=== PATIENT | female | born 1960 ===

== ENCOUNTER 2020-03-22 15:39 | Outpatient (REF) | payer OTHER, SELFPAY ==
--- NOTE | 2020-03-22 | MM_ITS ---
EXAMINATION: MM SCREENING DIGITAL BREAST TOMOSYNTHESIS, BILATERAL CLINICAL INFORMATION: Screening. Asymptomatic. The lifetime risk of breast cancer based on the Tyrer-Cuzick Model is 7%. COMPARISON: Mammography: 11/27/2017, 04/14/2016; outside mammography 11/06/2013, 12/19/2011 ([facility]). TECHNIQUE: Digital breast tomosynthesis is performed in both the craniocaudal and mediolateral oblique views along with computer-aided detection (CAD). Synthesized 2D images are generated from the tomosynthesis. Additional exaggerated left CC view is provided. FINDINGS: There are scattered areas of fibroglandular density (ACR BI-RADS breast composition Category b). There are no significant masses, abnormal calcifications, or other abnormalities. There is no developing density. The axilla and skin contours are unremarkable. IMPRESSION: No significant changes from prior exams. ASSESSMENT: BI-RADS 1: Negative RECOMMENDATION: Routine annual mammography screening. This patient's information was entered into a reminder system with a target due date for their next mammogram.
== END 2020-03-22 15:40 | disposition home or self-care (01) ==
LOC: HO.MAMMO 15:39
PROVIDERS: Visit Provider Internal Medicine
DX: Z12.31 Encounter for screening mammogram for malignant neoplasm of breast (principal)
CPT/HCPCS: 77063; 77067

== ENCOUNTER 2020-04-20 12:13 | Outpatient (REF) | payer OTHER, SELFPAY ==
[2020-04-20 12:59] LABS: MANUAL DIFF FLAG NO
[2020-04-20 13:09] LABS: Basophils Percent Auto 0.7 % (0-2); Hematocrit 37.4 % (37-47); Hemoglobin 11.3 g/dl (12.0-16.0); Lymphocytes Absolute Auto 1.8 X10*3/uL (1.2-4.9); Mean Corpuscular HGB Conc 30.2 g/dl (31.0-35.0); Mean Corpuscular Hemoglobin 25.2 pg (27.0-33.0); Mean Corpuscular Volume 83.3 fL (80-98); Monocytes Absolute Auto 0.4 X10*3/uL (0.1-1.2); Monocytes Percent Auto 8.9 % (2-11); Neutrophils Absolute Auto 2.4 X10*3/uL (2.0-8.3); Neutrophils Percent Auto 52.4 % (45-73); Platelet Count 245 X10*3/uL (160-400); Red Blood Count 4.49 X10*6/uL (4.20-5.50); Red Cell Distribution Width 14.9 % (11.0-16.0); White Blood Count 4.6 X10*3/uL (4.8-10.8)
[2020-04-20 13:39] LABS: Alanine Aminotransferase 14 U/L (0-31); Alkaline Phosphatase 41 U/L (39-117); Anion Gap 11 (12-20); Aspartate Amino Transferase 24 U/L (5-31); Bilirubin Total 0.7 mg/dL (0.0-1.0); Blood Urea Nitrogen 11 mg/dL (9-16); Calcium 8.6 mg/dL (8.4-10.2); Carbon Dioxide 28 mmol/L (22-29); Chloride 106 mmol/L (96-108); Cholesterol 236 mg/dL; Estimated Glomerular Filt Rate > 60; Glucose Fasting 87 mg/dL (60-99); HDL Cholesterol 74 mg/dL; LDL Cholesterol Calculated 152 mg/dl; Potassium 4.9 mmol/l (3.3-5.1); Sodium 140 mmol/L (135-145); Total Protein 6.6 g/dL (6.5-8.0); Triglycerides 54 mg/dL
[2020-04-20 14:03] LABS: Free T4 (Free Thyroxine) 0.89 ng/dL (0.71-1.85); Thyroid Stimulating Hormone 2.73 uIU/mL (0.32-4.0); Vitamin D 25-OH Total 33.6 ng/mL (>30)
[2020-04-20 14:19] LABS: Erythrocyte Sedimentation Rate 18 MM/HR (0-20)
[2020-04-20 14:29] LABS: Folate 13.2 ng/mL (> or = 4.0); Vitamin B12 303 pg/mL (200-900)
[2020-04-20 14:32] LABS: Glucose Urine UA NEG (NEG); Leukocyte Esterase Urine NEG (NEG); Nitrite Urine NEG (NEG); Specific Gravity - Urine 1.015 (1.005-1.025); Urine Blood NEG (NEG); Urine Ketones NEG (NEG); Urine Protein NEG (NEG-TRACE)
[2020-04-20 14:34] LABS: Color Urine YELLOW
[2020-04-20 14:35] LABS: Appearance Urine CLEAR
[2020-04-20 15:03] LABS: RBC Urine 0 /HPF (0); Squamous Epithelial Cell Urine TRACE /LPF; WBC Urine 0-2 /HPF (0-4)
== END 2020-04-20 12:14 | disposition home or self-care (01) ==
LOC: HO.LAB 12:13
PROVIDERS: PCP Internal Medicine; Visit Provider Internal Medicine
DX: E78.5 Hyperlipidemia, unspecified (principal); E03.9 Hypothyroidism, unspecified; M79.7 Fibromyalgia; D51.9 Vitamin B12 deficiency anemia, unspecified; G43.909 Migraine, unspecified, not intractable, without status migrainosus; D50.9 Iron deficiency anemia, unspecified; N32.81 Overactive bladder; E55.9 Vitamin D deficiency, unspecified; M81.0 Age-related osteoporosis without current pathological fracture
CPT/HCPCS: 36415; 80053; 80061; 81001; 82306; 82550; 82607; 82746; 84439; 84443; 85025; 85652

== ENCOUNTER → 2020-04-26 11:37 | Outpatient (BNVA) | payer OTHER, SELFPAY | PROVIDERS: PCP Internal Medicine; Referring Provider Internal Medicine; Visit Provider Internal Medicine | DX: Z76.89 Persons encountering health services in other specified circumstances (principal) ==

== ENCOUNTER 2020-05-24 13:01 | Outpatient (REF) | payer OTHER, SELFPAY ==
--- NOTE | 2020-05-24 13:05 | XR_ITS ---
EXAMINATION: XR HAND, RIGHT CLINICAL INFORMATION: Pain in right finger(s). COMPARISON: Radiographs right hand 09/17/2018. TECHNIQUE: PA, lateral, and oblique views of the right hand. FINDINGS: Bony mineralization is normal. There is no periarticular demineralization. No fracture, dislocation, or destructive process. The ulnar variance is neutral. The carpus shows no joint narrowing or erosive change or visible chondrocalcinosis. The pronator quadratus fat pad appears normal. The MCP and interphalangeal joints show no narrowing or erosive change. XR/XR hand RT min 3V IMPRESSION: Normal right hand.
== END 2020-05-24 13:02 | disposition home or self-care (01) ==
LOC: HO.XRAY 13:01
PROVIDERS: Visit Provider Internal Medicine
DX: M79.644 Pain in right finger(s) (principal)
CPT/HCPCS: 73130

== ENCOUNTER 2020-08-31 07:53 | Outpatient (REF) | payer OTHER, SELFPAY ==
[2020-08-31 08:33] LABS: MANUAL DIFF FLAG NO
[2020-08-31 08:45] LABS: Basophils Percent Auto 0.6 % (0-2); Hematocrit 36.6 % (37-47); Hemoglobin 11.4 g/dl (12.0-16.0); Imm Gran Abs Auto 0.01 X10*3/uL (0.00-0.03); Imm Gran Pct Auto 0.2 % (0.0-0.4); Lymphocytes Absolute Auto 1.8 X10*3/uL (1.2-4.9); Lymphocytes Percent Auto 34.6 % (20-40); Mean Corpuscular HGB Conc 31.1 g/dl (31.0-35.0); Mean Corpuscular Hemoglobin 25.7 pg (27.0-33.0); Mean Corpuscular Volume 82.6 fL (80-98); Monocytes Absolute Auto 0.5 X10*3/uL (0.1-1.2); Monocytes Percent Auto 9.7 % (2-11); Neutrophils Absolute Auto 2.8 X10*3/uL (2.0-8.3); Neutrophils Percent Auto 54.9 % (45-73); Platelet Count 219 X10*3/uL (160-400); Red Blood Count 4.43 X10*6/uL (4.20-5.50); Red Cell Distribution Width 15.2 % (11.0-16.0); White Blood Count 5.2 X10*3/uL (4.8-10.8)
[2020-08-31 09:10] LABS: Alanine Aminotransferase 12 U/L (0-31); Albumin Level 4.3 g/dL (3.5-5.0); Alkaline Phosphatase 42 U/L (39-117); Anion Gap 12 (12-20); Aspartate Amino Transferase 20 U/L (5-31); Bilirubin Total 0.6 mg/dL (0.0-1.0); Blood Urea Nitrogen 13 mg/dL (9-16); Carbon Dioxide 28 mmol/L (22-29); Chloride 105 mmol/L (96-108); Cholesterol 234 mg/dL; Estimated Glomerular Filt Rate > 60; Glucose Fasting 98 mg/dL (60-99); HDL Cholesterol 75 mg/dL; LDL Cholesterol Calculated 143 mg/dl; Sodium 141 mmol/L (135-145); Total Protein 6.8 g/dL (6.5-8.0); Triglycerides 80 mg/dL
[2020-08-31 09:35] LABS: Free T4 (Free Thyroxine) 0.95 ng/dL (0.71-1.85); Thyroid Stimulating Hormone 3.25 uIU/mL (0.32-4.0); Vitamin D 25-OH Total 25.3 ng/mL (>30)
[2020-08-31 10:01] LABS: Glucose Urine UA NEG (NEG); Leukocyte Esterase Urine NEG (NEG); Nitrite Urine NEG (NEG); PH 5.5 (5.0-8.0); Specific Gravity - Urine 1.025 (1.005-1.025); Urine Blood TRACE (NEG); Urine Ketones NEG (NEG); Urine Protein NEG (NEG-TRACE)
[2020-08-31 10:03] LABS: Appearance Urine CLEAR; Color Urine YELLOW
[2020-08-31 10:13] LABS: RBC Urine 0-2 /HPF (0); Squamous Epithelial Cell Urine TRACE /LPF; WBC Urine 0 /HPF (0-4)
== END 2020-08-31 07:54 | disposition home or self-care (01) ==
LOC: HO.LAB 07:53
PROVIDERS: PCP Internal Medicine; Visit Provider Internal Medicine
DX: M79.7 Fibromyalgia (principal); G43.909 Migraine, unspecified, not intractable, without status migrainosus; E78.00 Pure hypercholesterolemia, unspecified; E03.9 Hypothyroidism, unspecified; E55.9 Vitamin D deficiency, unspecified; N32.81 Overactive bladder; M81.0 Age-related osteoporosis without current pathological fracture; K59.00 Constipation, unspecified
CPT/HCPCS: 36415; 80053; 80061; 81001; 81003; 82306; 84439; 84443; 85025

== ENCOUNTER 2020-11-18 07:44 | Outpatient (REF) | payer OTHER, SELFPAY ==
--- NOTE | 2020-11-18 07:47 | EMG_ITS ---
Bilateral median and ulnar motor and sensory studies were performed. Bilateral radial sensory study was performed and paraspinal muscles were tested with a needle. IMPRESSION: Mild bilateral median neuropathy across carpal tunnel. MD JOSE Burr/EMMANUEL / [phone]
== END 2020-11-18 07:45 | disposition home or self-care (01) ==
LOC: HO.NEURO 07:44
PROVIDERS: Visit Provider Internal Medicine
DX: M79.641 Pain in right hand (principal); M79.642 Pain in left hand
CPT/HCPCS: 95886; 95911

== ENCOUNTER 2020-11-30 13:05 | Outpatient (REF) | payer OTHER, SELFPAY ==
--- NOTE | ~2020-11-30 | XR_ITS ---
EXAMINATION: XR HAND, LEFT CLINICAL INFORMATION: Pain. COMPARISON: None TECHNIQUE: PA, lateral, and oblique views of the left hand. FINDINGS: The bones and soft tissues are normal. No fracture. Alignment is anatomic. Joint spaces are maintained. No erosions or soft tissue calcifications. XR/XR hand LT min 3V IMPRESSION: Unremarkable left hand.
[2020-11-30 13:59] LABS: MANUAL DIFF FLAG NO
[2020-11-30 14:05] LABS: Basophils Percent Auto 0.5 % (0-2); Hematocrit 38.8 % (37-47); Hemoglobin 12.1 g/dl (12.0-16.0); Imm Gran Abs Auto 0.02 X10*3/uL (0.00-0.03); Imm Gran Pct Auto 0.3 % (0.0-0.4); Lymphocytes Absolute Auto 1.9 X10*3/uL (1.2-4.9); Lymphocytes Percent Auto 30.7 % (20-40); Mean Corpuscular HGB Conc 31.2 g/dl (31.0-35.0); Mean Corpuscular Hemoglobin 25.6 pg (27.0-33.0); Monocytes Absolute Auto 0.4 X10*3/uL (0.1-1.2); Monocytes Percent Auto 6.8 % (2-11); Neutrophils Absolute Auto 3.8 X10*3/uL (2.0-8.3); Neutrophils Percent Auto 61.7 % (45-73); Platelet Count 234 X10*3/uL (160-400); Red Blood Count 4.73 X10*6/uL (4.20-5.50); Red Cell Distribution Width 14.6 % (11.0-16.0); White Blood Count 6.2 X10*3/uL (4.8-10.8)
[2020-11-30 14:26] LABS: Rheumatoid Factor < 15.0 IU/mL (<15.0)
[2020-11-30 14:28] LABS: Alanine Aminotransferase 8 U/L (0-31); Albumin Level 4.3 g/dL (3.5-5.0); Alkaline Phosphatase 47 U/L (39-117); Anion Gap 12 (12-20); Aspartate Amino Transferase 21 U/L (5-31); Blood Urea Nitrogen 12 mg/dL (9-16); C Reactive Protein 0.11 mg/dL (< or = 0.50); Calcium 9.5 mg/dL (8.4-10.2); Carbon Dioxide 27 mmol/L (22-29); Chloride 105 mmol/L (96-108); Estimated Glomerular Filt Rate > 60; Glucose Random 93 mg/dL (60-115); Potassium 4.3 mmol/L (3.3-5.1); Sodium 140 mmol/L (135-145); Total Protein 7.2 g/dL (6.5-8.0)
[2020-11-30 14:51] LABS: Erythrocyte Sedimentation Rate 17 MM/HR (0-20)
[2020-12-01 10:46] LABS: Lyme Abs Screen <0.90 index
[2020-12-01 12:27] LABS: Antibody to SS-A Antigen <1.0 NEG AI (<1.0 NEG); Antibody to SS-B Antigen <1.0 NEG AI (<1.0 NEG)
[2020-12-01 14:02] LABS: Anti Nuclear Antibody Screen NEGATIVE (NEGATIVE)
[2020-12-01 16:56] LABS: Cyclic Citrullinated Peptide <16 UNITS
== END 2020-11-30 13:06 | disposition home or self-care (01) ==
LOC: HO.LAB 13:05
PROVIDERS: PCP Internal Medicine; Visit Provider Student in an Organized Health Care Education/Training Program
DX: M79.641 Pain in right hand (principal); M79.642 Pain in left hand; M25.50 Pain in unspecified joint
CPT/HCPCS: 36415; 73130; 80053; 82550; 85025; 85652; 86038; 86039; 86140; 86200; 86235; 86431; 86617; 86618; 99202

== ENCOUNTER 2020-12-09 11:07 | Outpatient (REF) | payer OTHER, SELFPAY ==
[2020-12-09 11:30] LABS: MANUAL DIFF FLAG NO
[2020-12-09 11:39] LABS: Basophils Percent Auto 0.8 % (0-2); Hematocrit 38.6 % (37-47); Imm Gran Abs Auto 0.01 X10*3/uL (0.00-0.03); Imm Gran Pct Auto 0.2 % (0.0-0.4); Lymphocytes Absolute Auto 2.1 X10*3/uL (1.2-4.9); Lymphocytes Percent Auto 43.1 % (20-40); Mean Corpuscular HGB Conc 31.1 g/dl (31.0-35.0); Mean Corpuscular Hemoglobin 25.3 pg (27.0-33.0); Mean Corpuscular Volume 81.4 fL (80-98); Mean Platelet Volume 11.4 fL (9.4-12.3); Monocytes Absolute Auto 0.5 X10*3/uL (0.1-1.2); Monocytes Percent Auto 9.3 % (2-11); Neutrophils Absolute Auto 2.3 X10*3/uL (2.0-8.3); Neutrophils Percent Auto 46.6 % (45-73); Platelet Count 260 X10*3/uL (160-400); Red Blood Count 4.74 X10*6/uL (4.20-5.50); White Blood Count 4.9 X10*3/uL (4.8-10.8)
[2020-12-09 11:57] LABS: Alanine Aminotransferase 7 U/L (0-31); Albumin Level 4.3 g/dL (3.5-5.0); Alkaline Phosphatase 51 U/L (39-117); Anion Gap 12 (12-20); Aspartate Amino Transferase 19 U/L (5-31); Bilirubin Total 0.7 mg/dL (0.0-1.0); Blood Urea Nitrogen 10 mg/dL (9-16); Calcium 9.5 mg/dL (8.4-10.2); Carbon Dioxide 23 mmol/L (22-29); Chloride 112 mmol/L (96-108); Cholesterol 241 mg/dL; Estimated Glomerular Filt Rate > 60; Glucose Fasting 101 mg/dL (60-99); HDL Cholesterol 65 mg/dL; LDL Cholesterol Calculated 164 mg/dl; Potassium 4.7 mmol/L (3.3-5.1); Sodium 142 mmol/L (135-145); Total Protein 7.1 g/dL (6.5-8.0); Triglycerides 63 mg/dL
[2020-12-09 12:22] LABS: Free T4 (Free Thyroxine) 1.01 ng/dL (0.71-1.85); Thyroid Stimulating Hormone 0.96 uIU/mL (0.32-4.0)
== END 2020-12-09 11:08 | disposition home or self-care (01) ==
LOC: HO.LAB 11:07
PROVIDERS: PCP Internal Medicine; Visit Provider Internal Medicine
DX: K59.00 Constipation, unspecified (principal); M79.7 Fibromyalgia; E78.00 Pure hypercholesterolemia, unspecified; E03.9 Hypothyroidism, unspecified
CPT/HCPCS: 36415; 80053; 80061; 84439; 84443; 85025

== ENCOUNTER → 2020-12-16 12:51 | Outpatient (BNVA) | payer OTHER, SELFPAY | PROVIDERS: PCP Internal Medicine; Visit Provider Student in an Organized Health Care Education/Training Program | DX: M79.641 Pain in right hand (principal); M79.642 Pain in left hand | CPT/HCPCS: 99212 ==

== ENCOUNTER 2021-02-03 08:53 | Outpatient (REF) | payer OTHER, SELFPAY ==
[2021-02-03 09:36] LABS: Glucose Urine UA NEG (NEG); Leukocyte Esterase Urine 1+ (NEG); Nitrite Urine NEG (NEG); Specific Gravity - Urine <= 1.005 (1.005-1.025); UACC Culture Trigger YES; Urine Blood NEG (NEG); Urine Ketones NEG (NEG); Urine Protein NEG (NEG-TRACE)
[2021-02-03 09:37] LABS: Appearance Urine CLEAR; Color Urine YELLOW
[2021-02-03 09:47] LABS: RBC Urine 0-2 /HPF (0)
[2021-02-03 09:48] LABS: Bacteria Urine TRACE /LPF; Squamous Epithelial Cell Urine 1+ /LPF
[2021-02-03 09:53] LABS: C Reactive Protein 0.11 mg/dL (< or = 0.50)
[2021-02-03 10:24] LABS: Erythrocyte Sedimentation Rate 21 MM/HR (0-20)
[2021-02-04 19:22] LABS: Cyclic Citrullinated Peptide <16 UNITS
== END 2021-02-03 08:54 | disposition home or self-care (01) ==
LOC: HO.LAB 08:53
PROVIDERS: PCP Internal Medicine; Visit Provider Internal Medicine
DX: M25.50 Pain in unspecified joint (principal); M79.641 Pain in right hand; M79.642 Pain in left hand
CPT/HCPCS: 36415; 81001; 85652; 86140; 86200; 87086

== ENCOUNTER → 2021-02-10 08:35 | Outpatient (BNVA) | payer OTHER, SELFPAY | PROVIDERS: PCP Internal Medicine; Visit Provider Internal Medicine | DX: K59.00 Constipation, unspecified (principal) ==

== ENCOUNTER 2021-03-11 08:26 | Outpatient (REF) | payer OTHER, SELFPAY ==
--- NOTE | ~2021-03-11 | MM_ITS ---
EXAMINATION: BONE DENSITOMETRY CLINICAL INDICATION: Encounter for screening for osteoporosis. Encounter for imaging to assess osteoporosis change. COMPARISON: Previous BD dated 01/24/2019 and baseline BD dated 10/28/2013. TECHNIQUE: Using a T-Quad 22 DXA System (software version: 13.1) manufactured by [employer], dual-energy x-ray absorptiometry was performed of the lumbar spine and left hip. The images are of good technical quality. Summary results are attached. FINDINGS: AP SPINE L1-L4: Current: BMD 0.852 g/cm2, Z-score -1.7, T-score -2.7, osteoporosis, 0.2% decrease from previous, 9.9% decrease from baseline (<5% change is not significant). Prior: BMD 0.854 g/cm2. Baseline: BMD 0.946 g/cm2. LEFT FEMUR, NECK: Current: BMD 0.795 g/cm2, Z-score -0.6, T-score -1.7, osteopenia. Prior: BMD 0.686 g/cm2. Baseline: BMD 0.840 g/cm2. LEFT FEMUR, TOTAL: Current: BMD 0.794 g/cm2, Z-score -0.9, T-score -1.7, osteopenia, 9.4% increase from previous, 9.0% decrease from baseline (<5% change is not significant). Prior: BMD 0.726 g/cm2. Baseline: BMD 0.873 g/cm2. IDENTIFIED RISK FACTORS: Family history, (parent hip fracture). Secondary osteoporosis, (intestinal or bowel disease). Osteoporosis. Recurrent falls. Menopause. HISTORY OF FRACTURE: None listed. MEDICATIONS: Bisphosphonates. Calcium or multivitamin. Vitamin D. MM/XR DEXA axial skeleton IMPRESSION: 1. DIAGNOSIS: Osteoporosis based on the lowest T-score value of -2.7 in the lumbar spine applying World Health Organization criteria. 2. 10-YEAR FRACTURE RISK PREDICTION, FRAX: Major osteoporotic fracture (clinical spine, forearm, hip or shoulder) 9.7%. Hip fracture 0.5%. 3. Treatment Recommendations: NOF guidelines recommend consideration for treatment in postmenopausal women and men age 50 and older presenting with the following: -A hip or vertebral (clinical or morphometric) fracture. -T-score less than or equal to -2.5 at the femoral neck or spine after appropriate evaluation to exclude secondary causes. -Low bone mass at the hip or spine and a 10-year fracture probability by FRAX of greater than or equal to 3% for hip fracture or greater than or equal to 20% for major osteoporotic fracture based on the [place] adapted WHO algorithm. 4. Other Recommendations: All treatment decisions require clinical judgment and consideration of individual patient factors, including patient preferences, comorbidities, previous drug use, risk factors not captured in the FRAX model (e.g. frailty, falls, vitamin D deficiency, increased bone turnover, interval significant decline in bone density) and possible under or overestimation of fracture risk by FRAX. Additional medical evaluation for secondary cause of low bone mineral density may be appropriate. FUTURE SCAN RECOMMENDATION: People with diagnosed cases of osteoporosis or at high risk for fracture should have regular bone mineral density tests. For patients eligible for Medicare, routine testing is allowed once every 2 years. The testing frequency can be increased to one year for patients who have rapidly progressing disease, those who are receiving or discontinuing medical therapy to restore bone mass, or have additional risk factors.
[2021-03-11 08:53] LABS: MANUAL DIFF FLAG NO
[2021-03-11 09:59] LABS: Basophils Percent Auto 0.4 % (0-2); Hematocrit 37.6 % (37-47); Hemoglobin 11.4 g/dl (12.0-16.0); Imm Gran Abs Auto 0.01 X10*3/uL (0.00-0.03); Imm Gran Pct Auto 0.2 % (0.0-0.4); Lymphocytes Absolute Auto 1.9 X10*3/uL (1.2-4.9); Mean Corpuscular HGB Conc 30.3 g/dl (31.0-35.0); Mean Corpuscular Hemoglobin 24.7 pg (27.0-33.0); Mean Corpuscular Volume 81.4 fL (80-98); Mean Platelet Volume 11.7 fL (9.4-12.3); Monocytes Absolute Auto 0.5 X10*3/uL (0.1-1.2); Neutrophils Absolute Auto 2.8 X10*3/uL (2.0-8.3); Neutrophils Percent Auto 53.4 % (45-73); Platelet Count 235 X10*3/uL (160-400); Red Blood Count 4.62 X10*6/uL (4.20-5.50); Red Cell Distribution Width 14.8 % (11.0-16.0); White Blood Count 5.2 X10*3/uL (4.8-10.8)
[2021-03-11 10:28] LABS: Alanine Aminotransferase 9 U/L (0-31); Albumin Level 4.3 g/dL (3.5-5.0); Alkaline Phosphatase 47 U/L (39-117); Anion Gap 11 (12-20); Aspartate Amino Transferase 19 U/L (5-31); Bilirubin Total 0.9 mg/dL (0.0-1.0); Blood Urea Nitrogen 18 mg/dL (9-16); Calcium 9.6 mg/dL (8.4-10.2); Carbon Dioxide 30 mmol/L (22-29); Chloride 105 mmol/L (96-108); Cholesterol 230 mg/dL; Estimated Glomerular Filt Rate > 60; Glucose Fasting 96 mg/dL (60-99); HDL Cholesterol 70 mg/dL; LDL Cholesterol Calculated 149 mg/dl; Potassium 4.7 mmol/L (3.3-5.1); Sodium 141 mmol/L (135-145); Total Protein 6.9 g/dL (6.5-8.0); Triglycerides 58 mg/dL
[2021-03-11 10:38] LABS: Appearance Urine CLEAR; Color Urine YELLOW; Glucose Urine UA NEG (NEG); Leukocyte Esterase Urine NEG (NEG); Nitrite Urine NEG (NEG); Urine Blood NEG (NEG); Urine Ketones NEG (NEG); Urine Protein NEG (NEG-TRACE)
[2021-03-11 11:24] LABS: Free T4 (Free Thyroxine) 0.96 ng/dL (0.71-1.85); Thyroid Stimulating Hormone 1.73 uIU/mL (0.32-4.0); Vitamin D 25-OH Total 37.2 ng/mL (>30)
== END 2021-03-11 08:27 | disposition home or self-care (01) ==
LOC: HO.MAMMO 08:26
PROVIDERS: Absent Provider Internal Medicine; PCP Internal Medicine; Visit Provider Internal Medicine
DX: Z00.00 Encounter for general adult medical examination without abnormal findings (principal); M81.0 Age-related osteoporosis without current pathological fracture; M18.0 Bilateral primary osteoarthritis of first carpometacarpal joints; N32.81 Overactive bladder; E55.9 Vitamin D deficiency, unspecified; E03.9 Hypothyroidism, unspecified; E78.00 Pure hypercholesterolemia, unspecified; E66.3 Overweight; K59.00 Constipation, unspecified; M79.7 Fibromyalgia; Z91.81 History of falling; Z78.0 Asymptomatic menopausal state
CPT/HCPCS: 36415; 77080; 80053; 80061; 81003; 82306; 84439; 84443; 85025

== ENCOUNTER 2021-03-25 09:27 | Outpatient (REF) | payer OTHER, SELFPAY | END 2021-03-25 09:28 | disposition home or self-care (01) | LOC: HO.LAB 09:27 | PROVIDERS: PCP Internal Medicine; Visit Provider Advanced Practice Midwife | DX: Z01.419 Encounter for gynecological examination (general) (routine) without abnormal findings (principal); N84.1 Polyp of cervix uteri; Z80.9 Family history of malignant neoplasm, unspecified | CPT/HCPCS: 57500; 58558; 88305 ==

== ENCOUNTER → 2021-04-14 12:34 | Outpatient (BNVA) | payer OTHER, SELFPAY | PROVIDERS: PCP Internal Medicine; Visit Provider Internal Medicine ==

== ENCOUNTER 2021-04-18 07:38 | Outpatient (REF) | payer OTHER, SELFPAY ==
[2021-04-18 09:06] LABS: Alanine Aminotransferase 10 U/L (0-31); Albumin Level 4.3 g/dL (3.5-5.0); Alkaline Phosphatase 45 U/L (39-117); Anion Gap 11 (12-20); Aspartate Amino Transferase 19 U/L (5-31); Bilirubin Total 0.9 mg/dL (0.0-1.0); Blood Urea Nitrogen 12 mg/dL (9-16); Calcium 9.3 mg/dL (8.4-10.2); Carbon Dioxide 30 mmol/L (22-29); Chloride 104 mmol/L (96-108); Estimated Glomerular Filt Rate > 60; Glucose Random 97 mg/dL (60-115); Phosphorus 4.3 mg/dL (2.7-4.5); Potassium 3.9 mmol/L (3.3-5.1); Sodium 141 mmol/L (135-145)
[2021-04-18 09:26] LABS: Free T4 (Free Thyroxine) 1.06 ng/dL (0.71-1.85); Thyroid Stimulating Hormone 2.23 uIU/mL (0.32-4.0); Vitamin D 25-OH Total 45.4 ng/mL (>30)
[2021-04-19 14:17] LABS: Prot Elec - Albumin 4.1 g/dL (3.8-4.8); Prot Elec - Alpha1 0.3 g/dL (0.2-0.3); Prot Elec - Alpha2 0.8 g/dL (0.5-0.9); Prot Elec - Beta 1 0.4 g/dL (0.4-0.6); Prot Elec - Beta 2 0.2 g/dL (0.2-0.5); Prot Elec - Total Protein 6.7 g/dL (6.1-8.1)
[2021-04-20 12:12] LABS: Calcium (PTHI) 9.5 mg/dL (8.6-10.4); PTHI 58 pg/mL (14-64)
[2021-04-21 10:57] LABS: Alkaline Phosphatase Bone 6.7 mcg/L (5.6-29.0)
[2021-04-25 10:11] LABS: N-Telopeptide 52 (see note); NTXCreaRU 174 mg/dL (20-275)
== END 2021-04-18 07:39 | disposition home or self-care (01) ==
LOC: HO.LAB 07:38
PROVIDERS: PCP Internal Medicine; Visit Provider Internal Medicine
DX: M81.0 Age-related osteoporosis without current pathological fracture (principal); E55.9 Vitamin D deficiency, unspecified
CPT/HCPCS: 36415; 80053; 82306; 82523; 83970; 84075; 84100; 84165; 84439; 84443

== ENCOUNTER 2021-04-23 08:19 | Outpatient (REF) | payer OTHER, SELFPAY ==
--- NOTE | ~2021-04-23 | MM_ITS ---
EXAMINATION: MM SCREENING DIGITAL BREAST TOMOSYNTHESIS, BILATERAL CLINICAL INFORMATION: Screening. Asymptomatic. The lifetime risk of breast cancer based on the Tyrer-Cuzick Model is 7%. COMPARISON: Mammography: 03/22/2020, 11/27/2017, 04/14/2016 TECHNIQUE: Digital breast tomosynthesis is performed in both the craniocaudal and mediolateral oblique views along with computer-aided detection (CAD). Synthesized 2D images are generated from the tomosynthesis. FINDINGS: There are scattered areas of fibroglandular density (ACR BI-RADS breast composition Category b). Parenchymal pattern is similar to prior studies. No interval mass or architectural abnormality. No abnormal calcifications. The axilla and skin contours are unremarkable. MM/MM tomosynthesis screening BI IMPRESSION: No mammographic evidence of malignancy. ASSESSMENT: BI-RADS 1: Negative RECOMMENDATION: Routine annual mammography screening. This patient's information was entered into a reminder system with a target due date for their next mammogram.
== END 2021-04-23 08:20 | disposition home or self-care (01) ==
LOC: HO.MAMMO 08:19
PROVIDERS: Visit Provider Internal Medicine
DX: Z12.31 Encounter for screening mammogram for malignant neoplasm of breast (principal)
CPT/HCPCS: 77063; 77067

== ENCOUNTER → 2021-06-09 10:26 | Outpatient (BNVA) | payer OTHER, SELFPAY | PROVIDERS: PCP Internal Medicine; Visit Provider Internal Medicine ==

== ENCOUNTER → 2021-10-26 13:08 | Outpatient (BNVA) | payer OTHER, SELFPAY | PROVIDERS: PCP Internal Medicine; Visit Provider Internal Medicine | DX: Z13.89 Encounter for screening for other disorder (principal) ==

== ENCOUNTER 2021-10-27 07:38 | Outpatient (REF) | payer OTHER, SELFPAY ==
[2021-10-27 08:14] LABS: MANUAL DIFF FLAG NO
[2021-10-27 08:39] LABS: Basophils Percent Auto 0.4 % (0-2); Hematocrit 38.3 % (37.0-47.0); Hemoglobin 11.9 g/dl (12.0-16.0); Imm Gran Abs Auto 0.01 X10*3/uL (0.00-0.03); Imm Gran Pct Auto 0.2 % (0.0-0.4); Lymphocytes Absolute Auto 1.7 X10*3/uL (1.2-4.9); Lymphocytes Percent Auto 36.8 % (20-40); Mean Corpuscular HGB Conc 31.1 g/dl (31.0-35.0); Mean Corpuscular Hemoglobin 25.5 pg (27.0-33.0); Mean Corpuscular Volume 82.2 fL (80.0-98.0); Mean Platelet Volume 11.5 fL (9.4-12.3); Monocytes Absolute Auto 0.4 X10*3/uL (0.1-1.2); Monocytes Percent Auto 8.7 % (2-11); Neutrophils Absolute Auto 2.4 x10*3/uL (2.0-8.3); Neutrophils Percent Auto 53.9 % (45-73); Platelet Count 207 X10*3/uL (160-400); Red Blood Count 4.66 X10*6/uL (4.20-5.50); Red Cell Distribution Width 15.1 % (11.0-16.0); White Blood Count 4.5 X10*3/uL (4.8-10.8)
[2021-10-27 09:14] LABS: Alanine Aminotransferase 12 U/L (0-31); Albumin Level 4.1 g/dL (3.5-5.0); Alkaline Phosphatase 46 U/L (39-117); Anion Gap 11 (12-20); Aspartate Amino Transferase 19 U/L (5-31); Bilirubin Total 0.8 mg/dL (0.0-1.0); Blood Urea Nitrogen 10 mg/dL (9-16); Calcium 9.3 mg/dL (8.4-10.2); Carbon Dioxide 28 mmol/L (22-29); Chloride 106 mmol/L (96-108); Cholesterol 233 mg/dL; Estimated Glomerular Filt Rate > 60; Glucose Fasting 100 mg/dL (60-99); HDL Cholesterol 66 mg/dL; LDL Cholesterol Calculated 156 mg/dl; Phosphorus 3.6 mg/dL (2.7-4.5); Potassium 4.9 mmol/L (3.3-5.1); Sodium 140 mmol/L (135-145); Total Protein 6.9 g/dL (6.5-8.0); Triglycerides 55 mg/dL
[2021-10-27 09:32] LABS: Free T4 (Free Thyroxine) 1.07 ng/dL (0.71-1.85); Thyroid Stimulating Hormone 1.92 uIU/mL (0.32-4.0); Vitamin D 25-OH Total 41.4 ng/mL (>30)
[2021-10-27 09:41] LABS: Free T4 (Free Thyroxine) 1.15 ng/dL (0.71-1.85); Thyroid Stimulating Hormone 1.92 uIU/mL (0.32-4.0); Vitamin D 25-OH Total 41.7 ng/mL (>30)
[2021-10-27 09:49] LABS: Appearance Urine CLEAR; Color Urine YELLOW; Glucose Urine UA NEG (NEG); Leukocyte Esterase Urine NEG (NEG); Nitrite Urine NEG (NEG); PH 6.5 (5.0-8.0); Specific Gravity - Urine 1.015 (1.005-1.025); Urine Blood NEG (NEG); Urine Ketones NEG (NEG); Urine Protein NEG (NEG-TRACE)
[2021-10-27 10:38] LABS: Microalbumin Urine < 5.0 mg/L
[2021-10-28 14:21] LABS: Calcium (PTHI) 9.3 mg/dL (8.6-10.4); PTHI 78 pg/mL (16-77)
== END 2021-10-27 07:39 | disposition home or self-care (01) ==
LOC: HO.LAB 07:38
PROVIDERS: Absent Provider Internal Medicine; PCP Internal Medicine; Visit Provider Internal Medicine
DX: I10 Essential (primary) hypertension (principal); E55.9 Vitamin D deficiency, unspecified; E03.9 Hypothyroidism, unspecified; E78.00 Pure hypercholesterolemia, unspecified; E11.9 Type 2 diabetes mellitus without complications; E21.3 Hyperparathyroidism, unspecified
CPT/HCPCS: 36415; 80053; 80061; 81003; 82043; 82306; 83970; 84100; 84439; 84443; 85025

== ENCOUNTER 2022-03-30 10:04 | Outpatient (REF) | payer OTHER, SELFPAY ==
[2022-04-04 16:02] LABS: HPV mRNA E6/E7 rflx Not Detected (Not Detected)
== END 2022-03-30 10:05 | disposition home or self-care (01) ==
LOC: HO.LNP 10:04
PROVIDERS: Visit Provider Advanced Practice Midwife
DX: Z01.419 Encounter for gynecological examination (general) (routine) without abnormal findings (principal); Z11.51 Encounter for screening for human papillomavirus (HPV)
CPT/HCPCS: 87624; 88142

== ENCOUNTER 2022-04-18 13:33 | Outpatient (REF) | payer OTHER, SELFPAY ==
--- NOTE | ~2022-04-18 | MM_ITS ---
EXAMINATION: MM DIAGNOSTIC DIGITAL BREAST TOMOSYNTHESIS, BILATERAL US DIAGNOSTIC ULTRASOUND BREAST, RIGHT CLINICAL INFORMATION: Area of palpable concern near areolar 12:00 right breast noted at clinical exam. No discharge. The lifetime risk of breast cancer based on the Tyrer-Cuzick Model is 13%. COMPARISON: Mammography: 04/23/2021, 03/22/2020, 11/29/2017 TECHNIQUE: Digital breast tomosynthesis is performed in both the craniocaudal and mediolateral oblique views along with computer-aided detection (CAD). Synthesized 2D images are generated from the tomosynthesis. Ultrasound right breast is targeted to the anterior breast 10:00 through 2:00 position. Grayscale imaging and color Doppler are performed without and with harmonics. FINDINGS: There are scattered areas of fibroglandular density (ACR BI-RADS breast composition Category b). Parenchymal pattern is similar to prior exams. There is no developing density or interval mass or architectural abnormality. No abnormal calcifications. No skin thickening or coarsening of the Darryl's ligaments. The axilla are unremarkable. Ultrasound demonstrates no cystic or solid mass or architectural abnormality. No focal duct ectasia. No skin thickening or edema tracking in soft tissue planes. Results are discussed with the patient at time of visit. There is no mammographic or ultrasound correlate for the clinical concern. If clinically indicated, further evaluation with surgical consult may be considered. MM/MM tomosynthesis diagnostic BI IMPRESSION: -No mammographic evidence of malignancy. -Unremarkable targeted right breast ultrasound. ASSESSMENT: BI-RADS 1: Negative RECOMMENDATION: 1. Patient should be managed based on the clinical impression. If clinically indicated, further evaluation may be considered with surgical consult. Decision to proceed with biopsy should be based on clinical grounds and degree of clinical concern. 2. Otherwise, routine annual screening mammography. This patient's information was entered into a reminder system with a target due date for their next mammogram.
== END 2022-04-18 13:34 | disposition home or self-care (01) ==
LOC: HO.MAMMO 13:33
PROVIDERS: PCP Internal Medicine; Visit Provider Internal Medicine
DX: N64.4 Mastodynia (principal); N64.59 Other signs and symptoms in breast
CPT/HCPCS: 76642; 77062; 77066

== ENCOUNTER → 2022-05-04 10:54 | Outpatient (BNVA) | payer OTHER, SELFPAY | PROVIDERS: PCP Internal Medicine; Visit Provider Advanced Practice Midwife | DX: Z71.2 Person consulting for explanation of examination or test findings (principal); N64.59 Other signs and symptoms in breast; N64.4 Mastodynia | CPT/HCPCS: 99212 ==

== ENCOUNTER 2022-05-30 11:55 | Outpatient (REF) | payer OTHER, SELFPAY ==
--- NOTE | ~2022-05-30 | CT_ITS ---
EXAMINATION: CT head/brain wo IV con CLINICAL INFORMATION: Reason for Exam r/o mass COMPARISON: CT head without contrast 03/08/2016 TECHNIQUE: Contiguous axial imaging was performed from the skull base to vertex without intravenous contrast. Sagittal and coronal reformatted images were obtained. This CT examination was performed using dose optimization techniques as appropriate, variously including the following: * Automated exposure control * Adjustment of mA and/or kV according to patient size (this includes techniques or standardized protocols for targeted exams where dose is matched to indication/reason for exam; i.e. extremities or head) Use of iterative reconstruction technique DLP: 659 mGy-cm FINDINGS: No acute osseous or soft tissue abnormality. The mastoid air cells and visualized portions of the paranasal sinuses are well aerated. There is no evidence of acute intracranial hemorrhage or territorial infarction. No abnormal mass effect or midline shift is seen. [place] to white matter differentiation is well preserved. No extra-axial fluid collections are identified. No hydrocephalus. No significant volume loss. There is no abnormal attenuation within the brain parenchyma. CT/CT head/brain wo IV con IMPRESSION: No acute intracranial abnormality including hemorrhage, mass effect, hydrocephalus, or acute territorial edematous infarction.
[2022-05-30 12:06] LABS: MANUAL DIFF FLAG NO
[2022-05-30 12:36] LABS: Basophils Percent Auto 0.4 % (0-2); Hematocrit 39.4 % (37.0-47.0); Hemoglobin 12.2 g/dl (12.0-16.0); Imm Gran Abs Auto 0.02 X10*3/uL (0.00-0.03); Imm Gran Pct Auto 0.4 % (0.0-0.4); Lymphocytes Absolute Auto 1.9 X10*3/uL (1.2-4.9); Mean Corpuscular Hemoglobin 24.9 pg (27.0-33.0); Mean Corpuscular Volume 80.4 fL (80.0-98.0); Mean Platelet Volume 11.4 fL (9.4-12.3); Monocytes Absolute Auto 0.4 X10*3/uL (0.1-1.2); Monocytes Percent Auto 7.6 % (2-11); Neutrophils Absolute Auto 2.6 x10*3/uL (2.0-8.3); Neutrophils Percent Auto 52.6 % (45-73); Platelet Count 260 X10*3/uL (160-400); Red Cell Distribution Width 15.4 % (11.0-16.0)
[2022-05-30 13:46] LABS: Alanine Aminotransferase 13 U/L (0-31); Albumin Level 4.5 g/dL (3.5-5.0); Alkaline Phosphatase 46 U/L (39-117); Anion Gap 10 (12-20); Aspartate Amino Transferase 27 U/L (5-31); Bilirubin Total 0.8 mg/dL (0.0-1.0); Blood Urea Nitrogen 13 mg/dL (9-16); Calcium 9.3 mg/dL (8.4-10.2); Carbon Dioxide 25 mmol/L (22-29); Chloride 108 mmol/L (96-108); Cholesterol 250 mg/dL; Estimated Glomerular Filt Rate 58; Free T4 (Free Thyroxine) 1.07 ng/dL (0.71-1.85); Glucose Fasting 99 mg/dL (60-99); HDL Cholesterol 71 mg/dL; LDL Cholesterol Calculated 166 mg/dl; Potassium 4.1 mmol/L (3.3-5.1); Sodium 139 mmol/L (135-145); Thyroid Stimulating Hormone 2.42 uIU/mL (0.32-4.0); Total Protein 7.2 g/dL (6.5-8.0); Triglycerides 68 mg/dL; Vitamin D 25-OH Total 42.3 ng/mL (>30)
== END 2022-05-30 11:56 | disposition home or self-care (01) ==
LOC: HO.CT 11:55
PROVIDERS: Absent Provider Internal Medicine; PCP Internal Medicine; Visit Provider Psychiatry & Neurology Neurology
DX: I63.9 Cerebral infarction, unspecified (principal); G43.909 Migraine, unspecified, not intractable, without status migrainosus; E78.00 Pure hypercholesterolemia, unspecified; E03.9 Hypothyroidism, unspecified; E55.9 Vitamin D deficiency, unspecified; I10 Essential (primary) hypertension
CPT/HCPCS: 36415; 70450; 80053; 80061; 82306; 84439; 84443; 85025

== ENCOUNTER → 2022-06-06 13:35 | Outpatient (BNVA) | payer OTHER, SELFPAY | PROVIDERS: PCP Internal Medicine; Visit Provider Surgery | DX: N64.4 Mastodynia (principal) | CPT/HCPCS: 99202 ==

== ENCOUNTER → 2022-08-03 13:43 | Outpatient (BNVA) | payer OTHER, SELFPAY | PROVIDERS: PCP Internal Medicine; Referring Provider Internal Medicine; Visit Provider Surgery | DX: N64.4 Mastodynia (principal) | CPT/HCPCS: 99212 ==

== ENCOUNTER 2022-08-21 08:29 | Outpatient (REF) | payer OTHER, SELFPAY ==
[2022-08-21 08:40] LABS: MANUAL DIFF FLAG NO
[2022-08-21 09:21] LABS: Basophils Percent Auto 0.5 % (0-2); Eosinophils Absolute Auto 0.1 X10*3/uL (0.0-0.4); Eosinophils Percent Auto 0.9 % (0-4); Hematocrit 40.8 % (37.0-47.0); Hemoglobin 12.7 g/dl (12.0-16.0); Imm Gran Abs Auto 0.01 X10*3/uL (0.00-0.03); Imm Gran Pct Auto 0.2 % (0.0-0.4); Lymphocytes Absolute Auto 2.1 X10*3/uL (1.2-4.9); Lymphocytes Percent Auto 36.7 % (20-40); Mean Corpuscular HGB Conc 31.1 g/dl (31.0-35.0); Mean Corpuscular Hemoglobin 25.4 pg (27.0-33.0); Mean Corpuscular Volume 81.6 fL (80.0-98.0); Mean Platelet Volume 11.3 fL (9.4-12.3); Monocytes Absolute Auto 0.5 X10*3/uL (0.1-1.2); Monocytes Percent Auto 9.4 % (2-11); Neutrophils Percent Auto 52.3 % (45-73); Platelet Count 295 X10*3/uL (160-400); Red Cell Distribution Width 15.5 % (11.0-16.0); White Blood Count 5.8 X10*3/uL (4.8-10.8)
[2022-08-21 10:11] LABS: Alanine Aminotransferase 8 U/L (0-31); Albumin Level 4.3 g/dL (3.5-5.0); Alkaline Phosphatase 39 U/L (39-117); Anion Gap 15 (12-20); Aspartate Amino Transferase 17 U/L (5-31); Bilirubin Total 0.8 mg/dL (0.0-1.0); Calcium 9.5 mg/dL (8.4-10.2); Carbon Dioxide 22 mmol/L (22-29); Chloride 107 mmol/L (96-108); Cholesterol 242 mg/dL; Estimated Glomerular Filt Rate 56; Glucose Fasting 102 mg/dL (60-99); HDL Cholesterol 62 mg/dL; LDL Cholesterol Calculated 164 mg/dl; Potassium 4.2 mmol/L (3.3-5.1); Sodium 140 mmol/L (135-145); Triglycerides 80 mg/dL
[2022-08-21 10:41] LABS: Free T4 (Free Thyroxine) 1.07 ng/dL (0.71-1.85); Thyroid Stimulating Hormone 0.84 uIU/mL (0.32-4.0); Vitamin D 25-OH Total 46.1 ng/mL (>30)
[2022-08-21 12:01] LABS: Blood Urea Nitrogen 13 mg/dL (9-16)
== END 2022-08-21 08:30 | disposition home or self-care (01) ==
LOC: HO.LAB 08:29
PROVIDERS: PCP Internal Medicine; Visit Provider Internal Medicine
DX: E03.9 Hypothyroidism, unspecified (principal); E55.9 Vitamin D deficiency, unspecified; E78.00 Pure hypercholesterolemia, unspecified; I10 Essential (primary) hypertension
CPT/HCPCS: 36415; 80053; 80061; 82306; 84439; 84443; 85025

== ENCOUNTER 2022-10-02 08:38 | Outpatient (REF) | payer OTHER, SELFPAY ==
[2022-10-02 12:46] LABS: Alanine Aminotransferase 6 U/L (0-31); Albumin Level 4.3 g/dL (3.5-5.0); Alkaline Phosphatase 40 U/L (39-117); Anion Gap 10 (12-20); Aspartate Amino Transferase 16 U/L (5-31); Blood Urea Nitrogen 13 mg/dL (9-16); Calcium 9.6 mg/dL (8.4-10.2); Carbon Dioxide 26 mmol/L (22-29); Chloride 110 mmol/L (96-108); Estimated Glomerular Filt Rate 59; Glucose Random 88 mg/dL (60-115); Phosphorus 3.2 mg/dL (2.7-4.5); Potassium 4.3 mmol/L (3.3-5.1); Sodium 142 mmol/L (135-145); Total Protein 6.9 g/dL (6.5-8.0)
[2022-10-02 12:56] LABS: Free T4 (Free Thyroxine) 1.05 ng/dL (0.71-1.85); Vitamin D 25-OH Total 49.5 ng/mL (>30)
[2022-10-03 19:43] LABS: Calcium (PTHI) 9.7 mg/dL (8.6-10.4); PTHI 45 pg/mL (16-77)
[2022-10-07 21:23] LABS: Alkaline Phosphatase Bone 7.2 mcg/L (5.6-29.0)
[2022-10-09 01:38] LABS: N-Telopeptide 65 (see note); NTXCreaRU 162 mg/dL (20-275)
== END 2022-10-02 08:39 | disposition home or self-care (01) ==
LOC: HO.LAB 08:38
PROVIDERS: PCP Internal Medicine; Visit Provider Internal Medicine
DX: M81.0 Age-related osteoporosis without current pathological fracture (principal); E03.9 Hypothyroidism, unspecified; E21.3 Hyperparathyroidism, unspecified; E55.9 Vitamin D deficiency, unspecified
CPT/HCPCS: 36415; 80053; 82306; 82523; 83970; 84075; 84100; 84439; 84443; 99212

== ENCOUNTER 2022-11-13 11:16 | Outpatient (REF) | payer OTHER, SELFPAY ==
[2022-11-13 15:22] LABS: Influenza A PCR NEGATIVE (Negative); Influenza B PCR NEGATIVE (Negative); Resp Syncy Virus RNA Qual PCR NEGATIVE (Negative); SARS COV2 PCR INHOUSE NEGATIVE (Negative)
== END 2022-11-13 11:17 | disposition home or self-care (01) ==
LOC: HO.LAB 11:16
PROVIDERS: Visit Provider Internal Medicine
DX: Z20.822 Contact with and (suspected) exposure to COVID-19 (principal); R09.89 Other specified symptoms and signs involving the circulatory and respiratory systems
CPT/HCPCS: 0241U

== ENCOUNTER 2022-12-18 09:44 | Outpatient (AMB) | payer OTHER, SELFPAY ==
--- NOTE | 2022-12-18 09:55 | AM.OFFVISNUR ---
Intake Intake Visit Reasons: b-12 Allergies zolpidem [ZOLPIDEM] Allergy (Severe, Verified 12/01/22 12:47) SLEEPWALKING aspirin [ASPIRIN] Allergy (Intermediate, Verified 12/01/22 12:47) ITCHING/SWELLING, rash,itchy trazodone [TRAZODONE] Allergy (Intermediate, Verified 12/01/22 12:47) NIGHTMARES naproxen [From Anaprox] Allergy (Mild, Verified 12/01/22 12:47) RASH acetaminophen [From PERCOCET] Allergy (Unknown, Verified 12/01/22 12:47) HIVES/NAUSEA amoxicillin [Augmentin] Allergy (Unknown, Verified 12/01/22 12:47) Unknown oxycodone [From PERCOCET] Allergy (Unknown, Verified 12/01/22 12:47) HIVES/NAUSEA butalbital Allergy (Verified 12/01/22 12:47) Rash, Itching eszopiclone [From LUNESTA] Adverse Reaction (Intermediate, Verified 12/01/22 12:47) NIGHTMARES Office Meds cyanocobalamin (vitamin B-12) Performing Provider: Adolph العراقي MD Administered by: Ernestina Wiseman RN on 12/18/22 09:55 Dose Route Admin Location Lot Number Expiration Date [facility] [employer] 1,000 mcg IM left deltoid [id number] 08/01/25 40050-715-18 KAVITA ARRIAGA Coding Diagnoses Assessment & Plan Assessment & Plan Orders: Orders AMB Vitamin B12 Injection Patient Supplied Today E53.8 - Deficiency of other specified B group vitamins
== END 2022-12-18 09:56 | disposition home or self-care (01) ==
PROVIDERS: PCP Internal Medicine; Visit Provider Internal Medicine
DX: E53.8 Deficiency of other specified B group vitamins (principal)
CPT/HCPCS: 96372; J3420

== ENCOUNTER 2023-01-18 09:31 | Outpatient (AMB) | payer OTHER, SELFPAY ==
--- NOTE | 2023-01-18 10:32 | AM.OFFVISNUR ---
Intake Intake Visit Reasons: B12 Shot Allergies zolpidem [ZOLPIDEM] Allergy (Severe, Verified 12/01/22 12:47) SLEEPWALKING aspirin [ASPIRIN] Allergy (Intermediate, Verified 12/01/22 12:47) ITCHING/SWELLING, rash,itchy trazodone [TRAZODONE] Allergy (Intermediate, Verified 12/01/22 12:47) NIGHTMARES naproxen [From Anaprox] Allergy (Mild, Verified 12/01/22 12:47) RASH acetaminophen [From PERCOCET] Allergy (Unknown, Verified 12/01/22 12:47) HIVES/NAUSEA amoxicillin [Augmentin] Allergy (Unknown, Verified 12/01/22 12:47) Unknown oxycodone [From PERCOCET] Allergy (Unknown, Verified 12/01/22 12:47) HIVES/NAUSEA butalbital Allergy (Verified 12/01/22 12:47) Rash, Itching eszopiclone [From LUNESTA] Adverse Reaction (Intermediate, Verified 12/01/22 12:47) NIGHTMARES Office Meds cyanocobalamin (vitamin B-12) Performing Provider: Adolph العراقي MD Administered by: Ernestina Wiseman RN on 01/18/23 10:32 Dose Route Admin Location Lot Number Expiration Date [facility] [employer] 1,000 mcg IM right deltoid [id number] 08/01/25 89132-776-23 KAVITA ARRIAGA Coding Diagnoses Assessment & Plan Assessment & Plan Orders: Orders AMB Vitamin B12 Injection Patient Supplied Today E53.8 - Deficiency of other specified B group vitamins
== END 2023-01-18 10:29 | disposition home or self-care (01) ==
PROVIDERS: PCP Internal Medicine; Visit Provider Internal Medicine
DX: E53.8 Deficiency of other specified B group vitamins (principal)
CPT/HCPCS: 96372; J3420

== ENCOUNTER 2023-01-25 10:27 | Outpatient (REF) | payer OTHER, SELFPAY ==
[2023-01-25 10:44] LABS: MANUAL DIFF FLAG NO
[2023-01-25 12:10] LABS: Basophils Percent Auto 0.6 % (0-2); Hematocrit 39.2 % (37.0-47.0); Imm Gran Abs Auto 0.01 X10*3/uL (0.00-0.03); Imm Gran Pct Auto 0.2 % (0.0-0.4); Lymphocytes Absolute Auto 1.8 X10*3/uL (1.2-4.9); Lymphocytes Percent Auto 39.6 % (20-40); Mean Corpuscular HGB Conc 30.6 g/dl (31.0-35.0); Mean Corpuscular Volume 81.7 fL (80.0-98.0); Mean Platelet Volume 11.8 fL (9.4-12.3); Monocytes Absolute Auto 0.4 X10*3/uL (0.1-1.2); Monocytes Percent Auto 8.4 % (2-11); Neutrophils Absolute Auto 2.4 x10*3/uL (2.0-8.3); Neutrophils Percent Auto 51.2 % (45-73); Platelet Count 252 X10*3/uL (160-400); White Blood Count 4.6 X10*3/uL (4.8-10.8)
[2023-01-25 13:13] LABS: Alanine Aminotransferase 9 U/L (0-31); Albumin Level 4.2 g/dL (3.5-5.0); Alkaline Phosphatase 38 U/L (39-117); Anion Gap 9 (12-20); Aspartate Amino Transferase 19 U/L (5-31); Blood Urea Nitrogen 16 mg/dL (9-16); Calcium 9.3 mg/dL (8.4-10.2); Carbon Dioxide 25 mmol/L (22-29); Chloride 111 mmol/L (96-108); Cholesterol 225 mg/dL (<200); Estimated Glomerular Filt Rate > 60; Glucose Fasting 90 mg/dL (60-99); HDL Cholesterol 67 mg/dL (>40); LDL Cholesterol Calculated 147 mg/dL (<100); Potassium 4.4 mmol/L (3.3-5.1); Sodium 141 mmol/L (135-145); Total Protein 7.1 g/dL (6.5-8.0); Triglycerides 57 mg/dL (<150)
[2023-01-25 13:14] LABS: Vitamin D 25-OH Total 42.8 ng/mL (>30)
== END 2023-01-25 10:28 | disposition home or self-care (01) ==
LOC: HO.LAB 10:27
PROVIDERS: PCP Internal Medicine; Visit Provider Internal Medicine
DX: E78.00 Pure hypercholesterolemia, unspecified (principal); I10 Essential (primary) hypertension; E55.9 Vitamin D deficiency, unspecified
CPT/HCPCS: 36415; 80053; 80061; 82306; 85025

== ENCOUNTER 2023-02-09 14:28 | Outpatient (AMB) | payer OTHER, SELFPAY ==
[2023-02-09 14:35] VITALS: BP 106/78; PULSE 79; O2SAT 99; BMI 20.7
--- NOTE | 2023-02-09 14:35 | MHC.PC.OV ---
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: No Accompanied by: Self / Same As Patient Allergies zolpidem [ZOLPIDEM] Allergy (Severe, Verified 02/09/23 14:59) SLEEPWALKING aspirin [ASPIRIN] Allergy (Intermediate, Verified 02/09/23 14:59) ITCHING/SWELLING, rash,itchy trazodone [TRAZODONE] Allergy (Intermediate, Verified 02/09/23 14:59) NIGHTMARES naproxen [From Anaprox] Allergy (Mild, Verified 02/09/23 14:59) RASH acetaminophen [From PERCOCET] Allergy (Unknown, Verified 02/09/23 14:59) HIVES/NAUSEA amoxicillin [Augmentin] Allergy (Unknown, Verified 02/09/23 14:59) Unknown oxycodone [From PERCOCET] Allergy (Unknown, Verified 02/09/23 14:59) HIVES/NAUSEA butalbital Allergy (Verified 02/09/23 14:59) Rash, Itching eszopiclone [From LUNESTA] Adverse Reaction (Intermediate, Verified 02/09/23 14:59) NIGHTMARES Medication List - Last Reconciled 02/09/23 by Adolph العراقي MD amoxicillin-pot clavulanate 875-125 mg 1 tab PO Q12H 10 days atorvastatin 10 mg PO BEDTIME 30 days calcium citrate-vitamin D3 200 mg-6.25 mcg (250 unit) (Citracal-D3 Petites) 2 tabs PO DAILY 30 days cetirizine 10 mg PO DAILY PRN cholecalciferol (vitamin D3) 50 mcg PO DAILY 30 days cyanocobalamin (vitamin B-12) 1,000 mcg IM Q4W 30 days levothyroxine 75 mcg PO DAILY topiramate 50 mg PO BID Tobacco use date assessed: 02/09/23 Dental Screening Dental Screen Date: 02/09/23 Did you have a dental visit in the last 12 months?: Yes Did you have a dental problem in the last 6 months where you did not have access to dental care?: No Was dental information given to patient?: Patient has dentist HPI 4 month f/u HPI Details Patient comes in today for her follow up visit States that she has been feeling sick for the past week with on and off headaches and dizziness as well as right ear pain Thinks that her her right ear pain are causing her headaches States that she has also been experiencing some pain in the teeth on her right side as a results Relates (+) low grade fever lately; denies any sore throat or any cough/cold symptoms She denies any chest pains, no shortness of breath No nausea/ vomiting, no abdominal pain No change in bowel habits noted States that she needs her B12 injections Rx refilled Had her follow-up labs done a couple of weeks ago - to discuss her results Patient also used to see Dr. Harman for her osteoporosis and hyperparathyroidism and was told recently that she needs to get a new referral as Dr. Harman is leaving the practice Adds that she was also advised by Dr. Buitrago' office that she is due for a repeat colonoscopy and needs to get a new referral from [facility] Medical History (Updated 02/12/23 @ 02:37 by Adolph العرقاي MD) Bilateral hand pain Arthralgia Overweight (BMI 25.0-29.9) Constipation Overactive bladder Migraine Fibromyalgia Pure hypercholesterolemia Pain of right thumb Vitamin D deficiency Hypothyroidism Hyperparathyroidism Osteoporosis B12 deficiency Surgical History Hx of arthroscopy of right knee Hx of arthroscopy of left knee Hx of colonoscopy History of esophagogastroduodenoscopy (EGD) History of carpal tunnel release Family History Father Medical history unknown Mother Medical history unknown Parkinson disease Family/Other Colon cancer Daughter History of breast cancer, Onset Age: 21 Sister Uterine cancer Sister Colon cancer Social History Housing: House Alcohol intake: never Patient Tobacco Use Status: Never used Tobacco e-Cigarette/Vaping Use: Never Used Second Hand Smoke Exposure: Yes service: No Current occupational status: disabled Cognitive needs: No Hearing needs: No Vision needs: Yes (reading glasses) Questionnaire PHQ-9 Over the last 2 weeks, how often have you been bothered by any of the following problems? 1. Little interest or pleasure in doing things: not at all 2. Feeling down, depressed, or hopeless: not at all 3. Trouble falling or staying asleep, or sleeping too much: not at all 4. Feeling tired or having little energy: not at all 5. Poor appetite or overeating: not at all 6. Feeling bad about yourself - or that you are a failure or have let yourself or your family down: not at all 7. Trouble concentrating on things, such as reading the newspaper or watching television: not at all 8. Moving or speaking so slowly that other people could have noticed. Or the opposite - being so fidgety or restless that you have been moving around a lot more than usual: not at all 9. Thoughts that you would be better off or of hurting yourself in some way: not at all Total score: 0 Depression Screening Interpretation: Negative 28986 - PHQ-9 Billing: Yes Source: Developed by Drs. Rex Iniguez, Chichi Tanner, Figueroa Allen and colleagues, with an educational johnna from [employer]. Thrive Questionnaire Date Thrive assessed: 02/09/23 I am a: Patient What is your living situation today?: I have a steady place to live Within the past 12 months, did the food you bought not last and you didn't have the money to get more?: Never true Within the past 12 months, did you worry whether your food would run out before you got money to buy more?: Never true Do you have trouble paying for medicines?: No Do you have trouble getting transportation to medical appointments?: No Do you have trouble paying your heating and electricity bill?: No Do you have trouble taking care of your child, family member or friend?: No Do you have trouble with day-to-day activities such as bathing, preparing meals, shopping, managing finances, etc.?: No Are you currently unemployed and looking for a job?: No Are you interested in more education?: No Please select the resources that you would like help with: None Currently or been in a relationship where the following occur: no concerns reported AUDIT C Alcohol Use Questionnaire (AUDIT-C) 1. How often do you have a drink containing alcohol?: Never 3. How often do you have six or more drinks on one occasion?: Never Total Score: 0 Score Reviewed/Action Taken: Yes JOSELITO-7 AMB Questionnaire JOSELITO-7 Date JOSELITO - 7 assessed: 02/09/23 Feeling nervous, anxious, or on edge: 0 = Not at all Not being able to stop or control worryin = Not at all Worrying too much about different things: 0 = Not at all Trouble relaxin = Not at all Being so restless that it is hard to sit still: 0 = Not at all Becoming easily annoyed or irritable: 0 = Not at all Feeling afraid as if something awful might happen: 0 = Not at all Total JOSELITO-7 score (0-4 normal; 5-9 mild; 10-14 moderate; 15-21 severe): 0 Source: Developed by Drs. Rex Iniguez, Chichi Tanner, Figueroa Allen and colleagues, with an educational jonhna from [employer]. Review of Systems Const Denies chills, Reports fatigue, Reports fever(s) (low-grade) and Reports headache(s) (on and off) ENT Denies dysphagia, Reports dizziness (on and off), Reports otalgia (right ear pain), Reports headache(s) (on and off), Denies nasal congestion, Denies neck pain, Denies odynophagia and Denies sore throat Card Denies chest pain, Denies palpitations and Denies dyspnea Resp Denies cough and Denies dyspnea GI Denies abdominal pain, Denies constipation, Denies dysphagia, Denies heartburn, Denies diarrhea, Denies nausea, Denies odynophagia and Denies vomiting Denies difficulty voiding, Denies nocturia and Denies dysuria Musc Denies neck pain Neuro Reports dizziness (on and off) and Reports headache(s) (on and off) Endo Reports fatigue and Denies palpitations Physical exam (Primary Care) Vital Signs: Last Vital Signs Pulse 79 02/09/23 14:35 BP 106/78 02/09/23 14:35 Pulse Ox 99 02/09/23 14:35 Oxygen Delivery Method Room Air 02/09/23 14:35 BMI result Body Mass Index 20.7 Tobacco/Smoking Status: Tobacco use Status Tobacco use date assessed 02/09/23 02/09/23 14:41 Patient Tobacco Use Status Never used Tobacco 02/09/23 14:41 e-Cigarette/Vaping Use Never Used 02/09/23 14:41 PHQ-9: PHQ-9 Score PHQ-9: Total score 0 02/11/23 22:43 Depression Screening Interpretation: Negative Thrive Assessment: Date of Thrive Assessment Date Thrive assessed 02/09/23 02/09/23 14:41 Currently or been in a relationship where the following occur: no concerns reported Const General: no acute distress and alert HENMT Ears: TM's normal bilaterally and Abnormal EAC present erythema on the right and EAC tenderness on the right Throat: Yes posterior oropharynx normal and Yes tonsils normal (no TP congestion noted) Neck Neck: Yes no lymphadenopathy and Yes supple Resp Auscultation: clear to auscultation bilaterally, no rales and no wheezes Cardio Rate: regular rate Rhythm: regular rhythm Heart sounds: no murmurs GI Palpation (GI): Soft to palpation and nontender Auscultation: normal bowel sounds Extrem General: Yes no clubbing, cyanosis or edema Assessment and Plan Assessment & Plan (1) Pure hypercholesterolemia: Code(s): E78.00 - Pure hypercholesterolemia, unspecified Plan: Results of her labs done a couple of weeks ago reviewed and discussed with patient - her cholesterol levels have improved slightly from previous Reinforced low cholesterol diet Continue Atorvastatin 10 mg QD Will recheck her labs and fasting lipids in 4 months for follow up (2) Migraine: Code(s): G43.909 - Migraine, unspecified, not intractable, without status migrainosus Qualifiers: Intractability: not intractable Migraine type: unspecified Status migrainosus presence: without status migrainosus Qualified Code(s): G43.909 - Migraine, unspecified, not intractable, without status migrainosus Plan: Recalls that her migraine headaches were better controlled when she was on Topiramate for headache prophylaxis but they have increased significantly since her Topiramate was discontinued by endocrinology a few months ago Have offered to start on Amitriptyline but she recalled gaining a lot of weight while she was on Amitriptyline in the past and prefers not to restart Amitriptyline Continue Fioricet PRN Follow up with neurology (Dr. Shi) as scheduled (3) Hypothyroidism: Code(s): E03.9 - Hypothyroidism, unspecified Qualifiers: Hypothyroidism type: unspecified Qualified Code(s): E03.9 - Hypothyroidism, unspecified Plan: TFTs were normal on her recent labs Continue Levothyroxine 75 mcg QD Follow up with endocrinology as scheduled (4) Osteoporosis: Code(s): M81.0 - Age-related osteoporosis without current pathological fracture Qualifiers: Osteoporosis type: unspecified Presence of current pathological fracture: unspecified Qualified Code(s): M81.0 - Age-related osteoporosis without current pathological fracture Plan: Repeat BMD done on 03/11/2021 revealed (+) osteoporosis based on the lowest T-score value of -2.7 in the lumbar spine. Patient cautioned that her BMD has declined by 9% or more in both her lumbar spine and left femur? BMD on 01/24/2019 also showed a 12% decrease in BMD at her femur from her previous scan in 2017; AP spine BMD is unchanged from before Patient could not tolerate Alendronate (GI symptoms) and was supposed to be started on Prolia injections that will be managed by endocrinology but she has not began the Rx yet Follow-up with endocrinology as scheduled - will make out a new referral for her as Dr. Harman is leaving the practice (5) Vitamin D deficiency: Code(s): E55.9 - Vitamin D deficiency, unspecified Plan: Continue Vitamin D2 2000 units QD (6) B12 deficiency: Code(s): E53.8 - Deficiency of other specified B group vitamins Plan: Continue Vitamin B12 injections monthly - Rx refilled (7) Fibromyalgia: Code(s): M79.7 - Fibromyalgia Plan: Encouraged again to exercise regularly and stay active to help manage her fibromyalgia symptoms better Used to take Tizanidine 4 mg TID PRN but she has not had to take Rx in a while now (8) Constipation: Code(s): K59.00 - Constipation, unspecified Qualifiers: Constipation type: unspecified constipation type Qualified Code(s): K59.00 - Constipation, unspecified Plan: Encouraged increased oral fluids and dietary fiber Continue MiraLax powder 17 g daily as instructed; no longer has to take Amitiza lately Follow-up with GI (Dr. Buitrago) as scheduled - has been advised that she is due for a repeat colonoscopy and needs to get a new referral (9) Overactive bladder: Code(s): N32.81 - Overactive bladder Plan: Follow up with urology as scheduled (10) Right otitis externa: Code(s): H60.91 - Unspecified otitis externa, right ear Qualifiers: Otitis externa type: unspecified type Chronicity: acute Qualified Code(s): H60.501 - Unspecified acute noninfective otitis externa, right ear Plan: Will start patient on Augmentin 875 mg BID x 7 days Plan Follow up in 4 months Orders: Orders Lipid Panel 4 Months E78.00 - Pure hypercholesterolemia, unspecified Comprehensive [place]. Panel Fast 4 Months E78.00 - Pure hypercholesterolemia, unspecified PTHI 4 Months E55.9 - Vitamin D deficiency, unspecified, M81.0 - Age-related osteoporosis without current pathological fracture Vitamin D 25-OH Total 4 Months E55.9 - Vitamin D deficiency, unspecified, M81.0 - Age-related osteoporosis without current pathological fracture Alkaline Phosphatase Bone 4 Months M81.0 - Age-related osteoporosis without current pathological fracture Collagen Crosslinks NTX 4 Months M81.0 - Age-related osteoporosis without current pathological fracture Complete Blood Count Auto Diff 4 Months I10 - Essential (primary) hypertension Calcium, 24 Hr Ur 4 Months E55.9 - Vitamin D deficiency, unspecified, M81.0 - Age-related osteoporosis without current pathological fracture Phosphorus 4 Months M81.0 - Age-related osteoporosis without current pathological fracture Thyroid Stimulating Hormone 4 Months E03.9 - Hypothyroidism, unspecified Free T4 (Free Thyroxine) 4 Months E03.9 - Hypothyroidism, unspecified Referrals Endocrinology Referral M81.0 - Age-related osteoporosis without current pathological fracture Gastroenterology Referral Z12.11 - Encounter for screening for malignant neoplasm of colon Medications: New amoxicillin-pot clavulanate 875-125 mg 1 tab PO BID 7 days 14 tabs 0RF Refilled cyanocobalamin (vitamin B-12) 1,000 mcg IM Q4W 30 days 1 mL 1RF E53.8 - Deficiency of other specified B group vitamins Coding Level of Care Code Est Pt Level 4 (19610) Diagnoses Pure hypercholesterolemia E78.00 Migraine without status migrainosus, not intractable, unspecified migraine type G43.909 Intractability: not intractable Migraine type: unspecified Status migrainosus presence: without status migrainosus Hypothyroidism, unspecified type E03.9 Hypothyroidism type: unspecified Osteoporosis, unspecified osteoporosis type, unspecified pathological fracture presence M81.0 Osteoporosis type: unspecified Presence of current pathological fracture: unspecified Vitamin D deficiency E55.9 B12 deficiency E53.8 Fibromyalgia M79.7 Constipation, unspecified constipation type K59.00 Constipation type: unspecified constipation type Overactive bladder N32.81 Acute otitis externa of right ear, unspecified type H60.501 Otitis externa type: unspecified type Chronicity: acute
== END 2023-02-09 15:18 | disposition home or self-care (01) ==
PROVIDERS: PCP Internal Medicine; Visit Provider Internal Medicine
DX: E78.00 Pure hypercholesterolemia, unspecified (principal); G43.909 Migraine, unspecified, not intractable, without status migrainosus; E03.9 Hypothyroidism, unspecified; E55.9 Vitamin D deficiency, unspecified; M81.0 Age-related osteoporosis without current pathological fracture; E53.8 Deficiency of other specified B group vitamins; M79.7 Fibromyalgia; K59.00 Constipation, unspecified; N32.81 Overactive bladder; H60.501 Unspecified acute noninfective otitis externa, right ear
CPT/HCPCS: 99214

== ENCOUNTER 2023-03-21 13:16 | Outpatient (AMB) | payer OTHER, SELFPAY ==
--- NOTE | 2023-03-21 13:50 | AM.OFFVISNUR ---
Intake Intake Visit Reasons: B12 Allergies zolpidem [ZOLPIDEM] Allergy (Severe, Verified 02/09/23 14:59) SLEEPWALKING aspirin [ASPIRIN] Allergy (Intermediate, Verified 02/09/23 14:59) ITCHING/SWELLING, rash,itchy trazodone [TRAZODONE] Allergy (Intermediate, Verified 02/09/23 14:59) NIGHTMARES naproxen [From Anaprox] Allergy (Mild, Verified 02/09/23 14:59) RASH acetaminophen [From PERCOCET] Allergy (Unknown, Verified 02/09/23 14:59) HIVES/NAUSEA amoxicillin [Augmentin] Allergy (Unknown, Verified 02/09/23 14:59) Unknown oxycodone [From PERCOCET] Allergy (Unknown, Verified 02/09/23 14:59) HIVES/NAUSEA butalbital Allergy (Verified 02/09/23 14:59) Rash, Itching eszopiclone [From LUNESTA] Adverse Reaction (Intermediate, Verified 02/09/23 14:59) NIGHTMARES Office Meds cyanocobalamin (vitamin B-12) 1,000 mcg/mL injection solution Performing Provider: Adolph العراقي MD [facility] Administered by: Kamaljit Jay RN on 03/21/23 13:45 Dose Route Admin Location Dispensed Lot Number Expiration Date [facility] Form Layer 1,000 mcg IM right deltoid 1 mL 06/04/24 Comments: patient consented for B12 injection. orders verified. tolerated well. Coding Assessment & Plan Assessment & Plan Orders: Orders AMB Vitamin B12 Injection Patient Supplied Today E53.8 - Deficiency of other specified B group vitamins
== END 2023-03-21 13:47 | disposition home or self-care (01) ==
PROVIDERS: PCP Internal Medicine; Visit Provider Internal Medicine
DX: E53.8 Deficiency of other specified B group vitamins (principal)
CPT/HCPCS: 96372; J3420

== ENCOUNTER 2023-04-20 08:50 | Outpatient (AMB) | payer OTHER, SELFPAY ==
--- NOTE | 2023-04-20 09:00 | MHC.OFFVIS ---
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 Last colonoscopy 3 yrs ago. Detective And Intelligence Analyst Required: No Information Interpreted: non-clinical & clinical Aquarium Tank Attendant: Aquarium Tank Attendant Present (Aundrea Shaka SOMERS) Accompanied by: Self / Same As Patient Allergies zolpidem [ZOLPIDEM] Allergy (Severe, Verified 04/20/23 09:06) SLEEPWALKING aspirin [ASPIRIN] Allergy (Intermediate, Verified 04/20/23 09:06) ITCHING/SWELLING, rash,itchy trazodone [TRAZODONE] Allergy (Intermediate, Verified 04/20/23 09:06) NIGHTMARES naproxen [From Anaprox] Allergy (Mild, Verified 04/20/23 09:06) RASH acetaminophen [From PERCOCET] Allergy (Unknown, Verified 04/20/23 09:06) HIVES/NAUSEA amoxicillin [Augmentin] Allergy (Unknown, Verified 04/20/23 09:06) Unknown oxycodone [From PERCOCET] Allergy (Unknown, Verified 04/20/23 09:06) HIVES/NAUSEA butalbital Allergy (Verified 04/20/23 09:06) Rash, Itching eszopiclone [From LUNESTA] Adverse Reaction (Intermediate, Verified 04/20/23 09:06) NIGHTMARES Post menopausal: Yes HPI HPI Comments History of Present Illness Details She is a postmenopausal woman presenting for annual exam. Doing well with no site surveyor concerns. She attempts to eat a healthy diet including Calcium and Vitamin D. She stays active with exercise. Not currently sexually active. Denies vaginal itching and irritation. STD screening offered; she declines. Last pap smear 2021. Last mammogram 04/18/22. UTD on colonoscopy. She discussed her concerns regarding her daughter's cervical cancer and second breast cancer diagnosis. Her daughter is now undergoing the need for cardiac valve replacement due to radiation. [facility] Medical History Bilateral hand pain Arthralgia Overweight (BMI 25.0-29.9) Constipation Overactive bladder Migraine Fibromyalgia Pure hypercholesterolemia Pain of right thumb Vitamin D deficiency Hypothyroidism Hyperparathyroidism Osteoporosis B12 deficiency Surgical History Hx of arthroscopy of right knee Hx of arthroscopy of left knee Hx of colonoscopy History of esophagogastroduodenoscopy (EGD) History of carpal tunnel release Family History Father Medical history unknown Mother Medical history unknown Parkinson disease Family/Other Colon cancer Daughter History of breast cancer, Onset Age: 21 Cervical cancer Sister Uterine cancer Sister Colon cancer Social History Household Members Other:: daughter Housing: House Alcohol intake: never Patient Tobacco Use Status: Never used Tobacco e-Cigarette/Vaping Use: Never Used Second Hand Smoke Exposure: Yes service: No Current occupational status: disabled Sexually active: No Sexual orientation: Straight/Heterosexual Gender identity: Female Cognitive needs: No Hearing needs: No Vision needs: Yes (reading glasses) Female Reproductive History Menstrual Menopause type: natural Total pregnancies: 3 Full term: 3 Number of Living Children: 3 Date of last pap smear: 03/30/22 Date of Mammogram: 04/18/22 Review of Systems Const All systems reviewed & are unremarkable except as noted in HPI and below Physical Exam Vital Signs: Last Vital Signs BP 98/60 04/20/23 09:04 BMI result Body Mass Index 20.1 Const General: cooperative, healthy appearing, no acute distress, well developed, alert and other (tearful discussing daughter's medical conditions) Orientation/consciousness: patient oriented x3 HEENT Head: Yes normal to inspection Eyes General: appearance normal, both eyes and all related structures Neck Neck: Yes normal visual inspection Thyroid: Thyroid normal Chest Chest palpation & inspection: normal inspection of the chest Breast/axilla inspection: normal inspection of the breasts (no puckering, dimpling, peau de orange, retraction, discharge, masses) Breast/axilla palpation: normal palpation of the breasts Resp Effort & Inspection: normal respiratory effort GI Inspection: Yes normal to inspection Palpation (GI): Soft to palpation Rectal Exam - Female: deferred General: Yes bladder normal to palpation External Female Exam: normal external appearance and normal appearance of the urethra Speculum Exam - Vagina: normal appearance of the vagina, normal palpation, normal vaginal discharge and vagina atrophic Speculum Exam - Cervix: normal appearance of the cervix and normal palpation Bimanual exam- vagina & uterus: normal bimanual exam, normal palpation, uterine size normal, bladder normal to palpation and normal palpation Bimanual Exam- Adnexa, other: normal adnexae and no masses Skin General skin exam: no rashes or lesions noted Neuro General: patient oriented x3 Cognition (Neuro): normal cognition Extrem General: Yes normal to inspection Psych Attitude: cooperative Thought process: Normal thought process present Assessment & Plan Assessment & Plan (1) Encounter for annual routine gynecological examination: Code(s): Z01.419 - Encounter for gynecological examination (general) (routine) without abnormal findings Plan: Discussed: Current recommendations for pap smears per ASCCP guidelines.? Breast awareness and periodic self breast exams. Encouraged yearly mammograms. Mammogram ordered today. Maintaining a healthy lifestyle including a well balanced diet including 1200mg Calcium and 600-800iu Vitamin D daily and routine exercise. Contact office with any PMB. All of her questions and concerns were addressed to the best of my ability. RTO in one year for AG. Orders: Orders MM tomosynthesis screening BI Today Z12.31 - Encounter for screening mammogram for malignant neoplasm of breast Coding Level of Care Code Est Pt Prev Care 40-64y(60278) Diagnoses Encounter for annual routine gynecological examination Z01.419
[2023-04-20 09:04] VITALS: BP 98/60; BMI 20.1
== END 2023-04-20 09:35 | disposition home or self-care (01) ==
PROVIDERS: Visit Provider Advanced Practice Midwife
DX: Z01.419 Encounter for gynecological examination (general) (routine) without abnormal findings (principal)
CPT/HCPCS: 99396

== ENCOUNTER → 2023-04-20 08:50 | Outpatient (BNVA) | payer OTHER, SELFPAY | PROVIDERS: Visit Provider Advanced Practice Midwife ==

== ENCOUNTER 2023-04-23 12:44 | Outpatient (AMB) | payer OTHER, SELFPAY ==
--- NOTE | 2023-04-23 13:09 | AM.OFFVISNUR ---
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: No Accompanied by: Self / Same As Patient Allergies zolpidem [ZOLPIDEM] Allergy (Severe, Verified 04/20/23 09:06) SLEEPWALKING aspirin [ASPIRIN] Allergy (Intermediate, Verified 04/20/23 09:06) ITCHING/SWELLING, rash,itchy trazodone [TRAZODONE] Allergy (Intermediate, Verified 04/20/23 09:06) NIGHTMARES naproxen [From Anaprox] Allergy (Mild, Verified 04/20/23 09:06) RASH acetaminophen [From PERCOCET] Allergy (Unknown, Verified 04/20/23 09:06) HIVES/NAUSEA amoxicillin [Augmentin] Allergy (Unknown, Verified 04/20/23 09:06) Unknown oxycodone [From PERCOCET] Allergy (Unknown, Verified 04/20/23 09:06) HIVES/NAUSEA butalbital Allergy (Verified 04/20/23 09:06) Rash, Itching eszopiclone [From LUNESTA] Adverse Reaction (Intermediate, Verified 04/20/23 09:06) NIGHTMARES Office Meds cyanocobalamin (vitamin B-12) 1,000 mcg/mL injection solution Performing Provider: Adolph العراقي MD [facility] Administered by: Kamaljit Jay RN on 04/23/23 13:00 Dose Route Admin Location Dispensed Lot Number Expiration Date NDC Bacteriology Research Assistant 1,000 mcg IM left deltoid 1 mL [id number] 08/02/24 11572-689-26 [employer] Comments: patient consented for b12 injection today. tolerated well. Coding Assessment & Plan Assessment & Plan Plan b12 given today per orders. Orders: Orders AMB Vitamin B12 Injection Patient Supplied Today E53.8 - Deficiency of other specified B group vitamins
--- NOTE | 2023-04-23 13:20 | AM.OFFVISNUR ---
Intake Visit Reasons: b12 Allergies morphine Allergy (Severe, Verified 04/21/24 14:44) Unresponsive zolpidem [ZOLPIDEM] Allergy (Severe, Verified 04/21/24 14:44) SLEEPWALKING aspirin [ASPIRIN] Allergy (Intermediate, Verified 04/21/24 14:44) ITCHING/SWELLING, rash,itchy ibuprofen Allergy (Intermediate, Verified 04/21/24 14:44) Swelling trazodone [TRAZODONE] Allergy (Intermediate, Verified 04/21/24 14:44) NIGHTMARES naproxen [From Anaprox] Allergy (Mild, Verified 04/21/24 14:44) RASH acetaminophen [From PERCOCET] Allergy (Unknown, Verified 04/21/24 14:44) HIVES/NAUSEA amoxicillin [Augmentin] Allergy (Unknown, Verified 04/21/24 14:44) Unknown oxycodone [From PERCOCET] Allergy (Unknown, Verified 04/21/24 14:44) HIVES/NAUSEA butalbital Allergy (Verified 04/21/24 14:44) Rash, Itching eszopiclone [From LUNESTA] Adverse Reaction (Intermediate, Verified 04/21/24 14:44) NIGHTMARES Office Meds cyanocobalamin (vitamin B-12) 1,000 mcg/mL injection solution Performing Provider: Adolph العراقي MD [facility] Administered by: Kamaljit Jay RN on 04/23/23 13:00 Dose Route Admin Location Dispensed Lot Number Expiration Date [employer] Clerk 1,000 mcg IM left deltoid 1 mL [id number] 08/02/24 17098-886-10 [employer] Comments: patient consented for b12 injection today. tolerated well.
== END 2023-04-23 13:04 | disposition home or self-care (01) ==
PROVIDERS: PCP Internal Medicine; Visit Provider Internal Medicine
DX: E53.8 Deficiency of other specified B group vitamins (principal)
CPT/HCPCS: 96372; J3420

== ENCOUNTER 2023-05-21 12:07 | Outpatient (REF) | payer OTHER, SELFPAY ==
[2023-05-21 12:44] LABS: MANUAL DIFF FLAG NO
[2023-05-21 14:16] LABS: Basophils Percent Auto 0.6 % (0-2); Hematocrit 39.4 % (37.0-47.0); Hemoglobin 12.3 g/dl (12.0-16.0); Imm Gran Abs Auto 0.01 X10*3/uL (0.00-0.03); Imm Gran Pct Auto 0.2 % (0.0-0.4); Lymphocytes Absolute Auto 1.6 X10*3/uL (1.2-4.9); Lymphocytes Percent Auto 34.8 % (20-40); Mean Corpuscular HGB Conc 31.2 g/dl (31.0-35.0); Mean Corpuscular Hemoglobin 25.8 pg (27.0-33.0); Mean Corpuscular Volume 82.8 fL (80.0-98.0); Mean Platelet Volume 11.6 fL (9.4-12.3); Monocytes Absolute Auto 0.4 X10*3/uL (0.1-1.2); Monocytes Percent Auto 8.5 % (2-11); Neutrophils Absolute Auto 2.6 x10*3/uL (2.0-8.3); Neutrophils Percent Auto 55.9 % (45-73); Platelet Count 249 X10*3/uL (160-400); Red Blood Count 4.76 X10*6/uL (4.20-5.50); Red Cell Distribution Width 15.6 % (11.0-16.0); White Blood Count 4.7 X10*3/uL (4.8-10.8)
[2023-05-21 14:19] LABS: Alanine Aminotransferase 12 U/L (0-31); Albumin Level 4.2 g/dL (3.5-5.0); Alkaline Phosphatase 36 U/L (39-117); Anion Gap 12 (12-20); Aspartate Amino Transferase 20 U/L (5-31); Bilirubin Total 0.7 mg/dL (0.0-1.0); Blood Urea Nitrogen 18 mg/dL (9-16); Calcium 8.8 mg/dL (8.4-10.2); Carbon Dioxide 23 mmol/L (22-29); Chloride 109 mmol/L (96-108); Cholesterol 217 mg/dL (<200); Estimated Glomerular Filt Rate > 60; Glucose Fasting 94 mg/dL (60-99); HDL Cholesterol 73 mg/dL (>40); LDL Cholesterol Calculated 132 mg/dL (<100); Phosphorus 3.3 mg/dL (2.7-4.5); Potassium 3.7 mmol/L (3.3-5.1); Sodium 140 mmol/L (135-145); Triglycerides 63 mg/dL (<150)
[2023-05-21 14:24] LABS: Free T4 (Free Thyroxine) 1.02 ng/dL (0.71-1.85); Thyroid Stimulating Hormone 2.56 uIU/mL (0.32-4.0); Vitamin D 25-OH Total 40.8 ng/mL (>30)
[2023-05-29 15:49] LABS: N-Telopeptide 48 (see note); NTXCreaRU 98 mg/dL (20-275)
== END 2023-05-21 12:08 | disposition home or self-care (01) ==
LOC: HO.LAB 12:07
PROVIDERS: PCP Internal Medicine; Visit Provider Internal Medicine
DX: M81.0 Age-related osteoporosis without current pathological fracture (principal); E55.9 Vitamin D deficiency, unspecified; I10 Essential (primary) hypertension; E03.9 Hypothyroidism, unspecified; E78.00 Pure hypercholesterolemia, unspecified
CPT/HCPCS: 36415; 80053; 80061; 82306; 82523; 84075; 84100; 84439; 84443; 85025

== ENCOUNTER 2023-05-23 13:04 | Outpatient (AMB) | payer OTHER, SELFPAY ==
--- NOTE | 2023-05-23 13:08 | MHC.PC.OV ---
Vital Signs 05/23/23 13:09 Height 5 ft 4 in Weight 117 lb 8 oz BMI 20.2 BP 120/82 Blood Pressure Location Lt brachial Position Sitting Pulse 84 Pulse Source Pulse Oximeter Pulse Oximetry (%) 99 Oxygen Delivery Method Room Air Intake Visit Reasons: 3 month f/u Ship'S Master Required: No Accompanied by: Self / Same As Patient Allergies zolpidem [ZOLPIDEM] Allergy (Severe, Verified 05/23/23 14:15) SLEEPWALKING aspirin [ASPIRIN] Allergy (Intermediate, Verified 05/23/23 14:15) ITCHING/SWELLING, rash,itchy trazodone [TRAZODONE] Allergy (Intermediate, Verified 05/23/23 14:15) NIGHTMARES naproxen [From Anaprox] Allergy (Mild, Verified 05/23/23 14:15) RASH acetaminophen [From PERCOCET] Allergy (Unknown, Verified 05/23/23 14:15) HIVES/NAUSEA amoxicillin [Augmentin] Allergy (Unknown, Verified 05/23/23 14:15) Unknown oxycodone [From PERCOCET] Allergy (Unknown, Verified 05/23/23 14:15) HIVES/NAUSEA butalbital Allergy (Verified 05/23/23 14:15) Rash, Itching eszopiclone [From LUNESTA] Adverse Reaction (Intermediate, Verified 05/23/23 14:15) NIGHTMARES Medication List - Last Reconciled 05/23/23 by Adolph العراقي MD atorvastatin 10 mg PO BEDTIME 30 days calcium citrate-vitamin D3 200 mg-6.25 mcg (250 unit) (Citracal-D3 Petites) 2 tabs PO DAILY 30 days cyanocobalamin (vitamin B-12) 1,000 mcg IM Q4W 90 days levothyroxine 75 mcg PO DAILY nortriptyline 10 mg PO BEDTIME topiramate 50 mg PO BID Tobacco use date assessed: 05/23/23 Dental Screening Dental Screen Date: 05/23/23 Did you have a dental visit in the last 12 months?: No Did you have a dental problem in the last 6 months where you did not have access to dental care?: No Was dental information given to patient?: No HPI 3 month f/u HPI Details Patient comes in today for her follow up visit c/o inc pain in left shoulder lately States that she's had pain in her shoulder for a while now but the pain has gotten considerably worse over the past few weeks States that she is right-handed so her shoulder pain is unlikely from something she has been doing frequently but recalls that she hit her shoulder on a wall about 2 months ago when she lost her balance while going up a step stool when she was trying to put up some curtains at home Thinks that her shoulder pain started getting worse since then She still has on and off headaches and dizziness but states that her headaches have been better controlled lately Denies any chest pains, no increased SOB No nausea/vomiting, no abdominal pain No change in bowel habits noted - still has chronic constipation requiring Rx to be taken regularly Needs her Miralax Rx refilled Had her follow up labs done a couple of days ago - to discuss her results States that she was not able to get the 24 hour urine tests ordered done yet and was advised by the lab to get them done next freeman after the holidays [facility] Medical History Bilateral hand pain Arthralgia Overweight (BMI 25.0-29.9) Constipation Overactive bladder Migraine Fibromyalgia Pure hypercholesterolemia Pain of right thumb Vitamin D deficiency Hypothyroidism Hyperparathyroidism Osteoporosis B12 deficiency Surgical History Hx of arthroscopy of right knee Hx of arthroscopy of left knee Hx of colonoscopy History of esophagogastroduodenoscopy (EGD) History of carpal tunnel release Family History Father Medical history unknown Mother Medical history unknown Parkinson disease Family/Other Colon cancer Daughter History of breast cancer, Onset Age: 21 Cervical cancer Sister Uterine cancer Sister Colon cancer Social History Household Members Other:: daughter Housing: House Alcohol intake: never Patient Tobacco Use Status: Never used Tobacco e-Cigarette/Vaping Use: Never Used Second Hand Smoke Exposure: Yes service: No Current occupational status: disabled Sexual orientation: Straight/Heterosexual Gender identity: Female Cognitive needs: No Hearing needs: No Vision needs: Yes (reading glasses) Questionnaire PHQ-9 Over the last 2 weeks, how often have you been bothered by any of the following problems? 1. Little interest or pleasure in doing things: not at all 2. Feeling down, depressed, or hopeless: not at all 3. Trouble falling or staying asleep, or sleeping too much: not at all 4. Feeling tired or having little energy: not at all 5. Poor appetite or overeating: not at all 6. Feeling bad about yourself - or that you are a failure or have let yourself or your family down: not at all 7. Trouble concentrating on things, such as reading the newspaper or watching television: not at all 8. Moving or speaking so slowly that other people could have noticed. Or the opposite - being so fidgety or restless that you have been moving around a lot more than usual: not at all 9. Thoughts that you would be better off or of hurting yourself in some way: not at all Total score: 0 Depression Screening Interpretation: Negative Depression Screening Done: Yes [id number] - PHQ-9 Billing: Yes Source: Developed by Drs. Rex Iniguez, Chichi Tanner, Figueroa Allen and colleagues, with an educational johnna from [employer]. Thrive Questionnaire Date Thrive assessed: 05/23/23 I am a: Patient What is your living situation today?: I have a steady place to live Within the past 12 months, did the food you bought not last and you didn't have the money to get more?: Never true Within the past 12 months, did you worry whether your food would run out before you got money to buy more?: Never true Do you have trouble paying for medicines?: No Do you have trouble getting transportation to medical appointments?: No Do you have trouble paying your heating and electricity bill?: No Do you have trouble taking care of your child, family member or friend?: No Do you have trouble with day-to-day activities such as bathing, preparing meals, shopping, managing finances, etc.?: No Are you currently unemployed and looking for a job?: No Are you interested in more education?: No Please select the resources that you would like help with: None Currently or been in a relationship where the following occur: no concerns reported AUDIT C Alcohol Use Questionnaire (AUDIT-C) 1. How often do you have a drink containing alcohol?: Never 3. How often do you have six or more drinks on one occasion?: Never Total Score: 0 Score Reviewed/Action Taken: Yes JOSELITO-7 AMB Questionnaire JOSELITO-7 Date JOSELITO - 7 assessed: 05/23/23 Feeling nervous, anxious, or on edge: 0 = Not at all Not being able to stop or control worryin = Not at all Worrying too much about different things: 0 = Not at all Trouble relaxin = Not at all Being so restless that it is hard to sit still: 0 = Not at all Becoming easily annoyed or irritable: 0 = Not at all Feeling afraid as if something awful might happen: 0 = Not at all Total JOSELITO-7 score (0-4 normal; 5-9 mild; 10-14 moderate; 15-21 severe): 0 Source: Developed by Drs. Rex Iniguez, Chichi Tanner, Figueroa Allen and colleagues, with an educational johnna from [employer]. Review of Systems Const Denies chills, Reports fatigue (chronic), Denies fever(s) and Reports headache(s) (occasionally; better controlled lately) ENT Denies dysphagia, Reports dizziness (on and off), Denies otalgia, Reports headache(s) (occasionally; better controlled lately), Denies nasal congestion, Denies neck pain, Denies odynophagia and Denies sore throat Card Denies chest pain, Denies palpitations and Denies dyspnea Resp Denies cough and Denies dyspnea GI Denies abdominal pain, Denies constipation, Denies dysphagia, Denies heartburn, Denies diarrhea, Denies nausea, Denies odynophagia and Denies vomiting Denies difficulty voiding, Denies nocturia and Denies dysuria Musc Reports arthralgias (increasing, in the left shoulder - see HPI) and Denies neck pain Skin/Breast Denies rash Neuro Reports dizziness (on and off) and Reports headache(s) (occasionally; better controlled lately) Endo Reports fatigue (chronic) and Denies palpitations Physical exam (Primary Care) Vital Signs: Last Vital Signs Pulse 84 05/23/23 13:09 BP 120/82 05/23/23 13:09 Pulse Ox 99 05/23/23 13:09 Oxygen Delivery Method Room Air 05/23/23 13:09 BMI result Body Mass Index 20.2 Tobacco/Smoking Status: Tobacco use Status Tobacco use date assessed 05/23/23 05/23/23 13:11 Patient Tobacco Use Status Never used Tobacco 05/23/23 13:11 e-Cigarette/Vaping Use Never Used 05/23/23 13:11 PHQ-9: PHQ-9 Score PHQ-9: Total score 0 05/23/23 14:47 Depression Screening Interpretation: Negative Thrive Assessment: Date of Thrive Assessment Date Thrive assessed 05/23/23 05/23/23 13:11 Currently or been in a relationship where the following occur: no concerns reported Const General: no acute distress and alert HENMT Ears: TM's normal bilaterally and EAC's normal Throat: Yes posterior oropharynx normal and Yes tonsils normal (no TP congestion noted) Neck Neck: Yes no lymphadenopathy and Yes supple Resp Auscultation: clear to auscultation bilaterally, no rales and no wheezes Cardio Rate: regular rate Rhythm: regular rhythm Heart sounds: no murmurs GI Palpation (GI): Soft to palpation and nontender Auscultation: normal bowel sounds General: Yes no CVA tenderness Back/Spine/Pelvis Back: no CVA tenderness Thoracic/Lumbar Spine: lumbar spinal tenderness (mild) Skin Rashes: no rashes Extrem General: Yes no clubbing, cyanosis or edema Left upper extremity: shoulder/upper arm Details: tenderness Location: of the A-C joint and normal ROM (but reports (+) pain in shoulder with active ROM) Results Reviewed Results Reviewed: Laboratory Tests 05/21/23 12:40 WBC 4.7 L Hgb 12.3 Hct 39.4 Plt Count 249 Sodium 140 Potassium 3.7 Creatinine 0.90 Estimated GFR > 60 Fasting Glucose 94 Calcium 8.8 AST 20 ALT 12 Triglycerides 63 Cholesterol 217 H LDL Cholesterol, Calc 132 H HDL Cholesterol 73 25-OH Vitamin D Total 40.8 TSH 2.56 Assessment and Plan Assessment & Plan (1) Pure hypercholesterolemia: Code(s): E78.00 - Pure hypercholesterolemia, unspecified Plan: Results of her labs done a couple of days ago reviewed and discussed with patient - her cholesterol levels have again improved slightly from previous Reinforced low cholesterol diet Continue Atorvastatin 10 mg QD Will recheck her labs and fasting lipids in 4 months for follow up (2) Migraine: Code(s): G43.909 - Migraine, unspecified, not intractable, without status migrainosus Qualifiers: Intractability: not intractable Migraine type: unspecified Status migrainosus presence: without status migrainosus Qualified Code(s): G43.909 - Migraine, unspecified, not intractable, without status migrainosus Plan: States that her migraine headaches have been doing okay lately; were better controlled on Topiramate prophylaxis but these were discontinued by endocrinology a while back Have offered to start on Amitriptyline but she recalled gaining a lot of weight while she was on Amitriptyline in the past and prefers not to restart Amitriptyline Continue Fioricet PRN Follow up with neurology (Dr. Shi) as scheduled (3) Hypothyroidism: Code(s): E03.9 - Hypothyroidism, unspecified Qualifiers: Hypothyroidism type: unspecified Qualified Code(s): E03.9 - Hypothyroidism, unspecified Plan: TFTs were normal on her recent labs Continue Levothyroxine 75 mcg QD Follow up with endocrinology as scheduled (4) Osteoporosis: Code(s): M81.0 - Age-related osteoporosis without current pathological fracture Qualifiers: Osteoporosis type: unspecified Presence of current pathological fracture: unspecified Qualified Code(s): M81.0 - Age-related osteoporosis without current pathological fracture Plan: Repeat BMD done on 03/11/2021 revealed (+) osteoporosis based on the lowest T-score value of -2.7 in the lumbar spine. Patient cautioned that her BMD has declined by 9% or more in both her lumbar spine and left femur? BMD on 01/24/2019 also showed a 12% decrease in BMD at her femur from her previous scan in 2017; AP spine BMD is unchanged from before Patient could not tolerate Alendronate (GI symptoms) and was supposed to be started on Prolia injections that will be managed by endocrinology but she has not began the Rx yet Follow-up with endocrinology as scheduled - she currently has an appointment scheduled to see Dr. Andrews in a couple of weeks on 06/07/2023 (was seeing Dr. Harman in the past until she left the practice a few months ago) (5) Vitamin D deficiency: Code(s): E55.9 - Vitamin D deficiency, unspecified Plan: Continue Vitamin D2 2000 units QD (6) B12 deficiency: Code(s): E53.8 - Deficiency of other specified B group vitamins Plan: Continue Vitamin B12 injections monthly (7) Left shoulder pain: Code(s): M25.512 - Pain in left shoulder Qualifiers: Chronicity: unspecified Qualified Code(s): M25.512 - Pain in left shoulder Plan: Will send patient for x-rays of the left shoulder for further evaluation Will start her in the meantime on Tramadol 50 mg BID PRN for pain (8) Fibromyalgia: Code(s): M79.7 - Fibromyalgia Plan: Encouraged again to exercise regularly and stay active to help manage her fibromyalgia symptoms better Used to take Tizanidine 4 mg TID PRN but she has not had to take Rx in a while now (9) Constipation: Code(s): K59.00 - Constipation, unspecified Qualifiers: Constipation type: unspecified constipation type Qualified Code(s): K59.00 - Constipation, unspecified Plan: Encouraged increased oral fluids and dietary fiber Continue MiraLax powder 17 g daily as instructed (Rx refilled); no longer has to take Amitiza lately Follow-up with GI (Dr. uBitrago) as scheduled - has been advised that she is due for a repeat colonoscopy (10) Overactive bladder: Code(s): N32.81 - Overactive bladder Plan: Follow up with urology as scheduled Plan Follow up in 4 months Orders: Orders XR shoulder LT min 2V 05/23/23 M25.512 - Pain in left shoulder Lipid Panel 4 Months E78.00 - Pure hypercholesterolemia, unspecified Vitamin B12 and Folate 4 Months E53.8 - Deficiency of other specified B group vitamins Vitamin D 25-OH Total 4 Months E55.9 - Vitamin D deficiency, unspecified Free T4 (Free Thyroxine) 4 Months E03.9 - Hypothyroidism, unspecified Thyroid Stimulating Hormone 4 Months E03.9 - Hypothyroidism, unspecified Comprehensive [place]. Panel Fast 4 Months E78.00 - Pure hypercholesterolemia, unspecified Complete Blood Count Auto Diff 4 Months I10 - Essential (primary) hypertension UA CC w/rflx Micro + Cult 4 Months R30.0 - Dysuria Medications: New tramadol 50 mg PO BID PRN 30 tabs 0RF pain Refilled polyethylene glycol 3350 17 grams PO DAILY 510 grams 12RF 30 days K59.00 - Constipation, unspecified Coding Level of Care Code Est Pt Level 4 (26660) Diagnoses Pure hypercholesterolemia E78.00 Migraine without status migrainosus, not intractable, unspecified migraine type G43.909 Intractability: not intractable Migraine type: unspecified Status migrainosus presence: without status migrainosus Hypothyroidism, unspecified type E03.9 Hypothyroidism type: unspecified Osteoporosis, unspecified osteoporosis type, unspecified pathological fracture presence M81.0 Osteoporosis type: unspecified Presence of current pathological fracture: unspecified Vitamin D deficiency E55.9 B12 deficiency E53.8 Left shoulder pain, unspecified chronicity M25.512 Chronicity: unspecified Fibromyalgia M79.7 Constipation, unspecified constipation type K59.00 Constipation type: unspecified constipation type Overactive bladder N32.81
[2023-05-23 13:09] VITALS: BP 120/82; PULSE 84; O2SAT 99; BMI 20.2
== END 2023-05-23 14:30 | disposition home or self-care (01) ==
PROVIDERS: PCP Internal Medicine; Visit Provider Internal Medicine
DX: E78.00 Pure hypercholesterolemia, unspecified (principal); G43.909 Migraine, unspecified, not intractable, without status migrainosus; E03.9 Hypothyroidism, unspecified; M81.0 Age-related osteoporosis without current pathological fracture; E55.9 Vitamin D deficiency, unspecified; E53.8 Deficiency of other specified B group vitamins; M25.512 Pain in left shoulder; M79.7 Fibromyalgia; K59.00 Constipation, unspecified; N32.81 Overactive bladder; I10 Essential (primary) hypertension
CPT/HCPCS: 99214

== ENCOUNTER 2023-05-23 14:37 | Outpatient (REF) | payer OTHER, SELFPAY ==
--- NOTE | ~2023-05-23 | XR_ITS ---
EXAMINATION: XR SHOULDER, LEFT CLINICAL INFORMATION: Left shoulder pain. COMPARISON: Left shoulder 01/21/2018. TECHNIQUE: AP external rotation, Grashey, scapular Y, and axillary views of the left shoulder. FINDINGS: The bones and soft tissues are normal aside from some mild degenerative changes at the left AC joint which are new when compared to 2018. No fracture. Glenohumeral alignment is anatomic with normal joint space. No abnormal soft tissue calcifications. XR/XR shoulder LT min 2V IMPRESSION: Mild degenerative changes left AC joint.
== END 2023-05-23 14:38 | disposition home or self-care (01) ==
LOC: HO.XRAY 14:37
PROVIDERS: PCP Internal Medicine; Visit Provider Internal Medicine
DX: M25.512 Pain in left shoulder (principal)
CPT/HCPCS: 73030

== ENCOUNTER 2023-05-24 15:03 | Outpatient (AMB) | payer OTHER, SELFPAY ==
--- NOTE | 2023-05-24 15:16 | AM.OFFVISNUR ---
Intake Intake Visit Reasons: b-12 Allergies zolpidem [ZOLPIDEM] Allergy (Severe, Verified 05/23/23 14:15) SLEEPWALKING aspirin [ASPIRIN] Allergy (Intermediate, Verified 05/23/23 14:15) ITCHING/SWELLING, rash,itchy trazodone [TRAZODONE] Allergy (Intermediate, Verified 05/23/23 14:15) NIGHTMARES naproxen [From Anaprox] Allergy (Mild, Verified 05/23/23 14:15) RASH acetaminophen [From PERCOCET] Allergy (Unknown, Verified 05/23/23 14:15) HIVES/NAUSEA amoxicillin [Augmentin] Allergy (Unknown, Verified 05/23/23 14:15) Unknown oxycodone [From PERCOCET] Allergy (Unknown, Verified 05/23/23 14:15) HIVES/NAUSEA butalbital Allergy (Verified 05/23/23 14:15) Rash, Itching eszopiclone [From LUNESTA] Adverse Reaction (Intermediate, Verified 05/23/23 14:15) NIGHTMARES Office Meds cyanocobalamin (vitamin B-12) 1,000 mcg/mL injection solution Performing Provider: Adolph العراقي MD Per[facility] [place] [facility] Administered by: Ernestina Wiseman RN on 05/24/23 15:17 Dose Route Admin Location Dispensed Lot Number Expiration Date [facility] Form Setter [employer] Forms 1,000 mcg IM right deltoid 1 mL [id number] 09/01/24 89525-569-57 [employer] Machine Coding Assessment & Plan Assessment & Plan Orders: Orders AMB Vitamin B12 Injection Patient Supplied Today D51.9 - Vitamin B12 deficiency anemia, unspecified
== END 2023-05-24 15:18 | disposition home or self-care (01) ==
PROVIDERS: PCP Internal Medicine; Visit Provider Internal Medicine
DX: D51.9 Vitamin B12 deficiency anemia, unspecified (principal)
CPT/HCPCS: 96372; J3420

== ENCOUNTER 2023-06-08 11:26 | Outpatient (REF) | payer OTHER, SELFPAY ==
[2023-06-11 18:28] LABS: Calcium, 24 Hr Urine 287 mg/24 h; Calcium/Creatinine Ratio 264 mg/g creat (30-275); Creatinine 24Hr Urine 1.09 g/24 h (0.50-2.15)
== END 2023-06-08 11:27 | disposition home or self-care (01) ==
LOC: HO.LNP 11:26
PROVIDERS: Visit Provider Internal Medicine
DX: M81.0 Age-related osteoporosis without current pathological fracture (principal); E55.9 Vitamin D deficiency, unspecified
CPT/HCPCS: 82340

== ENCOUNTER 2023-06-13 08:04 | Outpatient (REF) | payer OTHER, SELFPAY | END 2023-06-13 08:05 | disposition home or self-care (01) | LOC: HO.MAMMO 08:04 | PROVIDERS: PCP Internal Medicine; Visit Provider Advanced Practice Midwife | DX: Z12.31 Encounter for screening mammogram for malignant neoplasm of breast (principal) | CPT/HCPCS: 77063; 77067 ==

== ENCOUNTER → 2023-06-13 08:30 | Outpatient (BNV) | payer OTHER, SELFPAY | PROVIDERS: PCP Internal Medicine; Visit Provider Radiology Diagnostic Radiology | DX: Z12.31 Encounter for screening mammogram for malignant neoplasm of breast (principal) | CPT/HCPCS: 77063; 77067 ==

== ENCOUNTER 2023-06-22 12:41 | Outpatient (AMB) | payer OTHER, SELFPAY ==
--- NOTE | 2023-06-22 12:56 | AM.OFFVISNUR ---
Intake Intake Visit Reasons: B12 Shot Allergies zolpidem [ZOLPIDEM] Allergy (Severe, Verified 05/23/23 14:15) SLEEPWALKING aspirin [ASPIRIN] Allergy (Intermediate, Verified 05/23/23 14:15) ITCHING/SWELLING, rash,itchy trazodone [TRAZODONE] Allergy (Intermediate, Verified 05/23/23 14:15) NIGHTMARES naproxen [From Anaprox] Allergy (Mild, Verified 05/23/23 14:15) RASH acetaminophen [From PERCOCET] Allergy (Unknown, Verified 05/23/23 14:15) HIVES/NAUSEA amoxicillin [Augmentin] Allergy (Unknown, Verified 05/23/23 14:15) Unknown oxycodone [From PERCOCET] Allergy (Unknown, Verified 05/23/23 14:15) HIVES/NAUSEA butalbital Allergy (Verified 05/23/23 14:15) Rash, Itching eszopiclone [From LUNESTA] Adverse Reaction (Intermediate, Verified 05/23/23 14:15) NIGHTMARES Office Meds cyanocobalamin (vitamin B-12) 1,000 mcg/mL injection solution Performing Provider: Adolph العراقي MD [facility] Administered by: Ernestina Wiseman RN on 06/22/23 12:56 Dose Route Admin Location Dispensed Lot Number Expiration Date [facility] Social Media Marketing Manager 1,000 mcg IM right deltoid 1 mL [id number] 01/31/25 76152-721-57 [employer] Coding Assessment & Plan Assessment & Plan Orders: Orders AMB Vitamin B12 Injection Patient Supplied Today D51.9 - Vitamin B12 deficiency anemia, unspecified
== END 2023-06-22 12:58 | disposition home or self-care (01) ==
PROVIDERS: PCP Internal Medicine; Visit Provider Internal Medicine
DX: D51.9 Vitamin B12 deficiency anemia, unspecified (principal)
CPT/HCPCS: 96372; J3420

== ENCOUNTER 2023-07-10 12:34 | Outpatient (AMB) | payer OTHER, SELFPAY ==
[2023-07-10 12:53] VITALS: BMI 20.1
--- NOTE | 2023-07-10 12:53 | MHC.OFFVIS ---
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 Patient reports her pain has been going on for about 4 months and is a 9 on the 1- 10 pain scale and she reports numbness and tingling in the arm and neck . She reports she fell off of a step stool and hit the cabinet with her Left shoulder. The patient reports weakness when lifting her hand above shoulder height. She has tried Tylenol which gives her minimal relief. She has not able to tolerate anti-inflammatory medicines. Allergies zolpidem [ZOLPIDEM] Allergy (Severe, Verified 07/10/23 13:02) SLEEPWALKING aspirin [ASPIRIN] Allergy (Intermediate, Verified 07/10/23 13:02) ITCHING/SWELLING, rash,itchy trazodone [TRAZODONE] Allergy (Intermediate, Verified 07/10/23 13:02) NIGHTMARES naproxen [From Anaprox] Allergy (Mild, Verified 07/10/23 13:02) RASH acetaminophen [From PERCOCET] Allergy (Unknown, Verified 07/10/23 13:02) HIVES/NAUSEA amoxicillin [Augmentin] Allergy (Unknown, Verified 07/10/23 13:02) Unknown oxycodone [From PERCOCET] Allergy (Unknown, Verified 07/10/23 13:02) HIVES/NAUSEA butalbital Allergy (Verified 07/10/23 13:02) Rash, Itching eszopiclone [From LUNESTA] Adverse Reaction (Intermediate, Verified 07/10/23 13:02) NIGHTMARES Medication List - Last Reconciled 07/10/23 by John Marinelli MD atorvastatin 10 mg PO BEDTIME 30 days calcium citrate-vitamin D3 200 mg-6.25 mcg (250 unit) (Citracal-D3 Petites) 2 tabs PO DAILY 30 days cyanocobalamin (vitamin B-12) 1,000 mcg IM Q4W 90 days levothyroxine 75 mcg PO DAILY nortriptyline 10 mg PO BEDTIME polyethylene glycol 3350 17 grams PO DAILY 30 days tramadol 50 mg PO BID PRN [facility] Medical History Bilateral hand pain Arthralgia Overweight (BMI 25.0-29.9) Constipation Overactive bladder Migraine Fibromyalgia Pure hypercholesterolemia Pain of right thumb Vitamin D deficiency Hypothyroidism Hyperparathyroidism Osteoporosis B12 deficiency Surgical History Hx of arthroscopy of right knee Hx of arthroscopy of left knee Hx of colonoscopy History of esophagogastroduodenoscopy (EGD) History of carpal tunnel release Family History Father Medical history unknown Mother Medical history unknown Parkinson disease Family/Other Colon cancer Daughter History of breast cancer, Onset Age: 21 Cervical cancer Sister Uterine cancer Sister Colon cancer Social History Household Members Other:: daughter Housing: House Alcohol intake: never Patient Tobacco Use Status: Never used Tobacco e-Cigarette/Vaping Use: Never Used Second Hand Smoke Exposure: Yes service: No Current occupational status: disabled Sexual orientation: Straight/Heterosexual Gender identity: Female Cognitive needs: No Hearing needs: No Vision needs: Yes (reading glasses) Physical Exam Vital Signs: BMI result Body Mass Index 20.1 Const Other: Well-nourished well-developed very friendly female awake alert and oriented x3 in no acute distress Extrem Other: Bilateral upper extremity examination shows good capillary refill, no skin lesions noted, normal sensation light touch Left shoulder examination shows decreased range of motion when compared to her right shoulder, 4+/5 strength with supraspinatus testing, positive impingement signs, tenderness over her acromioclavicular joint, no instability Results Reviewed Results Reviewed: X-rays of the patient's left shoulder show severe acromioclavicular joint narrowing, a type 2 acromion, no acute bony abnormalities Assessment & Plan Assessment & Plan (1) Left shoulder pain: Code(s): M25.512 - Pain in left shoulder Qualifiers: Chronicity: unspecified Qualified Code(s): M25.512 - Pain in left shoulder Plan Ms. Ewing presents with left shoulder pain and weakness due to impingement syndrome, acromioclavicular joint arthritis and possible rotator cuff tearing. Thus, I will send the patient for an MRI of her left shoulder for further evaluation. I will see her back once the MRI is completed to discuss the findings and treatment options. She will continue with her range of motion exercises in the meantime to prevent stiffness. Feel free to call me at any time should questions regarding her orthopedic management arise. Thank you very much for asking me to see this very friendly patient. I spent 22 minutes in reviewing the patient's records and imaging studies, seeing the patient and documenting in the medical record. Orders: Orders MR shoulder LT wo con Today M25.512 - Pain in left shoulder Coding Level of Care Code New Pt Level 2 (48342) Diagnoses Left shoulder pain, unspecified chronicity M25.512 Chronicity: unspecified
== END 2023-07-10 13:19 | disposition home or self-care (01) ==
PROVIDERS: PCP Internal Medicine; Visit Provider Orthopaedic Surgery
DX: M25.512 Pain in left shoulder (principal)
CPT/HCPCS: 99202

== ENCOUNTER → 2023-07-10 12:34 | Outpatient (BNVA) | payer OTHER, SELFPAY | PROVIDERS: PCP Internal Medicine; Visit Provider Orthopaedic Surgery | DX: M25.512 Pain in left shoulder (principal) | CPT/HCPCS: 99202 ==

== ENCOUNTER 2023-07-17 10:23 | Outpatient (REF) | payer OTHER, SELFPAY ==
--- NOTE | ~2023-07-17 | MM_ITS ---
EXAMINATION: BONE DENSITOMETRY CLINICAL INDICATION: Age-related osteoporosis without current pathological fracture. COMPARISON: Previous BD dated 03/11/2021 and baseline BD dated 10/28/2013. TECHNIQUE: Using a [employer] DXA System (software version: 13.1) manufactured by [employer], dual-energy x-ray absorptiometry was performed of the lumbar spine and left hip. The images are of good technical quality. Summary results are attached. FINDINGS: LEFT FEMUR, NECK: Current: BMD 0.689 g/cm2, Z-score -0.9, T-score -2.5, osteoporosis. Prior: BMD 0.795 g/cm2. Baseline: BMD 0.840 g/cm2. LEFT FEMUR, TOTAL: Current: BMD 0.748 g/cm2, Z-score -0.8, T-score -2.1, osteopenia, 5.8% decrease from previous, 14.3% decrease from baseline (<5% change is not significant). Prior: BMD 0.794 g/cm2. Baseline: BMD 0.873 g/cm2. AP SPINE L1-L4: Current: BMD 0.804 g/cm2, Z-score -1.4, T-score -3.1, osteoporosis, 5.6% decrease from previous, 15.0% decrease from baseline (<5% change is not significant). Prior: BMD 0.852 g/cm2. Baseline: BMD 0.946 g/cm2. IDENTIFIED RISK FACTORS: Menopause, family history (parent hip fracture), osteoporosis, recurrent falls. HISTORY OF FRACTURE: None listed. MEDICATIONS: Calcium or multivitamin. Vitamin D. MM/XR DEXA axial skeleton IMPRESSION: 1. DIAGNOSIS: Osteoporosis based on the lowest T-score value of -3.1 in the lumbar spine applying World Health Organization criteria. 2. 10-YEAR FRACTURE RISK PREDICTION, FRAX: According to the guidelines, FRAX calculation should only be performed on patients in the osteopenia bone density category. Therefore, FRAX was not performed on this patient. 3. Treatment Recommendations: NOF guidelines recommend consideration for treatment in postmenopausal women and men age 50 and older presenting with the following: -A hip or vertebral (clinical or morphometric) fracture. -T-score less than or equal to -2.5 at the femoral neck or spine after appropriate evaluation to exclude secondary causes. -Low bone mass at the hip or spine and a 10-year fracture probability by FRAX of greater than or equal to 3% for hip fracture or greater than or equal to 20% for major osteoporotic fracture based on the [place] adapted WHO algorithm. 4. Other Recommendations: All treatment decisions require clinical judgment and consideration of individual patient factors, including patient preferences, comorbidities, previous drug use, risk factors not captured in the FRAX model (e.g. frailty, falls, vitamin D deficiency, increased bone turnover, interval significant decline in bone density) and possible under or overestimation of fracture risk by FRAX. Additional medical evaluation for secondary cause of low bone mineral density may be appropriate. FUTURE SCAN RECOMMENDATION: People with diagnosed cases of osteoporosis or at high risk for fracture should have regular bone mineral density tests. For patients eligible for Medicare, routine testing is allowed once every 2 years. The testing frequency can be increased to one year for patients who have rapidly progressing disease, those who are receiving or discontinuing medical therapy to restore bone mass, or have additional risk factors.
== END 2023-07-17 10:24 | disposition home or self-care (01) ==
LOC: HO.MAMMO 10:23
PROVIDERS: PCP Internal Medicine; Visit Provider Internal Medicine Endocrinology, Diabetes & Metabolism
DX: Z13.820 Encounter for screening for osteoporosis (principal); Z78.0 Asymptomatic menopausal state; M81.0 Age-related osteoporosis without current pathological fracture
CPT/HCPCS: 77080

== ENCOUNTER 2023-07-24 11:39 | Outpatient (AMB) | payer OTHER, SELFPAY ==
--- NOTE | 2023-07-24 12:06 | AM.OFFVISNUR ---
Intake Intake Visit Reasons: B12 Shot Allergies zolpidem [ZOLPIDEM] Allergy (Severe, Verified 07/10/23 13:02) SLEEPWALKING aspirin [ASPIRIN] Allergy (Intermediate, Verified 07/10/23 13:02) ITCHING/SWELLING, rash,itchy trazodone [TRAZODONE] Allergy (Intermediate, Verified 07/10/23 13:02) NIGHTMARES naproxen [From Anaprox] Allergy (Mild, Verified 07/10/23 13:02) RASH acetaminophen [From PERCOCET] Allergy (Unknown, Verified 07/10/23 13:02) HIVES/NAUSEA amoxicillin [Augmentin] Allergy (Unknown, Verified 07/10/23 13:02) Unknown oxycodone [From PERCOCET] Allergy (Unknown, Verified 07/10/23 13:02) HIVES/NAUSEA butalbital Allergy (Verified 07/10/23 13:02) Rash, Itching eszopiclone [From LUNESTA] Adverse Reaction (Intermediate, Verified 07/10/23 13:02) NIGHTMARES Office Meds cyanocobalamin (vitamin B-12) 1,000 mcg/mL injection solution Performing Provider: Adolph العراقي MD [facility] Administered by: Isabella Riley RN on 07/24/23 12:06 Dose Route Admin Location Dispensed Lot Number Expiration Date [facility] Mobile Device Developer 1,000 mcg IM right deltoid 1 mL [id number] 01/31/25 40722-663-01 [employer] Coding Assessment & Plan Assessment & Plan Orders: Orders AMB Vitamin B12 Injection Patient Supplied Today E53.8 - Deficiency of other specified B group vitamins
== END 2023-07-24 12:05 | disposition home or self-care (01) ==
PROVIDERS: PCP Internal Medicine; Visit Provider Internal Medicine
DX: E53.8 Deficiency of other specified B group vitamins (principal)
CPT/HCPCS: 96372; J3420

== ENCOUNTER 2023-09-24 09:38 | Outpatient (REF) | payer OTHER, SELFPAY ==
[2023-09-24 09:48] LABS: MANUAL DIFF FLAG NO
[2023-09-24 10:01] LABS: Basophils Percent Auto 0.2 % (0-2); Hematocrit 39.1 % (37.0-47.0); Hemoglobin 12.1 g/dl (12.0-16.0); Imm Gran Abs Auto 0.01 X10*3/uL (0.00-0.03); Imm Gran Pct Auto 0.2 % (0.0-0.4); Lymphocytes Absolute Auto 1.5 X10*3/uL (1.2-4.9); Lymphocytes Percent Auto 31.4 % (20-40); Mean Corpuscular HGB Conc 30.9 g/dl (31.0-35.0); Mean Corpuscular Hemoglobin 25.3 pg (27.0-33.0); Mean Corpuscular Volume 81.6 fL (80.0-98.0); Mean Platelet Volume 10.8 fL (9.4-12.3); Monocytes Absolute Auto 0.4 X10*3/uL (0.1-1.2); Neutrophils Absolute Auto 2.9 x10*3/uL (2.0-8.3); Neutrophils Percent Auto 60.2 % (45-73); Platelet Count 241 X10*3/uL (160-400); Red Blood Count 4.79 X10*6/uL (4.20-5.50); White Blood Count 4.9 X10*3/uL (4.8-10.8)
[2023-09-24 10:40] LABS: Appearance Urine Clear; Color Urine Yellow; Glucose Urine UA Negative (Negative); Leukocyte Esterase Urine Negative (Negative); Nitrite Urine Negative (Negative); Specific Gravity - Urine 1.025 (1.005-1.025); Urine Blood Negative (Negative); Urine Ketones Negative (Negative); Urine Protein Negative (Neg-Trace)
[2023-09-24 10:57] LABS: Alanine Aminotransferase 14 U/L (0-31); Albumin Level 4.2 g/dL (3.5-5.0); Alkaline Phosphatase 37 U/L (39-117); Anion Gap 11 (12-20); Aspartate Amino Transferase 21 U/L (5-31); Bilirubin Total 0.6 mg/dL (0.0-1.0); Blood Urea Nitrogen 21 mg/dL (9-16); Calcium 9.3 mg/dL (8.4-10.2); Carbon Dioxide 27 mmol/L (22-29); Chloride 106 mmol/L (96-108); Cholesterol 234 mg/dL (<200); Estimated Glomerular Filt Rate > 60; Glucose Fasting 96 mg/dL (60-99); HDL Cholesterol 74 mg/dL (>40); LDL Cholesterol Calculated 146 mg/dL (<100); Potassium 3.8 mmol/L (3.3-5.1); Sodium 140 mmol/L (135-145); Total Protein 7.4 g/dL (6.5-8.0); Triglycerides 71 mg/dL (<150)
[2023-09-24 11:18] LABS: Free T4 (Free Thyroxine) 0.88 ng/dL (0.71-1.85); Thyroid Stimulating Hormone 6.75 uIU/mL (0.32-4.0); Vitamin D 25-OH Total 31.7 ng/mL (>30)
[2023-09-24 11:22] LABS: Folate 4.5 ng/mL (> or = 4.0); Vitamin B12 310 pg/mL (200-900)
== END 2023-09-24 09:39 | disposition home or self-care (01) ==
LOC: HO.LAB 09:38
PROVIDERS: PCP Internal Medicine; Visit Provider Internal Medicine
DX: E03.9 Hypothyroidism, unspecified (principal); E55.9 Vitamin D deficiency, unspecified; E53.8 Deficiency of other specified B group vitamins; R30.0 Dysuria; I10 Essential (primary) hypertension; E78.00 Pure hypercholesterolemia, unspecified
CPT/HCPCS: 36415; 80053; 80061; 81003; 82306; 82607; 82746; 84439; 84443; 85025

== ENCOUNTER 2023-09-25 13:38 | Outpatient (AMB) | payer OTHER, SELFPAY ==
[2023-09-25 13:40] VITALS: BP 110/76; PULSE 75; O2SAT 99; BMI 20.4
--- NOTE | 2023-09-25 13:40 | A.OFFPC_ITS ---
Vital Signs 09/25/23 13:40 Height 5 ft 4 in Weight 119 lb BMI 20.4 BP 110/76 Blood Pressure Location Lt brachial Position Sitting Pulse 75 Pulse Source Pulse Oximeter Pulse Oximetry (%) 99 Oxygen Delivery Method Room Air Intake Visit Reasons: hyperlipidemia, osteoporosis Quality Assurance Lead Required: No Laminator: Not Required per policy Accompanied by: Self / Same As Patient Allergies zolpidem [ZOLPIDEM] Allergy (Severe, Verified 09/25/23 14:16) SLEEPWALKING aspirin [ASPIRIN] Allergy (Intermediate, Verified 09/25/23 14:16) ITCHING/SWELLING, rash,itchy trazodone [TRAZODONE] Allergy (Intermediate, Verified 09/25/23 14:16) NIGHTMARES naproxen [From Anaprox] Allergy (Mild, Verified 09/25/23 14:16) RASH acetaminophen [From PERCOCET] Allergy (Unknown, Verified 09/25/23 14:16) HIVES/NAUSEA amoxicillin [Augmentin] Allergy (Unknown, Verified 09/25/23 14:16) Unknown oxycodone [From PERCOCET] Allergy (Unknown, Verified 09/25/23 14:16) HIVES/NAUSEA butalbital Allergy (Verified 09/25/23 14:16) Rash, Itching eszopiclone [From LUNESTA] Adverse Reaction (Intermediate, Verified 09/25/23 14:16) NIGHTMARES Medication List - Last Reconciled 09/25/23 by Adolph العراقي MD atorvastatin 10 mg PO BEDTIME 30 days calcium citrate-vitamin D3 200 mg-6.25 mcg (250 unit) (Citracal-D3 Petites) 2 tabs PO DAILY 30 days cyanocobalamin (vitamin B-12) 1,000 mcg IM Q4W 90 days levothyroxine 75 mcg PO DAILY nortriptyline 10 mg PO BEDTIME polyethylene glycol 3350 17 grams PO DAILY 30 days tramadol 50 mg PO BID PRN Tobacco use date assessed: 09/25/23 Dental Screening Dental Screen Date: 09/25/23 Did you have a dental visit in the last 12 months?: No Did you have a dental problem in the last 6 months where you did not have access to dental care?: No Was dental information given to patient?: Patient has dentist HPI hyperlipidemia, osteoporosis HPI Details Patient comes in today for her follow up visit States that she has been experiencing increasing/worsening pain and weakness of her entire left arm over the past couple of months now Feels that the pain in her left shoulder has also been getting worse lately although she also appears to have pain on exam/palpation over her left elbow and her left wrist as well as over her cervical spine She was seen for her left shoulder pain by orthopedics a couple of months ago and was sent for MRI of the shoulder for further evaluation but her insurance denied the MRI as she was supposed to undergo and fail treatment/physical therapy first for a documented 6 weeks' period before insurance will cover the imaging study States that she is currently in too much pain to even attempt to go to physical therapy States that her left arm feels weak enough now that she is not even able to hold anything for too long She still has on and off headaches but states that these have been better controlled and have not gotten significantly worse than before She denies any dizziness Denies any chest pains, no SOB No nausea/vomiting, no abdominal pain No change in bowel habits noted Needs her Atorvastatin Rx refilled Had her follow up labs done yesterday - to discuss her results FOR[facility]LY [facility] Medical History Bilateral hand pain Arthralgia Overweight (BMI 25.0-29.9) Constipation Overactive bladder Migraine Fibromyalgia Pure hypercholesterolemia Pain of right thumb Vitamin D deficiency Hypothyroidism Hyperparathyroidism Osteoporosis B12 deficiency Surgical History Hx of arthroscopy of right knee Hx of arthroscopy of left knee Hx of colonoscopy History of esophagogastroduodenoscopy (EGD) History of carpal tunnel release Family History Father Medical history unknown Mother Medical history unknown Parkinson disease Family/Other Colon cancer Daughter History of breast cancer, Onset Age: 21 Cervical cancer Sister Uterine cancer Sister Colon cancer Social History Household Members Other:: daughter Housing: House Alcohol intake: never Patient Tobacco Use Status: Never used Tobacco e-Cigarette/Vaping Use: Never Used Second Hand Smoke Exposure: Yes service: No Current occupational status: disabled Sexual orientation: Straight/Heterosexual Gender identity: Female Cognitive needs: No Hearing needs: No Vision needs: Yes (reading glasses) Questionnaire PHQ-9 Over the last 2 weeks, how often have you been bothered by any of the following problems? 1. Little interest or pleasure in doing things: nearly every day 2. Feeling down, depressed, or hopeless: nearly every day 3. Trouble falling or staying asleep, or sleeping too much: more than half the days 4. Feeling tired or having little energy: nearly every day 5. Poor appetite or overeating: more than half the days 6. Feeling bad about yourself - or that you are a failure or have let yourself or your family down: several days 7. Trouble concentrating on things, such as reading the newspaper or watching television: more than half the days 8. Moving or speaking so slowly that other people could have noticed. Or the opposite - being so fidgety or restless that you have been moving around a lot more than usual: not at all 9. Thoughts that you would be better off or of hurting yourself in some way: not at all Total score: 16 Depression Screening Interpretation: Positive Depression Screening Follow-up: Existing condition and In treatment Depression Screening Done: Yes 65700 - PHQ-9 Billing: Yes Source: Developed by Drs. Rex Iniguez, Chichi Tanner, Figueroa Allen and colleagues, with an educational johnna from [employer]. Thrive Questionnaire Date Thrive assessed: 09/25/23 I am a: Patient What is your living situation today?: I have a steady place to live Within the past 12 months, did the food you bought not last and you didn't have the money to get more?: Never true Within the past 12 months, did you worry whether your food would run out before you got money to buy more?: Never true Do you have trouble paying for medicines?: No Do you have trouble getting transportation to medical appointments?: No Do you have trouble paying your heating and electricity bill?: No Do you have trouble taking care of your child, family member or friend?: No Do you have trouble with day-to-day activities such as bathing, preparing meals, shopping, managing finances, etc.?: No Are you currently unemployed and looking for a job?: No Are you interested in more education?: No Please select the resources that you would like help with: None Currently or been in a relationship where the following occur: no concerns reported THRIVE Score: 0 AUDIT C Alcohol Use Questionnaire (AUDIT-C) 1. How often do you have a drink containing alcohol?: Never 3. How often do you have six or more drinks on one occasion?: Never Total Score: 0 Score Reviewed/Action Taken: Yes JOSELITO-7 AMB Questionnaire JOSELITO-7 Date JOSELITO - 7 assessed: 09/25/23 Feeling nervous, anxious, or on edge: 2 = More than half the days Not being able to stop or control worryin = More than half the days Worrying too much about different things: 0 = Not at all Trouble relaxin = More than half the days Being so restless that it is hard to sit still: 0 = Not at all Becoming easily annoyed or irritable: 0 = Not at all Feeling afraid as if something awful might happen: 0 = Not at all Total JOSELITO-7 score (0-4 normal; 5-9 mild; 10-14 moderate; 15-21 severe): 6 Source: Developed by Drs. Rex Iniguez, Chichi Tanner, Figueroa Allen and colleagues, with an educational johnna from [employer]. Review of Systems Const Denies chills, Reports fatigue (chronic), Denies fever(s), Reports headache(s) (occasionally; better controlled lately) and Reports weakness (of the left arm) ENT Denies dysphagia, Denies dizziness, Denies otalgia, Reports headache(s) (occasionally; better controlled lately), Denies nasal congestion, Denies neck pain, Denies odynophagia and Denies sore throat Card Denies chest pain, Denies palpitations and Denies dyspnea Resp Denies cough and Denies dyspnea GI Denies abdominal pain, Denies constipation, Denies dysphagia, Denies heartburn, Denies diarrhea, Denies nausea, Denies odynophagia and Denies vomiting Denies difficulty voiding, Denies nocturia and Denies dysuria Musc Reports as per HPI, Reports arthralgias (increasing, in the left shoulder - see HPI) and Denies neck pain Skin/Breast Denies rash Neuro Denies dizziness, Reports headache(s) (occasionally; better controlled lately) and Reports weakness (of the left arm) Endo Reports fatigue (chronic) and Denies palpitations Physical exam (Primary Care) Vital Signs: Last Vital Signs Pulse 75 09/25/23 13:40 BP 110/76 09/25/23 13:40 Pulse Ox 99 09/25/23 13:40 Oxygen Delivery Method Room Air 09/25/23 13:40 BMI result Body Mass Index 20.4 Tobacco/Smoking Status: Tobacco use Status Tobacco use date assessed 09/25/23 09/25/23 13:42 Patient Tobacco Use Status Never used Tobacco 09/25/23 13:42 e-Cigarette/Vaping Use Never Used 09/25/23 13:42 PHQ-9: PHQ-9 Score PHQ-9: Total score 16 09/25/23 14:20 Depression Screening Interpretation: Positive Depression Screening Follow-up: Existing condition and In treatment Thrive Assessment: Date of Thrive Assessment Date Thrive assessed 09/25/23 09/25/23 14:20 Currently or been in a relationship where the following occur: no concerns reported Const General: no acute distress and alert HENMT Ears: TM's normal bilaterally and EAC's normal Throat: Yes posterior oropharynx normal and Yes tonsils normal (no TP congestion noted) Neck Neck: Yes no lymphadenopathy and Yes tender Resp Auscultation: clear to auscultation bilaterally, no rales and no wheezes Cardio Rate: regular rate Rhythm: regular rhythm Heart sounds: no murmurs GI Palpation (GI): Soft to palpation and nontender Auscultation: normal bowel sounds General: Yes no CVA tenderness Back/Spine/Pelvis Back: no CVA tenderness Cervical Spine: Cervical spine tenderness Thoracic/Lumbar Spine: lumbar spinal tenderness (mild) Skin Rashes: no rashes Neuro Other: (+) weakness noted on the left arm - muscle strength noted to be at 3/5, 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 Extrem General: Yes no clubbing, cyanosis or edema Left upper extremity: shoulder/upper arm Details: tenderness Location: of the A- C joint and normal ROM (but reports (+) increased pain in shoulder with active ROM) and elbow/forearm Details: tenderness Location: of the olecranon and of the lateral epicondyle Results Reviewed Results Reviewed: Laboratory Tests 09/24/23 09/24/23 09:46 09:48 WBC 4.9 Hgb 12.1 Hct 39.1 Plt Count 241 Sodium 140 Potassium 3.8 Creatinine 0.86 Estimated GFR > 60 Fasting Glucose 96 Calcium 9.3 AST 21 ALT 14 Triglycerides 71 Cholesterol 234 H LDL Cholesterol, Calc 146 H HDL Cholesterol 74 Vitamin B12 310 25-OH Vitamin D Total 31.7 TSH 6.75 H Free T4 0.88 Ur Specific [place] 1.025 Urine Protein Negative Urine Glucose (UA) Negative Urine Blood Negative Urine Nitrite Negative Ur Leukocyte Esterase Negative Assessment and Plan Assessment & Plan (1) Impingement syndrome of left shoulder region: Code(s): M75.42 - Impingement syndrome of left shoulder Plan: Have discussed with patient that her current symptoms are highly suggestive of an impingement syndrome in the left shoulder OR radicular (and to some extent, myelopathic) symptoms that might be originating from the cervical spine Will send her for x-rays of the cervical spine and repeat x-rays of the left shoulder for now and if these are unrevealing, we may need to reconsider sending her for an MRI of the shoulder for further evaluation The left shoulder MRI that was ordered by orthopedics a couple of months ago was denied by her insurance company as she supposedly had to jump through the hoops first and complete a documented 6 weeks course of treatment/physical therapy an d prove that she did not respond to the treatment first before they will agree to cover the test Will start her for now on Gabapentin 100 mg Q HS Follow up with orthopedics as scheduled (2) Left arm weakness: Code(s): R29.898 - Other symptoms and signs involving the musculoskeletal system Plan: Discussed that this is likely a result of the conditions mentioned above Will send her for EMG and NCV of the left upper extremity for further evaluation (3) Neck pain: Code(s): M54.2 - Cervicalgia Plan: Will send her for cervical spine x-rays for further evaluation and if her x-rays show any evidence of cervical disc disease, then there is a possibility that her recent increasing left arm symptoms may also be arising from her cervical spine (4) Pure hypercholesterolemia: Code(s): E78.00 - Pure hypercholesterolemia, unspecified Plan: Results of her labs done yesterday reviewed and discussed with patient - have advised patient that her cholesterol levels have again increased from previous Reinforced low cholesterol diet Continue Atorvastatin 10 mg QD for now but advised that we may need to increase her dose if her cholesterol levels do not improve significantly over the next few months Will recheck her labs and fasting lipids in 3 months for follow up (5) Migraine: Code(s): G43.909 - Migraine, unspecified, not intractable, without status migrainosus Qualifiers: Migraine type: unspecified Status migrainosus presence: without status migrainosus Intractability: not intractable Qualified Code(s): G43.909 - Migraine, unspecified, not intractable, without status migrainosus Plan: States that her migraine headaches have been doing okay lately; were better controlled on Topiramate prophylaxis but these were discontinued by endocrinology a while back Have offered to start on Amitriptyline but she recalled gaining a lot of weight while she was on Amitriptyline in the past and prefers not to restart Amitriptyline Continue Fioricet PRN Follow up with neurology (Dr. Shi) as scheduled (6) Hypothyroidism: Code(s): E03.9 - Hypothyroidism, unspecified Qualifiers: Hypothyroidism type: unspecified Qualified Code(s): E03.9 - Hypothyroidism, unspecified Plan: Her TSH has increased significantly on her recent labs but her free T4 level remains low normal; patient is currently clinically euthyroid Continue Levothyroxine 75 mcg QD for now Will recheck her TFTs in 3 months for follow up Follow up with endocrinology as scheduled (7) Osteoporosis: Code(s): M81.0 - Age-related osteoporosis without current pathological fracture Qualifiers: Osteoporosis type: unspecified Presence of current pathological fra cture: unspecified Qualified Code(s): M81.0 - Age-related osteoporosis without current pathological fracture Plan: Repeat BMD done on 03/11/2021 revealed (+) osteoporosis based on the lowest T- score value of -2.7 in the lumbar spine. Patient cautioned that her BMD has declined by 9% or more in both her lumbar spine and left femur? BMD on 01/24/2019 also showed a 12% decrease in BMD at her femur from her previous scan in 2017; AP spine BMD is unchanged from before Patient could not tolerate Alendronate (GI symptoms) and was supposed to be started on Prolia injections that will be managed by endocrinology but she has not began the Rx yet She was supposed to see Dr. Andrews for endocrinology follow up in June 2023 but her appointment was rescheduled and she is now scheduled to see Dr. Andrews next month (October 2023) for endocrinology follow up (8) Vitamin D deficiency: Code(s): E55.9 - Vitamin D deficiency, unspecified Plan: Continue Vitamin D2 2000 units QD (9) B12 deficiency: Code(s): E53.8 - Deficiency of other specified B group vitamins Plan: Continue Vitamin B12 injections monthly (10) Fibromyalgia: Code(s): M79.7 - Fibromyalgia Plan: Encouraged again to exercise regularly and stay active to help manage her fibromyalgia symptoms better Used to take Tizanidine 4 mg TID PRN but she has not had to take Rx in a while now (11) Constipation: Code(s): K59.00 - Constipation, unspecified Qualifiers: Constipation type: unspecified constipation type Qualified Code(s): K59.00 - Constipation, unspecified Plan: Encouraged increased oral fluids and dietary fiber Continue MiraLax powder 17 g daily as instructed; she no longer has to take Amitiza lately Follow-up with GI (Dr. Buitrago) as scheduled - has been advised that she is due for a repeat colonoscopy (12) Overactive bladder: Code(s): N32.81 - Overactive bladder Plan: Follow up with urology as scheduled Plan Follow up in 3 months Orders: Orders NE nerve conduction velocity Today M54.12 - Radiculopathy, cervical region, R29.898 - Other symptoms and signs involving the musculoskeletal system XR cervical spine min 6V Today M25.512 - Pain in left shoulder, M54.12 - Radiculopathy, cervical region, M75.42 - Impingement syndrome of left shoulder, R29.898 - Other symptoms and signs involving the musculoskeletal system XR shoulder LT min 2V Today M25.512 - Pain in left shoulder, M54.12 - Radiculopathy, cervical region, M75.42 - Impingement syndrome of left shoulder, R29.898 - Other symptoms and signs involving the musculoskeletal system Comprehensive [place]. Panel Fast 3 Months E78.00 - Pure hypercholesterolemia, unspecified Thyroid Stimulating Hormone 3 Months E03.9 - Hypothyroidism, unspecified Free T4 (Free Thyroxine) 3 Months E03.9 - Hypothyroidism, unspecified Complete Blood Count Auto Diff 3 Months D64.9 - Anemia, unspecified Vitamin B12 and Folate 3 Months E53.8 - Deficiency of other specified B group vitamins NE electromyogram (EMG) Today M54.12 - Radiculopathy, cervical region, R29.898 - Other symptoms and signs involving the musculoskeletal system Lipid Panel 3 Months E78.00 - Pure hypercholesterolemia, unspecified Medications: New gabapentin 100 mg PO BEDTIME 30 days 30 caps 2RF Refilled atorvastatin 10 mg PO BEDTIME 30 days 30 tabs 3RF Coding Level of Care Code Est Pt Level 4 (03278) Diagnoses Impingement syndrome of left shoulder region M75.42 Left arm weakness R29.898 Neck pain M54.2 Pure hypercholesterolemia E78.00 Migraine without status migrainosus, not intractable, unspecified migraine type G43.909 Migraine type: unspecified Status migrainosus presence: without status migrainosus Intractability: not intractable Hypothyroidism, unspecified type E03.9 Hypothyroidism type: unspecified Osteoporosis, unspecified osteoporosis type, unspecified pathological fracture presence M81.0 Osteoporosis type: unspecified Presence of current pathological fracture: unspecified Vitamin D deficiency E55.9 B12 deficiency E53.8 Fibromyalgia M79.7 Constipation, unspecified constipation type K59.00 Constipation type: unspecified constipation type Overactive bladder N32.81
== END 2023-09-25 14:41 | disposition home or self-care (01) ==
PROVIDERS: PCP Internal Medicine; Visit Provider Internal Medicine
DX: M75.42 Impingement syndrome of left shoulder (principal); R29.898 Other symptoms and signs involving the musculoskeletal system; M54.2 Cervicalgia; E78.00 Pure hypercholesterolemia, unspecified; G43.909 Migraine, unspecified, not intractable, without status migrainosus; E03.9 Hypothyroidism, unspecified; M81.0 Age-related osteoporosis without current pathological fracture; E55.9 Vitamin D deficiency, unspecified; E53.8 Deficiency of other specified B group vitamins; M79.7 Fibromyalgia; K59.00 Constipation, unspecified; N32.81 Overactive bladder
CPT/HCPCS: 99214

== ENCOUNTER 2023-09-25 14:46 | Outpatient (REF) | payer OTHER, SELFPAY ==
--- NOTE | ~2023-09-25 | XR_ITS ---
EXAMINATION: XR LEFT SHOULDER XR CERVICAL SPINE CLINICAL INFORMATION: Pain in left shoulder, radiculopathy cervical region. COMPARISON: Left shoulder 05/23/2023. TECHNIQUE: 5 views of the cervical spine. 4 views of the left shoulder. FINDINGS: LEFT SHOULDER: The bones are diffusely demineralized. Mild degenerative changes in the acromioclavicular joint. Glenohumeral alignment is preserved. No abnormal soft tissue calcifications identified adjacent to the humeral head. CERVICAL SPINE: Straightening of the normal cervical lordosis. Mild multilevel cervical spondylosis. Cervical disc space heights are preserved. Mild bilateral facet arthritis with neural foraminal encroachment at C6-C7. XR/XR shoulder LT min 2V IMPRESSION: 1. Mild degenerative changes left acromioclavicular joint. 2. Mild multilevel cervical spondylosis. 3. Mild bilateral facet arthritis with neural foraminal encroachment at C6-C7.
--- NOTE | ~2023-09-25 | XR_ITS ---
EXAMINATION: XR LEFT SHOULDER XR CERVICAL SPINE CLINICAL INFORMATION: Pain in left shoulder, radiculopathy cervical region. COMPARISON: Left shoulder 05/23/2023. TECHNIQUE: 5 views of the cervical spine. 4 views of the left shoulder. FINDINGS: LEFT SHOULDER: The bones are diffusely demineralized. Mild degenerative changes in the acromioclavicular joint. Glenohumeral alignment is preserved. No abnormal soft tissue calcifications identified adjacent to the humeral head. CERVICAL SPINE: Straightening of the normal cervical lordosis. Mild multilevel cervical spondylosis. Cervical disc space heights are preserved. Mild bilateral facet arthritis with neural foraminal encroachment at C6-C7. XR/XR cervical spine min 6V IMPRESSION: 1. Mild degenerative changes left acromioclavicular joint. 2. Mild multilevel cervical spondylosis. 3. Mild bilateral facet arthritis with neural foraminal encroachment at C6-C7.
== END 2023-09-25 14:47 | disposition home or self-care (01) ==
LOC: HO.XRAY 14:46
PROVIDERS: PCP Internal Medicine; Visit Provider Internal Medicine
DX: M54.12 Radiculopathy, cervical region (principal); R29.898 Other symptoms and signs involving the musculoskeletal system; M25.512 Pain in left shoulder; M75.42 Impingement syndrome of left shoulder
CPT/HCPCS: 72052; 73030

== ENCOUNTER 2023-10-04 14:55 | Outpatient (AMB) | payer OTHER, SELFPAY ==
[2023-10-04 14:55] VITALS: BMI 20.4
--- NOTE | 2023-10-04 14:55 | MHC.OFFVIS ---
Vital Signs 10/04/23 14:55 Height 5 ft 4 in Weight 119 lb BMI 20.4 Intake Visit Reasons: ov- LT shoulder pain Intake Note: Ina is a 62 year old female who presents for a follow up of Left shoulder pain. Patient reports her shoulder is worse, she has burning pain in her arm and fingers and up into the neck, She states her ROM is worse and she is having a hard time grasping things. She has used the lidocaine patchs for the pain with no relief. The patient injured her shoulder approximately 6 months ago when she fell off of a step stool into a cabinet with her left shoulder. She has difficulty lifting her left hand above shoulder height. She has tried Tylenol and anti-inflammatory medicines as well as cortisone injections which gave her minimal relief. The patient did have a left shoulder MRI denied by her insurance company because she has not been to formal physical therapy. Allergies zolpidem [ZOLPIDEM] Allergy (Severe, Verified 10/04/23 15:14) SLEEPWALKING aspirin [ASPIRIN] Allergy (Intermediate, Verified 10/04/23 15:14) ITCHING/SWELLING, rash,itchy trazodone [TRAZODONE] Allergy (Intermediate, Verified 10/04/23 15:14) NIGHTMARES naproxen [From Anaprox] Allergy (Mild, Verified 10/04/23 15:14) RASH acetaminophen [From PERCOCET] Allergy (Unknown, Verified 10/04/23 15:14) HIVES/NAUSEA amoxicillin [Augmentin] Allergy (Unknown, Verified 10/04/23 15:14) Unknown oxycodone [From PERCOCET] Allergy (Unknown, Verified 10/04/23 15:14) HIVES/NAUSEA butalbital Allergy (Verified 10/04/23 15:14) Rash, Itching eszopiclone [From LUNESTA] Adverse Reaction (Intermediate, Verified 10/04/23 15:14) NIGHTMARES Medication List - Last Reconciled 10/05/23 by John Marinelli MD atorvastatin 10 mg PO BEDTIME 30 days calcium citrate-vitamin D3 200 mg-6.25 mcg (250 unit) (Citracal-D3 Petites) 2 tabs PO DAILY 30 days cyanocobalamin (vitamin B-12) 1,000 mcg IM Q4W 90 days gabapentin 100 mg PO BEDTIME 30 days levothyroxine 75 mcg PO DAILY nortriptyline 10 mg PO BEDTIME polyethylene glycol 3350 17 grams PO DAILY 30 days tramadol 50 mg PO BID PRN PFSH Medical History Bilateral hand pain Arthralgia Overweight (BMI 25.0-29.9) Constipation Overactive bladder Migraine Fibromyalgia Pure hypercholesterolemia Pain of right thumb Vitamin D deficiency Hypothyroidism Hyperparathyroidism Osteoporosis B12 deficiency Surgical History Hx of arthroscopy of right knee Hx of arthroscopy of left knee Hx of colonoscopy History of esophagogastroduodenoscopy (EGD) History of carpal tunnel release Family History Father Medical history unknown Mother Medical history unknown Parkinson disease Family/Other Colon cancer Daughter History of breast cancer, Onset Age: 21 Cervical cancer Sister Uterine cancer Sister Colon cancer Social History Household Members Other:: daughter Housing: House Alcohol intake: never Patient Tobacco Use Status: Never used Tobacco e-Cigarette/Vaping Use: Never Used Second Hand Smoke Exposure: Yes service: No Current occupational status: disabled Sexual orientation: Straight/Heterosexual Gender identity: Female Cognitive needs: No Hearing needs: No Vision needs: Yes (reading glasses) Physical Exam Vital Signs: BMI result Body Mass Index 20.4 Const Other: Well-nourished well-developed very friendly female awake alert and oriented x3 in no acute distress Extrem Other: Bilateral upper extremity examination shows good capillary refill, no skin lesions noted, normal sensation light touch Left shoulder examination shows decreased range of motion when compared to her right shoulder, positive impingement signs, 4+ out of 5 strength with supraspinatus testing, tenderness over her acromioclavicular joint Results Reviewed Results Reviewed: X-rays of the patient's left shoulder show severe acromioclavicular joint narrowing, a type 2 acromion, no acute bony abnormalities Assessment & Plan Assessment & Plan (1) Impingement syndrome of left shoulder region: Code(s): M75.42 - Impingement syndrome of left shoulder Category: Medical Plan Ms. Ewing presents with progressively worsening left shoulder pain and weakness due to impingement syndrome and possible rotator cuff tearing. I did recommend that the patient get an MRI of her left shoulder to further evaluate the status of her rotator cuff tendons. The patient's left shoulder MRI was denied by her insurance company because she has not been to formal physical therapy. Thus, I gave the patient a prescription to go to formal physical therapy for the next 6 weeks. She will follow up with me following the therapy for repeat clinical examination. Feel free to call me at any time should questions regarding her orthopedic management arise. I spent 20 minutes in reviewing the patient's records and imaging studies, seeing the patient and documenting in the medical record. Orders: Orders PT Evaluation and Treatment 10/04/23 M75.42 - Impingement syndrome of left shoulder Coding Level of Care Code Est Pt Level 3 (35790) Diagnoses Impingement syndrome of left shoulder region M75.42
== END 2023-10-04 15:21 | disposition home or self-care (01) ==
PROVIDERS: PCP Internal Medicine; Visit Provider Orthopaedic Surgery
DX: M75.42 Impingement syndrome of left shoulder (principal)
CPT/HCPCS: 99213

== ENCOUNTER → 2023-10-04 14:55 | Outpatient (BNVA) | payer OTHER, SELFPAY | PROVIDERS: PCP Internal Medicine; Visit Provider Orthopaedic Surgery | DX: M75.42 Impingement syndrome of left shoulder (principal) | CPT/HCPCS: 99212 ==

== ENCOUNTER 2023-10-09 13:08 | Outpatient (REF) | payer OTHER, SELFPAY ==
[2023-10-09 14:21] LABS: Alanine Aminotransferase 11 U/L (0-31); Albumin Level 4.3 g/dL (3.5-5.0); Alkaline Phosphatase 42 U/L (39-117); Anion Gap 11 (12-20); Aspartate Amino Transferase 18 U/L (5-31); Bilirubin Total 0.6 mg/dL (0.0-1.0); Blood Urea Nitrogen 12 mg/dL (9-16); Calcium 9.5 mg/dL (8.4-10.2); Carbon Dioxide 27 mmol/L (22-29); Chloride 109 mmol/L (96-108); Estimated Glomerular Filt Rate > 60; Glucose Random 88 mg/dL (60-115); Potassium 3.9 mmol/L (3.3-5.1); Sodium 143 mmol/L (135-145); Total Protein 7.3 g/dL (6.5-8.0)
[2023-10-09 14:36] LABS: Free T4 (Free Thyroxine) 0.94 ng/dL (0.71-1.85); Vitamin D 25-OH Total 31.4 ng/mL (>30)
== END 2023-10-09 13:09 | disposition home or self-care (01) ==
LOC: HO.LAB 13:08
PROVIDERS: Absent Provider Internal Medicine Endocrinology, Diabetes & Metabolism; PCP Internal Medicine; Visit Provider Internal Medicine
DX: E03.9 Hypothyroidism, unspecified (principal); E55.9 Vitamin D deficiency, unspecified; M81.0 Age-related osteoporosis without current pathological fracture
CPT/HCPCS: 36415; 80053; 82306; 83970; 84439; 84443

== ENCOUNTER 2023-10-11 13:19 | Outpatient (REF) | payer OTHER, SELFPAY ==
--- NOTE | 2023-10-11 13:20 | EMG_ITS ---
Chief complaint: Left hand numbness, left shoulder pain EMG done by Dr. Romo 2020 reported mild bilateral Carpal Tunnel Syndrome. Status post right Carpal Tunnel Syndrome surgery. No surgery on left. Reason for referral: Evaluate for radiculopathy versus entrapment neuropathy Referred by: Dr. العراقي Procedure done: Left upper extremity NCS/EMG Precautions and/or limitations: None The limb temperature was monitored continuously and remained between 32-36 degrees C during the performance of the NCS. Nerve Conduction Studies Anti Sensory Summary Table ?Stim Site NR Onset (ms) Norm Onset (ms) Peak (ms) Norm Peak (ms) O-P Amp (?V) Norm O-P Amp Site1 Site2 Delta-0 (ms) Dist (cm) Ebenezer (m/s) Norm Ebenezer (m/s) Left Median Anti Sensory (2nd Digit) Wrist ? 2.6 3.4 <3.6 40.7 >10 Wrist 2nd Digit 2.6 14.0 54 Left Ulnar Anti Sensory (5th Digit) Wrist ? 2.7 3.7 <3.7 25.0 >15.0 Wrist 5th Digit 2.7 14.0 52 Motor Summary Table ?Stim Site NR Onset (ms) Norm Onset (ms) O-P Amp (mV) Norm O-P Amp iAmp (mV) Amp (1st) (%) Site1 Site2 Delta-0 (ms) Dist (cm) Ebenezer (m/s) Norm Ebenezer (m/s) Left Median Motor (Abd Poll Brev) Wrist ? 3.3 <3.9 13.0 >4.5 15.4 100.0 Elbow Wrist 3.8 20.0 53 >45 Elbow ? 7.1 10.3 12.3 79.2 Left Ulnar Motor (Abd Dig Minimi) Wrist ? 3.0 <3.0 11.4 >5 15.2 100.0 B Elbow Wrist 3.3 18.0 55 >45 B Elbow ? 6.3 9.8 13.0 86.0 A Elbow B Elbow 1.4 10.0 71 >45 A Elbow ? 7.7 9.5 12.8 83.3 Comparison Summary Table ?Stim Site NR Peak (ms) Norm Peak (ms) P-T Amp (?V) Site1 Site2 Delta-P (ms) Norm Delta (ms) Left Median/Radial Dig I Comparison (Digit 1 - 10cm) Median ? 2.7 <2.9 12.0 Median Radial -0.3 Radial ? 3.0 <2.8 15.9 EMG ?Side Muscle Nerve Root Ins Act Fibs Psw Amp Dur Poly Recrt Int Pat Comment Left 1stDorInt Ulnar C8-T1 Nml Nml Nml Nml Nml 0 Nml Complete Left FlexCarRad Median C6-7 Nml Nml Nml Nml Nml 0 Nml Complete Left Biceps Musculocut C5-6 Nml Nml Nml Nml Nml 0 Nml Complete Left Triceps Radial C6-7-8 Nml Nml Nml Nml Nml 0 Nml Complete Left Deltoid Axillary C5-6 Nml Nml Nml Nml Nml 0 Nml Complete FINDINGS: All motor and sensory nerves tested showed normal latencies, amplitudes and conduction velocities. Concentric needle EMG was performed in selected muscles of the left upper extremity. Study did not reveal signs of electric abnormalities as shown in the table below. IMPRESSION: 1. This is a normal study. 2. There is no electrodiagnostic evidence for median neuropathy, ulnar neuropathy, brachial plexopathy, or cervical radiculopathy. Thank you for your kind referral. Sneha Pandya MD, RITA Board Certified, [place] [employer] and Rehabilitation (ABPMR) Board Certified, [place] Board [employer] Electrodiagnostic Medicine (ABEM) [place] [id number] [facility]
== END 2023-10-11 13:20 | disposition home or self-care (01) ==
LOC: HO.NEURO 13:19
PROVIDERS: PCP Internal Medicine; Visit Provider Internal Medicine
DX: R29.898 Other symptoms and signs involving the musculoskeletal system (principal); M54.12 Radiculopathy, cervical region
CPT/HCPCS: 95886; 95909

== ENCOUNTER → 2023-10-11 13:20 | Outpatient (BNV) | payer OTHER, SELFPAY | PROVIDERS: PCP Internal Medicine; Visit Provider Physical Medicine & Rehabilitation | DX: M79.642 Pain in left hand (principal); M25.512 Pain in left shoulder | CPT/HCPCS: 95886; 95909 ==

== ENCOUNTER 2023-10-15 15:17 | Outpatient (AMB) | payer OTHER, SELFPAY ==
--- NOTE | 2023-10-15 15:19 | MHC.OFFVIS ---
Vital Signs 10/15/23 15:20 Height 5 ft 4 in Weight 121 lb 11.123 oz BMI 20.9 BP 104/68 Blood Pressure Location Rt brachial Position Sitting Pulse 68 Pulse Source Pulse Oximeter Intake Visit Reasons: Osteoporosis-CONFIRMED Intake Note: Patient presents today for Osteoporosis follow up visit, last by Dr. Harman on 10/02/2022. 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 Accompanied by: Self / Same As Patient Allergies zolpidem [ZOLPIDEM] Allergy (Severe, Verified 10/15/23 15:23) SLEEPWALKING aspirin [ASPIRIN] Allergy (Intermediate, Verified 10/15/23 15:23) ITCHING/SWELLING, rash,itchy trazodone [TRAZODONE] Allergy (Intermediate, Verified 10/15/23 15:23) NIGHTMARES naproxen [From Anaprox] Allergy (Mild, Verified 10/15/23 15:23) RASH acetaminophen [From PERCOCET] Allergy (Unknown, Verified 10/15/23 15:23) HIVES/NAUSEA amoxicillin [Augmentin] Allergy (Unknown, Verified 10/15/23 15:23) Unknown oxycodone [From PERCOCET] Allergy (Unknown, Verified 10/15/23 15:23) HIVES/NAUSEA butalbital Allergy (Verified 10/15/23 15:23) Rash, Itching eszopiclone [From LUNESTA] Adverse Reaction (Intermediate, Verified 10/15/23 15:23) NIGHTMARES Medication List - Last Reconciled 10/15/23 by Rex Andrews MD atorvastatin 10 mg PO BEDTIME 30 days calcium citrate-vitamin D3 200 mg-6.25 mcg (250 unit) (Citracal-D3 Petites) 2 tabs PO DAILY 30 days cyanocobalamin (vitamin B-12) 1,000 mcg IM Q4W 90 days gabapentin 100 mg PO BEDTIME 30 days levothyroxine 75 mcg PO DAILY nortriptyline 10 mg PO BEDTIME polyethylene glycol 3350 17 grams PO DAILY 30 days tramadol 50 mg PO BID PRN HPI Comments Details: 62 YO Female with PMHx Hypothyroidism, Migraine Headache on Topirimate is seen in F/U for Osteoporosis She was previously followed by Sania Her. . The patient last saw Dr. Harman 1) Osteoporosis: First diagnosed in 2016. Was started on treatment with Fosamax 70 mg PO once a week 02/26/2019. She reports jaw pain with this and stopped it of her own accord. We then discussed starting Prolia, but she was undergoing workup for elevated PTH so this was delayed. She then has consistently refused treatment since that time. No history of pathologic fracture or ONJ. Has 0-1 servings of dietary calcium per day in the form of yogurt, a glass of milk or some cheese. Does take a Calcium supplement but unsure of the dose. Takes 50,000 IU of Vitamin D weekly, has been taking this for many years. She underwent a full biochemical workup for secondary causes of Osteoporosis which revealed very low urinary calcium, with elevated PTH and normal Vitamin D, suggesting low calcium intake. Was using Topirimate daily for migraine prophylaxis, but stopped this abruptly in 2019. She has not resumed it. Denies ever using PPI, anticoagulant or glucocorticoid medication. She had a repeat DEXA 03/11/2021 which revealed significant improvement in her hips, which are no longer in the osteoporotic range. She continues with osteoporosis of the spine. Does not do weight bearing exercise. Fracture history: Had traumatic fractures of her toes and foot, but no fragility fractures. Height loss: Denies. 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 Menses was always regular. , she breastfed for approximately 3 years in total. Menopause was age 52. History of Kidney stones: Family history of Osteoporosis in her Mother and 3 sisters. Her mother did have a hip fracture. UTD on dental cleanings and sees dentist every 6 months. No planned upcoming dental work. DEXA 03/11/2021: FINDINGS: AP SPINE L1-L4: Current: BMD 0.852 g/cm2, Z-score -1.7, T-score -2.7, osteoporosis, 0.2% decrease from previous, 9.9% decrease from baseline (<5% change is not significant). Prior: BMD 0.854 g/cm2. Baseline: BMD 0.946 g/cm2. LEFT FEMUR, NECK: Current: BMD 0.795 g/cm2, Z-score -0.6, T-score -1.7, osteopenia. Prior: BMD 0.686 g/cm2. Baseline: BMD 0.840 g/cm2. LEFT FEMUR, TOTAL: Current: BMD 0.794 g/cm2, Z-score -0.9, T-score -1.7, osteopenia, 9.4% increase from previous, 9.0% decrease from baseline (<5% change is not significant). Prior: BMD 0.726 g/cm2. Baseline: BMD 0.873 g/cm2. 2) Hypothyroidism: She has hypothyroidism and takes Levothyroxine 75 mcg PO daily. TSH has remained WNL. Labs: Laboratory Tests 08/21/22 08:38 Sodium 140 Potassium 4.2 Creatinine 1.00 Estimated GFR 56 Calcium 9.5 Albumin 4.3 25-OH Vitamin D Total 46.1 TSH 0.84 Free T4 1.07 PFSH Medical History Bilateral hand pain Arthralgia Overweight (BMI 25.0-29.9) Constipation Overactive bladder Migraine Fibromyalgia Pure hypercholesterolemia Pain of right thumb Vitamin D deficiency Hypothyroidism Hyperparathyroidism Osteoporosis B12 deficiency Surgical History Hx of arthroscopy of right knee Hx of arthroscopy of left knee Hx of colonoscopy History of esophagogastroduodenoscopy (EGD) History of carpal tunnel release Family History Father Medical history unknown Mother Medical history unknown Parkinson disease Family/Other Colon cancer Daughter History of breast cancer, Onset Age: 21 Cervical cancer Sister Uterine cancer Sister Colon cancer Social History Household Members Other:: daughter Housing: House Alcohol intake: never Patient Tobacco Use Status: Never used Tobacco e-Cigarette/Vaping Use: Never Used Second Hand Smoke Exposure: Yes service: No Current occupational status: disabled Sexual orientation: Straight/Heterosexual Gender identity: Female Cognitive needs: No Hearing needs: No Vision needs: Yes (reading glasses) Physical Exam Vital Signs: Last Vital Signs Pulse 68 10/15/23 15:20 BP 104/68 10/15/23 15:20 BMI result Body Mass Index 20.9 Assessment & Plan Assessment & Plan (1) Osteoporosis: Code(s): M81.0 - Age-related osteoporosis without current pathological fracture Category: Medical Qualifiers: Osteoporosis type: unspecified Presence of current pathological fracture: unspecified Qualified Code(s): M81.0 - Age-related osteoporosis without current pathological fracture Plan: This is a 62-year-old female with a history of osteoporosis and low 24 hour urinary calcium now corrected as well as correction of secondary hyperparathyroidism. Other secondary causes of ruled out . Plan is to talk to the patient about potentially using an anabolic agent considering her very high risk of fracture such as Evenity vs Tymlos or Forteo proceeded by an anti resorptive . She is going to think about these therapies get back to me. In the meantime, I instructed her to take Viactiv 600 mg b.i.d. as well as vitamin D3 2000 IU per day (2) Hypothyroidism: Code(s): E03.9 - Hypothyroidism, unspecified Category: Medical Qualifiers: Hypothyroidism type: unspecified Qualified Code(s): E03.9 - Hypothyroidism, unspecified Plan: Currently replaced on 75 mcg levothyroxine. Plan is to increase the levothyroxine to 88 mcg recheck TSH and free T4 in 6 weeks time Orders: Orders Free T4 (Free Thyroxine) 6 Weeks E03.9 - Hypothyroidism, unspecified Thyroid Stimulating Hormone 6 Weeks E03.9 - Hypothyroidism, unspecified Medications: New levothyroxine 88 mcg PO DAILY 30 caps 5RF cholecalciferol (vitamin D3) 50 mcg PO DAILY 30 caps 5RF Discontinued levothyroxine Discontinued Reason: Doctor's Order 75 mcg PO DAILY 90 tabs 1RF Coding Level of Care Code Est Pt Level 3 (93374) Diagnoses Osteoporosis, unspecified osteoporosis type, unspecified pathological fracture presence M81.0 Osteoporosis type: unspecified Presence of current pathological fracture: unspecified Hypothyroidism, unspecified type E03.9 Hypothyroidism type: unspecified
[2023-10-15 15:20] VITALS: BP 104/68; PULSE 68; BMI 20.9
== END 2023-10-15 16:11 | disposition home or self-care (01) ==
PROVIDERS: PCP Internal Medicine; Visit Provider Internal Medicine Endocrinology, Diabetes & Metabolism
DX: M81.0 Age-related osteoporosis without current pathological fracture (principal); E03.9 Hypothyroidism, unspecified
CPT/HCPCS: 99213

== ENCOUNTER → 2023-10-15 15:17 | Outpatient (BNVA) | payer OTHER, SELFPAY | PROVIDERS: PCP Internal Medicine; Visit Provider Internal Medicine Endocrinology, Diabetes & Metabolism | DX: M81.0 Age-related osteoporosis without current pathological fracture (principal); E03.9 Hypothyroidism, unspecified | CPT/HCPCS: 99212 ==

== ENCOUNTER 2023-12-24 09:52 | Outpatient (REF) | payer OTHER, SELFPAY ==
[2023-12-24 10:09] LABS: MANUAL DIFF FLAG NO
[2023-12-24 10:45] LABS: Basophils Percent Auto 0.5 % (0-2); Hemoglobin 11.8 g/dl (12.0-16.0); Imm Gran Abs Auto 0.01 X10*3/uL (0.00-0.03); Imm Gran Pct Auto 0.2 % (0.0-0.4); Lymphocytes Absolute Auto 1.7 X10*3/uL (1.2-4.9); Lymphocytes Percent Auto 41.2 % (20-40); Mean Corpuscular HGB Conc 31.1 g/dl (31.0-35.0); Mean Corpuscular Hemoglobin 25.5 pg (27.0-33.0); Mean Corpuscular Volume 82.3 fL (80.0-98.0); Monocytes Absolute Auto 0.4 X10*3/uL (0.1-1.2); Monocytes Percent Auto 9.8 % (2-11); Neutrophils Percent Auto 48.3 % (45-73); Platelet Count 234 X10*3/uL (160-400); Red Blood Count 4.62 X10*6/uL (4.20-5.50); Red Cell Distribution Width 15.3 % (11.0-16.0); White Blood Count 4.1 X10*3/uL (4.8-10.8)
[2023-12-24 11:15] LABS: Alanine Aminotransferase 12 U/L (0-31); Albumin Level 4.3 g/dL (3.5-5.0); Alkaline Phosphatase 40 U/L (39-117); Anion Gap 11 (12-20); Aspartate Amino Transferase 18 U/L (5-31); Bilirubin Total 0.8 mg/dL (0.0-1.0); Blood Urea Nitrogen 16 mg/dL (9-16); Calcium 9.6 mg/dL (8.4-10.2); Carbon Dioxide 27 mmol/L (22-29); Chloride 109 mmol/L (96-108); Cholesterol 209 mg/dL (<200); Estimated Glomerular Filt Rate > 60; Glucose Fasting 98 mg/dL (60-99); HDL Cholesterol 70 mg/dL (>40); LDL Cholesterol Calculated 127 mg/dL (<100); Potassium 3.7 mmol/L (3.3-5.1); Sodium 143 mmol/L (135-145); Total Protein 6.9 g/dL (6.5-8.0); Triglycerides 61 mg/dL (<150)
[2023-12-24 11:29] LABS: Free T4 (Free Thyroxine) 1.05 ng/dL (0.71-1.85); Thyroid Stimulating Hormone 0.14 uIU/mL (0.32-4.0)
[2023-12-24 12:58] LABS: Folate 7.6 ng/mL (> or = 4.0); Vitamin B12 198 pg/mL (200-900)
== END 2023-12-24 09:53 | disposition home or self-care (01) ==
LOC: HO.LAB 09:52
PROVIDERS: PCP Internal Medicine; Visit Provider Internal Medicine
DX: E78.00 Pure hypercholesterolemia, unspecified (principal); D64.9 Anemia, unspecified; E03.9 Hypothyroidism, unspecified; E53.8 Deficiency of other specified B group vitamins
CPT/HCPCS: 36415; 80053; 80061; 82607; 82746; 84439; 84443; 85025

== ENCOUNTER 2023-12-25 12:54 | Outpatient (AMB) | payer OTHER, SELFPAY ==
--- NOTE | 2023-12-25 13:01 | MHC.OFFVIS ---
Intake Visit Reasons: OV- LT shoulder pain Intake Note: Ina is a 63 year old female who presents with complaints of progressively worsening left shoulder pain and weakness. The patient just finished 8 weeks of formal physical therapy. The therapy gave her no relief. If anything it seemed to aggravate her pain. The patient reports difficulty lifting her left hand above shoulder height. She has tried Tylenol and anti-inflammatory medicines which gave her minimal relief. I 1st met the patient for her left shoulder pain on 07/10/2023. At that time I felt like the patient should undergo an MRI of her left shoulder to evaluate her for possible rotator cuff tear. The MRI was denied by the patient's insurance company. I still feel that an MRI is indicated at this time. The patient has had injections in the past which gave her no relief. Allergies zolpidem [ZOLPIDEM] Allergy (Severe, Verified 12/25/23 13:01) SLEEPWALKING aspirin [ASPIRIN] Allergy (Intermediate, Verified 12/25/23 13:01) ITCHING/SWELLING, rash,itchy trazodone [TRAZODONE] Allergy (Intermediate, Verified 12/25/23 13:01) NIGHTMARES naproxen [From Anaprox] Allergy (Mild, Verified 12/25/23 13:01) RASH acetaminophen [From PERCOCET] Allergy (Unknown, Verified 12/25/23 13:01) HIVES/NAUSEA amoxicillin [Augmentin] Allergy (Unknown, Verified 12/25/23 13:01) Unknown oxycodone [From PERCOCET] Allergy (Unknown, Verified 12/25/23 13:01) HIVES/NAUSEA butalbital Allergy (Verified 12/25/23 13:01) Rash, Itching eszopiclone [From LUNESTA] Adverse Reaction (Intermediate, Verified 12/25/23 13:01) NIGHTMARES Medication List - Last Reconciled 12/25/23 by John Marinelli MD atorvastatin 10 mg PO BEDTIME 30 days calcium citrate-vitamin D3 200 mg-6.25 mcg (250 unit) (Citracal-D3 Petites) 2 tabs PO DAILY 30 days cholecalciferol (vitamin D3) 50 mcg PO DAILY cyanocobalamin (vitamin B-12) 1,000 mcg IM Q4W 90 days gabapentin 100 mg PO BEDTIME 30 days levothyroxine 88 mcg PO DAILY linaclotide (Linzess) 145 mcg PO DAILY nortriptyline 10 mg PO BEDTIME polyethylene glycol 3350 17 grams PO DAILY 30 days PFSH Medical History Bilateral hand pain Arthralgia Overweight (BMI 25.0-29.9) Constipation Overactive bladder Migraine Fibromyalgia Pure hypercholesterolemia Pain of right thumb Vitamin D deficiency Hypothyroidism Hyperparathyroidism Osteoporosis B12 deficiency Surgical History Hx of arthroscopy of right knee Hx of arthroscopy of left knee Hx of colonoscopy History of esophagogastroduodenoscopy (EGD) History of carpal tunnel release Family History Father Medical history unknown Mother Medical history unknown Parkinson disease Family/Other Colon cancer Daughter History of breast cancer, Onset Age: 21 Cervical cancer Sister Uterine cancer Sister Colon cancer Social History Household Members Other:: daughter Housing: House Alcohol intake: never Patient Tobacco Use Status: Never used Tobacco e-Cigarette/Vaping Use: Never Used Second Hand Smoke Exposure: Yes service: No Current occupational status: disabled Sexual orientation: Straight/Heterosexual Gender identity: Female Cognitive needs: No Hearing needs: No Vision needs: Yes (reading glasses) Physical Exam Const Other: Well-nourished well-developed very friendly female awake alert and oriented x3 in no acute distress Extrem Other: Bilateral upper extremity examination shows good capillary refill, no skin lesions noted, normal sensation light touch Left shoulder examination shows decreased range of motion when compared to her right shoulder, 4+ out of 5 strength with supraspinatus testing, positive impingement signs, tenderness over her acromioclavicular joint, no instability Results Reviewed Results Reviewed: X-rays of the patient's left shoulder show severe acromioclavicular joint narrowing, a type 2 acromion, no acute bony abnormalities Assessment & Plan Assessment & Plan (1) Left shoulder pain: Code(s): M25.512 - Pain in left shoulder Category: Medical Qualifiers: Chronicity: unspecified Qualified Code(s): M25.512 - Pain in left shoulder Plan Ms. Gildardo Castaneda presents with progressively worsening left shoulder pain and weakness due to impingement syndrome and possible rotator cuff tearing. The patient just completed 8 weeks of formal physical therapy which aggravated her pain. She has failed the last 6 weeks of conservative treatment as well. I do believe that an MRI of her left shoulder is medically indicated at this time to evaluate the status of her rotator cuff tendons. Thus, I put in another order for a left shoulder MRI. I will see the patient back once the MRI is completed to discuss the findings and treatment options. Feel free to call me at any time should questions regarding her orthopedic management arise. I spent 22 minutes in reviewing the patient's records and imaging studies, seeing the patient and documenting in the medical record. Orders: Orders MR shoulder LT wo con Today M25.512 - Pain in left shoulder Coding Level of Care Code Est Pt Level 3 (17004) Diagnoses Left shoulder pain, unspecified chronicity M25.512 Chronicity: unspecified
== END 2023-12-25 13:22 | disposition home or self-care (01) ==
PROVIDERS: PCP Internal Medicine; Visit Provider Orthopaedic Surgery
DX: M25.512 Pain in left shoulder (principal)
CPT/HCPCS: 99213

== ENCOUNTER → 2023-12-25 12:54 | Outpatient (BNVA) | payer OTHER, SELFPAY | PROVIDERS: PCP Internal Medicine; Visit Provider Orthopaedic Surgery | DX: M75.42 Impingement syndrome of left shoulder (principal) | CPT/HCPCS: 99212 ==

== ENCOUNTER 2023-12-26 13:01 | Outpatient (AMB) | payer OTHER, SELFPAY ==
[2023-12-26 13:01] VITALS: BP 94/68; PULSE 78; O2SAT 98; BMI 20.3
--- NOTE | 2023-12-26 13:01 | MHC.PC.OV ---
Vital Signs 12/26/23 13:01 Height 5 ft 4 in Weight 118 lb 0.6 oz BMI 20.3 BP 94/68 Blood Pressure Location Lt brachial Position Sitting Pulse 78 Pulse Source Pulse Oximeter Pulse Oximetry (%) 98 Oxygen Delivery Method Room Air Intake Visit Reasons: DM, CKD, hyperlipidemia, HTN- see comments Intake Note: Patient is here to follow up on [symptoms]. 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: No Allergies zolpidem [ZOLPIDEM] Allergy (Severe, Verified 12/30/23 22:31) SLEEPWALKING aspirin [ASPIRIN] Allergy (Intermediate, Verified 12/30/23 22:31) ITCHING/SWELLING, rash,itchy trazodone [TRAZODONE] Allergy (Intermediate, Verified 12/30/23 22:31) NIGHTMARES naproxen [From Anaprox] Allergy (Mild, Verified 12/30/23 22:31) RASH acetaminophen [From PERCOCET] Allergy (Unknown, Verified 12/30/23 22:31) HIVES/NAUSEA amoxicillin [Augmentin] Allergy (Unknown, Verified 12/30/23 22:31) Unknown oxycodone [From PERCOCET] Allergy (Unknown, Verified 12/30/23 22:31) HIVES/NAUSEA butalbital Allergy (Verified 12/30/23 22:31) Rash, Itching eszopiclone [From LUNESTA] Adverse Reaction (Intermediate, Verified 12/30/23 22:31) NIGHTMARES Medication List - Last Reconciled 12/30/23 by Adolph العراقي MD atorvastatin 10 mg PO BEDTIME 30 days calcium citrate-vitamin D3 200 mg-6.25 mcg (250 unit) (Citracal-D3 Petites) 2 tabs PO DAILY 30 days cholecalciferol (vitamin D3) 50 mcg PO DAILY cyanocobalamin (vitamin B-12) 1,000 mcg IM Q4W 90 days gabapentin 100 mg PO BEDTIME 30 days levothyroxine 88 mcg PO DAILY linaclotide (Linzess) 145 mcg PO DAILY nortriptyline 10 mg PO BEDTIME polyethylene glycol 3350 17 grams PO DAILY 30 days Tobacco use date assessed: 09/25/23 Dental Screening Dental Screen Date: 09/25/23 HPI DM, CKD, hyperlipidemia, HTN- see comments HPI Details Patient comes in today for her follow up visit States that she feels okay She still has increased pain in her left shoulder and weakness of the left arm Is now seeing orthopedics (Dr. Marinelli) and states that she is being sent for an MRI of the shoulder for further evaluation She denies any headaches or dizziness Denies any chest pains, no increased SOB No nausea/vomiting, no abdominal pain No change in bowel habits noted Needs her B12 injection today She had her follow up labs done a couple of days ago - to discuss her results [facility] Medical History Bilateral hand pain Arthralgia Overweight (BMI 25.0-29.9) Constipation Overactive bladder Migraine Fibromyalgia Pure hypercholesterolemia Pain of right thumb Vitamin D deficiency Hypothyroidism Hyperparathyroidism Osteoporosis B12 deficiency Surgical History Hx of arthroscopy of right knee Hx of arthroscopy of left knee Hx of colonoscopy History of esophagogastroduodenoscopy (EGD) History of carpal tunnel release Family History Father Medical history unknown Mother Medical history unknown Parkinson disease Family/Other Colon cancer Daughter History of breast cancer, Onset Age: 21 Cervical cancer Sister Uterine cancer Sister Colon cancer Social History Household Members Other:: daughter Housing: House Alcohol intake: never Patient Tobacco Use Status: Never used Tobacco e-Cigarette/Vaping Use: Never Used Second Hand Smoke Exposure: Yes service: No Current occupational status: disabled Sexual orientation: Straight/Heterosexual Gender identity: Female Cognitive needs: No Hearing needs: No Vision needs: Yes (reading glasses) Questionnaire Thrive Questionnaire Date Thrive assessed: 09/25/23 AUDIT C Alcohol Use Questionnaire (AUDIT-C) 1. How often do you have a drink containing alcohol?: Never 3. How often do you have six or more drinks on one occasion?: Never Total Score: 0 Score Reviewed/Action Taken: Yes JOSELITO-7 AMB Questionnaire JOSELITO-7 Date JOSELITO - 7 assessed: 09/25/23 Source: Developed by Drs. Rex Iniguez, Chichi Tanner, Figueroa Allen and colleagues, with an educational johnna from [employer]. Review of Systems Const Denies chills, Reports fatigue (chronic), Denies fever(s), Denies headache(s) (better controlled lately) and Reports weakness (of the left arm) ENT Denies dysphagia, Denies dizziness, Denies otalgia, Denies headache(s) (better controlled lately), Reports neck pain, Denies odynophagia and Denies sore throat Card Denies chest pain, Denies palpitations and Denies dyspnea Resp Denies cough and Denies dyspnea GI Denies abdominal pain, Denies constipation, Denies dysphagia, Denies heartburn, Denies diarrhea, Denies nausea, Denies odynophagia and Denies vomiting Denies difficulty voiding, Denies nocturia, Denies dysuria and Denies urinary urgency Musc Reports back pain (mild), Reports arthralgias (in the left shoulder - see previous) and Reports neck pain Skin/Breast Denies rash Neuro Denies dizziness, Denies headache(s) (better controlled lately) and Reports weakness (of the left arm) Endo Reports fatigue (chronic) and Denies palpitations Physical exam (Primary Care) Vital Signs: Last Vital Signs Pulse 78 12/26/23 13:01 BP 94/68 12/26/23 13:01 Pulse Ox 98 12/26/23 13:01 Oxygen Delivery Method Room Air 12/26/23 13:01 BMI result Body Mass Index 20.3 Tobacco/Smoking Status: Tobacco use Status Tobacco use date assessed 09/25/23 12/26/23 13:02 Patient Tobacco Use Status Never used Tobacco 12/26/23 13:02 e-Cigarette/Vaping Use Never Used 12/26/23 13:02 Thrive Assessment: Date of Thrive Assessment Date Thrive assessed 09/25/23 12/26/23 13:02 Const General: no acute distress and alert HENMT Ears: TM's normal bilaterally and EAC's normal Throat: Yes posterior oropharynx normal and Yes tonsils normal (no TP congestion noted) Neck Neck: Yes no lymphadenopathy and Yes tender Thyroid: Thyroid normal Resp Auscultation: clear to auscultation bilaterally, no rales and no wheezes Cardio Rate: regular rate Rhythm: abnormal rhythm with ectopic beats (occasionally ) Heart sounds: no murmurs GI Palpation (GI): Soft to palpation and nontender Auscultation: normal bowel sounds General: Yes no CVA tenderness Back/Spine/Pelvis Back: no CVA tenderness Cervical Spine: Cervical spine tenderness Thoracic/Lumbar Spine: lumbar spinal tenderness (mild) Skin Rashes: no rashes Neuro Other: (+) weakness noted on the left arm - muscle strength noted to be at 3/5, with 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 Extrem General: Yes no clubbing, cyanosis or edema Left upper extremity: shoulder/upper arm Details: tenderness Location: of the A-C joint and normal ROM (but reports (+) pain in shoulder with active ROM) and elbow/forearm Details: tenderness Location: of the olecranon and of the lateral epicondyle Office Meds cyanocobalamin (vitamin B-12) 1,000 mcg/mL injection solution Performing Provider: Adolph العراقي MD Performing Location: [facility] [place] [facility] Administered by: Dorita Whitlock RN on 12/26/23 15:04 Dose Route Admin Location Dispensed Lot Number Expiration Date NDC Pattern Maker 1,000 mcg IM 1 mL Results Reviewed Results Reviewed: Laboratory Tests 12/24/23 10:07 WBC 4.1 L Hgb 11.8 L Hct 38.0 Plt Count 234 Sodium 143 Potassium 3.7 Creatinine 0.77 Estimated GFR > 60 Fasting Glucose 98 Calcium 9.6 AST 18 ALT 12 Triglycerides 61 Cholesterol 209 H LDL Cholesterol, Calc 127 H HDL Cholesterol 70 Vitamin B12 198 L TSH 0.14 L Free T4 1.05 Assessment and Plan Assessment & Plan (1) Impingement syndrome of left shoulder region: Code(s): M75.42 - Impingement syndrome of left shoulder Plan: X-rays of the cervical spine and repeat x-rays of the left shoulder done a few months ago revealed (+) mild degenerative changes in the left acromioclavicular joint; mild multilevel cervical spondylosis and mild bilateral facet arthritis with neural foraminal encroachment at C6-C7 She is being sent for left shoulder MRI by orthopedics for further evaluation and is currently still awaiting insurance approval She has completed 8 weeks of formal physical therapy which aggravated her pain and has also failed conservative treatment over the past few weeks We started her on Gabapentin 100 mg Q HS previously to help with her symptoms - to continue on Rx for now Follow up with orthopedics as scheduled (2) Left arm weakness: Code(s): R29.898 - Other symptoms and signs involving the musculoskeletal system Plan: This is likely a result of the conditions mentioned above EMG and NCV of the left upper extremity done in October 2023 came out normal (3) Neck pain: Code(s): M54.2 - Cervicalgia Plan: Cervical spine x-rays done in September 2023 revealed (+) mild multilevel cervical spondylosis and mild bilateral facet arthritis with neural foraminal encroachment at C6-C7 If her neck pain increases, may need to consider referral to neurosurgery for further evaluation and management (4) Pure hypercholesterolemia: Code(s): E78.00 - Pure hypercholesterolemia, unspecified Plan: Results of her labs done a couple of days ago reviewed and discussed with patient - have advised patient that her cholesterol levels have again improved from previous although they remain elevated Reinforced low cholesterol diet Continue Atorvastatin 10 mg QD for now but advised that we may need to increase her dose if her cholesterol levels do not improve further over the next few months Will recheck her labs and fasting lipids in 3 months for follow up (5) Migraine: Code(s): G43.909 - Migraine, unspecified, not intractable, without status migrainosus Qualifiers: Intractability: not intractable Migraine type: unspecified Status migrainosus presence: without status migrainosus Qualified Code(s): G43.909 - Migraine, unspecified, not intractable, without status migrainosus Plan: States that her migraine headaches have been doing okay lately; were better controlled on Topiramate prophylaxis but these were discontinued by endocrinology a while back Have offered to start on Amitriptyline but she recalled gaining a lot of weight while she was on Amitriptyline in the past and prefers not to restart Amitriptyline Continue Fioricet PRN Follow up with neurology (Dr. Shi) as scheduled (6) Hypothyroidism: Code(s): E03.9 - Hypothyroidism, unspecified Qualifiers: Hypothyroidism type: unspecified Qualified Code(s): E03.9 - Hypothyroidism, unspecified Plan: Her TSH is low on her recent labs but her free T4 level remains low normal; patient is currently clinically euthyroid Her Levothyroxine was increased by Dr. Andrews to 88 mcg QD a couple of months ago Follow up with endocrinology as scheduled (7) Palpitations: Code(s): R00.2 - Palpitations Plan: Patient had occasional ectopic beats on exam/auscultation today Will send her for echocardiogram for further evaluation (8) Osteoporosis: Code(s): M81.0 - Age-related osteoporosis without current pathological fracture Qualifiers: Osteoporosis type: unspecified Presence of current pathological fracture: unspecified Qualified Code(s): M81.0 - Age-related osteoporosis without current pathological fracture Plan: Repeat BMD done on 03/11/2021 revealed (+) osteoporosis based on the lowest T-score value of -2.7 in the lumbar spine. Patient cautioned that her BMD has declined by 9% or more in both her lumbar spine and left femur? BMD on 01/24/2019 also showed a 12% decrease in BMD at her femur from her previous scan in 2017; AP spine BMD is unchanged from before Patient could not tolerate Alendronate (GI symptoms) and was supposed to be started on Prolia injections that will be managed by endocrinology but she has not began the Rx yet She was supposed to see Dr. Andrews for endocrinology follow up in June 2023 but her appointment was rescheduled; she was finally seen by Dr. Andrews in October 2023 for endocrinology follow up and was advised to start Tx with either Evenity vs Tymlos or Forteo - patient is advised to check back with Dr. Andrews once she makes a decision on what she wants to do (9) Vitamin D deficiency: Code(s): E55.9 - Vitamin D deficiency, unspecified Plan: Continue Vitamin D2 2000 units QD (10) B12 deficiency: Code(s): E53.8 - Deficiency of other specified B group vitamins Plan: Continue Vitamin B12 injections monthly - B12 injection given today (11) Fibromyalgia: Code(s): M79.7 - Fibromyalgia Plan: She is encouraged again to exercise regularly and stay active to help manage her fibromyalgia symptoms better Used to take Tizanidine 4 mg TID PRN but she has not had to take Rx in a while now (12) Constipation: Code(s): K59.00 - Constipation, unspecified Qualifiers: Constipation type: unspecified constipation type Qualified Code(s): K59.00 - Constipation, unspecified Plan: Encouraged increased oral fluids and dietary fiber Continue MiraLax powder 17 g daily as instructed; she no longer has to take Amitiza lately Follow-up with GI (Dr. Buitrago) as scheduled - has been advised that she is due for a repeat colonoscopy (13) Overactive bladder: Code(s): N32.81 - Overactive bladder Plan: Follow up with urology as scheduled Plan Follow up in 3 months Orders: Orders Thyroid Stimulating Hormone 3 Months E03.9 - Hypothyroidism, unspecified Complete Blood Count Auto Diff 3 Months D64.9 - Anemia, unspecified Comprehensive Bradley. Panel Fast 3 Months E78.00 - Pure hypercholesterolemia, unspecified Free T4 (Free Thyroxine) 3 Months E03.9 - Hypothyroidism, unspecified CA echo transthoracic complete 12/26/23 R00.2 - Palpitations Lipid Panel 3 Months E78.00 - Pure hypercholesterolemia, unspecified UA CC w/rflx Micro + Cult 3 Months R30.0 - Dysuria AMB Vitamin B12 Injection Patient Supplied 12/26/23 E53.8 - Deficiency of other specified B group vitamins Coding Level of Care Code Est Pt Level 4 (89872) Complex EM visit Add On G2211 Diagnoses Impingement syndrome of left shoulder region M75.42 Left arm weakness R29.898 Neck pain M54.2 Pure hypercholesterolemia E78.00 Migraine without status migrainosus, not intractable, unspecified migraine type G43.909 Intractability: not intractable Migraine type: unspecified Status migrainosus presence: without status migrainosus Hypothyroidism, unspecified type E03.9 Hypothyroidism type: unspecified Palpitations R00.2 Osteoporosis, unspecified osteoporosis type, unspecified pathological fracture presence M81.0 Osteoporosis type: unspecified Presence of current pathological fracture: unspecified Vitamin D deficiency E55.9 B12 deficiency E53.8 Fibromyalgia M79.7 Constipation, unspecified constipation type K59.00 Constipation type: unspecified constipation type Overactive bladder N32.81
== END 2023-12-26 14:20 | disposition home or self-care (01) ==
PROVIDERS: PCP Internal Medicine; Visit Provider Internal Medicine
DX: M75.42 Impingement syndrome of left shoulder (principal); R29.898 Other symptoms and signs involving the musculoskeletal system; M54.2 Cervicalgia; E78.00 Pure hypercholesterolemia, unspecified; G43.909 Migraine, unspecified, not intractable, without status migrainosus; E03.9 Hypothyroidism, unspecified; R00.2 Palpitations; M81.0 Age-related osteoporosis without current pathological fracture; E55.9 Vitamin D deficiency, unspecified; E53.8 Deficiency of other specified B group vitamins; M79.7 Fibromyalgia; K59.00 Constipation, unspecified; N32.81 Overactive bladder
CPT/HCPCS: 96372; 99214; G2211; J3420

== ENCOUNTER 2024-01-08 10:09 | Outpatient (AMB) | payer OTHER, SELFPAY ==
--- NOTE | 2024-01-08 10:14 | AM.OFFWIN_ITS ---
Intake Vital Signs 01/08/24 10:15 Height 5 ft 4 in Weight 120 lb BMI 20.6 BP 108/80 Blood Pressure Location Rt brachial Position Sitting Pulse 86 Pulse Source Pulse Oximeter Temp 97.5 F Temp Source Temporal Artery Scan Pulse Oximetry (%) 97 Oxygen Delivery Method Room Air Intake Visit Reasons: EP Right side of face in a lot of pain Intake Note: pt c/o RT side facial and ear pain. Started yesterday. Just woke up with the pain. No cause Patient Tobacco Use Status: Never used Tobacco Allergies zolpidem [ZOLPIDEM] Allergy (Severe, Verified 01/08/24 10:20) SLEEPWALKING aspirin [ASPIRIN] Allergy (Intermediate, Verified 01/08/24 10:20) ITCHING/SWELLING, rash,itchy ibuprofen Allergy (Intermediate, Verified 01/08/24 10:20) Swelling trazodone [TRAZODONE] Allergy (Intermediate, Verified 01/08/24 10:20) NIGHTMARES naproxen [From Anaprox] Allergy (Mild, Verified 01/08/24 10:20) RASH acetaminophen [From PERCOCET] Allergy (Unknown, Verified 01/08/24 10:20) HIVES/NAUSEA amoxicillin [Augmentin] Allergy (Unknown, Verified 01/08/24 10:20) Unknown oxycodone [From PERCOCET] Allergy (Unknown, Verified 01/08/24 10:20) HIVES/NAUSEA butalbital Allergy (Verified 01/08/24 10:20) Rash, Itching eszopiclone [From LUNESTA] Adverse Reaction (Intermediate, Verified 01/08/24 10:20) NIGHTMARES Do you need a note to return to daycare/school/sports/work: No HPI HPI Comments History of Present Illness Details 63 y/o female patient who presents to [facility] in clinic with c/o right sided Jaw pain and tenderness. She does c/o right ear pain also, associated with headaches. PFSH Medical History Bilateral hand pain Arthralgia Overweight (BMI 25.0-29.9) Constipation Overactive bladder Migraine Fibromyalgia Pure hypercholesterolemia Pain of right thumb Vitamin D deficiency Hypothyroidism Hyperparathyroidism Osteoporosis B12 deficiency Surgical History Hx of arthroscopy of right knee Hx of arthroscopy of left knee Hx of colonoscopy History of esophagogastroduodenoscopy (EGD) History of carpal tunnel release Family History Father Medical history unknown Mother Medical history unknown Parkinson disease Family/Other Colon cancer Daughter History of breast cancer, Onset Age: 21 Cervical cancer Sister Uterine cancer Sister Colon cancer Social History Household Members Other:: daughter Housing: House Alcohol intake: never Patient Tobacco Use Status: Never used Tobacco e-Cigarette/Vaping Use: Never Used Second Hand Smoke Exposure: Yes service: No Current occupational status: disabled Sexual orientation: Straight/Heterosexual Gender identity: Female Cognitive needs: No Hearing needs: No Vision needs: Yes (reading glasses) Review of Systems Const All systems reviewed & are unremarkable except as noted in HPI and below Physical Exam Vital Signs: Last Vital Signs Temp 97.5 F 01/08/24 10:15 Pulse 86 01/08/24 10:15 BP 108/80 01/08/24 10:15 Pulse Ox 97 01/08/24 10:15 Oxygen Delivery Method Room Air 01/08/24 10:15 BMI result Body Mass Index 20.6 Const General: comfortable and no acute distress Orientation/consciousness: patient oriented x3 HEENT Other: No facial paralysis, no ear infection. Able to open mouth, no jaw displacement. Head: Yes normocephalic Ears: external ears normal and TM's normal bilaterally General nose exam: Normal nasal mucous membranes and turbinates present Face and sinus: Yes Facial tenderness on exam of face and sinuses (right sided tenderness, behind right ear. ) Mouth: moist mucous membranes Teeth and gingiva: gingiva normal Throat: Yes postnasal drainage Neuro General: patient oriented x3, gait normal and moves all extremities Psych Speech and movement: Normal speech and movement present Assessment & Plan Assessment & Plan (1) Disorder of right side of jaw: Code(s): M27.9 - Disease of jaws, unspecified Plan: F/U with Dentist, she has appointment Tomorrow IceHot NSAIDS or Acetaminophen for pain relief No ear infection. Medications: New acetaminophen 1,000 mg (2 x 500 mg) PO Q6H PRN 30 caps 0RF pain M27.9 - Disease of jaws, unspecified cyclobenzaprine 5 mg PO BEDTIME 7 tabs 0RF M27.9 - Disease of jaws, unspecified Coding Level of Care Code Est Pt Level 3 (35810) Diagnoses Disorder of right side of jaw M27.9 Time Spent (min) 15
[2024-01-08 10:15] VITALS: BP 108/80; PULSE 86; TEMP 36.4; O2SAT 97; BMI 20.6
== END 2024-01-08 11:07 | disposition home or self-care (01) ==
PROVIDERS: PCP Internal Medicine; Visit Provider Nurse Practitioner Family
DX: M27.9 Disease of jaws, unspecified (principal)
CPT/HCPCS: 99213

== ENCOUNTER → 2024-01-15 10:44 | Outpatient (REF) | payer OTHER, SELFPAY ==
--- NOTE | 2024-01-15 10:47 | CA_ITS ---
Transthoracic Echocardiogram Patient (Last, First, Middle): Gildardo Castaneda Kateryna Buckley Gender: Female Date of : 1960 Age: 63 Procedure Date: 01/15/2024 Procedure Type: Transthoracic Echocardiogram Location: OP Height: 162.56 cm Weight: 54.43 kg BSA: 1.57 m2 Heart Rate: bpm BP: 110 / 68 mmHg Marketing Research Analyst: TO Referring MD: Adolph العراقي MD Symptoms: R00.2 - Palpitations Study Quality: Adequate ECG Rhythm: Sinus Conclusions: - The left ventricular systolic function is normal. The calculated ejection fraction is 59% by biplane method. - The basal inferior and mid inferior segments are hypokinetic. - No obvious valvular pathology seen on this study. Findings Left Ventricle Normal left ventricular cavity size. There is normal left ventricular wall thickness. The left ventricular systolic function is normal. The calculated ejection fraction is 59% by biplane method. Diastolic function is normal for age. Wall Motion Rest Echo Findings The basal inferior and mid inferior segments are hypokinetic. Right Ventricle Normal right ventricular cavity size and systolic function. Atria Both atria are normal in size. Aortic Valve There is a normal trileaflet aortic valve. There is no aortic valve stenosis. There is no aortic valve regurgitation. Mitral Valve The mitral valve appears normal. There is trace mitral valve regurgitation. There is no mitral valve stenosis. Pulmonic Valve The pulmonic valve is likely normal. Tricuspid Valve Normal tricuspid valve structure. There is mild tricuspid valve regurgitation. There is no evidence of pulmonary hypertension. Great Vessels The asc aorta is normal in size. Venous The inferior vena cava is mildly dilated and collapses greater than 50% with inspiration. Pericardium/Pleural There is no evidence of pericardial effusion. Prior Study Comparison No prior study available for comparison. Recommendations, Care & Conclusions No obvious valvular pathology seen on this study. Measurements 2D Linear Measurements IVSd: 0.84 0.6-0.9/0.6-1.0 cm LVIDd: 4.27 3.9-5.3/4.2-5.9 cm LVIDd Index: 2.72 2.4-3.2/2.2-3.1 cm/m2 LVIDs: 2.98 2.0-3.6 cm LVPWd: 0.87 0.7-1.1 cm LA Diam: 3.20 2.7-3.8/3.0-4.0 cm LAIDs Index: 2.04 1.5-2.3 cm/m2 LV Mass: 141.66 67-162/88-224 g LV Mass Index: 90.23 43-95/49-115 g/m2 LVOT Diam: 2.00 3.0+(-)1.3 cm 2D Systolic Function EF 4C: 55.40 >55% EF 2C: 61.40 >55% EF BiP: 58.90 >55% Mitral Valve MV Pk E: 0.73 MV PK A: 0.62 MV Decel Time: 187.00 E/A: 1.20 E'Lateral: 8.81 E'Medial: 7.18 E/E' Med: 10.20 E/E' Lat: 8.30 PHT: 55.00 MVA PHT: 4.00 Decel Gilpin: 3.91 Aortic Valve AoV Pk Ebenezer: 1.03 AoV Mn Ebenezer: 0.66 AoV VTI: 0.22 AoV Pk Grad: 4.00 Aov Mn Grad: 2.00 DELFINO Cont.VTI: 2.64 LVOT LVOT Pk Ebenezer: 0.82 LVOT Mn Ebenezer: 0.53 LVOT VTI: 0.18 LVOT Pk Grad: 3.00 LVOT Mn Grad: 1.00 LVOT Diam: 2.00 LVOT Area: 3.14 Diastolic Function MV Pk E: 0.73 MV Pk A: 0.62 E/A: 1.20 E'Medial: 7.18 E/E' Med: 10.20 E' Laterial: 8.81 E/E' Lat: 8.30 Right Ventricle TAPSE (mm): 23.30 TVS' Ebenezer: 11.20 Tricuspid Valve TR Pk Ebenezer: 1.87 TR Pk Grad: 14.00 RA Press: 8.00 RVSP: 22.00 Great Vessels Aorta Sinus of Valsalva: 2.87 2.0-3.5 cm Ao Asc: 2.40 2.1-3.4 cm Updated in Other Vendor System with Status of Final Arie Carrion MD electronically signed on 01/16/2024 11:30:15 AM with status of Final
== END ==
LOC: HO.CARD 10:44
PROVIDERS: PCP Internal Medicine; Visit Provider Internal Medicine
DX: R00.2 Palpitations (principal)
CPT/HCPCS: 93306

== ENCOUNTER → 2024-01-15 10:47 | Outpatient (BNV) | payer OTHER, SELFPAY | PROVIDERS: PCP Internal Medicine; Visit Provider Internal Medicine | DX: I36.1 Nonrheumatic tricuspid (valve) insufficiency (principal) | CPT/HCPCS: 93306 ==

== ENCOUNTER 2024-01-25 12:59 | Outpatient (AMB) | payer OTHER, SELFPAY ==
--- NOTE | 2024-01-25 13:17 | AM.OFFVISNUR ---
Intake Visit Reasons: B12 Shot Allergies zolpidem [ZOLPIDEM] Allergy (Severe, Verified 01/08/24 10:20) SLEEPWALKING aspirin [ASPIRIN] Allergy (Intermediate, Verified 01/08/24 10:20) ITCHING/SWELLING, rash,itchy ibuprofen Allergy (Intermediate, Verified 01/08/24 10:20) Swelling trazodone [TRAZODONE] Allergy (Intermediate, Verified 01/08/24 10:20) NIGHTMARES naproxen [From Anaprox] Allergy (Mild, Verified 01/08/24 10:20) RASH acetaminophen [From PERCOCET] Allergy (Unknown, Verified 01/08/24 10:20) HIVES/NAUSEA amoxicillin [Augmentin] Allergy (Unknown, Verified 01/08/24 10:20) Unknown oxycodone [From PERCOCET] Allergy (Unknown, Verified 01/08/24 10:20) HIVES/NAUSEA butalbital Allergy (Verified 01/08/24 10:20) Rash, Itching eszopiclone [From LUNESTA] Adverse Reaction (Intermediate, Verified 01/08/24 10:20) NIGHTMARES Office Meds cyanocobalamin (vitamin B-12) 1,000 mcg/mL injection solution Performing Provider: Adolph العراقي MD [facility] Administered by: Dorita Whitlock RN on 01/25/24 13:17 Dose Route Admin Location Dispensed Lot Number Expiration Date ND Labeling Machine Operator 1,000 mcg IM 1 mL [id number] 02/01/25 57447-695-38 [employer]AK [employer] Assessment & Plan Assessment & Plan Orders: Orders AMB Vitamin B12 Injection Patient Supplied Today E53.8 - Deficiency of other specified B group vitamins Medications: New cyanocobalamin (vitamin B-12) 1,000 mcg IM ONCE 1 mL 0RF E53.8 - Deficiency of other specified B group vitamins
== END 2024-01-25 13:27 | disposition home or self-care (01) ==
PROVIDERS: PCP Internal Medicine; Visit Provider Internal Medicine
DX: E53.8 Deficiency of other specified B group vitamins (principal)
CPT/HCPCS: 96372; J3420

== ENCOUNTER 2024-01-30 09:14 | Day surgery (SDC) | payer OTHER, SELFPAY ==
[2024-01-28 13:29] VITALS: BMI 20.6
--- NOTE | 2024-01-29 09:52 | P.CONAN_ITS ---
Documented by User: Diane Dorado NP 01/29/24 09:56 HPI - Anesthesia Eval Consult details Narrative: 63yo F for Colonoscopy PMFSH Active Problems Active Problems: All Active Problems Palpitations (Acute) Neck pain (Acute) Impingement syndrome of left shoulder region (Acute) Left cervical radiculopathy (Acute) Left arm weakness (Acute) Left shoulder pain (Acute) Right otitis externa (Acute) Otitis media (Acute) Pharyngitis (Acute) Upper respiratory tract infection (Acute) Chest pressure (Acute) Encounter to discuss test results (Acute) Breast thickening (Acute) Breast pain (Acute) Encounter for annual routine gynecological examination (Acute) Polyp, cervix (Acute) Cervical cancer screening (Acute) Annual physical exam (Acute) B12 deficiency (Acute) Bilateral hand pain (Acute) Arthralgia (Acute) Overweight (BMI 25.0-29.9) (Acute) Constipation (Acute) Overactive bladder (Acute) Migraine (Acute) Fibromyalgia (Acute) Pure hypercholesterolemia (Acute) Pain of right thumb (Acute) Vitamin D deficiency (Acute) Hypothyroidism (Acute) Hyperparathyroidism (Acute) Osteoporosis (Acute) Past Medical History Medical History CVA (cerebral vascular accident) Thyroid disease Bilateral hand pain Arthralgia Overweight (BMI 25.0-29.9) Constipation Overactive bladder Migraine Fibromyalgia Pure hypercholesterolemia Pain of right thumb Vitamin D deficiency Hypothyroidism Hyperparathyroidism Osteoporosis B12 deficiency Family History Family History Father Medical history unknown Mother Medical history unknown Parkinson disease Family/Other Colon cancer Daughter History of breast cancer, Onset Age: 21 Cervical cancer Sister Uterine cancer Sister Colon cancer Surgical History Surgical History Hx of arthroscopy of right knee Hx of arthroscopy of left knee Hx of colonoscopy History of esophagogastroduodenoscopy (EGD) History of carpal tunnel release Social History Social History Household Members Other:: daughter Housing: House Alcohol intake: never Patient Tobacco Use Status: Never used Tobacco e-Cigarette/Vaping Use: Never Used Second Hand Smoke Exposure: Yes Use of substances other than those prescribed or required for medical reasons: No Are you DNR?: No Advance Directives: No Advance Directives Information Provided: Yes Advance Directives on File: No Recently lost weight without trying: No Nutrition Risks: No Nutritional Risk Patient : No : No Poor oral hygiene: No service: No Current occupational status: disabled Sexual orientation: Straight/Heterosexual Gender identity: Female Cognitive needs: No Hearing needs: No Vision needs: Yes (reading glasses) Meds Allergies Allergy/AdvReac Type Severity Reaction Status Date / Time morphine Allergy Severe Unresponsiv Verified 01/30/24 09:53 e zolpidem [ZOLPIDEM] Allergy Severe SLEEPWALKIN Verified 01/08/24 10:20 G aspirin [ASPIRIN] Allergy Intermediate ITCHING/SWELLING, Verified 01/08/24 10:20 rash,itchy ibuprofen Allergy Intermediate Swelling Verified 01/08/24 10:20 trazodone [TRAZODONE] Allergy Intermediate NIGHTMARES Verified 01/08/24 10:20 naproxen [From Anaprox] Allergy Mild RASH Verified 01/08/24 10:20 acetaminophen [From PERCOCET] Allergy Unknown HIVES/NAUSE Verified 01/08/24 1 0:20 A amoxicillin [Augmentin] Allergy Unknown Unknown Verified 01/08/24 10:20 oxycodone [From PERCOCET] Allergy Unknown HIVES/NAUSE Verified 01/08/24 10:20 A butalbital Allergy Rash, Verified 01/08/24 10:20 Itching eszopiclone [From LUNESTA] AdvReac Intermediate NIGHTMARES Verified 01/08/24 10:20 Home Medications ?Medication ?Instructions ?Recorded ?Confirmed ?Last Taken ?Type nortriptyline 10 mg capsule 10 mg PO BEDTIME PRN Insomnia 04/20/23 01/28/24 Unknown History linaclotide 145 mcg capsule 145 mcg PO DAILY 12/25/23 12/30/23 Unknown History (Linzess) levothyroxine 88 mcg capsule 88 mcg PO DAILY 01/28/24 01/28/24 01/30/24 History (Tirosint) polyethylene glycol 3350 17 17 g PO BID 01/28/24 01/28/24 Unknown History gram/dose oral powder topiramate 100 mg tablet 100 mg PO BEDTIME 01/28/24 01/28/24 Unknown History Exam Height,Weight and Vital Signs: Height 5 ft 3.5 in Weight 53.524 kg Pertinent Lab Results Pertinent Lab Results: Laboratory Tests 12/24/23 10:07 WBC 4.1 L Hgb 11.8 L Hct 38.0 Plt Count 234 Sodium 143 Potassium 3.7 Chloride 109 H Carbon Dioxide 27 BUN 16 Creatinine 0.77 Narrative Narrative: ECHO 01/2024 Conclusions: - The left ventricular systolic function is normal. The calculated ejection fraction is 59% by biplane method. - The basal inferior and mid inferior segments are hypokinetic. - No obvious valvular pathology seen on this study. Assessment and Plan Assessment Anesthesia Assessment: Chart Reviewed Documented by User: Gracia Faulkner MD 01/30/24 11:05 PMFSH Past Medical History Medical History CVA (cerebral vascular accident) Thyroid disease Bilateral hand pain Arthralgia Overweight (BMI 25.0-29.9) Constipation Overactive bladder Migraine Fibromyalgia Pure hypercholesterolemia Pain of right thumb Vitamin D deficiency Hypothyroidism Hyperparathyroidism Osteoporosis B12 deficiency Family History Family History Father Medical history unknown Mother Medical history unknown Parkinson disease Family/Other Colon cancer Daughter History of breast cancer, Onset Age: 21 Cervical cancer Sister Uterine cancer Sister Colon cancer Family history of problems with anesthesia: No Surgical History Surgical History Hx of arthroscopy of right knee Hx of arthroscopy of left knee Hx of colonoscopy History of esophagogastroduodenoscopy (EGD) History of carpal tunnel release History of Problems with Anesthesia: No Social History Social History Household Members Other:: daughter Housing: House Alcohol intake: never Patient Tobacco Use Status: Never used Tobacco e-Cigarette/Vaping Use: Never Used Second Hand Smoke Exposure: Yes Use of substances other than those prescribed or required for medical reasons: No Are you DNR?: No Advance Directives: No Advance Directives Information Provided: Yes Advance Directives on File: No Recently lost weight without trying: No Nutrition Risks: No Nutritional Risk Patient : No : No Poor oral hygiene: No service: No Current occupational status: disabled Sexual orientation: Straight/Heterosexual Gender identity: Female Cognitive needs: No Hearing needs: No Vision needs: Yes (reading glasses) Meds Allergies Allergy/AdvReac Type Severity Reaction Status Date / Time morphine Allergy Severe Unresponsiv Verified 01/30/24 09:53 e zolpidem [ZOLPIDEM] Allergy Severe SLEEPWALKIN Verified 01/08/24 10:20 G aspirin [ASPIRIN] Allergy Intermediate ITCHING/SWELLING, Verified 01/08/24 10:20 rash,itchy ibuprofen Allergy Intermediate Swelling Verified 01/08/24 10:20 trazodone [TRAZODONE] Allergy Intermediate NIGHTMARES Verified 01/08/24 10:20 naproxen [From Anaprox] Allergy Mild RASH Verified 01/08/24 10:20 acetaminophen [From PERCOCET] Allergy Unknown HIVES/NAUSE Verified 01/08/24 10:20 A amoxicillin [Augmentin] Allergy Unknown Unknown Verified 01/08/24 10:20 oxycodone [From PERCOCET] Allergy Unknown HIVES/NAUSE Verified 01/08/24 10:20 A butalbital Allergy Rash, Verified 01/08/24 10:20 Itching eszopiclone [From LUNESTA] AdvReac Intermediate NIGHTMARES Verified 01/08/24 10:20 Home Medications ?Medication ?Instructions ?Recorded ?Confirmed ?Last Taken ?Type nortriptyline 10 mg capsule 10 mg PO BEDTIME PRN Insomnia 04/20/23 01/28/24 Unknown History linaclotide 145 mcg capsule 145 mcg PO DAILY 12/25/23 12/30/23 Unknown History (Linzess) levothyroxine 88 mcg capsule 88 mcg PO DAILY 01/28/24 01/28/24 01/30/24 History (Tirosint) polyethylene glycol 3350 17 17 g PO BID 01/28/24 01/28/24 Unknown History gram/dose oral powder topiramate 100 mg tablet 100 mg PO BEDTIME 01/28/24 01/28/24 Unknown History Exam Airway Mallampati Class: II TM Dist: >3cm Neck ROM: Full Heart: rrr Lungs: cta Assessment and Plan Assessment Anesthesia Assessment: Anesthesia Plan Discussed Final Anesthetic Review Family History of Problems with Anesthesia: No History of Problems with Anesthesia: No NPO: Yes ASA Class: III Final Preanesthetic Review: No Changes in Pt Med Stat, Meds/Allgs Chart Reviewed, Consent Obtained/Reviewed and Anes Risks/Benef Reviewed Patient Risk: Intermediate Procedure Risk: Low Anesthetic Plan Anesthetic Plan: MAC: Disposition: Standard PACU
[2024-01-30 09:59] VITALS: BMI 20.8
[2024-01-30 10:01] VITALS: BP 109/68; PULSE 58; RESP 16; TEMP 36.2; O2SAT 98
[2024-01-30] MEDS: Lactated Ringers 1,000 ML 100 ML IVCONT (10:17)
[2024-01-30 11:51] VITALS: BP 102/55; PULSE 103; RESP 14; TEMP 36.6; O2SAT 99
--- NOTE | 2024-01-30 11:52 | PM.OP ---
Brief Operative Note Date of Service: 01/30/24 Pre-op diagnosis: Screening Post-op diagnosis: other (Polyps) Procedure: Colonoscopy to the cecum and TI with bx/removal of cecal polyp, and cold snare polypectomy at 40cm Surgeon: Rex Buitrago MD Anesthesia: MAC Was an Plastic Sheets Finishing Supervisor used for this Procedure?: No Estimated blood loss (mL): 2.0 Pathology: other (A. Cecal polyp B. Polyp at 40cm) Condition: stable Disposition: PACU
[2024-01-30 12:06] VITALS: BP 94/60; PULSE 60; RESP 16; O2SAT 99
[2024-01-30 12:21] VITALS: BP 110/58; PULSE 59; RESP 18; TEMP 36.6; O2SAT 99
--- NOTE | 2024-01-30 13:39 | OP_ITS ---
DATE OF SERVICE: 01/30/2024 SURGEON: Rex Buitrago MD INDICATIONS: The patient presents for followup of personal history of tubular adenomas of the colon and colorectal cancer screening. Full consent was obtained from her for this, including risks of bleeding and perforation. PREOPERATIVE DIAGNOSIS: POSTOPERATIVE DIAGNOSIS: PROCEDURE PERFORMED: Colonoscopy to cecum and terminal ileum with biopsy and removal of polyp, and cold snare polypectomy. ESTIMATED BLOOD LOSS: COMPLICATIONS: ANESTHESIA: Monitored anesthesia care. ASSISTANTS: SPECIMENS: PREOPERATIVE DIAGNOSES: Colorectal cancer screening and personal history of tubular adenoma of the colon. POSTOPERATIVE DIAGNOSES: Colorectal cancer screening and personal history of tubular adenoma of the colon, small colon polyps, diverticulosis, and internal hemorrhoids. DESCRIPTION OF PROCEDURE: The patient was placed in the left lateral decubitus position. The digital rectal exam revealed no abnormalities. The Olympus video pediatric colonoscope was entered into the rectum and advanced to the cecum with the assistance of abdominal wall pressure. Once in the cecum, I did identify cecal pouch with appendiceal orifice and a normal-appearing ileocecal valve. The terminal ileum was cannulated and appeared normal. Scope was withdrawn back in the colon. The entire cecum was normal other than a 3 mm polyp, which was biopsied and completely removed with cold biopsy forceps. The scope was then slowly withdrawn assessing all mucosal surfaces carefully. Preparation was excellent. At 40 cm was an approximately 5 mm polyp, which was removed by cold snare polypectomy and recovered by suction. The polypectomy site appeared clean, without any sign of residual polyp nor any significant bleeding. I did not visualize any other polyps, colitis, or angiodysplasia. There was a mild amount of sigmoid diverticulosis. In the rectum, scope was retroflexed visualizing small internal hemorrhoids, but no other pathology. The rectal mucosa appeared normal. The scope was straightened and withdrawn from the patient. She tolerated the procedure well and was returned to recovery area in stable condition. IMPRESSION: 1. Colon polyps. 2. Diverticulosis. 3. Internal hemorrhoids. PLAN: The results of the pathology will be checked. I would recommend a repeat colonoscopy in 5 years. She was advised not to use any aspirin and NSAIDs for 1 week. She was advised to continue her daily Linzess for the constipation, which she reports is working somewhat. I also advised her to use MiraLAX once or twice a day on a regular and daily basis as well. She will see me otherwise on a p.r.n. basis. MD TOVA Fletcher/EMMANUEL / [phone]
== END 2024-01-30 13:03 | disposition home or self-care (01) ==
PROVIDERS: PCP Internal Medicine; Visit Provider Internal Medicine
PROC: 0DJD8ZZ Inspection of Lower Intestinal Tract, Via Natural or Artificial Opening Endoscopic (ICD-10-PCS; CPT 45378; principal; 2024-01-30 10:30)
DX: Z12.11 Encounter for screening for malignant neoplasm of colon (principal); Z86.010 Personal history of colon polyps; D12.5 Benign neoplasm of sigmoid colon; K63.5 Polyp of colon; K57.30 Diverticulosis of large intestine without perforation or abscess without bleeding; K64.8 Other hemorrhoids; K59.09 Other constipation; E78.00 Pure hypercholesterolemia, unspecified; E03.9 Hypothyroidism, unspecified; Z86.73 Personal history of transient ischemic attack (TIA), and cerebral infarction without residual deficits; Z79.899 Other long term (current) drug therapy; Z88.1 Allergy status to other antibiotic agents; Z88.5 Allergy status to narcotic agent; Z88.8 Allergy status to other drugs, medicaments and biological substances
CPT/HCPCS: 45385; 45380; 88305; J2704

== ENCOUNTER 2024-02-01 18:54 | Outpatient (REF) | payer OTHER, SELFPAY ==
--- NOTE | ~2024-02-01 | MR_ITS ---
EXAMINATION: MR SHOULDER WITHOUT CONTRAST, LEFT CLINICAL INFORMATION: Shoulder pain. COMPARISON: X-ray 05/23/2023. TECHNIQUE: MRI of the shoulder without contrast was performed on a high-field scanner. FINDINGS: ROTATOR CUFF: Mild supraspinatus tendinosis. Mild focal articular surface fraying in the distal anterior fibers. Mild infraspinatus and subscapularis tendinosis. Teres minor is intact. No muscle atrophy or fatty infiltration. BICEPS: Intact . CORACOACROMIAL ARCH: The undersurface of the acromion is curved with no subacromial spur. Mild acromioclavicular arthritis. Trace subacromial subdeltoid bursitis. LABRUM/CAPSULE: No labral tear is identified. Inferior capsule is mildly edematous and slightly thickened. GLENOHUMERAL JOINT/MARROW: Patchy foci of bright T2/intermediate T1 signal in the humeral head and neck, could reflect hemopoietic marrow versus nonspecific mild edema. No fracture plane seen. No significant chondral loss. No significant effusion. Subcentimeter left axillary lymph nodes. MR/MR shoulder LT wo con IMPRESSION: 1. Mild supraspinatus tendinosis. Mild focal articular surface fraying in the distal anterior fibers. 2. Mild infraspinatus and subscapularis tendinosis. 3. Inferior capsule findings could be related to sprain or capsulitis. 4. Signal in the humeral head and neck, could reflect hemopoietic marrow versus nonspecific mild edema from etiology such as bone bruise. Clinically correlate. Followup imaging for reassessment as clinically indicated. 5. Mild acromioclavicular arthritis. Trace subacromial subdeltoid bursitis. Electronically signed by: Anirudh Schaffer MD 02/07/2024 03:11 PM EDT
== END 2024-02-01 18:55 | disposition home or self-care (01) ==
LOC: HO.MRI 18:54
PROVIDERS: PCP Internal Medicine; Visit Provider Orthopaedic Surgery
DX: M25.512 Pain in left shoulder (principal)
CPT/HCPCS: 73221

== ENCOUNTER 2024-02-13 10:19 | Outpatient (AMB) | payer OTHER, SELFPAY ==
--- NOTE | 2024-02-13 10:21 | MHC.OFFVIS ---
Intake Visit Reasons: Left shoulder pain Intake Note: Ina is a 62 year old Right handed female who presents with complaints of left shoulder pain and stiffness. The patient states that she injured her shoulder approximately 9 months ago when she fell off of a step stool and hit her left shoulder onto a cabinet. Since that time her symptoms have gotten worse in spite of continued non operative treatments. She has failed the last 6 weeks of conservative treatment. She has had injections in the past which gave her minimal relief. She has also tried Tylenol which gives only mild relief. She is not able to tolerate anti-inflammatory medicines. The patient reports difficulty lifting her left hand above shoulder height. Allergies morphine Allergy (Severe, Verified 02/13/24 10:23) Unresponsive zolpidem [ZOLPIDEM] Allergy (Severe, Verified 02/13/24 10:23) SLEEPWALKING aspirin [ASPIRIN] Allergy (Intermediate, Verified 02/13/24 10:23) ITCHING/SWELLING, rash,itchy ibuprofen Allergy (Intermediate, Verified 02/13/24 10:23) Swelling trazodone [TRAZODONE] Allergy (Intermediate, Verified 02/13/24 10:23) NIGHTMARES naproxen [From Anaprox] Allergy (Mild, Verified 02/13/24 10:23) RASH acetaminophen [From PERCOCET] Allergy (Unknown, Verified 02/13/24 10:23) HIVES/NAUSEA amoxicillin [Augmentin] Allergy (Unknown, Verified 02/13/24 10:23) Unknown oxycodone [From PERCOCET] Allergy (Unknown, Verified 02/13/24 10:23) HIVES/NAUSEA butalbital Allergy (Verified 02/13/24 10:23) Rash, Itching eszopiclone [From LUNESTA] Adverse Reaction (Intermediate, Verified 02/13/24 10:23) NIGHTMARES Medication List - Last Reconciled 02/13/24 by John Marinelli MD atorvastatin 10 mg PO BEDTIME 30 days cyanocobalamin (vitamin B-12) 1,000 mcg IM Q4W 90 days cyclobenzaprine 5 mg PO BEDTIME gabapentin 100 mg PO BEDTIME 30 days levothyroxine (Tirosint) 88 mcg PO DAILY linaclotide (Linzess) 145 mcg PO DAILY nortriptyline 10 mg PO BEDTIME PRN polyethylene glycol 3350 17 grams PO BID topiramate 100 mg PO BEDTIME PFSH Medical History CVA (cerebral vascular accident) Thyroid disease Bilateral hand pain Arthralgia Overweight (BMI 25.0-29.9) Constipation Overactive bladder Migraine Fibromyalgia Pure hypercholesterolemia Pain of right thumb Vitamin D deficiency Hypothyroidism Hyperparathyroidism Osteoporosis B12 deficiency Surgical History Hx of arthroscopy of right knee Hx of arthroscopy of left knee Hx of colonoscopy History of esophagogastroduodenoscopy (EGD) History of carpal tunnel release Family History Father Medical history unknown Mother Medical history unknown Parkinson disease Family/Other Colon cancer Daughter History of breast cancer, Onset Age: 21 Cervical cancer Sister Uterine cancer Sister Colon cancer Social History Household Members Other:: daughter Housing: House Alcohol intake: never Patient Tobacco Use Status: Never used Tobacco e-Cigarette/Vaping Use: Never Used Second Hand Smoke Exposure: Yes service: No Current occupational status: disabled Sexual orientation: Straight/Heterosexual Gender identity: Female Cognitive needs: No Hearing needs: No Vision needs: Yes (reading glasses) Physical Exam Const Other: Well-nourished well-developed very friendly female awake alert and oriented x3 in no acute distress Extrem Other: Bilateral upper extremity examination shows good capillary refill, no skin lesions noted, normal sensation light touch Left shoulder examination shows decreased active and passive range motion when compared to her right shoulder, 4+ out of 5 strength with supraspinatus testing, positive impingement signs, tenderness over her acromioclavicular joint, no instability Results Reviewed Results Reviewed: MRI of the patient's left shoulder show severe acromioclavicular joint narrowing, a type 2 acromion, signal change within the supraspinatus tendon most likely due to adhesive capsulitis Assessment & Plan Assessment & Plan (1) Left shoulder pain: Code(s): M25.512 - Pain in left shoulder Category: Medical Qualifiers: Chronicity: unspecified Qualified Code(s): M25.512 - Pain in left shoulder Plan Ms. Gildardo Castaneda presents with left shoulder pain and stiffness due to impingement syndrome, acromioclavicular joint arthritis and adhesive capsulitis. I had a lengthy discussion with the patient regarding the treatment options. At this point she has failed continued non operative treatments. The risks and benefits of left shoulder surgery were discussed at length with the patient. The patient wishes to proceed with surgery. Surgery will most likely involve left shoulder diagnostic arthroscopy with distal clavicle excision, acromioplasty, anterior capsular release and manipulation under anesthesia. The patient will be scheduled for next available date. She will continue with her range of motion exercises in the meantime. Feel free to call me at any time should questions regarding her orthopedic management arise. I spent 21 minutes in reviewing the patient's records and imaging studies, seeing the patient and documenting in the medical record. Coding Level of Care Code Est Pt Level 3 (19029) Complex EM visit Add On G2211 Diagnoses Left shoulder pain, unspecified chronicity M25.512 Chronicity: unspecified
== END 2024-02-13 10:49 | disposition home or self-care (01) ==
PROVIDERS: PCP Internal Medicine; Visit Provider Orthopaedic Surgery
DX: M75.42 Impingement syndrome of left shoulder (principal); M19.012 Primary osteoarthritis, left shoulder; M75.02 Adhesive capsulitis of left shoulder
CPT/HCPCS: 99213; G2211

== ENCOUNTER → 2024-02-13 10:19 | Outpatient (BNVA) | payer OTHER, SELFPAY | PROVIDERS: PCP Internal Medicine; Visit Provider Orthopaedic Surgery | DX: M25.512 Pain in left shoulder (principal) | CPT/HCPCS: 99212 ==

== ENCOUNTER 2024-02-22 09:22 | Outpatient (REF) | payer OTHER, SELFPAY ==
[2024-02-22 12:11] LABS: Free T4 (Free Thyroxine) 1.15 ng/dL (0.71-1.85); Thyroid Stimulating Hormone 0.25 uIU/mL (0.32-4.0)
== END 2024-02-22 09:23 | disposition home or self-care (01) ==
LOC: HO.LAB 09:22
PROVIDERS: PCP Internal Medicine; Visit Provider Internal Medicine Endocrinology, Diabetes & Metabolism
DX: E03.9 Hypothyroidism, unspecified (principal); E53.8 Deficiency of other specified B group vitamins
CPT/HCPCS: 36415; 84439; 84443; 96372

== ENCOUNTER 2024-02-22 09:41 | Outpatient (AMB) | payer OTHER, SELFPAY ==
--- NOTE | 2024-02-22 10:19 | AM.OFFVISNUR ---
Intake Visit Reasons: B12 Allergies morphine Allergy (Severe, Verified 02/13/24 10:23) Unresponsive zolpidem [ZOLPIDEM] Allergy (Severe, Verified 02/13/24 10:23) SLEEPWALKING aspirin [ASPIRIN] Allergy (Intermediate, Verified 02/13/24 10:23) ITCHING/SWELLING, rash,itchy ibuprofen Allergy (Intermediate, Verified 02/13/24 10:23) Swelling trazodone [TRAZODONE] Allergy (Intermediate, Verified 02/13/24 10:23) NIGHTMARES naproxen [From Anaprox] Allergy (Mild, Verified 02/13/24 10:23) RASH acetaminophen [From PERCOCET] Allergy (Unknown, Verified 02/13/24 10:23) HIVES/NAUSEA amoxicillin [Augmentin] Allergy (Unknown, Verified 02/13/24 10:23) Unknown oxycodone [From PERCOCET] Allergy (Unknown, Verified 02/13/24 10:23) HIVES/NAUSEA butalbital Allergy (Verified 02/13/24 10:23) Rash, Itching eszopiclone [From LUNESTA] Adverse Reaction (Intermediate, Verified 02/13/24 10:23) NIGHTMARES Office Meds cyanocobalamin (vitamin B-12) 1,000 mcg/mL injection solution Performing Provider: Adolph العراقي MD [facility] Administered by: Dorita Whitlock RN on 02/22/24 10:20 Dose Route Admin Location Dispensed Lot Number Expiration Date [facility] [employer] 1,000 mcg IM 1 mL [id number] 02/01/25 28612-327-79 [employer] Assessment & Plan Assessment & Plan Orders: Orders AMB Vitamin B12 Injection Patient Supplied Today E53.8 - Deficiency of other specified B group vitamins Medications: New cyanocobalamin (vitamin B-12) 1,000 mcg IM ONCE 1 mL 0RF E53.8 - Deficiency of other specified B group vitamins
== END 2024-02-22 10:26 | disposition home or self-care (01) ==
PROVIDERS: PCP Internal Medicine; Visit Provider Internal Medicine
DX: E53.8 Deficiency of other specified B group vitamins (principal)
CPT/HCPCS: J3420

== ENCOUNTER 2024-03-03 14:17 | Outpatient (AMB) | payer OTHER, SELFPAY ==
--- NOTE | 2024-03-03 14:21 | MHC.OFFVIS ---
Vital Signs 03/03/24 14:23 Height 5 ft 3.5 in Weight 122 lb 12.76 oz BMI 21.4 BP 96/62 Blood Pressure Location Rt brachial Position Sitting Pulse 77 Pulse Source Pulse Oximeter Intake Visit Reasons: Osteoporosis/ Conf Intake Note: Patient present today for Osteoporosis follow up, [place] [facility] [place] Recreation Assistant Required: No Accompanied by: Self / Same As Patient Allergies morphine Allergy (Severe, Verified 03/03/24 14:24) Unresponsive zolpidem [ZOLPIDEM] Allergy (Severe, Verified 03/03/24 14:24) SLEEPWALKING aspirin [ASPIRIN] Allergy (Intermediate, Verified 03/03/24 14:24) ITCHING/SWELLING, rash,itchy ibuprofen Allergy (Intermediate, Verified 03/03/24 14:24) Swelling trazodone [TRAZODONE] Allergy (Intermediate, Verified 03/03/24 14:24) NIGHTMARES naproxen [From Anaprox] Allergy (Mild, Verified 03/03/24 14:24) RASH acetaminophen [From PERCOCET] Allergy (Unknown, Verified 03/03/24 14:24) HIVES/NAUSEA amoxicillin [Augmentin] Allergy (Unknown, Verified 03/03/24 14:24) Unknown oxycodone [From PERCOCET] Allergy (Unknown, Verified 03/03/24 14:24) HIVES/NAUSEA butalbital Allergy (Verified 03/03/24 14:24) Rash, Itching eszopiclone [From LUNESTA] Adverse Reaction (Intermediate, Verified 03/03/24 14:24) NIGHTMARES HPI Comments Details: 62 YO Female with PMHx Hypothyroidism, Migraine Headache on Topirimate is seen in F/U for Osteoporosis 1) Osteoporosis: First diagnosed in 2016. Was started on treatment with Fosamax 70 mg PO once a week 02/26/2019. She reports jaw pain with this and stopped it of her own accord. We then discussed starting Prolia, but she was undergoing workup for elevated PTH so this was delayed. She then has consistently refused treatment since that time. No history of pathologic fracture or ONJ. Has 0-1 servings of dietary calcium per day in the form of yogurt, a glass of milk or some cheese. Does take a Calcium supplement but unsure of the dose. Takes 50,000 IU of Vitamin D weekly, has been taking this for many years. She underwent a full biochemical workup for secondary causes of Osteoporosis which revealed very low urinary calcium, with elevated PTH and normal Vitamin D, suggesting low calcium intake. Was using Topirimate daily for migraine prophylaxis, but stopped this abruptly in 2019. She has not resumed it. Denies ever using PPI, anticoagulant or glucocorticoid medication. She had a repeat DEXA 03/11/2021 which revealed significant improvement in her hips, which are no longer in the osteoporotic range. She continues with osteoporosis of the spine. Does not do weight bearing exercise. Fracture history: Had traumatic fractures of her toes and foot, but no fragility fractures. Height loss: Denies. 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 Menses was always regular. , she breastfed for approximately 3 years in total. Menopause was age 52. History of Kidney stones: Family history of Osteoporosis in her Mother and 3 sisters. Her mother did have a hip fracture. UTD on dental cleanings and sees dentist every 6 months. No planned upcoming dental work. DEXA 03/11/2021: FINDINGS: AP SPINE L1-L4: Current: BMD 0.852 g/cm2, Z-score -1.7, T-score -2.7, osteoporosis, 0.2% decrease from previous, 9.9% decrease from baseline (<5% change is not significant). Prior: BMD 0.854 g/cm2. Baseline: BMD 0.946 g/cm2. LEFT FEMUR, NECK: Current: BMD 0.795 g/cm2, Z-score -0.6, T-score -1.7, osteopenia. Prior: BMD 0.686 g/cm2. Baseline: BMD 0.840 g/cm2. LEFT FEMUR, TOTAL: Current: BMD 0.794 g/cm2, Z-score -0.9, T-score -1.7, osteopenia, 9.4% increase from previous, 9.0% decrease from baseline (<5% change is not significant). Prior: BMD 0.726 g/cm2. Baseline: BMD 0.873 g/cm2. 2) Hypothyroidism: She has hypothyroidism and takes Levothyroxine 75 mcg PO daily. TSH has remained WNL. Labs: Laboratory Tests 08/21/22 08:38 Sodium 140 Potassium 4.2 Creatinine 1.00 Estimated GFR 56 Calcium 9.5 Albumin 4.3 25-OH Vitamin D Total 46.1 TSH 0.84 Free T4 1.07 PFSH Medical History CVA (cerebral vascular accident) Thyroid disease Bilateral hand pain Arthralgia Overweight (BMI 25.0-29.9) Constipation Overactive bladder Migraine Fibromyalgia Pure hypercholesterolemia Pain of right thumb Vitamin D deficiency Hypothyroidism Hyperparathyroidism Osteoporosis B12 deficiency Surgical History Hx of arthroscopy of right knee Hx of arthroscopy of left knee Hx of colonoscopy History of esophagogastroduodenoscopy (EGD) History of carpal tunnel release Family History Father Medical history unknown Mother Medical history unknown Parkinson disease Family/Other Colon cancer Daughter History of breast cancer, Onset Age: 21 Cervical cancer Sister Uterine cancer Sister Colon cancer Social History Household Members Other:: daughter Housing: House Alcohol intake: never Patient Tobacco Use Status: Never used Tobacco e-Cigarette/Vaping Use: Never Used Second Hand Smoke Exposure: Yes service: No Current occupational status: disabled Sexual orientation: Straight/Heterosexual Gender identity: Female Cognitive needs: No Hearing needs: No Vision needs: Yes (reading glasses) Physical Exam Vital Signs: Last Vital Signs Pulse 77 03/03/24 14:23 BP 96/62 03/03/24 14:23 BMI result Body Mass Index 21.4 Assessment & Plan Assessment & Plan (1) Osteoporosis: Code(s): M81.0 - Age-related osteoporosis without current pathological fracture Category: Medical Qualifiers: Osteoporosis type: unspecified Presence of current pathological fracture: unspecified Qualified Code(s): M81.0 - Age-related osteoporosis without current pathological fracture Plan: This is a 62-year-old female with a history of osteoporosis and low 24 hour urinary calcium now corrected as well as correction of secondary hyperparathyroidism. Other secondary causes of ruled out . Plan is to talk to the patient about potentially using an anabolic agent considering her very high risk of fracture such as Evenity vs Tymlos or Forteo proceeded by an anti resorptive . After long discussion with the patient, we agreed to start Evenity , and will try to get approval from the insurance company. Please note the patient tried alendronate in the past without success had side effect of jaw r pain and does not want to go on another anti resorptive like Prolia I instructed her to take Viactiv 600 mg b.i.d. as well as vitamin D3 2000 IU per day (2) Hypothyroidism: Code(s): E03.9 - Hypothyroidism, unspecified Category: Medical Qualifiers: Hypothyroidism type: unspecified Qualified Code(s): E03.9 - Hypothyroidism, unspecified Plan: Currently replaced on 88 mcg levothyroxine and 1/2 tablet once a wk. Plan is to recheck TSH and free T4 in 6 weeks time adjust levothyroxine Coding Level of Care Code Est Pt Level 3 (89519) Diagnoses Osteoporosis, unspecified osteoporosis type, unspecified pathological fracture presence M81.0 Osteoporosis type: unspecified Presence of current pathological fracture: unspecified Hypothyroidism, unspecified type E03.9 Hypothyroidism type: unspecified
[2024-03-03 14:23] VITALS: BP 96/62; PULSE 77; BMI 21.4
== END 2024-03-03 15:02 | disposition home or self-care (01) ==
PROVIDERS: PCP Internal Medicine; Visit Provider Internal Medicine Endocrinology, Diabetes & Metabolism
DX: M81.0 Age-related osteoporosis without current pathological fracture (principal); E03.9 Hypothyroidism, unspecified
CPT/HCPCS: 99213

== ENCOUNTER → 2024-03-03 14:17 | Outpatient (BNVA) | payer OTHER, SELFPAY | PROVIDERS: PCP Internal Medicine; Visit Provider Internal Medicine Endocrinology, Diabetes & Metabolism | DX: M81.0 Age-related osteoporosis without current pathological fracture (principal); E03.9 Hypothyroidism, unspecified | CPT/HCPCS: 99212 ==

== ENCOUNTER → 2024-03-13 11:35 | Outpatient (BNV) | payer OTHER, SELFPAY | PROVIDERS: PCP Internal Medicine; Visit Provider Internal Medicine Cardiovascular Disease | DX: Z01.810 Encounter for preprocedural cardiovascular examination (principal) | CPT/HCPCS: 93010 ==

== ENCOUNTER 2024-03-21 | Outpatient (REF) | payer OTHER, SELFPAY ==
[2024-03-10 11:25] VITALS: BMI 20.9
--- NOTE | 2024-03-11 12:59 | P.CONAN_ITS ---
HPI - Anesthesia Eval Consult details Narrative: Pt did not attend stress test and cancelled surgery 63yo F for Left Shoulder Arthroscopy,distal clavicle excision,acromiplasty,capsular release and manipulation, 03/21/24 Echo 01/2024 (sent by PCP for ? palps/ectopic beats) with +WMA. Per PCP, no cardiac hx and OK for surgery. Last EKG 08/2023 from outside facility [facility]. Reviewed with Dr Faulkner. Will have repeat EKG preop. EKG normal, but pt reports some left sided chest pain/pressure with stairs. Stress test ordered for 03/20/24. Deisy at ortho aware that must be resulted by 1430 03/20/24. PMFSH Active Problems Active Problems: All Active Problems Palpitations (Acute) Neck pain (Acute) Impingement syndrome of left shoulder region (Acute) Left cervical radiculopathy (Acute) Left arm weakness (Acute) Left shoulder pain (Acute) Right otitis externa (Acute) Otitis media (Acute) Pharyngitis (Acute) Upper respiratory tract infection (Acute) Chest pressure (Acute) Encounter to discuss test results (Acute) Breast thickening (Acute) Breast pain (Acute) Encounter for annual routine gynecological examination (Acute) Polyp, cervix (Acute) Cervical cancer screening (Acute) Annual physical exam (Acute) B12 deficiency (Acute) Bilateral hand pain (Acute) Arthralgia (Acute) Overweight (BMI 25.0-29.9) (Acute) Constipation (Acute) Overactive bladder (Acute) Migraine (Acute) Fibromyalgia (Acute) Pure hypercholesterolemia (Acute) Pain of right thumb (Acute) Vitamin D deficiency (Acute) Hypothyroidism (Acute) Hyperparathyroidism (Acute) Osteoporosis (Acute) Past Medical History Medical History (Updated 03/14/24 @ 16:32 by Adolph العراقي MD) Arthritis Anemia Depression Numbness Elevated cholesterol CVA (cerebral vascular accident) Thyroid disease Bilateral hand pain Arthralgia Overweight (BMI 25.0-29.9) Constipation Overactive bladder Migraine Fibromyalgia Pure hypercholesterolemia Pain of right thumb Vitamin D deficiency Hypothyroidism Hyperparathyroidism Osteoporosis B12 deficiency Family History Family History Father Medical history unknown Mother Medical history unknown Parkinson disease Family/Other Colon cancer Daughter History of breast cancer, Onset Age: 21 Cervical cancer Sister Uterine cancer Sister Colon cancer Family history of problems with anesthesia: No Surgical History Surgical History Hx of arthroscopy of right knee Hx of arthroscopy of left knee Hx of colonoscopy History of esophagogastroduodenoscopy (EGD) History of carpal tunnel release History of Problems with Anesthesia: No Social History Social History Household Members Other:: daughter Housing: House Are you a primary critical care unit nurse to a significant other at home: No Do you presently have visiting nurse or other home services: No Alcohol intake: never Patient Tobacco Use Status: Never used Tobacco e-Cigarette/Vaping Use: Never Used Second Hand Smoke Exposure: Yes service: No Current occupational status: disabled Sexual orientation: Straight/Heterosexual Gender identity: Female Cognitive needs: No Hearing needs: No Vision needs: Yes (reading glasses) Meds Allergies Allergy/AdvReac Type Severity Reaction Status Date / Time morphine Allergy Severe Unresponsiv Verified 03/03/24 14:24 e zolpidem [ZOLPIDEM] Allergy Severe SLEEPWALKIN Verified 03/03/24 14:24 G aspirin [ASPIRIN] Allergy Intermediate ITCHING/SWELLING, Verified 03/03/24 14:24 rash,itchy ibuprofen Allergy Intermediate Swelling Verified 03/03/24 14:24 trazodone [TRAZODONE] Allergy Intermediate NIGHTMARES Verified 03/03/24 14:24 naproxen [From Anaprox] Allergy Mild RASH Verified 03/03/24 14:24 acetaminophen [From PERCOCET] Allergy Unknown HIVES/NAUSE Verified 03/03/24 14:24 A amoxicillin [Augmentin] Allergy Unknown Unknown Verified 03/03/24 14:24 oxycodone [From PERCOCET] Allergy Unknown HIVES/NAUSE Verified 03/03/24 14:24 A butalbital Allergy Rash, Verified 03/03/24 14:24 Itching eszopiclone [From LUNESTA] AdvReac Intermediate NIGHTMARES Verified 03/03/24 14:24 Home Medications ?Medication ?Instructions ?Recorded ?Confirmed ?Last Taken ?Type linaclotide 145 mcg capsule 145 mcg PO DAILY 12/25/23 03/10/24 Unknown History (Linzess) polyethylene glycol 3350 17 17 g PO DAILY PRN Constipation 01/28/24 03/10/24 Unknown History gram/dose oral powder topiramate 100 mg tablet 100 mg PO BEDTIME 01/28/24 03/10/24 Unknown History hydroxyzine HCl 25 mg tablet 25 mg PO BEDTIME 03/03/24 03/10/24 Unknown History cholecalciferol (vitamin D3) 50 50 mcg PO DAILY 03/10/24 03/10/24 Unknown History mcg (2,000 unit) tablet (Vitamin D3) Exam Height,Weight and Vital Signs: Height 5 ft 4 in Weight 55.338 kg Pertinent Lab Results Pertinent Lab Results: Laboratory Tests 12/24/23 10:07 WBC 4.1 L Hgb 11.8 L Hct 38.0 Plt Count 234 Sodium 143 Potassium 3.7 Chloride 109 H Carbon Dioxide 27 BUN 16 Creatinine 0.77 Narrative Narrative: EKG 03/2024 Vent. Rate : 072 BPM Atrial Rate : 072 BPM P-R Int : 162 ms QRS Dur : 074 ms QT Int : 396 ms P-R-T Axes : 058 017 056 degrees QTc Int : 433 ms Normal sinus rhythm Normal ECG When compared to the previous EKG of No significant changes seen ECHO 01/2024 Conclusions: - The left ventricular systolic function is normal. The calculated ejection fraction is 59% by biplane method. - The basal inferior and mid inferior segments are hypokinetic. - No obvious valvular pathology seen on this study. Assessment and Plan Final Anesthetic Review Family History of Problems with Anesthesia: No History of Problems with Anesthesia: No
--- NOTE | 2024-03-13 11:35 | ECG_ITS ---
Test Reason : PRE OP Blood Pressure : / mmHG Vent. Rate : 072 BPM Atrial Rate : 072 BPM P-R Int : 162 ms QRS Dur : 074 ms QT Int : 396 ms P-R-T Axes : 058 017 056 degrees QTc Int : 433 ms Normal sinus rhythm Normal ECG When compared to the previous EKG of No significant changes seen Referred By: Diane Dorado Electronically Signed By:YANIQUE ANGUIANO MD
--- OUTSIDE RECORDS SUMMARY | 2024-05-23 14:00 | XMS_ITS | Continuity of Care Document ---
Author Organization [facility] Address [address] [place] [id number] Phone Care Team Providers Care Insulator Tester Name Role Phone David Montiel Unavailable Unavailable Medications Medication Instructions Dosage Effective Dates (start - stop) Status Comments metformin 850 mg tablet take 1 tablet by oral route 2 times every day with morning and evening meals 850 MG - Active Procedures Procedure Date OFFICE/OUTPATIENT VISIT, [facility] Advance Directives Directive Yes / No Effective Date File Name No Information Encounters Encounter Description Practice Location Reason(s) For Visit Diagnoses Date Provider Providers Copied on Encounter [facility], [address] [place] [address], [id number], tel:[phone] [facility] Immediate Care Visit Conducted via Telehealth (chief complaint) No Information 0 Korin Hernandez. [address] [place], [address], [place]. tel: [phone] OFFICE/OUTPA TIENT VISIT, [facility], [address] [place] [address], [id number], tel:[phone] [facility] Immediate Care Telehealth Medication refill (chief complaint) Essential (primary) hypertensionEncou nter for issue of repeat prescription 0 Piper Knowles. [address] [place], [address], [place]. tel: [phone] Family History Family Member Type Diagnosis Age At Onset No Information Payers Payer name Insurance type Covered republican ID Authoriza tion(s) SELF PAY FLAT FEE [...]
== END 2024-03-21 00:01 | disposition home or self-care (01) ==
LOC: HO.PAT
PROVIDERS: PCP Internal Medicine; Visit Provider Orthopaedic Surgery
DX: Z01.818 Encounter for other preprocedural examination (principal); M75.42 Impingement syndrome of left shoulder; M19.021 Primary osteoarthritis, right elbow; M75.02 Adhesive capsulitis of left shoulder
CPT/HCPCS: 93005

== ENCOUNTER → 2024-04-10 09:42 | Outpatient (REF) | payer OTHER, SELFPAY ==
--- NOTE | 2024-04-10 09:44 | CA_ITS ---
Acquisition Time: 2024-04-10 09:55:12 Total Exercise Time: 00:06:31 Test Indications: CP Medications: GABAPENTIN LEVOTHYROXINE ATORVASTATIN LINZESS Protocol: IGNACIA Max HR: 153 BPM 97% of Pred: 157 BPM Max BP: 122/072 mmHG Max Work Load: 7.8 METS Exercise Stress Test with exercise 6 mins 31 secs of Ignacia Protocol, achieving 97% MPHR, achieiving MET 7.8, with mild SOB, without any chest discomfort, without any arrythmia, with normotensive response to exercise. Without EKG changes meeting criteria for ischemia. Test reviewed with Dr. Alston. Referred By: Adolph العراقي Overread By: CAPO BROWN
== END ==
LOC: HO.CARD 09:42
PROVIDERS: PCP Internal Medicine; Visit Provider Internal Medicine
DX: R07.9 Chest pain, unspecified (principal)
CPT/HCPCS: 93017

== ENCOUNTER → 2024-04-10 09:44 | Outpatient (BNV) | payer OTHER, SELFPAY | PROVIDERS: PCP Internal Medicine; Visit Provider Nurse Practitioner Family | DX: R06.02 Shortness of breath (principal); R07.9 Chest pain, unspecified | CPT/HCPCS: 93016; 93018 ==

== ENCOUNTER 2024-04-16 10:16 | Outpatient (REF) | payer OTHER, SELFPAY ==
[2024-04-16 10:29] LABS: MANUAL DIFF FLAG NO
[2024-04-16 10:39] LABS: Basophils Percent Auto 0.7 % (0-2); Hematocrit 35.6 % (37.0-47.0); Hemoglobin 11.2 g/dl (12.0-16.0); Imm Gran Pct Auto 0.2 % (0.0-0.4); Lymphocytes Percent Auto 36.6 % (20-40); Mean Corpuscular HGB Conc 31.5 g/dl (31.0-35.0); Mean Corpuscular Hemoglobin 25.5 pg (27.0-33.0); Mean Corpuscular Volume 80.9 fL (80.0-98.0); Mean Platelet Volume 10.9 fL (9.4-12.3); Monocytes Percent Auto 8.3 % (2-11); Neutrophils Percent Auto 54.2 % (45-73); Platelet Count 242 X10*3/uL (160-400); Red Cell Distribution Width 15.4 % (11.0-16.0); White Blood Count 4.3 X10*3/uL (4.8-10.8)
[2024-04-16 10:40] LABS: Imm Gran Abs Auto 0.01 X10*3/uL (0.00-0.03); Lymphocytes Absolute Auto 1.6 X10*3/uL (1.2-4.9); Monocytes Absolute Auto 0.4 X10*3/uL (0.1-1.2); Neutrophils Absolute Auto 2.4 x10*3/uL (2.0-8.3)
[2024-04-16 11:15] LABS: Appearance Urine Clear; Color Urine Yellow; Glucose Urine UA Negative (Negative); Leukocyte Esterase Urine Moderate (2+) (Negative); Nitrite Urine Negative (Negative); PH 6.5 (5.0-9.0); Specific Gravity - Urine 1.015 (1.005-1.025); UMIC TRIGGER UACC YES; Urine Blood Negative (Negative); Urine Ketones Negative (Negative); Urine Protein Negative (Neg-Trace)
[2024-04-16 11:43] LABS: Free T4 (Free Thyroxine) 1.09 ng/dL (0.71-1.85); Thyroid Stimulating Hormone 0.77 uIU/mL (0.32-4.0)
[2024-04-16 11:44] LABS: Alanine Aminotransferase 15 U/L (0-31); Albumin Level 4.1 g/dL (3.5-5.0); Alkaline Phosphatase 40 U/L (39-117); Anion Gap 10 (12-20); Aspartate Amino Transferase 23 U/L (5-31); Bilirubin Total 0.8 mg/dL (0.0-1.0); Blood Urea Nitrogen 17 mg/dL (9-16); Calcium 8.7 mg/dL (8.4-10.2); Carbon Dioxide 27 mmol/L (22-29); Chloride 108 mmol/L (96-108); Cholesterol 214 mg/dL (<200); Estimated Glomerular Filt Rate > 60; Glucose Fasting 95 mg/dL (60-99); HDL Cholesterol 70 mg/dL (>40); LDL Cholesterol Calculated 129 mg/dL (<100); Potassium 4.1 mmol/L (3.3-5.1); Sodium 141 mmol/L (135-145); Total Protein 6.8 g/dL (6.5-8.0); Triglycerides 79 mg/dL (<150)
[2024-04-16 12:05] LABS: Free T4 (Free Thyroxine) 1.11 ng/dL (0.71-1.85); Thyroid Stimulating Hormone 0.78 uIU/mL (0.32-4.0)
[2024-04-16 12:29] LABS: Bacteria Urine None Seen (None Seen); Hyaline Casts Urine 0-2 /LPF (0-2); RBC Urine 0-2 /HPF (0-2); Squamous Epithelial Cell Urine 0-2 /HPF (0-2); UACC Culture Trigger YES
== END 2024-04-16 10:17 | disposition home or self-care (01) ==
LOC: HO.LAB 10:16
PROVIDERS: Student in an Organized Health Care Education/Training Program; PCP Internal Medicine; Visit Provider Internal Medicine
DX: D64.9 Anemia, unspecified (principal); E78.00 Pure hypercholesterolemia, unspecified; E03.9 Hypothyroidism, unspecified
CPT/HCPCS: 36415; 80053; 80061; 81001; 84439; 84443; 85025; 87086

== ENCOUNTER 2024-04-21 13:50 | Outpatient (AMB) | payer OTHER, SELFPAY ==
[2024-04-21 13:57] VITALS: BP 96/60; PULSE 76; O2SAT 98; BMI 21.1
--- NOTE | 2024-04-21 13:57 | A.OFFPC_ITS ---
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 Accompanied by: Self / Same As Patient Allergies morphine Allergy (Severe, Verified 04/21/24 14:44) Unresponsive zolpidem [ZOLPIDEM] Allergy (Severe, Verified 04/21/24 14:44) SLEEPWALKING aspirin [ASPIRIN] Allergy (Intermediate, Verified 04/21/24 14:44) ITCHING/SWELLING, rash,itchy ibuprofen Allergy (Intermediate, Verified 04/21/24 14:44) Swelling trazodone [TRAZODONE] Allergy (Intermediate, Verified 04/21/24 14:44) NIGHTMARES naproxen [From Anaprox] Allergy (Mild, Verified 04/21/24 14:44) RASH acetaminophen [From PERCOCET] Allergy (Unknown, Verified 04/21/24 14:44) HIVES/NAUSEA amoxicillin [Augmentin] Allergy (Unknown, Verified 04/21/24 14:44) Unknown oxycodone [From PERCOCET] Allergy (Unknown, Verified 04/21/24 14:44) HIVES/NAUSEA butalbital Allergy (Verified 04/21/24 14:44) Rash, Itching eszopiclone [From LUNESTA] Adverse Reaction (Intermediate, Verified 04/21/24 14:44) NIGHTMARES Medication List - Last Reconciled 04/21/24 by Adolph العراقي MD atorvastatin 10 mg PO BEDTIME 30 days cholecalciferol (vitamin D3) (Vitamin D3) 50 mcg PO DAILY cyanocobalamin (vitamin B-12) 1,000 mcg IM Q4W 90 days Forteo (teriparatide) 20 mcg (0.08 mL) subcut DAILY NS hydroxyzine HCl 25 mg PO BEDTIME levothyroxine 88 mcg PO DAILY linaclotide (Linzess) 145 mcg PO DAILY polyethylene glycol 3350 17 grams PO DAILY PRN topiramate 100 mg PO BEDTIME Tobacco use date assessed: 04/21/24 Dental Screening Dental Screen Date: 04/21/24 Did you have a dental visit in the last 12 months?: Yes Did you have a dental problem in the last 6 months where you did not have access to dental care?: No Was dental information given to patient?: Patient has dentist HPI 3mth f/u HPI Details Patient comes in today for her follow up visit States that she feels okay but she still has increased left shoulder pain and left arm weakness States that her left shoulder surgery was postponed as the presiding anesthesi ologist on her case supposedly saw something on her echocardiogram that he or she did not like and she was advised to see cardiology first to get a cardiac clearance prior to going for surgery Echocardiogram done on 01/15/24 revealed normal LV systolic function, with EF of around 59% but the basal inferior and mid inferior segments were noted to be hypokinetic and this may be what concerned anesthesia when they were reviewing her candidacy for surgery She eventually had cardiac stress testing done a couple of weeks ago on 04/10/2024, which came back normal and she is presently just waiting for o rthopedics to schedule her arthroscopic surgery again on her left shoulder She denies any increased headaches or dizziness lately Denies any chest pains, no increased SOB No nausea/vomiting, no abdominal pain but reports that she has been experiencing increased constipation again lately and would like to have an Rx for Miralax sent to her pharmacy She had her follow up labs done a few months ago - to discuss her results She admits that she has not taken her Atorvastatin 10 mg for a few months now as she supposedly did not feel that she needed to continue taking it and she will need a new Rx if she is to go back on the Rx She would also like to get her B12 injection today [facility] Medical History (Updated 04/22/24 @ 09:01 by Adolph العراقي MD) Cervical spondylosis Arthritis Anemia Depression Numbness Elevated cholesterol CVA (cerebral vascular accident) Thyroid disease Bilateral hand pain Arthralgia Overweight (BMI 25.0-29.9) Constipation Overactive bladder Migraine Fibromyalgia Pure hypercholesterolemia Pain of right thumb Vitamin D deficiency Hypothyroidism Hyperparathyroidism Osteoporosis B12 deficiency Surgical History (Updated 04/21/24 @ 14:53 by Adolph العراقي MD) Hx of arthroscopy of right knee Hx of arthroscopy of left knee Hx of colonoscopy History of esophagogastroduodenoscopy (EGD) History of carpal tunnel release Family History Father Medical history unknown Mother Medical history unknown Parkinson disease Family/Other Colon cancer Daughter History of breast cancer, Onset Age: 21 Cervical cancer Sister Uterine cancer Sister Colon cancer Social History Household Members Other:: daughter Housing: House Are you a primary manager long term care to a significant other at home: No Do you presently have visiting nurse or other home services: No Alcohol intake: never Patient Tobacco Use Status: Never used Tobacco e-Cigarette/Vaping Use: Never Used Second Hand Smoke Exposure: Yes service: No Current occupational status: disabled Sexual orientation: Straight/Heterosexual Gender identity: Female Cognitive needs: No Hearing needs: No Vision needs: Yes (reading glasses) Questionnaire PHQ-9 Over the last 2 weeks, how often have you been bothered by any of the following problems? 1. Little interest or pleasure in doing things: nearly every day 2. Feeling down, depressed, or hopeless: nearly every day 3. Trouble falling or staying asleep, or sleeping too much: more than half the days 4. Feeling tired or having little energy: nearly every day 5. Poor appetite or overeating: more than half the days 6. Feeling bad about yourself - or that you are a failure or have let yourself or your family down: several days 7. Trouble concentrating on things, such as reading the newspaper or watching television: more than half the days 8. Moving or speaking so slowly that other people could have noticed. Or the opposite - being so fidgety or restless that you have been moving around a lot more than usual: not at all 9. Thoughts that you would be better off or of hurting yourself in some way: not at all Total score: 16 Depression Screening Interpretation: Positive Depression Screening Follow-up: Existing condition and In treatment Depression Screening Done: Yes 57364 - PHQ-9 Billing: Yes Source: Developed by Drs. Rex Iniguez, Chichi Tanner, Figueroa Allen and colleagues, with an educational johnna from [employer]. Thrive Questionnaire Date Thrive assessed: 04/21/24 I am a: Patient What is your living situation today?: I have a steady place to live Within the past 12 months, did the food you bought not last and you didn't have the money to get more?: Never true Within the past 12 months, did you worry whether your food would run out before you got money to buy more?: Never true Do you have trouble paying for medicines?: No Do you have trouble getting transportation to medical appointments?: No Do you have trouble paying your heating and electricity bill?: No Do you have trouble taking care of your child, family member or friend?: No Do you have trouble with day-to-day activities such as bathing, preparing meals, shopping, managing finances, etc.?: No Are you currently unemployed and looking for a job?: No Are you interested in more education?: No Please select the resources that you would like help with: None Currently or been in a relationship where the following occur: No concerns reported THRIVE Score: 0 AUDIT C Alcohol Use Questionnaire (AUDIT-C) 1. How often do you have a drink containing alcohol?: Never 3. How often do you have six or more drinks on one occasion?: Never Total Score: 0 Score Reviewed/Action Taken: Yes JOSELITO-7 AMB Questionnaire JOSELITO-7 Date JOSELITO - 7 assessed: 04/21/24 Feeling nervous, anxious, or on edge: 0 = Not at all Not being able to stop or control worryin = Not at all Worrying too much about different things: 0 = Not at all Trouble relaxin = Not at all Being so restless that it is hard to sit still: 0 = Not at all Becoming easily annoyed or irritable: 0 = Not at all Feeling afraid as if something awful might happen: 0 = Not at all Total JOSELITO-7 score (0-4 normal; 5-9 mild; 10-14 moderate; 15-21 severe): 0 Source: Developed by Drs. Rex Iniguez, Chichi Tanner, Figueroa Allen and colleagues, with an educational johnna from [employer]. Review of Systems Const Denies chills, Reports fatigue (chronic), Denies fever(s), Denies headache(s) (better controlled lately) and Reports weakness (of the left arm) ENT Denies dysphagia, Denies dizziness, Denies otalgia, Denies headache(s) (better controlled lately), Reports neck pain, Denies odynophagia and Denies sore throat Card Denies chest pain, Denies palpitations and Denies dyspnea Resp Denies cough and Denies dyspnea GI Denies abdominal pain, Denies constipation, Denies dysphagia, Denies heartburn, Denies diarrhea, Denies nausea, Denies odynophagia and Denies vomiting Denies difficulty voiding, Denies nocturia, Denies dysuria and Denies urinary urgency Musc Reports back pain (mild), Reports arthralgias (in the left shoulder) and Reports neck pain Skin/Breast Denies rash Neuro Denies dizziness, Denies headache(s) (better controlled lately) and Reports weakness (of the left arm) Endo Reports fatigue (chronic) and Denies palpitations Physical exam (Primary Care) Vital Signs: Last Vital Signs Pulse 76 04/21/24 13:57 BP 96/60 04/21/24 13:57 Pulse Ox 98 04/21/24 13:57 Oxygen Delivery Method Room Air 04/21/24 13:57 BMI result Body Mass Index 21.1 Tobacco/Smoking Status: Tobacco use Status Tobacco use date assessed 04/21/24 04/21/24 14:02 Patient Tobacco Use Status Never used Tobacco 04/21/24 14:02 e-Cigarette/Vaping Use Never Used 04/21/24 14:02 PHQ-9: PHQ-9 Score PHQ-9: Total score 16 04/21/24 14:45 Depression Screening Interpretation: Positive Depression Screening Follow-up: Existing condition and In treatment Thrive Assessment: Date of Thrive Assessment Date Thrive assessed 04/21/24 04/21/24 14:02 Currently or been in a relationship where the following occur: No concerns reported Const General: no acute distress and alert HENMT Ears: TM's normal bilaterally and EAC's normal Throat: Yes posterior oropharynx normal and Yes tonsils normal (no TP congestion noted) Neck Neck: Yes no lymphadenopathy and Yes tender Thyroid: Thyroid normal Resp Auscultation: clear to auscultation bilaterally, no rales and no wheezes Cardio Rate: regular rate Rhythm: abnormal rhythm with ectopic beats (occasionally ) Heart sounds: no murmurs GI Palpation (GI): Soft to palpation and nontender Auscultation: normal bowel sounds General: Yes no CVA tenderness Back/Spine/Pelvis Back: no CVA tenderness Cervical Spine: Cervical spine tenderness Thoracic/Lumbar Spine: lumbar spinal tenderness (mild) Skin Rashes: no rashes Neuro Other: (+) weakness noted on the left arm - muscle strength noted to be at 3/5, with 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 Extrem General: Yes no clubbing, cyanosis or edema Left upper extremity: shoulder/upper arm Details: tenderness Location: of the A- C joint and normal ROM (but reports (+) pain in shoulder with active ROM) and elbow/forearm Details: tenderness Location: of the olecranon and of the lateral epicondyle Office Meds cyanocobalamin (vitamin B-12) 1,000 mcg/mL injection solution Performing Provider: Adolph العراقي MD Performing Location: [facility] [place] [facility] Administered by: Carmenza Gupta LPN on 04/21/24 14:17 Dose Route Admin Location Dispensed Lot Number Expiration Date [place] 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 Engineer 1,000 mcg IM left deltoid 1 mL [id number] 05/03/25 29379-024-98 [employer] Results Reviewed Results Reviewed: Laboratory Tests 04/16/24 10:28 WBC 4.3 L Hgb 11.2 L Hct 35.6 L Plt Count 242 Sodium 141 Potassium 4.1 Creatinine 0.82 Estimated GFR > 60 Fasting Glucose 95 Calcium 8.7 D AST 23 ALT 15 Triglycerides 79 Cholesterol 214 H LDL Cholesterol, Calc 129 H HDL Cholesterol 70 TSH 0.78 Free T4 1.11 Ur Specific [place] 1.015 Urine Protein Negative Urine Glucose (UA) Negative Urine Blood Negative Urine Nitrite Negative Ur Leukocyte Esterase Moderate (2+) H Coding Level of Care Code Est Pt Level 4 (96931) Complex EM visit Add On G2211 Diagnoses Pure hypercholesterolemia E78.00 Migraine without status migrainosus, not intractable, unspecified migraine type G43.909 Migraine type: unspecified Status migrainosus presence: without status migrainosus Intractability: not intractable Hypothyroidism, unspecified type E03.9 Hypothyroidism type: unspecified Impingement syndrome of left shoulder region M75.42 Cervical spondylosis M47.812 Osteoporosis, unspecified osteoporosis type, unspecified pathological fracture presence M81.0 Osteoporosis type: unspecified Presence of current pathological fracture: unspecified B12 deficiency E53.8 Vitamin D deficiency E55.9 Fibromyalgia M79.7 Constipation, unspecified constipation type K59.00 Constipation type: unspecified constipation type Overactive bladder N32.81 Additional Codes PHQ-9 - 59271 - PHQ-9 Billing: Yes ([id number]) Assessment & Plan Assessment & Plan (1) Pure hypercholesterolemia: Code(s): E78.00 - Pure hypercholesterolemia, unspecified Category: Medical Plan: Results of her labs done a few days ago reviewed and discussed with patient - she is advised that her cholesterol levels are still at the higher end of the normal range Patient admits that she stopped taking her Atorvastatin a few months ago and needs a new Rx if she is to go back on the Rx Will start her back on Atorvastatin 10 mg Q HS - advised that if we still cannot get her LDL cholesterol to at least <100 mg/dl on her current Rx, then we will need to consider increasing her dose later on Will recheck her labs and fasting lipids in 3 months for follow up (2) Migraine: Code(s): G43.909 - Migraine, unspecified, not intractable, without status migrainosus Category: Medical Qualifiers: Migraine type: unspecified Status migrainosus presence: without status migrainosus Intractability: not intractable Qualified Code(s): G43.909 - Migraine, unspecified, not intractable, without status migrainosus Plan: Patient states that her migraine headaches have been doing okay lately They were better controlled previously on prophylactic Topiramate but this was discontinued by endocrinology a while back Have offered to start her on Amitriptyline instead but she recalled gaining a lot of weight while she was on Amitriptyline in the past and prefers not to restart Amitriptyline at this time Continue Fioricet PRN for symptomatic relief of her headaches Follow up with neurology (Dr. Shi) as scheduled (3) Hypothyroidism: Code(s): E03.9 - Hypothyroidism, unspecified Category: Medical Qualifiers: Hypothyroidism type: unspecified Qualified Code(s): E03.9 - Hypothyroidism, unspecified Plan: Her TFTs were normal on her recent labs Continue Levothyroxine 88 mcg QD Follow up with endocrinology (Dr. Andrews) as scheduled Will continue to monitor her TFTs regularly (4) Impingement syndrome of left shoulder region: Code(s): M75.42 - Impingement syndrome of left shoulder Category: Medical Plan: X-rays of the cervical spine and repeat x-rays of the left shoulder done a few months ago revealed (+) mild degenerative changes in the left acromioclavicular joint and mild multilevel cervical spondylosis and mild bilateral facet arthritis with neural foraminal encroachment at C6-C7 She completed 8 weeks of formal physical therapy, which aggravated her pain - she failed conservative treatment Left shoulder MRI done on 02/01/2024 revealed (+) mild supraspinatus tendinosis and mild focal articular surface fraying in the distal anterior fibers. There is also mild infraspinatus and subscapularis tendinosis as well as mild acromioclavicular arthritis and trace subacromial subdeltoid bursitis EMG and NCV of the left upper extremity done in October 2023 came out normal She was originally scheduled for arthroscopic shoulder surgery a couple of months ago but this was held up when anesthesia supposedly saw some concerning findings on her echocardiogram and she was asked to seek cardiac clearance first She recently passed her cardiac stress test and is now waiting for orthopedics to reschedule her surgery soon (5) Cervical spondylosis: Code(s): M47.812 - Spondylosis without myelopathy or radiculopathy, cervical region Category: Medical Plan: Cervical spine x-rays done in September 2023 revealed (+) mild multilevel cervical spondylosis and mild bilateral facet arthritis with neural foraminal encroachment at C6-C7 If her neck pain/symptom increases, may need to consider referral to neurosurgery for further evaluation and management (6) Osteoporosis: Code(s): M81.0 - Age-related osteoporosis without current pathological fracture Category: Medical Qualifiers: Osteoporosis type: unspecified Presence of current pathological fracture: unspecified Qualified Code(s): M81.0 - Age-related osteoporosis without current pathological fracture Plan: Repeat BMD done on 03/11/2021 revealed (+) osteoporosis based on the lowest T- score value of -2.7 in the lumbar spine. Patient was cautioned that her BMD has declined by 9% or more in both her lumbar spine and left femur? BMD on 01/24/2019 also showed a 12% decrease in BMD at her femur from her previous scan in 2017; AP spine BMD is unchanged from before Patient could not tolerate Alendronate due to GI symptoms/side effects She was seen by Dr. Andrews for endocrinology consultation and was advised to start Tx with either Evenity vs Tymlos or Forteo She was going to start Tx with Evenity initially but her insurance would not cover Rx - this was later switched to Forteo, which she is now on at 20 mg SQ QD Follow up with endocrinology as scheduled (7) B12 deficiency: Code(s): E53.8 - Deficiency of other specified B group vitamins Category: Medical Plan: Continue Vitamin B12 injections monthly - B12 injection given today (8) Vitamin D deficiency: Code(s): E55.9 - Vitamin D deficiency, unspecified Category: Medical Plan: Continue Vitamin D3 2000 units QD (9) Fibromyalgia: Code(s): M79.7 - Fibromyalgia Category: Medical Plan: Patient is again encouraged again to exercise regularly and stay active to help manage her fibromyalgia symptoms better She used to take Tizanidine 4 mg TID PRN but she has not had to take Rx in a while now (10) Constipation: Code(s): K59.00 - Constipation, unspecified Category: Medical Qualifiers: Constipation type: unspecified constipation type Qualified Code(s): K59.00 - Constipation, unspecified Plan: Encouraged again on increased oral fluids and dietary fiber Continue MiraLax powder 17 g daily as instructed (Rx refilled); she no longer has to take Amitiza lately She had a repeat colonoscopy done with Dr. Buitrago a couple of months ago on 01/30/2024 - (+) tubular adenoma and she is advised to have a repeat colonoscopy done again in 5 years (11) Overactive bladder: Code(s): N32.81 - Overactive bladder Category: Medical Plan: Follow up with urology as scheduled Plan Follow up in 3 months Orders: Orders Comprehensive [place]. Panel Fast 3 Months E78.00 - Pure hypercholesterolemia, unspecified Lipid Panel 3 Months E78.00 - Pure hypercholesterolemia, unspecified Vitamin B12 and Folate 3 Months E53.8 - Deficiency of other specified B group vitamins Thyroid Stimulating Hormone 3 Months E03.9 - Hypothyroidism, unspecified AMB Vitamin B12 Injection Patient Supplied 04/21/24 E53.8 - Deficiency of other specified B group vitamins UA CC w/rflx Micro + Cult 3 Months R30.0 - Dysuria Vitamin D 25-OH Total 3 Months E55.9 - Vitamin D deficiency, unspecified Complete Blood Count Auto Diff 3 Months D64.9 - Anemia, unspecified Free T4 (Free Thyroxine) 3 Months E03.9 - Hypothyroidism, unspecified Medications: New polyethylene glycol 3350 17 grams PO DAILY PRN 510 grams 5RF Constipation Refilled atorvastatin 10 mg PO BEDTIME 30 days 30 tabs 3RF
== END 2024-04-21 14:59 | disposition home or self-care (01) ==
PROVIDERS: PCP Internal Medicine; Visit Provider Internal Medicine
DX: E78.00 Pure hypercholesterolemia, unspecified (principal); G43.909 Migraine, unspecified, not intractable, without status migrainosus; E03.9 Hypothyroidism, unspecified; M75.42 Impingement syndrome of left shoulder; M47.812 Spondylosis without myelopathy or radiculopathy, cervical region; M81.0 Age-related osteoporosis without current pathological fracture; E53.8 Deficiency of other specified B group vitamins; E55.9 Vitamin D deficiency, unspecified; M79.7 Fibromyalgia; K59.00 Constipation, unspecified; N32.81 Overactive bladder
CPT/HCPCS: J3420

== ENCOUNTER → 2024-04-21 13:50 | Outpatient (BNVA) | payer OTHER, SELFPAY | PROVIDERS: PCP Internal Medicine; Visit Provider Internal Medicine | DX: E78.00 Pure hypercholesterolemia, unspecified (principal); E03.9 Hypothyroidism, unspecified; M75.42 Impingement syndrome of left shoulder; M47.812 Spondylosis without myelopathy or radiculopathy, cervical region; M81.0 Age-related osteoporosis without current pathological fracture; E53.8 Deficiency of other specified B group vitamins; E55.9 Vitamin D deficiency, unspecified; M79.7 Fibromyalgia; K59.00 Constipation, unspecified; N32.81 Overactive bladder | CPT/HCPCS: 96127; 96372; 99212 ==

== ENCOUNTER → 2024-04-23 13:49 | Outpatient (BNVA) | payer OTHER, SELFPAY | PROVIDERS: PCP Internal Medicine | DX: Z71.89 Other specified counseling (principal) ==

== ENCOUNTER 2024-05-21 13:03 | Outpatient (AMB) | payer OTHER, SELFPAY ==
--- NOTE | 2024-05-21 13:40 | AM.OFFVISNUR ---
Intake Visit Reasons: b12 Allergies morphine Allergy (Severe, Verified 04/21/24 14:44) Unresponsive zolpidem [ZOLPIDEM] Allergy (Severe, Verified 04/21/24 14:44) SLEEPWALKING aspirin [ASPIRIN] Allergy (Intermediate, Verified 04/21/24 14:44) ITCHING/SWELLING, rash,itchy ibuprofen Allergy (Intermediate, Verified 04/21/24 14:44) Swelling trazodone [TRAZODONE] Allergy (Intermediate, Verified 04/21/24 14:44) NIGHTMARES naproxen [From Anaprox] Allergy (Mild, Verified 04/21/24 14:44) RASH acetaminophen [From PERCOCET] Allergy (Unknown, Verified 04/21/24 14:44) HIVES/NAUSEA amoxicillin [Augmentin] Allergy (Unknown, Verified 04/21/24 14:44) Unknown oxycodone [From PERCOCET] Allergy (Unknown, Verified 04/21/24 14:44) HIVES/NAUSEA butalbital Allergy (Verified 04/21/24 14:44) Rash, Itching eszopiclone [From LUNESTA] Adverse Reaction (Intermediate, Verified 04/21/24 14:44) NIGHTMARES Office Meds cyanocobalamin (vitamin B-12) 1,000 mcg/mL injection solution Performing Provider: Adolph العراقي MD Performing Location: [facility] [place] [facility] Administered by: Carmenza Gupta LPN on 05/21/24 13:40 Dose Route Admin Location Dispensed Lot Number Expiration Date [facility] Construction Superintendent 1,000 mcg IM right deltoid 1 mL [id number] 06/02/25 87583-778-22 [employer] Assessment & Plan Assessment & Plan Orders: Orders AMB Vitamin B12 Injection Patient Supplied Today E53.8 - Deficiency of other specified B group vitamins Medications: New cyanocobalamin (vitamin B-12) 1,000 mcg IM ONCE 1 mL 0RF E53.8 - Deficiency of other specified B group vitamins
== END 2024-05-21 13:42 | disposition home or self-care (01) ==
PROVIDERS: PCP Internal Medicine; Visit Provider Internal Medicine
DX: E53.8 Deficiency of other specified B group vitamins (principal)

== ENCOUNTER → 2024-05-21 13:03 | Outpatient (BNVA) | payer OTHER, SELFPAY | PROVIDERS: PCP Internal Medicine; Visit Provider Internal Medicine | DX: E53.8 Deficiency of other specified B group vitamins (principal) | CPT/HCPCS: 96372; J3420 ==

== ENCOUNTER 2024-06-18 09:00 | Outpatient (REF) | payer OTHER, SELFPAY ==
--- OUTSIDE RECORDS SUMMARY | 2024-06-18 09:20 | XMS_ITS | Continuity of Care Document ---
Author Organization [facility] Address [address] [place] [address] Phone Care Team Providers Care Loan Servicing Specialist Name Role Phone David Montiel Unavailable Unavailable Medications Medication Instructions Dosage Effective Dates (start - stop) Status Comments metformin 850 mg tablet take 1 tablet by oral route 2 times every day with morning and evening meals 850 MG - Active Procedures Procedure Date OFFICE/OUTPATIENT VISIT, [facility] Advance Directives Directive Yes / No Effective Date File Name No Information Encounters Encounter Description Practice Location Reason(s) For Visit Diagnoses Date Provider Providers Copied on Encounter [facility], [address] [place] [address], [id number], tel:[phone] [facility] Immediate Care Visit Conducted via Telehealth (chief complaint) No Information 0 Korin Hernandez. [address] [place], [address], [place]. tel: [phone] OFFICE/OUTPA TIENT VISIT, [facility], [address] [place] [address], [id number], tel:[phone] [facility] Immediate Care Telehealth Medication refill (chief complaint) Essential (primary) hypertensionEncou nter for issue of repeat prescription 0 Piper Knwoles. [address] [place], [address], [place]. tel: [phone] Family History Family Member Type Diagnosis Age At Onset No Information Payers Payer name Insurance type Covered alliance party ID Authoriza tion(s) SELF PAY FLAT FEE [...]
== END 2024-06-18 09:01 | disposition home or self-care (01) ==
LOC: HO.MAMMO 09:00
PROVIDERS: PCP Internal Medicine; Visit Provider Internal Medicine
DX: Z12.31 Encounter for screening mammogram for malignant neoplasm of breast (principal)
CPT/HCPCS: 77063; 77067

== ENCOUNTER 2024-06-20 12:42 | Outpatient (AMB) | payer OTHER, SELFPAY ==
--- NOTE | 2024-06-20 13:14 | AM.OFFVISNUR ---
Intake Visit Reasons: b12 Allergies morphine Allergy (Severe, Verified 04/21/24 14:44) Unresponsive zolpidem [ZOLPIDEM] Allergy (Severe, Verified 04/21/24 14:44) SLEEPWALKING aspirin [ASPIRIN] Allergy (Intermediate, Verified 04/21/24 14:44) ITCHING/SWELLING, rash,itchy ibuprofen Allergy (Intermediate, Verified 04/21/24 14:44) Swelling trazodone [TRAZODONE] Allergy (Intermediate, Verified 04/21/24 14:44) NIGHTMARES naproxen [From Anaprox] Allergy (Mild, Verified 04/21/24 14:44) RASH acetaminophen [From PERCOCET] Allergy (Unknown, Verified 04/21/24 14:44) HIVES/NAUSEA amoxicillin [Augmentin] Allergy (Unknown, Verified 04/21/24 14:44) Unknown oxycodone [From PERCOCET] Allergy (Unknown, Verified 04/21/24 14:44) HIVES/NAUSEA butalbital Allergy (Verified 04/21/24 14:44) Rash, Itching eszopiclone [From LUNESTA] Adverse Reaction (Intermediate, Verified 04/21/24 14:44) NIGHTMARES Office Meds cyanocobalamin (vitamin B-12) 1,000 mcg/mL injection solution Performing Provider: Adolph العراقي MD [facility] Administered by: Isabella Riley RN on 06/20/24 13:14 Dose Route Admin Location Dispensed Lot Number Expiration Date [facility] Identification Technician 1,000 mcg IM 1 mL [id number] 06/02/25 83113-070-97 [employer] Assessment & Plan Assessment & Plan Orders: Orders AMB Vitamin B12 Injection Patient Supplied Today E53.8 - Deficiency of other specified B group vitamins Medications: New cyanocobalamin (vitamin B-12) 1,000 mcg IM ONCE 1 mL 0RF E53.8 - Deficiency of other specified B group vitamins
== END 2024-06-20 13:16 | disposition home or self-care (01) ==
PROVIDERS: PCP Internal Medicine; Visit Provider Internal Medicine
DX: E53.8 Deficiency of other specified B group vitamins (principal)

== ENCOUNTER → 2024-06-20 12:42 | Outpatient (BNVA) | payer OTHER, SELFPAY | PROVIDERS: PCP Internal Medicine; Visit Provider Internal Medicine | DX: E53.8 Deficiency of other specified B group vitamins (principal) | CPT/HCPCS: 96372; J3420 ==

== ENCOUNTER 2024-07-16 10:51 | Outpatient (REF) | payer OTHER, SELFPAY ==
[2024-07-16 11:09] LABS: MANUAL DIFF FLAG NO
[2024-07-16 12:07] LABS: Basophils Percent Auto 0.5 % (0-2); Hematocrit 40.4 % (37.0-47.0); Hemoglobin 12.5 g/dl (12.0-16.0); Imm Gran Abs Auto 0.01 X10*3/uL (0.00-0.03); Imm Gran Pct Auto 0.2 % (0.0-0.4); Lymphocytes Absolute Auto 1.8 X10*3/uL (1.2-4.9); Lymphocytes Percent Auto 29.3 % (20-40); Mean Corpuscular HGB Conc 30.9 g/dl (31.0-35.0); Mean Corpuscular Hemoglobin 24.8 pg (27.0-33.0); Mean Platelet Volume 11.6 fL (9.4-12.3); Monocytes Absolute Auto 0.4 X10*3/uL (0.1-1.2); Monocytes Percent Auto 6.1 % (2-11); Neutrophils Absolute Auto 3.9 x10*3/uL (2.0-8.3); Neutrophils Percent Auto 63.9 % (45-73); Platelet Count 287 X10*3/uL (160-400); Red Blood Count 5.05 X10*6/uL (4.20-5.50); Red Cell Distribution Width 15.3 % (11.0-16.0); White Blood Count 6.1 X10*3/uL (4.8-10.8)
[2024-07-16 12:28] LABS: Alanine Aminotransferase 15 U/L (0-31); Albumin Level 4.4 g/dL (3.5-5.0); Alkaline Phosphatase 47 U/L (39-117); Anion Gap 14 (12-20); Aspartate Amino Transferase 29 U/L (5-31); Bilirubin Total 0.7 mg/dL (0.0-1.0); Blood Urea Nitrogen 18 mg/dL (9-16); Carbon Dioxide 25 mmol/L (22-29); Chloride 107 mmol/L (96-108); Cholesterol 189 mg/dL (<200); Estimated Glomerular Filt Rate > 60; Glucose Fasting 98 mg/dL (60-99); HDL Cholesterol 64 mg/dL (>40); LDL Cholesterol Calculated 112 mg/dL (<100); Potassium 4.3 mmol/L (3.3-5.1); Sodium 142 mmol/L (135-145); Total Protein 7.9 g/dL (6.5-8.0); Triglycerides 65 mg/dL (<150)
--- OUTSIDE RECORDS SUMMARY | 2024-07-16 12:41 | XMS_ITS ---
Author Organization [facility] Address [address] [place] [address] Care Team Providers Care Hospice Care Consultant Name Role Phone Malcom ORANTES, [place] Primary Care Provider UnaRex Corral Unavailable [phone] REASON FOR VISIT screening, hx polyps PROBLEMS Problem Type ICD Code Onset Dates Problem Status W/U Status Risk SNOMED Code Notes Problem Diverticulosis of large intestine without perforation or abscess without bleeding (K57.30) Active confirmed Diverticul ar disease of colon (662185977) Encounters Encounter Location Date Provider Diagnosis [facility] [address] [place], [place] [phone] 01/30/2024 Rex Buitrago Colon cancer scree reina Z12.11 ; Colon polyps K63.5 ; Diverticulosis of large intestine without perforation or abscess without bleeding K57.30 and Other hemorrhoids K64.8 ASSESSMENTS Encounter Date Diagnosis Assessment Notes Treatment Notes Treatment Clinical Notes 01/30/2024 Colon cancer screening (ICD-10 - Z12.11) 01/30/2024 Colon polyps (ICD-10 - K63.5) 01/30/2024 Diverticulosis of large intestine without perforation or abscess without bleeding (ICD-10 - K57.30) 01/30/2024 Other hemorrhoids (ICD-10 - K64.8) PLAN OF TREATMENT No Information
--- OUTSIDE RECORDS SUMMARY | 2024-07-16 12:41 | XMS_ITS ---
Author Organization [facility] Address [address] [place] [address] Care Team Providers Care Pipelines Superintendent Name Role Phone Malcom ORANTES, [place] Primary Care Provider Rex Caal [phone] REASON FOR VISIT bowel prep MEDICATIONS Medication SIG (Take, Route, Frequency, Duration) Notes Start Date End Date Status MiraLax (colon prep) 17 GM/SCOOP Take 1/2 bottle of Miralax mixed in 1 quart of Gatorade Two days before the colonoscopy, and then 1 full bottle of miralax mixed with 64 ounces of Gatorade or Crystal Light the day before the colonoscopy orally Take the 1/2 bottle of Miralax once two days before the colonoscopy, and then the full bottle of Miralax one day before the colonoscopy begin at 5:00 p.m. the day before the procedure for 2 days 10/29/2023 Active Dulcolax (colon prep) 5 MG Take 2 Tablet s 2 days before the colonoscopy, and take 2 tablets at 3:00 p.m and 7:00p.m. the day before the colonoscopy Orally Two tablets once two days before the colonoscopy, and then two tablets twice a day for one day before the colonscopy for 2 days 10/29/2023 Active Encounters Encounter Location Date Provider Diagnosis [facility] [address] [place] [address] 10/26/2023 Rex Buitrago PLAN OF TREATMENT Medication Medication Name Sig Start Date Stop Date Notes MiraLax (colon prep) 17 GM/SCOOP Take 1/2 bottle of Miralax mixed in 1 quart of Gatorade Two days before the colonoscopy, and then 1 full bottle of miralax mixed with 64 ounces of Gatorade or Crystal Light the day before the colonoscopy orally Take the 1/2 bottle of Miralax once two days before the colonoscopy, and then the full bottle of Miralax one day before the colonoscopy begin at 5:00 p.m. the day before the procedure for 2 days 10/29/2023 Dulcolax (colon prep) 5 MG Take 2 Tablet s 2 days before the colonoscopy, and take 2 tablets at 3:00 p.m and 7:00p.m. the day before the colonoscopy Orally Two tablets once two days before the colonoscopy, and then two tablets twice a day for one day before the colonscopy for 2 days 10/29/2023
--- OUTSIDE RECORDS SUMMARY | 2024-07-16 12:41 | XMS_ITS | Patient Health Record ---
Author Organization [facility] Address [address] [place] [address] Care Team Providers Care Kettle Firer Name Role Phone Adolph العراقي MD Primary Care Provider Rex Caal [phone] ALLERGIES Allergen (clinical drug ingredient) Drug/Non Drug Allergy documented on EMR Reaction Allergy Type Onset Date Status morphine Morphine Sulfate Unknown Drug Allergy Active amoxicillin / clavulanate Augmentin Unknown Drug Allergy Active aspirin Aspirin Unknown Drug Allergy Active Anaprox Unknown Drug Allergy Active RESULTS Component Value Reference Range Notes Pathology (Not yet reviewed by provider) Interpretation: Performing Lab:[facility], [address] [place] [id number] Notes/Report: REASON FOR REFERRAL No Information MEDICATIONS Medication SIG (Take, Route, Frequency, Duration) Notes Start Date End Date Status Linzess 145 MCG 1 capsule at least 30 minutes before the first meal of the day on an empty stomach Orally Once a day for 30 day(s) 10/26/2023 Active Gabapentin 100 MG Oral for 30 Active Topiramate 100 MG TK 1 T PO QD HS Oral for 30 Active Cyanocobalamin 1000 MCG/ML 1 ml Injection once a month Active Levoxyl 125 MCG 1 tablet on an empty stomach in the morning Orally Once a day Active MiraLax (colon prep) 17 GM/SCOOP Take 1/2 [...] the procedure for 2 days 10/29/2023 Active Levothyroxine Sodium 75 MCG Oral for 90 Active Dulcolax (colon prep) 5 MG Take 2 Tablets 2 days before the colonoscopy, and take 2 tablets at 3:00 p.m and 7:00p.m. the day before the colonoscopy Orally Two tablets once two days before the colonoscopy, and then two tablets twice a day for one day before the colonscopy for 2 days 10/29/2023 Active Tirosint 88 MCG Oral for 90 Ac tive Nortriptyline HCl 10 MG Oral for 90 as needed Active GaviLAX 17 GM/SCOOP TAKE HALF A BOTTLE (205 GRAMS) MIXED IN 1 QUART OF GATORADE AND TAKE BY MOUTH TWO DAYS BEFORE COLONOSCOPY, THEN THE DAY BEFORE TAKE 1 FULL BOTTLE MIXED WITH 64 OUNCES OF GATORADE for 30 Active MiraLax - as directed Orally Once or twice a day once or twice a day Active Atorvastatin Calcium 10 MG Oral for 90 Active IMMUNIZATIONS Vaccine Route Administration Date Status Comme nts Influenza Unknown 03/26/2019 Refused Influenza Unknown 10/26/2023 Refused SOCIAL HISTORY Sex Assigned At : Social History Observation Description Sex Assigned At Unknown PROBLEMS Problem Type ICD Code Onset Dates Problem Status W/U Status Risk SNOMED Code Notes Problem Encounter for screening for malignant neoplasm of colon (Z12.11) Active confirmed 414208005 Problem History of adenomatous polyp of colon (Z86.010) Active confirmed 646055629 Problem Diverticulosis of large intestine without perforation or abscess without bleeding (K57.30) Active confirmed Diverticul ar disease of colon (180934520) Problem Chronic constipation (K59.09) Active confirmed 066376532 VITAL SIGNS Temperature 98.0 degrees Fahrenheit 10/26/2023 Blood pressure diastolic 00 mm Hg 10/26/2023 Height 63.5 in 10/26/2023 Blood pressure systolic 000 mm Hg 10/26/2023 Weight 118 lb 4 oz lbs 10/26/2023 BMI 20.62 kg/m2 10/26/2023 Encounters Encounter Location Date Provider Diagnosis [facility] Outpatient [address] [place] [phone] 01/30/2024 Rex Buitrago Colon cancer screeni ng Z12.11 ; Colon polyps K63.5 ; Diverticulosis of large intestine without perforation or abscess without bleeding K57.30 and Other hemorrhoids K64.8 [facility] [address] [place] [address] 10/26/2023 Rex Buitrago History of adenomato us polyp of colon Z86.010 ; Chronic constipation K59.09 and Encounter for screening for malignant neoplasm of colon Z12.11 [facility] [address] [place] [address] 10/26/2023 Rex Buitrago ASSESSMENTS Encounter Date Diagnosis Assessment Notes Treatment Notes Treatment Clinical Notes 01/30/2024 Colon cancer screening (ICD-10 - Z12.11) 01/30/2024 Colon polyps (ICD-10 - K63.5) 10/26/2023 History of adenomatous polyp of colon (ICD-10 - Z86.010) 10/26/2023 Chronic constipation (ICD-10 - K59.09) Continue a high fiber diet, a lot of water, and Miralax at least once or twice a day on an everyday basis to help with the constipation. I will also send over a prescription for a medicine for the constipation 01/30/2024 Diverticulosis of large intestine without perforation or abscess without bleeding (ICD-10 - K57.30) 10/26/2023 Encounter for screening for malignant neoplasm of colon (ICD-10 - Z12.11) 01/30/2024 Other hemorrhoids (ICD-10 - K64.8) PLAN OF TREATMENT Pending Test Test Name Order Date Pathology 01/30/2024 Future Test Test Name Order Date COLONOSCOPY 09/24/2012 COLONOSCOPY 05/24/2017 COLONOSCOPY 10/26/2023 Insurance Providers Payer Name Payer Address Payer Phone Subscriber Number Group Number Insured Name Patient Relationship to Insured Coverage Start Date Coverage End Date [facility] [address] [employer] [facility] [address] [address] [place], [place] [phone] [id number] BRENDAN SOTO Self - patient is the insured MEDICAL (GENERAL) HISTORY Medical History History ICD Code Hx of chronic constipation-- had a defecogram with colorectal surgeons at [facility] Headaches Hypothyroidism Mild stroke 2009-no residual Denies [place],DM,Lung disease,renal disease Neg. colonoscopy in 01/2004 except for in ternal hemoorhoids Colonoscopy 10/2012-small tubular adenoma EGD in 2013-Dr. Hunter[facility], gastric bx neg for Hpylori and duodenal bx neg for celiac disease Colonoscopy in 07/2017 was negative high cholesterol Surgical History Surgery Date(Month/Year) left knee arthroscopy x2 right knee arthroscopy carpal tunnel release right hand
--- OUTSIDE RECORDS SUMMARY | 2024-07-16 12:41 | XMS_ITS ---
Author Organization [facility] Address [address] [place] [address] Care Team Providers Care Semiconductor Packages Platemaker Name Role Phone Malcom ORANTES, [place] Primary Care Provider Rex Caal [phone] ALLERGIES Allergen (clinical drug ingredient) Drug/Non Drug Allergy documented on EMR Reaction Allergy Type Onset Date Status morphine Morphine Sulfate Unknown Drug Allergy Active amoxicillin / clavulanate Augmentin Unknown Drug Allergy Active aspirin Aspirin Unknown Drug Allergy Active Anaprox Unknown Drug Allergy Active REASON FOR VISIT Patient presents today for a recall colonoscopy MEDICATIONS Medication SIG (Take, Route, Frequency, Duration) Notes Start Date End Date Status Cyanocobalamin 1000 MCG/ML 1 ml Injection once a month Active Levoxyl 125 MCG 1 tablet on an empty stomach in the morning Orally Once a day Active Levothyroxine Sodium 75 MCG Oral for 90 Active Tirosint 88 MCG Oral for 90 Ac tive Gabapentin 100 MG Oral for 30 Active Atorvastatin Calcium 10 MG Oral for 90 Active Topiramate 100 MG TK 1 T PO QD HS Oral for 30 Active Nortriptyline HCl 10 MG Oral for 90 as needed Active MiraLax - as directed Orally Once or twice a day once or twice a day Active Linzess 145 MCG 1 capsule at least 30 minutes before the first meal of the day on an empty stomach Orally Once a day for 30 day(s) 10/26/2023 Active IMMUNIZATIONS Vaccine Route Administration Date Status Comme nts Influenza Unknown 10/26/2023 Refused VITAL SIGNS BMI 20.62 kg/m2 10/26/2023 Blood pressure systolic 000 mm Hg 10/26/19 24 Blood pressure diastolic 00 mm Hg 024 Height 63.5 in 10/26/2023 Temperature 98.0 degrees Fahrenheit 10/26/19 Weight 118 lb 4 oz lbs 10/26/2023 Encounters Encounter Location Date Provider Diagnosis [facility] [address] [place] [address] 10/26/2023 Rex Buitrago History of adenomato us polyp of colon Z86.010 ; Chronic constipation K59.09 and Encounter for screening for malignant neoplasm of colon Z12.11 ASSESSMENTS Encounter Date Diagnosis Assessment Notes Treatment Notes Treatment Clinical Notes 10/26/2023 History of adenomatous polyp of colon (ICD-10 - Z86.010) 10/26/2023 Chronic constipation (ICD-10 - K59.09) Continue a high fiber diet, a lot of water, and Miralax at least once or twice a day on an everyday basis to help with the constipation. I will also send over a prescription for a medicine for the constipation 10/26/2023 Encounter for screening for malignant neoplasm of colon (ICD-10 - Z12.11) PLAN OF TREATMENT Medication Medication Name Sig Start Date Stop Date Notes Linzess 145 MCG 1 capsule at least 3 0 minutes before the first meal of the day on an empty stomach Orally Once a day for 30 day(s) 10/26/2023 Treatment Notes Assessment Notes Chronic constipation Continue a high fib er diet, a lot of water, and Miralax at least once or twice a day on an everyday basis to help with the constipation. I will also send over a prescription for a medicine for the constipation Future Test Test Name Order Date COLONOSCOPY 10/26/2023 Next Appt Details Follow Up: prn, Reason: Progress Notes * Examination Category Sub-Category Detail Notes General Examination GENERAL APPEARANCE: pleasant , well nourished, well developed, in no acute distress EYES: sclera non-icteric NECK/THYROID: no cervical lymphade nopathy, neck supple HEART: S1, S2 normal LUNGS: clear to auscultatio n bilaterally ABDOMEN: normal bowel sounds, no guarding or rigidity, no hepatosplenomegaly, no masses palpable, soft, nontender, nondistended. NEUROLOGIC: alert and oriented SKIN: nonjaundiced, no spi shahla angiomata. EXTREMITIES: no edema ORAL CAVITY: mucosa moist
--- OUTSIDE RECORDS SUMMARY | 2024-07-16 12:41 | XMS_ITS | Continuity of Care Document ---
Author Organization [facility] Address [address] [place] [address] Phone Care Team Providers Care Operations Clerk Name Role Phone David Montiel Unavailable Unavailable Medications Medication Instructions Dosage Effective Dates (start - stop) Status Comments metformin 850 mg tablet take 1 tablet by oral route 2 times every day with morning and evening meals 850 MG - Active Procedures Procedure Date OFFICE/OUTPATIENT VISIT, [facility] Advance Directives Directive Yes / No Effective Date File Name No Information Encounters Encounter Description Practice Location Reason(s) For Visit Diagnoses Date Provider Providers Copied on Encounter [facility], [address] [place] [address], [id number], tel:[phone] [facility] Immediate Care Visit Conducted via Telehealth (chief complaint) No Information 0 Korin Hernandez. [address] [place], [address], [place]. tel: [phone] OFFICE/OUTPA TIENT VISIT, [facility], [address] [place] [address], [id number], tel:[phone] [facility] Immediate Care Telehealth Medication refill (chief complaint) Essential (primary) hypertensionEncou nter for issue of repeat prescription 0 Piper Knowles. [address] [place], [address], [place]. tel: [phone] Family History Family Member Type Diagnosis Age [...]
[2024-07-16 12:43] LABS: Appearance Urine Clear; Color Urine Yellow; Glucose Urine UA Negative (Negative); Leukocyte Esterase Urine Negative (Negative); Nitrite Urine Negative (Negative); PH 5.5 (5.0-9.0); Specific Gravity - Urine 1.025 (1.005-1.025); Urine Blood Negative (Negative); Urine Ketones Negative (Negative); Urine Protein Negative (Neg-Trace)
[2024-07-16 12:55] LABS: Free T4 (Free Thyroxine) 1.13 ng/dL (0.71-1.85); Thyroid Stimulating Hormone 0.62 uIU/mL (0.32-4.0); Vitamin D 25-OH Total 60.9 ng/mL (>30)
[2024-07-16 13:02] LABS: Folate 8.8 ng/mL (> or = 4.0); Vitamin B12 320 pg/mL (200-900)
== END 2024-07-16 10:52 | disposition home or self-care (01) ==
LOC: HO.LAB 10:51
PROVIDERS: PCP Internal Medicine; Visit Provider Internal Medicine
DX: E78.00 Pure hypercholesterolemia, unspecified (principal); R30.0 Dysuria; E55.9 Vitamin D deficiency, unspecified; D64.9 Anemia, unspecified; E53.8 Deficiency of other specified B group vitamins; E03.9 Hypothyroidism, unspecified
CPT/HCPCS: 36415; 80053; 80061; 81003; 82306; 82607; 82746; 84439; 84443; 85025

== ENCOUNTER 2024-07-23 14:29 | Outpatient (AMB) | payer OTHER, SELFPAY ==
--- OUTSIDE RECORDS SUMMARY | 2024-07-23 14:33 | XMS_ITS ---
Author Organization [facility] Address [address] [place] [address] Care Team Providers Care Cardiology Associate Name Role Phone Malcom ORANTES, [place] Primary Care Provider Rex Caal [phone] ALLERGIES Allergen (clinical drug ingredient) Drug/Non Drug [...] 10/26/2023 Encounters Encounter Location Date Provider Diagnosis [facility] [address] [place] [address] 10/26/2023 Rex Buitrago History of adenomato us [...]
--- OUTSIDE RECORDS SUMMARY | 2024-07-23 14:33 | XMS_ITS | Continuity of Care Document ---
Author Organization [facility] Address [address] [place] [phone] Phone Care Team Providers Care Mechanical Expert Name Role Phone David Montiel Unavailable Unavailable Medications Medication Instructions Dosage Effective Dates (start - stop) Status Comments metformin 850 mg tablet take 1 tablet by oral route 2 times every day with morning and evening meals 850 MG - Active Procedures Procedure Date OFFICE/OUTPATIENT VISIT, [facility] Advance Directives Directive Yes / No Effective Date File Name No Information Encounters Encounter Description Practice Location Reason(s) For Visit Diagnoses Date Provider Providers Copied on Encounter [facility], [address] [place] [address], [id number], tel:[phone] [facility] Immediate Care Visit Conducted via Telehealth (chief complaint) No Information 0 Korin Hernandez. [address] [place], [address], [place]. tel: [phone] OFFICE/OUTPA TIENT VISIT, [facility], [address] [place] [address], [id number], tel:[phone] [facility] Immediate Care Telehealth Medication refill (chief complaint) Essential (primary) hypertensionEncou nter for issue of repeat prescription 0 Piper Knowles. [address] [place], [address], [place]. tel: [phone] Family History Family Member Type Diagnosis Age [...]
--- OUTSIDE RECORDS SUMMARY | 2024-07-23 14:33 | XMS_ITS ---
Author Organization [facility] Address [address] [place] [address] Care Team Providers Care Installation Supervisor Name Role Phone Malcom ORANTES, [place] Primary Care Provider UnaRex Corral Unavailable [phone] REASON FOR VISIT screening, hx polyps PROBLEMS Problem Type ICD Code Onset Dates Problem Status W/U Status Risk SNOMED Code Notes Problem Diverticulosis of large intestine without perforation or abscess without bleeding (K57.30) Active confirmed Diverticul ar disease of colon (750893483) Encounters Encounter Location Date Provider Diagnosis [facility] Outpatient [address] [place], [place] [phone] 01/30/2024 Rex Buitrago Colon cancer scree reina [...]
--- OUTSIDE RECORDS SUMMARY | 2024-07-23 14:33 | XMS_ITS | Patient Health Record ---
Author Organization [facility] Address [address] [place] [address] Care Team Providers Care Environmental Journalist Name Role Phone Adolph العراقي MD Primary Care Provider Rex Caal [phone] ALLERGIES Allergen (clinical drug ingredient) Drug/Non Drug Allergy documented on EMR Reaction Allergy Type Onset Date Status morphine Morphine Sulfate Unknown Drug Allergy Active amoxicillin / clavulanate Augmentin Unknown Drug Allergy Active aspirin Aspirin Unknown Drug Allergy Active Anaprox Unknown Drug Allergy Active RESULTS Component Value Reference Range Notes Pathology (Not yet reviewed by provider) Interpretation: Performing Lab:[facility], [address] [place] [id number] Notes/Report: REASON FOR REFERRAL No Information MEDICATIONS [...] malignant neoplasm of colon (Z12.11) Active confirmed 237720872 Problem History of adenomatous polyp of colon (Z86.010) Active confirmed 869165136 Problem Diverticulosis of large intestine without perforation or abscess without bleeding (K57.30) Active confirmed Diverticul ar disease of colon (292153538) Problem Chronic constipation (K59.09) Active confirmed 828423658 VITAL SIGNS Temperature 98.0 degrees Fahrenheit 10/26/2023 Blood pressure diastolic 00 mm Hg 10/26/2023 Height 63.5 in 10/26/2023 Blood pressure systolic 000 mm Hg 10/26/2023 Weight 118 lb 4 oz lbs 10/26/2023 BMI 20.62 kg/m2 10/26/2023 Encounters Encounter Location Date Provider Diagnosis [facility] [place] [address] [place] [phone] 01/30/2024 Rex Buitrago Colon cancer screeni ng Z12.11 ; Colon polyps K63.5 ; Diverticulosis of large intestine without perforation or abscess without bleeding K57.30 and Other hemorrhoids K64.8 [facility] [address] [place] [address] 10/26/2023 Rex Buitrago History of adenomato us polyp of colon Z86.010 ; Chronic constipation K59.09 and Encounter for screening for malignant neoplasm of colon Z12.11 [facility] [address] [place] [address] 10/26/2023 Rex Buitrago ASSESSMENTS Encounter Date Diagnosis [...] Insured Coverage Start Date Coverage End Date [facility] [employer] [facility] [address] [address] [place], [place] [id number] BRENDAN SOTO Self - patient is the insured MEDICAL (GENERAL) HISTORY Medical History History ICD Code Hx of chronic constipation-- had a defecogram with colorectal surgeons at [facility] Headaches Hypothyroidism 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 colonoscopy in 01/2004 except for in ternal hemoorhoids Colonoscopy 10/2012-small tubular adenoma EGD in 2013-Dr. Hunter[facility], gastric bx neg for Hpylori and duodenal bx neg for celiac disease Colonoscopy in 07/2017 was negative high cholesterol Surgical History Surgery Date(Month/Year) left knee arthroscopy x2 right knee arthroscopy carpal tunnel release right hand
--- OUTSIDE RECORDS SUMMARY | 2024-07-23 14:33 | XMS_ITS ---
Author Organization [facility] Address [address] [place] [phone] Care Team Providers Care Liner Man Name Role Phone Malcom ORANTES, [place] Primary Care Provider Rex Caal [phone] REASON FOR VISIT bowel prep MEDICATIONS Medication [...] Active Encounters Encounter Location Date Provider Diagnosis [facility] [address] [place] [phone] 10/26/2023 Rex Buitrago PLAN OF TREATMENT Medication [...]
[2024-07-23 14:39] VITALS: BP 98/62; PULSE 67; O2SAT 99; BMI 21.3
--- NOTE | 2024-07-23 14:39 | A.OFFPC_ITS ---
Vital Signs 07/23/24 14:39 Height 5 ft 4 in Weight 124 lb 4 oz BMI 21.3 BP 98/62 Blood Pressure Location Lt brachial Position Sitting Pulse 67 Pulse Source Pulse Oximeter Pulse Oximetry (%) 99 Oxygen Delivery Method Room Air Intake Visit Reasons: hyperlipidemia Appraiser Required: No Accompanied by: Self / Same As Patient Allergies morphine Allergy (Severe, Verified 07/23/24 14:56) Unresponsive zolpidem [ZOLPIDEM] Allergy (Severe, Verified 07/23/24 14:56) SLEEPWALKING aspirin [ASPIRIN] Allergy (Intermediate, Verified 07/23/24 14:56) ITCHING/SWELLING, rash,itchy ibuprofen Allergy (Intermediate, Verified 07/23/24 14:56) Swelling trazodone [TRAZODONE] Allergy (Intermediate, Verified 07/23/24 14:56) NIGHTMARES naproxen [From Anaprox] Allergy (Mild, Verified 07/23/24 14:56) RASH acetaminophen [From PERCOCET] Allergy (Unknown, Verified 07/23/24 14:56) HIVES/NAUSEA amoxicillin [Augmentin] Allergy (Unknown, Verified 07/23/24 14:56) Unknown oxycodone [From PERCOCET] Allergy (Unknown, Verified 07/23/24 14:56) HIVES/NAUSEA butalbital Allergy (Verified 07/23/24 14:56) Rash, Itching eszopiclone [From LUNESTA] Adverse Reaction (Intermediate, Verified 07/23/24 14:56) NIGHTMARES Medication List - Last Reconciled 07/23/24 by Adolph العراقي MD atorvastatin 10 mg PO BEDTIME 90 days cholecalciferol (vitamin D3) 50 mcg PO DAILY cyanocobalamin (vitamin B-12) 1,000 mcg IM Q4W 90 days Forteo (teriparatide) 20 mcg (0.08 mL) subcut DAILY NS hydroxyzine HCl 25 mg PO BEDTIME levothyroxine 88 mcg PO DAILY linaclotide (Linzess) 145 mcg PO DAILY pen needle, diabetic (Comfort EZ Pen [place]) As directed polyethylene glycol 3350 17 grams PO DAILY PRN topiramate 100 mg PO BEDTIME Tobacco use date assessed: 07/23/24 Dental Screening Dental Screen Date: 07/23/24 Did you have a dental visit in the last 12 months?: Yes Did you have a dental problem in the last 6 months where you did not have access to dental care?: No Was dental information given to patient?: Patient has dentist HPI hyperlipidemia HPI Details Patient comes in today for her follow up visit States that she feels okay She denies any headaches or dizziness Still has on and off upper left-sided chest pains that often also involve her left shoulder and at times go down into her left arm She does have an impingement syndrome involving the left shoulder and also had a negative exercise stress test done with cardiology a few months ago on Denies any increased SOB No nausea/vomiting, no abdominal pain but she still has frequent bloating sensation due to her chronic constipation [facility] Medical History Cervical spondylosis Arthritis Anemia Depression Numbness Elevated cholesterol CVA (cerebral vascular accident) Thyroid disease Bilateral hand pain Arthralgia Overweight (BMI 25.0-29.9) Constipation Overactive bladder Migraine Fibromyalgia Pure hypercholesterolemia Pain of right thumb Vitamin D deficiency Hypothyroidism Hyperparathyroidism Osteoporosis B12 deficiency Surgical History Hx of arthroscopy of right knee Hx of arthroscopy of left knee Hx of colonoscopy History of esophagogastroduodenoscopy (EGD) History of carpal tunnel release Family History Father Medical history unknown Mother Medical history unknown Parkinson disease Family/Other Colon cancer Daughter History of breast cancer, Onset Age: 21 Cervical cancer Sister Uterine cancer Sister Colon cancer Social History Household Members Other:: daughter Housing: House Are you a primary daycare manager to a significant other at home: No Do you presently have visiting nurse or other home services: No Alcohol intake: never Patient Tobacco Use Status: Never used Tobacco e-Cigarette/Vaping Use: Never Used Second Hand Smoke Exposure: Yes service: No Current occupational status: disabled Sexual orientation: Straight/Heterosexual Gender identity: Female Cognitive needs: No Hearing needs: No Vision needs: Yes (reading glasses) Questionnaire PHQ-9 Over the last 2 weeks, how often have you been bothered by any of the following problems? 1. Little interest or pleasure in doing things: nearly every day 2. Feeling down, depressed, or hopeless: nearly every day 3. Trouble falling or staying asleep, or sleeping too much: more than half the days 4. Feeling tired or having little energy: nearly every day 5. Poor appetite or overeating: more than half the days 6. Feeling bad about yourself - or that you are a failure or have let yourself or your family down: several days 7. Trouble concentrating on things, such as reading the newspaper or watching television: more than half the days 8. Moving or speaking so slowly that other people could have noticed. Or the opposite - being so fidgety or restless that you have been moving around a lot more than usual: not at all 9. Thoughts that you would be better off or of hurting yourself in some way: not at all Total score: 16 Depression Screening Interpretation: Positive Depression Screening Follow-up: Existing condition and In treatment Depression Screening Done: Yes 84550 - PHQ-9 Billing: Yes Source: Developed by Drs. Rex Iniguez, Chichi Tanner, Figueroa Allen and colleagues, with an educational johnna from [employer]. Thrive Questionnaire Date Thrive assessed: 07/23/24 I am a: Patient What is your living situation today?: I have a steady place to live Within the past 12 months, did the food you bought not last and you didn't have the money to get more?: Never true Within the past 12 months, did you worry whether your food would run out before you got money to buy more?: Never true Do you have trouble paying for medicines?: No Do you have trouble getting transportation to medical appointments?: No Do you have trouble paying your heating and electricity bill?: No Do you have trouble taking care of your child, family member or friend?: No Do you have trouble with day-to-day activities such as bathing, preparing meals, shopping, managing finances, etc.?: No Are you currently unemployed and looking for a job?: No Are you interested in more education?: No Please select the resources that you would like help with: None Currently or been in a relationship where the following occur: No concerns reported THRIVE Score: 0 AUDIT C Alcohol Use Questionnaire (AUDIT-C) 1. How often do you have a drink containing alcohol?: Never 3. How often do you have six or more drinks on one occasion?: Never Total Score: 0 Score Reviewed/Action Taken: Yes JOSELITO-7 AMB Questionnaire JOSELITO-7 Date JOSELITO - 7 assessed: 04/21/24 Source: Developed by Drs. Rex Iniguez, Chichi Tanner, Figueroa Allen and colleagues, with an educational johnna from [employer]. Physical exam (Primary Care) Vital Signs: Last Vital Signs Pulse 67 07/23/24 14:39 BP 98/62 07/23/24 14:39 Pulse Ox 99 07/23/24 14:39 Oxygen Delivery Method Room Air 07/23/24 14:39 BMI result Body Mass Index 21.3 Tobacco/Smoking Status: Tobacco use Status Tobacco use date assessed 07/23/24 07/23/24 14:43 Patient Tobacco Use Status Never used Tobacco 07/23/24 14:43 e-Cigarette/Vaping Use Never Used 07/23/24 14:43 PHQ-9: PHQ-9 Score PHQ-9: Total score 16 07/23/24 14:59 Depression Screening Interpretation: Positive Depression Screening Follow-up: Existing condition and In treatment Thrive Assessment: Date of Thrive Assessment Date Thrive assessed 07/23/24 07/23/24 14:43 Currently or been in a relationship where the following occur: No concerns reported Office Meds cyanocobalamin (vitamin B-12) 1,000 mcg/mL injection solution Performing Provider: Adolph العراقي MD Performing Location[facility] Administered by: Carmenza Gupta LPN on 07/23/24 14:56 Dose Route Admin Location Dispensed Lot Number Expiration Date [facility] [employer] 1,000 mcg IM right deltoid 1 mL [id number] 06/03/25 74958-068-00 [employer] Results Reviewed Results Reviewed: Laboratory Tests 07/16/24 07/16/24 11:03 11:08 WBC 6.1 Hgb 12.5 Hct 40.4 Plt Count 287 Sodium 142 Potassium 4.3 Creatinine 0.84 Estimated GFR > 60 Fasting Glucose 98 Calcium 9.0 AST 29 ALT 15 Triglycerides 65 Cholesterol 189 LDL Cholesterol, Calc 112 H HDL Cholesterol 64 Vitamin B12 320 25-OH Vitamin D Total 60.9 TSH 0.62 Free T4 1.13 Ur Specific [place] 1.025 Urine Protein Negative Urine Glucose (UA) Negative Urine Blood Negative Urine Nitrite Negative Ur Leukocyte Esterase Negative Coding Diagnoses B12 deficiency E53.8 Pure hypercholesterolemia E78.00 Migraine without status migrainosus, not intractable, unspecified migraine type G43.909 Intractability: not intractable Migraine type: unspecified Status migrainosus presence: without status migrainosus Hypothyroidism, unspecified type E03.9 Hypothyroidism type: unspecified Impingement syndrome of left shoulder region M75.42 Cervical spondylosis M47.812 Osteoporosis, unspecified osteoporosis type, unspecified pathological fracture presence M81.0 Osteoporosis type: unspecified Presence of current pathological fracture: unspecified Vitamin D deficiency E55.9 Fibromyalgia M79.7 Constipation, unspecified constipation type K59.00 Constipation type: unspecified constipation type Overactive bladder N32.81 Additional Codes PHQ-9 - 12979 - PHQ-9 Billing: Yes ([id number]) Assessment & Plan Assessment & Plan (1) B12 deficiency: Code(s): E53.8 - Deficiency of other specified B group vitamins Category: Medical Plan: Continue Vitamin B12 injections monthly - B12 injection given today (2) Pure hypercholesterolemia: Code(s): E78.00 - Pure hypercholesterolemia, unspecified Category: Medical Plan: Results of her labs done a few days ago reviewed and discussed with patient - she is advised that her cholesterol levels are still at the higher end of the normal range Patient admits that she stopped taking her Atorvastatin a few months ago and needs a new Rx if she is to go back on the Rx Will start her back on Atorvastatin 10 mg Q HS - advised that if we still cannot get her LDL cholesterol to at least <100 mg/dl on her current Rx, then we will need to consider increasing her dose later on Will recheck her labs and fasting lipids in 3 months for follow up (3) Migraine: Code(s): G43.909 - Migraine, unspecified, not intractable, without status migrainosus Category: Medical Qualifiers: Intractability: not intractable Migraine type: unspecified Status migrainosus presence: without status migrainosus Qualified Code(s): G43.909 - Migraine, unspecified, not intractable, without status migrainosus Plan: Patient states that her migraine headaches have been doing okay lately They were better controlled previously on prophylactic Topiramate but this was d iscontinued by endocrinology a while back Have offered to start her on Amitriptyline instead but she recalled gaining a lot of weight while she was on Amitriptyline in the past and prefers not to rest art Amitriptyline at this time Continue Fioricet PRN for symptomatic relief of her headaches Follow up with neurology (Dr. Shi) as scheduled (4) Hypothyroidism: Code(s): E03.9 - Hypothyroidism, unspecified Category: Medical Qualifiers: Hypothyroidism type: unspecified Qualified Code(s): E03.9 - Hypothyroidism, unspecified Plan: Her TFTs were normal on her recent labs Continue Levothyroxine 88 mcg QD Follow up with endocrinology (Dr. Andrews) as scheduled Will continue to monitor her TFTs regularly (5) Impingement syndrome of left shoulder region: Code(s): M75.42 - Impingement syndrome of left shoulder Category: Medical Plan: X-rays of the cervical spine and repeat x-rays of the left shoulder done a few months ago revealed (+) mild degenerative changes in the left acromioclavicular joint and mild multilevel cervical spondylosis and mild bilateral facet arthritis with neural foraminal encroachment at C6-C7 She completed 8 weeks of formal physical therapy, which aggravated her pain - she failed conservative treatment Left shoulder MRI done on 02/01/2024 revealed (+) mild supraspinatus tendinosis and mild focal articular surface fraying in the distal anterior fibers. There is also mild infraspinatus and subscapularis tendinosis as well as mild acromioclavicular arthritis and trace subacromial subdeltoid bursitis EMG and NCV of the left upper extremity done in October 2023 came out normal She was originally scheduled for arthroscopic shoulder surgery a couple of months ago but this was held up when anesthesia supposedly saw some concerning findings on her echocardiogram and she was asked to seek cardiac clearance first She recently passed her cardiac stress test and is now waiting for orthopedics to reschedule her surgery soon (6) Cervical spondylosis: Code(s): M47.812 - Spondylosis without myelopathy or radiculopathy, cervical region Category: Medical Plan: Cervical spine x-rays done in September 2023 revealed (+) mild multilevel cervical spondylosis and mild bilateral facet arthritis with neural foraminal encroachment at C6-C7 If her neck pain/symptom increases, may need to consider referral to neurosurgery for further evaluation and management (7) Osteoporosis: Code(s): M81.0 - Age-related osteoporosis without current pathological fracture Category: Medical Qualifiers: Osteoporosis type: unspecified Presence of current pathological fracture: unspecified Qualified Code(s): M81.0 - Age-related osteoporosis without current pathological fracture Plan: Repeat BMD done on 03/11/2021 revealed (+) osteoporosis based on the lowest T- score value of -2.7 in the lumbar spine. Patient was cautioned that her BMD has declined by 9% or more in both her lumbar spine and left femur? BMD on 01/24/2019 also showed a 12% decrease in BMD at her femur from her previous scan in 2017; AP spine BMD is unchanged from before Patient could not tolerate Alendronate due to GI symptoms/side effects She was seen by Dr. Andrews for endocrinology consultation and was advised to start Tx with either Evenity vs Tymlos or Forteo She was going to start Tx with Evenity initially but her insurance would not cover Rx - this was later switched to Forteo, which she is now on at 20 mg SQ QD Follow up with endocrinology as scheduled (8) Vitamin D deficiency: Code(s): E55.9 - Vitamin D deficiency, unspecified Category: Medical Plan: Continue Vitamin D3 2000 units QD (9) Fibromyalgia: Code(s): M79.7 - Fibromyalgia Category: Medical Plan: Patient is again encouraged again to exercise regularly and stay active to help manage her fibromyalgia symptoms better She used to take Tizanidine 4 mg TID PRN but she has not had to take Rx in a while now (10) Constipation: Code(s): K59.00 - Constipation, unspecified Category: Medical Qualifiers: Constipation type: unspecified constipation type Qualified Code(s): K59.00 - Constipation, unspecified Plan: Encouraged again on increased oral fluids and dietary fiber Continue MiraLax powder 17 g daily as instructed (Rx refilled); she no longer has to take Amitiza lately She had a repeat colonoscopy done with Dr. Buitrago a couple of months ago on 01/30/2024 - (+) tubular adenoma and she is advised to have a repeat colonoscopy done again in 5 years (11) Overactive bladder: Code(s): N32.81 - Overactive bladder Category: Medical Plan: Follow up with urology as scheduled Plan Follow up in 3 months Orders: Orders Free T4 (Free Thyroxine) 3 Months E03.9 - Hypothyroidism, unspecified AMB Vitamin B12 Injection Patient Supplied Today E53.8 - Deficiency of other specified B group vitamins Complete Blood Count Auto Diff 3 Months D64.9 - Anemia, unspecified Comprehensive [place]. Panel Fast 3 Months E78.00 - Pure hypercholesterolemia, unspecified Lipid Panel 3 Months E78.00 - Pure hypercholesterolemia, unspecified Thyroid Stimulating Hormone 3 Months E03.9 - Hypothyroidism, unspecified UA CC w/rflx Micro + Cult 3 Months R30.0 - Dysuria Vitamin D 25-OH Total 3 Months E55.9 - Vitamin D deficiency, unspecified Referrals Gastroenterology Referral K59.09 - Other constipation Medications: Refilled levothyroxine Take 1 tablet Sunday to Sunday and half a tablet on Sundays 88 mcg PO DAILY 30 tabs 1RF
== END 2024-07-23 15:12 | disposition home or self-care (01) ==
PROVIDERS: PCP Internal Medicine; Visit Provider Internal Medicine
DX: E53.8 Deficiency of other specified B group vitamins (principal)

== ENCOUNTER → 2024-07-23 14:29 | Outpatient (BNVA) | payer OTHER, SELFPAY | PROVIDERS: PCP Internal Medicine; Visit Provider Internal Medicine | DX: E78.00 Pure hypercholesterolemia, unspecified (principal); G43.909 Migraine, unspecified, not intractable, without status migrainosus; E03.9 Hypothyroidism, unspecified; M75.42 Impingement syndrome of left shoulder; M47.812 Spondylosis without myelopathy or radiculopathy, cervical region; M81.0 Age-related osteoporosis without current pathological fracture; E55.9 Vitamin D deficiency, unspecified; E53.8 Deficiency of other specified B group vitamins; M79.7 Fibromyalgia; K59.00 Constipation, unspecified; N32.81 Overactive bladder | CPT/HCPCS: 96127; 96372; 99212; J3420 ==

== ENCOUNTER 2024-08-20 12:44 | Outpatient (AMB) | payer OTHER, SELFPAY ==
--- NOTE | 2024-08-20 12:54 | AM.OFFVISNUR ---
Intake Visit Reasons: B12 Shot Allergies morphine Allergy (Severe, Verified 07/23/24 14:56) Unresponsive zolpidem [ZOLPIDEM] Allergy (Severe, Verified 07/23/24 14:56) SLEEPWALKING aspirin [ASPIRIN] Allergy (Intermediate, Verified 07/23/24 14:56) ITCHING/SWELLING, rash,itchy ibuprofen Allergy (Intermediate, Verified 07/23/24 14:56) Swelling trazodone [TRAZODONE] Allergy (Intermediate, Verified 07/23/24 14:56) NIGHTMARES naproxen [From Anaprox] Allergy (Mild, Verified 07/23/24 14:56) RASH acetaminophen [From PERCOCET] Allergy (Unknown, Verified 07/23/24 14:56) HIVES/NAUSEA amoxicillin [Augmentin] Allergy (Unknown, Verified 07/23/24 14:56) Unknown oxycodone [From PERCOCET] Allergy (Unknown, Verified 07/23/24 14:56) HIVES/NAUSEA butalbital Allergy (Verified 07/23/24 14:56) Rash, Itching eszopiclone [From LUNESTA] Adverse Reaction (Intermediate, Verified 07/23/24 14:56) NIGHTMARES Office Meds cyanocobalamin (vitamin B-12) 1,000 mcg/mL injection solution Performing Provider: Adolph العراقي MD [facility] Administered by: Carmenza Gupta LPN on 08/20/24 12:54 Dose Route Admin Location Dispensed Lot Number Expiration Date [facility] [employer] 1,000 mcg IM left deltoid 1 mL [id number] 11/01/25 29088-674-34 [employer] Protective Assessment & Plan Assessment & Plan Orders: Orders AMB Vitamin B12 Injection Patient Supplied Today E53.8 - Deficiency of other specified B group vitamins Medications: New cyanocobalamin (vitamin B-12) 1,000 mcg IM ONCE 1 mL 0RF E53.8 - Deficiency of other specified B group vitamins Coding
--- OUTSIDE RECORDS SUMMARY | 2024-08-20 15:03 | XMS_ITS | Continuity of Care Document ---
Author Organization [facility] Address [address] [place] [phone] Phone Care Team Providers Care Labor Representative Name Role Phone David Montiel Unavailable Unavailable Medications Medication Instructions Dosage Effective Dates (start - stop) Status Comments metformin 850 mg tablet take 1 tablet by oral route 2 times every day with morning and evening meals 850 MG - Active Procedures Procedure Date OFFICE/OUTPATIENT VISIT, [facility] Advance Directives Directive Yes / No Effective Date File Name No Information Encounters Encounter Description Practice Location Reason(s) For Visit Diagnoses Date Provider Providers Copied on Encounter [facility], [address] [place] [address], [id number], tel:[phone] [facility] Immediate Care Visit Conducted via Telehealth (chief complaint) No Information 0 Korin Hernandez. [address] [place], [address], [place]. tel: [phone] OFFICE/OUTPA TIENT VISIT, [facility], [address] [place] [address], [id number], tel:[phone] [facility] [place] Telehealth Medication refill (chief complaint) Essential (primary) hypertensionEncou nter for issue of repeat prescription 0 Piper Knowles. [address] [place], [address], [place]. tel: [phone] Family History Family Member Type Diagnosis Age At Onset No Information Payers Payer name Insurance type Covered green party ID Authoriza tion(s) SELF PAY FLAT [...]
--- OUTSIDE RECORDS SUMMARY | 2024-08-20 15:03 | XMS_ITS ---
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 Motor Builder Name Role Phone Malcom ORANTES, [place] Primary Care Provider Rex Caal [phone] REASON FOR VISIT bowel prep Medications Medication SIG (Take, Route, Frequency, Duration) Notes [...] Active Encounters Encounter Location Date Provider Diagnosis [facility] [address] [place] [phone] 10/26/2023 Rex Buitrago Plan Of Treatment Medication Medication Name Sig Start Date Stop [...] before the colonscopy for 2 days 10/29/2023 Progress Notes * BRENDAN SOTO EDOB:1960 ( 62 yo F)Acc No.[id number]:10/26/2023 Patient:?BRENDAN SOTO E :1960???Age:62 Y???Sex:Female Address:[address] [place] [address] * Refills? Start Dulcolax (colon prep) Tablet Delayed Release, 5 MG, Orally, 6, Take 2 Tablets 2 days before the colonoscopy, and take 2 tablets at 3:00 p.m and 7:00p.m. the day before the colonoscopy, Two tablets once two days before the colonoscopy, and then two tablets twice a day for one day before the colonscopy, 2 days, Refills=0 Start MiraLax (colon prep) Powder, 17 GM/SCOOP, orally, 2, Take 1/2 bottle of Miralax mixed in 1 quart of Gatorade Two days before the colonoscopy, and then 1 full bottle of miralax mixed with 64 ounces of Gatorade or Crystal Light the day before the colonoscopy, Take the 1/2 bottle of Miralax once two days before the colonoscopy, and then the full bottle of Miralax one day before the colonoscopy begin at 5:00 p.m. the day before the procedure, 2 days, Refills=0 * true * Date:? Generated for Elvin alexandre/Sandro/eTransmitting on:?08/20/2024 03:03 PM EDT
--- OUTSIDE RECORDS SUMMARY | 2024-08-20 15:04 | XMS_ITS ---
Author Organization [facility] Address [address] [place] [address] Care Team Providers Care Nick Setter Name Role Phone Malcom ORANTES, [place] Primary Care Provider UnaRex Corral Unavailable [phone] REASON FOR VISIT screening, hx polyps Problems Problem Type SNOMED Code ICD Code Onset Dates Problem Status W/U Status Risk Notes Problem Diverticular disease of colon (194156320) Diverticulosis of large intestine without perforation or abscess without bleeding (K57.30) Active confirmed Encounters Encounter Location Date Provider Diagnosis [facility] Outpatient [address] [place], [place] [phone] 01/30/2024 Rex Buitrago Colon cancer scree reina [...] Progress Notes * BRENDAN SOTO EDOB:1960 ( 63 yo F)Acc No.[id number]:01/30/2024 COLON WITH MAC Patient:?BRENDAN SOTO Provider:?Rex Buitrago MD :1960???Age:63 Y???Sex:Female D ate:01/30/2024 Address:[address] [place], [place] [id number] Pcp:Adolph العراقي MD Subjective: * Chief Complaints: * ???1. Screening, hx polyps. * Medical History:? Objective: * Vitals:? Assessment: * Assessment: 1.?Colon cancer screening - Z12.11 (Primary)???2.?Colon polyps - K63.5???3.?Diverticulosis of large intestine without perforation or abscess without bleeding - K57.30???4.?Other hemorrhoids - K64.8??? Plan: * Treatment: * Procedure Codes:?45519 LESIO N REMOVAL COLONOSCOPY, Modifiers: 33 , 62840 COLONOSCOPY AND BIOPSY, Modifiers: 59 , 33 * * The named appointment provid er may or may not be the originator of this progress note, and it is not deemed complete until electronically signed by the appointment provider. Sign off status: Pending * Provider:?Rex Buitrago MD Date:? 024 Generated for Elvin alexandre/Sandro/eTransmitting on:?08/20/2024 03:03 PM EDT
--- OUTSIDE RECORDS SUMMARY | 2024-08-20 15:04 | XMS_ITS ---
Author Organization [facility] Address [address] [place] [address] Care Team Providers Care Certified Meeting Professional Name Role Phone Malcom ORANTES, [place] Primary Care Provider Rex Caal [phone] Allergies Allergen (clinical drug ingredient) Drug/Non Drug Allergy documented on EMR Reaction Allergy Type Onset Date Status morphine Morphine Sulfate Unknown Drug Allergy Active amoxicillin / clavulanate Augmentin Unknown Drug Allergy Active aspirin Aspirin Unknown Drug Allergy Active Anaprox Unknown Drug Allergy Active REASON FOR VISIT Patient presents today for a recall colonoscopy Medications Medication SIG (Take, Route, Frequency, Duration) [...] a day for 30 day(s) 10/26/2023 Active Immunizations Vaccine Route Administration Date Status Comme nts Influenza Unknown 10/26/2023 Refused Vital Signs Temperature 98.0 degrees Fahrenheit 10/26/19 24 Blood pressure systolic 000 mm Hg 10/26/19 24 Blood pressure diastolic 00 mm Hg 024 Height 63.5 in 10/26/2023 Weight 118 lb 4 oz lbs 10/26/2023 BMI 20.62 kg/m2 10/26/2023 Encounters Encounter Location Date Provider Diagnosis [facility] [address] [place] [address] 10/26/2023 Rex Buitargo History of adenomato us polyp of colon Z86.010 ; Chronic constipation K59.09 and Encounter for screening for malignant neoplasm of colon Z12.11 Assessments Encounter Date Diagnosis (ICD Code) Assessment Notes Treatment Notes Treatment Clinical Notes Section Notes 10/26/2023 History of adenomatous polyp of colon (ICD-10 - Z86.010) Overall, Ina appears well. Her main issue of the constipation remains problematic. I did advise her to certainly continue her high-fiber diet with plenty of water. However, I did advise her that I think she definitely needs to start MiraLax at least once or twice a day on a regular basis rather than just p.r.n.. I will also send over a prescription for her to start Linzess if her insurance will cover that. I also advised her to be sure to followup with Dr. Andrews regarding her thyroid to make sure that she does not have any component of hypothyroidism that might be contributing to her constipation. I did recommend a followup colonoscopy for further screening given her last exam being in 2018 and she does have a history of a previous tubular adenoma. Full consent is obtained for this, including risks of bleeding and perforation. We did review the rationale for that in regard to colon cancer prevention. The procedure will be done with monitored anesthesia care. Given her chronic constipation she will have a 2 day prep for the procedure. Ina was comfortable with this plan. Thank you again for allowing me to participate in Ina's care. I shall continue to keep you advised of her progress. 10/26/2023 Chronic constipation (ICD-10 - K59.09) Continue a high fiber diet, a lot of water, and Miralax at least once or twice a day on an everyday basis to help with the constipation. I will also send over a prescription for a medicine for the constipation Overall, Ina appears well. Her main issue of the constipation remains problematic. I did advise her to certainly continue her high-fiber diet with plenty of water. However, I did advise her that I think she definitely needs to start MiraLax at least once or twice a day on a regular basis rather than just p.r.n.. I will also send over a prescription for her to start Linzess if her insurance will cover that. I also advised her to be sure to followup with Dr. Andrews regarding her thyroid to make sure that she does not have any component of hypothyroidism that might be contributing to her constipation. I did recommend a followup colonoscopy for further screening given her last exam being in 2018 and she does have a history of a previous tubular adenoma. Full consent is obtained for this, including risks of bleeding and perforation. We did review the rationale for that in regard to colon cancer prevention. The procedure will be done with monitored anesthesia care. Given her chronic constipation she will have a 2 day prep for the procedure. Ina was comfortable with this plan. Thank you again for allowing me to participate in Ina's care. I shall continue to keep you advised of her progress. 10/26/2023 Encounter for screening for malignant neoplasm of colon (ICD-10 - Z12.11) Overall, Ina appears well. Her main issue of the constipation remains problematic. I did advise her to certainly continue her high-fiber diet with plenty of water. However, I did advise her that I think she definitely needs to start MiraLax at least once or twice a day on a regular basis rather than just p.r.n.. I will also send over a prescription for her to start Linzess if her insurance will cover that. I also advised her to be sure to followup with Dr. Andrews regarding her thyroid to make sure that she does not have any component of hypothyroidism that might be contributing to her constipation. I did recommend a followup colonoscopy for further screening given her last exam being in 2018 and she does have a history of a previous tubular adenoma. Full consent is obtained for this, including risks of bleeding and perforation. We did review the rationale for that in regard to colon cancer prevention. The procedure will be done with monitored anesthesia care. Given her chronic constipation she will have a 2 day prep for the procedure. Ina was comfortable with this plan. Thank you again for allowing me to participate in Ina's care. I shall continue to keep you advised of her progress. Plan Of Treatment Medication Medication Name Sig [...] Follow Up: prn, Reason: Progress Notes * INA SOTO EDOB:1960 ( 62 yo F)Acc No.[id number]:10/26/2023 Progress Notes Patient:?INA SOTO E Provider:?Rex Buitrago MD :1960???Age:62 Y???Sex:Female D ate:10/26/2023 Address:[address] [place] [address] Pcp:Adolph العراقي MD Subjective: * Chief Complaints: * ???Patient presents today fo r a recall colonoscopy * HPI: ???incontinence:? I saw Ina in consultation today in regard to her chronic constipation, personal history of a tubular adenoma of the colon, and need for colorectal cancer screening. ?I last evaluated Ina in 2019 via a telemedicine visit. She reports that her constipation has remained problematic with a bowel movement about every fourth or fifth day. She does describe that she stays on a high-fiber diet with a lot of water. She does use intermittent MiraLax but not on a daily or regular basis. She has not noticed any signs of bleeding. She enjoys a good appetite and denies any significant heartburn, dysphagia, nor vomiting. She denies abdominal pain, jaundice, nor any unintentional weight loss. ?Her last colonoscopy was in 2017 and that was negative for any polyps. She did have a tubular adenoma removed in 2012. ?Laboratories earlier this month reveal normal chemistries and renal function, normal calcium, normal LFTs, and a slightly elevated TSH but with a normal free T4 level. She advises me that Dr. Andrews manages her thyroid medication. She did have a normal CBC in September. * ROS:?General/Constitutional:?Change in appetite?denies.?Chills?denies.?Fatigue?denies.?Ophthalmologic:?Patient denies? Negative..?ENT:?Patient denies?Negative..?Respiratory:?Patient denies?No coughing/hemoptysis..?Cardiovascular:?Patient denies? No chest pain/orthopnea..?Gastrointestinal:?Comments?See HPI for details.?Genitourinary:?Patient denies? No dysuria/hematuria..?Musculoskeletal:?Patient denies? No specific arthralgias/myalgias..?Skin:?Patient denies?No rash/pruritus..?Neurologic:?Patient denies?No seizures. ?Headaches.?Psychiatric:?Patient denies?Negative..? * Medical History:? * Surgical History:?left knee arthroscopy x2 right knee arthroscopy carpal tunnel release right hand * Hospitalization/Major Diagno stic Procedure:?No Hospitalization History. * Family History:?Father: dece ased.?Mother: .?Siblings: The patient's sister had colon polyps at age 56 and a brother also had colon polyps., diagnosed with Colon cancer.? A half-sister had colon cancer in her 60's. No family history of liver cancer. * Social History:?Tobacco Use:?Tobacco Use/Smoking?Are you a: nonsmoker.?Drugs/Alcohol:?Alcohol Screen?Points: 0, Interpretation: Negative.?Miscellaneous:?Marital status: . Occupation: unemployed. ???Nonsmoker; no sig. alcohol. * Medications:?TakingLevoxyl 1 25 MCG Tablet 1 tablet on an empty stomach in the morning Orally Once a dayCyanocobalamin 1000 MCG/ML Kit 1 ml Injection once a monthTopiramate 100 MG Tablet TK 1 T PO QD HS Oral MiraLax - Powder as directed Orally Once or twice a day, Notes: once or twice a dayNortriptyline HCl 10 MG Capsule Oral , Notes: as neededTirosint 88 MCG Capsule Oral Levothyroxine Sodium 75 MCG Tablet Oral Gabapentin 100 MG Capsule Oral Atorvastatin Calcium 10 MG Tablet Oral Taking Levoxyl 125 MCG Tablet 1 tablet on an empty stomach in the morning Orally Once a dayTaking Cyanocobalamin 1000 MCG/ML Kit 1 ml Injection once a monthTaking Topiramate 100 MG Tablet TK 1 T PO QD HS Oral Taking MiraLax - Powder as directed Orally Once or twice a day, Notes: once or twice a dayTaking Nortriptyline HCl 10 MG Capsule Oral , Notes: as neededTaking Tirosint 88 MCG Capsule Oral Taking Levothyroxine Sodium 75 MCG Tablet Oral Taking Gabapentin 100 MG Capsule Oral Taking Atorvastatin Calcium 10 MG Tablet Oral DiscontinuedVitamin D 5000iu 1 tablet Orally Once a umdQqkkxpawel-UVTW-Raiuvroe 50-325-40 MG Tablet TK 1 T PO 2 TO 3 TIMES A DAY PRF HEADACHES Oral GaviLAX 17 GM/SCOOP Powder Oral Earle Calcium/Vitamin D 200-6.25 MG-MCG Tablet Oral Medication List reviewed and reconciled with the patientDiscontinued Vitamin D 5000iu 1 tablet Orally Once a dayDiscontinued Tmqngnpaiz-HKXP-Xyismjqw 50-325-40 MG Tablet TK 1 T PO 2 TO 3 TIMES A DAY PRF HEADACHES Oral Discontinued GaviLAX 17 GM/SCOOP Powder Oral Discontinued Earle Calcium/Vitamin D 200-6.25 MG-MCG Tablet Oral Medication List reviewed and reconciled with the patient * Allergies:?AnaproxAspirinMor phine SulfateAugmentinyes[Allergies Verified] Objective: * Vitals:?Wt: 118 lb 4 oz, Ht: 63.5 in, BMI:20.62 Index, BP: 000/00 mm Hg, Temp: 98.0. * Examination: ???General Examination: ?GENERAL APPEARANCE:?pleasant, well nourished, well developed, in no acute distress.?EYES:?sclera non-icteric.?ORAL CAVITY:?mucosa moist.?NECK/THYROID:?no cervical lymphadenopathy, neck supple.?SKIN:?nonjaundiced, no spider angiomata..?HEART:?S1, S2 normal.?LUNGS:?clear to auscultation bilaterally.?ABDOMEN:?normal bowel sounds, no guarding or rigidity, no hepatosplenomegaly, no masses palpable, soft, nontender, nondistended..?EXTREMITIES:?no edema.?NEUROLOGIC:?alert and oriented.? Assessment: * Assessment: 1.?Chronic constipation - K5 9.09 (Primary)?2.?History of adenomatous polyp of colon - Z86.010?3.?Encounter for screening for malignant neoplasm of colon - Z12.11? Overall, Ina appears well. H er main issue of the constipation remains problematic. I did advise her to certainly continue her high-fiber diet with plenty of water. However, I did advise her that I think she definitely needs to start MiraLax at least once or twice a day on a regular basis rather than just p.r.n.. I will also send over a prescription for her to start Linzess if her insurance will cover that. I also advised her to be sure to followup with Dr. Andrews regarding her thyroid to make sure that she does not have any component of hypothyroidism that might be contributing to her constipation. I did recommend a followup colonoscopy for further screening given her last exam being in 2018 and she does have a history of a previous tubular adenoma. Full consent is obtained for this, including risks of bleeding and perforation. We did review the rationale for that in regard to colon cancer prevention. The procedure will be done with monitored anesthesia care. Given her chronic constipation she will have a 2 day prep for the procedure. Ina was comfortable with this plan. Thank you again for allowing me to participate in Ina's care. I shall continue to keep you advised of her progress. Plan: * Treatment: 2.?History of adenomatous po lyp of colon?Procedure: COLONOSCOPY (Ordered for 10/26/2023) 3.?Encounter for screening for malignant neoplasm of colon?Procedure: COLONOSCOPY (Ordered for 10/26/2023)* with MAC, with 2 day prepsch ed for 01/30/24 at 11:30 ammiralax * Immunizations:? Influenza (Not administered - Refused: Patient decision) * Procedure Codes:?3017F COLOR ECTAL CA SCREEN DOC [id number] TOBACCO NON-MSNIC1690 BP SCR NOT PRFRM REC REASON NOS * Follow Up:?prn * * Sign off status: Completed true * Provider:?Rex Buitrago MD Date:? 024 Generated for Elvin alexandre/Sandro/Zamzam on:?08/20/2024 03:03 PM EDT History and Physical Notes * HPI (History of Present Illness) Category Sub-Category Detail Notes Category Not es incontinence I saw Ina in consultation today in regard to her chronic constipation, personal history of a tubular adenoma of the colon, and need for colorectal cancer screening. I last evaluated Ina in 2019 via a telemedicine visit. She reports that her constipation has remained problematic with a bowel movement about every fourth or fifth day. She does describe that she stays on a high-fiber diet with a lot of water. She does use intermittent MiraLax but not on a daily or regular basis. She has not noticed any signs of bleeding. She enjoys a good appetite and denies any significant heartburn, dysphagia, nor vomiting. She denies abdominal pain, jaundice, nor any unintentional weight loss. Her last colonoscopy was in 2017 and that was negative for any polyps. She did have a tubular adenoma removed in 2012. Laboratories earlier this month reveal normal chemistries and renal function, normal calcium, normal LFTs, and a slightly elevated TSH but with a normal free T4 level. She advises me that Dr. Andrews manages her thyroid medication. She did have a normal CBC in September. Examination Category Sub-Category Detail Notes Category Not es General Examination GENERAL APPEARANCE: pleasant , well [...]
--- OUTSIDE RECORDS SUMMARY | 2024-08-20 15:04 | XMS_ITS | Patient Health Record ---
Author Organization [facility] Address [address] [place] [address] Care Team Providers Care Retail Link Analyst Name Role Phone Malcom ORANTES, [place] Primary Care Provider Rex Caal Unavailable [phone] Allergies Allergen (clinical drug ingredient) Drug/Non Drug Allergy documented on EMR Reaction Allergy Type Onset Date Status morphine Morphine Sulfate Unknown Drug Allergy Active amoxicillin / clavulanate Augmentin Unknown Drug Allergy Active aspirin Aspirin Unknown Drug Allergy Active Anaprox Unknown Drug Allergy Active Results Component Value Reference Range Notes Pathology (Not yet reviewed by provider) Interpretation: Performing Lab:[facility], [address] [place] [phone] Notes/Report: Name: Christiano Cohen Age/Sex: 63/F : 1960 Unit#: [id number] Attend Dr: Rex Buitrago MD Re01/30/24 Status : [facility] Location: [facility] Disch: SPEC : [id number] RECD : 01/30/24 STATUS: YUE BERGER NUM: [id number] MICHELLE: 01/30/24-[address] [facility] [address]: Rex Buitrago MD ENTERED: 01/30/24-05 27 SP TYPE: Surgical OTHR DR: Adolph العراقي MD ORDERED: HE Stain/6, Gross Micro L4/2 Diagnosis A. Cecum, polypectom y: Colonic mucosa with surface hyperplastic changes. B. Colon, 40 cm, renny ypectomy: Fragments of tubular adenoma; negative for high-grade dysplasia or carcinoma. Clinical History Pre-Op Dx: Encounter for screening for malignant neoplasm of colon Post-Op Dx: Polyps, diverticulosis, internal hemorrhoids Microscopic Description Microscopic sections reviewed. Material Received A. Cecal polyp B. Polyp at 40 Gross Description A. Received in forma isamar is 1 li 1 mm soft tissue fragment, totally submitted in cassette A1. B. Received in forma isamar are 3 li 1-3 mm soft tissue fragments, totally submitted in cassette B1. (DTL) Excision time: 11:16 ; formalin time: 11:16; cold ischemic time: 0 minutes; total time in formalin: 6-8 hours. Copies To: Adolph العراقي MD [facility],[place] [address] [place], [place] [id number] Rex Buitrago MD [facility] [address] [place] [address] CONTINUED ON NEXT PAGE Name: Christiano Cohen Age/Sex: 63/F : 1960 Unit#: [id number] Attend Dr: Rex Buitrago MD Re01/30/24 Status : [facility] Location: [facility] Disch: SPEC : [id number] RECD : 01/30/24 [facility] NUM: [id number] MICHELLE: 01/30/[address] [facility] [address]: Rex Buitrago MD ENTERED: 01/30/24-05 27 SP TYPE: Surgical OTHR DR: Adolph العراقي MD ORDERED: MARTIN Adams/6 Gross Micro L4/2 Signed (si gnature on file) Dakotah Hoffman MD 02/01/24 1441 END OF REPORT Reason For Referral No Information Medications Medication SIG (Take, Route, Frequency, Duration) [...] Calcium 10 MG Oral for 90 Active Immunizations Vaccine Route Administration Date Status Comme nts Influenza Unknown 03/26/2019 Refused Influenza Unknown 10/26/2023 Refused Problems Problem Type SNOMED Code ICD Code Onset Dates Problem Status W/U Status Risk Notes Problem 628070847 Encounter for screening for malignant neoplasm of colon (Z12.11) Active confirmed Problem 420709290 History of adenomatous polyp of colon (Z86.010) Active confirmed Problem Diverticular disease of colon (255421187) Diverticulosis of large intestine without perforation or abscess without bleeding (K57.30) Active confirmed Problem 297232277 Chronic constipation (K59.09) Active confirmed Vital Signs Temperature 98.0 degrees Fahrenheit 10/26/2023 Blood pressure diastolic 00 mm Hg 10/26/2023 Height 63.5 in 10/26/2023 Blood pressure systolic 000 mm Hg 10/26/2023 Weight 118 lb 4 oz lbs 10/26/2023 BMI 20.62 kg/m2 10/26/2023 Encounters Encounter Location Date Provider Diagnosis [facility] [address]patient [address] [place], [place] [id number] 01/30/2024 Rex Buitrago Colon cancer screeni ng Z12.11 ; Colon polyps K63.5 ; Diverticulosis of large intestine without perforation or abscess without bleeding K57.30 and Other hemorrhoids K64.8 [facility] [address] [place] [phone] 10/26/2023 Rex Buitrago History of adenomato us polyp of colon Z86.010 ; Chronic constipation K59.09 and Encounter for screening for malignant neoplasm of colon Z12.11 [facility] [address] [place] [phone] 10/26/2023 Rex Buitrago Assessments Encounter Date Diagnosis (ICD Code) Assessment [...] to keep you advised of her progress. 01/30/2024 Diverticulosis of large intestine without perforation [...] to keep you advised of her progress. 01/30/2024 Other hemorrhoids (ICD-10 - K64.8) Plan Of Treatment Pending Test Test Name Order Date Pathology 01/30/2024 Future Test Test Name Order Date COLONOSCOPY 09/24/2012 COLONOSCOPY 05/24/2017 COLONOSCOPY 10/26/2023 Insurance Providers Payer Name Payer Address Payer Phone Subscriber Number Group Number Insured Name Patient Relationship to Insured Coverage Start Date Coverage End Date [facility] [address] [address] [place], [place] [id number] INA SOTO Self - patient is the insured Medical (General) History Medical History History ICD Code Hx of chronic constipation-- had a defecogram with colorectal surgeons at [facility] Hypothyroidism Mild stroke 2009-no residual Denies MS,DM,Lung disease,renal disease Neg. colonoscopy in 01/2004 except for in ternal hemoorhoids Colonoscopy 10/2012-small tubular adenoma EGD in 2013-Dr. Hunter--smal l HH, gastric bx neg for Hpylori and duodenal bx neg for celiac disease Colonoscopy in 07/2017 was negative high cholesterol Surgical History Surgery Date(Month/Year) left knee arthroscopy x2 right knee arthroscopy carpal tunnel release right hand
== END 2024-08-20 13:47 | disposition home or self-care (01) ==
LOC: HO.HMCH 12:44
PROVIDERS: PCP Internal Medicine; Visit Provider Internal Medicine
DX: E53.8 Deficiency of other specified B group vitamins (principal)

== ENCOUNTER → 2024-08-20 12:44 | Outpatient (BNVA) | payer OTHER, SELFPAY | PROVIDERS: PCP Internal Medicine; Visit Provider Internal Medicine | DX: E53.8 Deficiency of other specified B group vitamins (principal) | CPT/HCPCS: 96372; J3420 ==

== ENCOUNTER 2024-09-01 12:54 | Outpatient (AMB) | payer OTHER, SELFPAY ==
--- NOTE | 2024-09-01 12:58 | A.OFFVIS_ITS ---
Vital Signs 09/01/24 12:59 Height 5 ft 4.41 in Weight 124 lb 1.924 oz BMI 21.0 BP 102/62 Blood Pressure Location Rt brachial Position Sitting Pulse 72 Pulse Source Pulse Oximeter Pulse Oximetry (%) 99 Oxygen Delivery Method Room Air Intake Visit Reasons: Osteoporosis Intake Note: Patient present today for Osteoporosis follow up. Patient reports she was only given 1 month supply of Forteo at [facility] pharmacy and was informed that they can no longer dispense to her. She stated [facility] are not able to dispense to her due to her insurance. Also stated she has made many attempts to speak with someone from [employer] and her attempts were unsuccessful. 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: No Accompanied by: Self / Same As Patient Allergies morphine Allergy (Severe, Verified 09/01/24 13:07) Unresponsive zolpidem [ZOLPIDEM] Allergy (Severe, Verified 09/01/24 13:07) SLEEPWALKING aspirin [ASPIRIN] Allergy (Intermediate, Verified 09/01/24 13:07) ITCHING/SWELLING, rash,itchy ibuprofen Allergy (Intermediate, Verified 09/01/24 13:07) Swelling trazodone [TRAZODONE] Allergy (Intermediate, Verified 09/01/24 13:07) NIGHTMARES naproxen [From Anaprox] Allergy (Mild, Verified 09/01/24 13:07) RASH acetaminophen [From PERCOCET] Allergy (Unknown, Verified 09/01/24 13:07) HIVES/NAUSEA amoxicillin [Augmentin] Allergy (Unknown, Verified 09/01/24 13:07) Unknown oxycodone [From PERCOCET] Allergy (Unknown, Verified 09/01/24 13:07) HIVES/NAUSEA butalbital Allergy (Verified 09/01/24 13:07) Rash, Itching eszopiclone [From LUNESTA] Adverse Reaction (Intermediate, Verified 09/01/24 13:07) NIGHTMARES HPI Comments Details: 63 YO Female with PMHx Hypothyroidism, Migraine Headache on Topirimate is seen in F/U for Osteoporosis 1) Osteoporosis: First diagnosed in 2016. Was started on treatment with Fosamax 70 mg PO once a week 02/26/2019. She reports jaw pain with this and stopped it of her own accord. We then discussed starting Prolia, but she was undergoing workup for elevated PTH so this was del ayed. She then has consistently refused treatment since that time. No history of pathologic fracture or ONJ. Has 0-1 servings of dietary calcium per day in the form of yogurt, a gla ss of milk or some cheese. Does take a Calcium supplement but unsure of the dose. Takes 50,000 IU of Vitamin D weekly, has been taking this for many years. She underwent a full biochemical workup for secondary causes of Osteoporosis which revealed very low urinary calcium, with elevated PTH and normal Vitamin D, suggesting low calcium intake. Was using Topirimate daily for migraine prophylaxis, but stopped this abruptly in 2019. She has not resumed it. Denies ever using PPI, anticoagulant or glucocorticoid medication. She had a repeat DEXA 03/11/2021 which revealed significant improvement in her hips, which are no longer in the osteoporotic range. She continues with osteoporosis of the spine. Does not do weight bearing exercise. Fracture history: Had traumatic fractures of her toes and foot, but no fragility fractures. Height loss: Denies. 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 Menses was always regular. , she breastfed for approximately 3 years in total. Menopause was age 52. History of Kidney stones: Family history of Osteoporosis in her Mother and 3 sisters. Her mother did have a hip fracture. UTD on dental cleanings and sees dentist every 6 months. No planned upcoming dental work. DEXA 03/11/2021: FINDINGS: AP SPINE L1-L4: Current: BMD 0.852 g/cm2, Z-score -1.7, T-score -2.7, osteoporosis, 0.2% decrease from previous, 9.9% decrease from baseline (<5% change is not significant). Prior: BMD 0.854 g/cm2. Baseline: BMD 0.946 g/cm2. LEFT FEMUR, NECK: Current: BMD 0.795 g/cm2, Z-score -0.6, T-score -1.7, osteopenia. Prior: BMD 0.686 g/cm2. Baseline: BMD 0.840 g/cm2. LEFT FEMUR, TOTAL: Current: BMD 0.794 g/cm2, Z-score -0.9, T-score -1.7, osteopenia, 9.4% increase from previous, 9.0% decrease from baseline (<5% change is not significant). Prior: BMD 0.726 g/cm2. Baseline: BMD 0.873 g/cm2. 2) Hypothyroidism: She has hypothyroidism and takes Levothyroxine 75 mcg PO daily. TSH has remained WNL. Labs: Laboratory Tests 08/21/22 08:38 Sodium 140 Potassium 4.2 Creatinine 1.00 Estimated GFR 56 Calcium 9.5 Albumin 4.3 25-OH Vitamin D Total 46.1 TSH 0.84 Free T4 1.07 The patient is a 63-year-old female presenting with medication refill issues concerning her osteoporosis treatment. Recently, she completed a month course on Forteo and attempted to refill her prescription, but faced insurance-related obstacles that prevented continuation. There was a brief adverse effect of di zziness associated with the medication intake, which the patient adjusted by taking the drug prior to bedtime. She is aware that alternative medications are not covered by her insurance. She is eager to continue Forteo as part of her long-term management plan for osteoporosis. Currently on Forteo started in 04/2024. No fracture since last visit. [facility] Medical History Cervical spondylosis Arthritis Anemia Depression Numbness Elevated cholesterol CVA (cerebral vascular accident) Thyroid disease Bilateral hand pain Arthralgia Overweight (BMI 25.0-29.9) Constipation Overactive bladder Migraine Fibromyalgia Pure hypercholesterolemia Pain of right thumb Vitamin D deficiency Hypothyroidism Hyperparathyroidism Osteoporosis B12 deficiency Surgical History Hx of arthroscopy of right knee Hx of arthroscopy of left knee Hx of colonoscopy History of esophagogastroduodenoscopy (EGD) History of carpal tunnel release Family History Father Medical history unknown Mother Medical history unknown Parkinson disease Family/Other Colon cancer Daughter History of breast cancer, Onset Age: 21 Cervical cancer Sister Uterine cancer Sister Colon cancer Social History Household Members Other:: daughter Housing: House Are you a primary rental boats caretaker to a significant other at home: No Do you presently have visiting nurse or other home services: No Alcohol intake: never Patient Tobacco Use Status: Never used Tobacco e-Cigarette/Vaping Use: Never Used Second Hand Smoke Exposure: Yes service: No Current occupational status: disabled Sexual orientation: Straight/Heterosexual Gender identity: Female Cognitive needs: No Hearing needs: No Vision needs: Yes (reading glasses) Physical Exam Vital Signs: Last Vital Signs Pulse 72 09/01/24 12:59 BP 102/62 09/01/24 12:59 Pulse Ox 99 09/01/24 12:59 Oxygen Delivery Method Room Air 09/01/24 12:59 BMI result Body Mass Index 21.0 Assessment & Plan Assessment & Plan (1) Osteoporosis: Code(s): M81.0 - Age-related osteoporosis without current pathological fracture Category: Medical Qualifiers: Osteoporosis type: unspecified Presence of current pathological fracture: unspecified Qualified Code(s): M81.0 - Age-related osteoporosis without current pathological fracture Plan: This is a 62-year-old female with a history of osteoporosis and low 24 hour urinary calcium now corrected was supposed to be on Forteo since 04/2024 Other secondary causes of ruled out . 1. Osteoporosis: The patient is on a solid regimen of Forteo (teriparatide) to manage osteoporosis, albeit with challenges due to insurance restrictions. Our efforts will remain focused on facilitating continuous access to Forteo through internal coordination and insurance communication. Adjusting intake timing has alleviated mild dizziness associated with the drug. The therapeutic plan is steadfastly aimed at reducing fracture risk over the two-year course.I in structed her to take Viactiv 600 mg b.i.d. as well as vitamin D3 2000 IU per day I discussed at length the importance of continuing Forteo for osteoporosis management given the insurance constraints forbidding alternatives like Evenity or Timlos. We addressed proper medication timing to mitigate dizziness and emphasized the necessity of maintaining therapeutic continuity for optimal outcomes. Arrangements were made to liaise with our clinical pharmacy specialist, Viri, to resolve insurance obstacles effectively. The patient is advised to adhere strictly to the medication schedule and return for follow-up in six months to gauge progress and reassess the treatment plan. I discussed at length the importance of continuing Forteo for osteoporosis management given the insurance constraints forbidding alternatives like Evenity or Timlos. We addressed proper medication timing to mitigate dizziness and emphasized the necessity of maintaining therapeutic continuity for optimal outcomes. Arrangements were made to liaise with our clinical pharmacy specialist, Viri, to resolve insurance obstacles effectively. The patient is advised to adhere strictly to the medication schedule and return for follow-up in six months to gauge progress and reassess the treatment plan. The patient had an opportunity to ask questions regarding treatment plan. The patient expressed understanding and agreement with the above treatment plan. Patient was informed and verbally consented to the use of an ambient scribe for clinic note documentation during this visit. (2) Hypothyroidism: Code(s): E03.9 - Hypothyroidism, unspecified Category: Medical Qualifiers: Hypothyroidism type: unspecified Qualified Code(s): E03.9 - Hypothyroidism, unspecified Plan: Currently replaced on 88 mcg levothyroxine and 1/2 tablet once a wk. Clinically and biochemically euthyroid Plan is to continue the current management. At this point, terms of the hypothyroidism the patient returned to the care of her primary care provider and returned back to endocrinology as needed Coding Level of Care Code Est Pt Level 3 (50375) Diagnoses Osteoporosis, unspecified osteoporosis type, unspecified pathological fracture presence M81.0 Osteoporosis type: unspecified Presence of current pathological fracture: unspecified Hypothyroidism, unspecified type E03.9 Hypothyroidism type: unspecified
[2024-09-01 12:59] VITALS: BP 102/62; PULSE 72; O2SAT 99; BMI 21.0
--- OUTSIDE RECORDS SUMMARY | 2024-09-01 14:29 | XMS_ITS | Patient Health Record ---
Author Organization [facility] Address [address] [place] [address] Care Team Providers Care Medical Physics Researcher Name Role Phone Malcom ORANTES, [place] Primary Care Provider Rex Caal Unavailable [phone] Allergies Allergen (clinical drug ingredient) Drug/Non Drug Allergy documented on EMR Reaction Allergy Type Onset Date Status morphine Morphine Sulfate Unknown Drug Allergy Active amoxicillin / clavulanate Augmentin Unknown Drug Allergy Active aspirin Aspirin Unknown Drug Allergy Active Anaprox Unknown Drug Allergy Active Results Component Value Reference Range Notes Pathology (Not yet reviewed by provider) Interpretation: Performing Lab:[facility], [address] [place] [phone] Notes/Report: Name: Christiano Cohen Age/Sex: 63/F : 1960 Unit#: [id number] Attend Dr: Rex Buitrago MD Re01/30/24 Status : [facility] Location: [facility] Disch: SPEC : [id number] RECD : 01/30/24 STATUS: YUE BERGER NUM: [id number] MICHELLE: 01/30/24-1116 [facility] DR: Rex Buitrago MD ENTERED: 01/30/24-05 27 [...] 6-8 hours. Copies To: Adolph العراقي MD [facility] Primary Care,[place] [address] [place], [place] [phone] Rex Buitrago MD [facility] [address] [place] [address] CONTINUED ON NEXT PAGE Name: Christiano Cohen Age/Sex: 63/F : 1960 Unit#: [id number] Attend Dr: Rex Buitrago MD Re01/30/24 Status : [facility] Location: [facility] Disch: SPEC : [id number] RECD : 01/30/24 [facility] NUM[facility] [id number] MICHELLE: 01/30/24 [facility] DR: Rex Buitrago MD ENTERED: 01/30/24-05 27 [...] Problem Status W/U Status Risk Notes Problem [id number] Encounter for screening for malignant neoplasm of colon (Z12.11) Active confirmed Problem 088554698 History of adenomatous polyp of colon (Z86.010) Active confirmed Problem Diverticular disease of colon (061527593) Diverticulosis of large intestine without perforation or abscess without bleeding (K57.30) Active confirmed Problem 145550792 Chronic constipation (K59.09) Active confirmed Vital Signs Temperature 98.0 degrees Fahrenheit 10/26/2023 Blood pressure diastolic 00 mm Hg 10/26/2023 Height 63.5 in 10/26/2023 Blood pressure systolic 000 mm Hg 10/26/2023 Weight 118 lb 4 oz lbs 10/26/2023 BMI 20.62 kg/m2 10/26/2023 Encounters Encounter Location Date Provider Diagnosis [facility] Outpatient [address] [place], [place] [phone] 01/30/2024 Rex Buitrago Colon cancer screeni ng Z12.11 ; Colon polyps K63.5 ; Diverticulosis of large intestine without perforation or abscess without bleeding K57.30 and Other hemorrhoids K64.8 [facility] [address] [place] [phone] 10/26/2023 Rex Buitrago History of adenomato us polyp of colon Z86.010 ; Chronic constipation K59.09 and Encounter for screening for malignant neoplasm of colon Z12.11 [facility] [address] [place] [phone] 10/26/2023 Rex Buitrago Assessments Encounter Date Diagnosis [...] Insured Coverage Start Date Coverage End Date [facility] [employer] [facility] [address] [address] [place], [place] [id number] INA SOTO Self - patient is the insured Medical (General) History Medical History History ICD Code Hx of chronic constipation-- had a defecogram with colorectal surgeons at [facility] Hypothyroidism Mild stroke 2009-no residual Denies AK,DM,Lung disease,renal disease Neg. colonoscopy in 01/2004 except for in ternal hemoorhoids Colonoscopy 10/2012-small tubular adenoma EGD in 2013-Dr. Hunter--[facility], gastric bx neg for Hpylori and duodenal bx neg for celiac disease Colonoscopy in 07/2017 was negative high cholesterol Surgical History Surgery Date(Month/Year) left knee arthroscopy x2 right knee arthroscopy carpal tunnel release right hand
--- OUTSIDE RECORDS SUMMARY | 2024-09-01 14:29 | XMS_ITS ---
Author Organization [facility] Address [address] [place] [address] Care Team Providers Care Chief Operating Engineer Name Role Phone Malcom ORANTES, [place] Primary Care Provider UnaRex Corral Unavailable [phone] REASON FOR VISIT screening, hx polyps Problems Problem Type SNOMED Code ICD Code Onset Dates Problem Status W/U Status Risk Notes Problem Diverticular disease of colon (582407145) Diverticulosis of large intestine without perforation or abscess without bleeding (K57.30) Active confirmed Encounters Encounter Location Date Provider Diagnosis [facility] [address] [place], [place] [phone] 01/30/2024 Rex Buitrago Colon cancer scree reina [...] BRENDAN SOTO EDOB:1960 ( 63 yo F)Acc No.[id number]:01/30/2024 COLON WITH MAC Patient:?BRENDAN SOTO Provider:?Rex Buitrago MD :1960???Age:63 Y???Sex:Female D ate:01/30/2024 Address:[address] [place], [place] [id number] Pcp:Adolph العراقي MD Subjective: * Chief Complaints: * ???1. Screening, hx polyps. * Medical History:? Objective: * Vitals:? Assessment: * Assessment: 1.?Colon cancer screening - Z12.11 (Primary)???2.?Colon polyps - K63.5???3.?Diverticulosis of large intestine without perforation or abscess without bleeding - K57.30???4.?Other hemorrhoids - K64.8??? Plan: * Treatment: * Procedure Codes:?52065 LESIO N REMOVAL COLONOSCOPY, Modifiers: 33 , 67556 COLONOSCOPY AND BIOPSY, Modifiers: 59 , 33 * * The named appointment provid er may or may not be the originator of this progress note, and it is not deemed complete until electronically signed by the appointment provider. Sign off status: Pending * Provider:?Rex Buitrago MD Date:? 024 Generated for Elvin alexandre/Sandro/eTransmitting on:?09/01/2024 02:29 PM EDT
--- OUTSIDE RECORDS SUMMARY | 2024-09-01 14:29 | XMS_ITS ---
Author Organization [facility] Address [address] [place] [address] Care Team Providers Care Hvac Design Mechanical Engineer Name Role Phone Malcom ORANTES, [place] Primary Care Provider Rex Caal [phone] Allergies Allergen (clinical drug ingredient) Drug/Non Drug [...] 10/26/2023 Encounters Encounter Location Date Provider Diagnosis [facility] [address] [place] [address] 10/26/2023 Rex Buitrago History of adenomato us [...] INA SOTO EDOB:1960 ( 62 yo F)Acc No.[id number]:10/26/2023 Progress Notes Patient:?INA SOTO E Provider:?Rex Buitrago MD :1960???Age:62 Y???Sex:Female D ate:10/26/2023 Address:[address] [place] [address] Pcp:Aodlph العراقي MD Subjective: * Chief Complaints: * [...] D 5000iu 1 tablet Orally Once a fikPopzmbnkmc-HQTA-Krtuvyix 50-325-40 MG Tablet TK 1 T PO 2 TO 3 TIMES A DAY PRF HEADACHES Oral GaviLAX 17 GM/SCOOP Powder Oral [place] Calcium/Vitamin D 200-6.25 MG-MCG Tablet Oral Medication List reviewed and reconciled with the patientDiscontinued Vitamin D 5000iu 1 tablet Orally Once a dayDiscontinued Pbygezvnme-SBNT-Mvsmknpq 50-325-40 MG Tablet TK 1 T PO 2 TO 3 TIMES A DAY PRF HEADACHES Oral Discontinued GaviLAX 17 GM/SCOOP Powder Oral Discontinued [place] Calcium/Vitamin D 200-6.25 MG-MCG Tablet Oral Medication [...] Procedure Codes:?3017F COLOR ECTAL CA SCREEN DOC CPD1504R TOBACCO NON-PTFUV9724 BP SCR NOT PRFRM REC REASON NOS * Follow Up:?prn * * Sign off status: Completed true * Provider:?Rex Buitrago MD Date:? 024 Generated for Elvin alexandre/Sandro/Zamzam on:?09/01/2024 02:29 PM EDT History and Physical Notes * [...]
--- OUTSIDE RECORDS SUMMARY | 2024-09-01 14:29 | XMS_ITS | Continuity of Care Document ---
Author Organization [facility] Address [address] [phone] Phone Care Team Providers Care Registration Officer Name Role Phone David Montiel Unavailable Unavailable Medications Medication Instructions Dosage Effective Dates (start - stop) Status Comments metformin 850 mg tablet take 1 tablet by oral route 2 times every day with morning and evening meals 850 MG - Active Procedures Procedure Date OFFICE/OUTPATIENT VISIT, [facility] Advance Directives Directive Yes / No Effective Date File Name No Information Encounters Encounter Description Practice Location Reason(s) For Visit Diagnoses Date Provider Providers Copied on Encounter [facility], [address] [place] [address], [id number], tel:[phone] [facility] Immediate Care Visit Conducted via Telehealth (chief complaint) No Information 0 Korin Hernandez. [address] [place], [address], [place]. tel: [phone] OFFICE/OUTPA TIENT VISIT, [facility], [address] [place] [address], [id number], tel:[phone] [facility] Immediate Care Telehealth Medication refill (chief complaint) Essential (primary) hypertensionEncou nter for issue of repeat prescription 0 Piper Knowles. [address] [place], [address], [place]. tel: [phone] Family History Family Member Type Diagnosis Age [...]
--- OUTSIDE RECORDS SUMMARY | 2024-09-01 14:29 | XMS_ITS ---
Author Organization [facility] Address [address] [place] [address] Care Team Providers Care Critical Care Unit Manager Name Role Phone Malcom ORANTES, [place] Primary Care Provider Rex Caal [phone] REASON FOR VISIT bowel prep Medications Medication [...] Active Encounters Encounter Location Date Provider Diagnosis [facility] [address] [place] [phone] 10/26/2023 Rex Buitrago Plan Of Treatment Medication [...] BRENDAN SOTO EDOB:1960 ( 62 yo F)Acc No.[id number]:10/26/2023 Patient:?BRENDAN SOTO E :1960???Age:62 Y???Sex:Female Address:[address] [place] [address] * Refills? Start Dulcolax (colon prep) Tablet [...] true * Date:? Generated for Elvin alexandre/Sandro/eTransmitting on:?09/01/2024 02:28 PM EDT
== END 2024-09-01 13:24 | disposition home or self-care (01) ==
LOC: HO.ENCR 12:55
PROVIDERS: PCP Internal Medicine; Visit Provider Internal Medicine Endocrinology, Diabetes & Metabolism
DX: M81.0 Age-related osteoporosis without current pathological fracture (principal); E03.9 Hypothyroidism, unspecified
CPT/HCPCS: 99213

== ENCOUNTER → 2024-09-01 12:54 | Outpatient (BNVA) | payer OTHER, SELFPAY | PROVIDERS: PCP Internal Medicine; Visit Provider Internal Medicine Endocrinology, Diabetes & Metabolism | DX: M81.0 Age-related osteoporosis without current pathological fracture (principal); E03.9 Hypothyroidism, unspecified | CPT/HCPCS: 99212 ==

== ENCOUNTER 2024-09-22 12:35 | Outpatient (AMB) | payer OTHER, SELFPAY ==
--- NOTE | 2024-09-22 12:37 | AM.OFFVISNUR ---
Intake Visit Reasons: B12 Shot Allergies morphine Allergy (Severe, Verified 09/01/24 13:07) Unresponsive zolpidem [ZOLPIDEM] Allergy (Severe, Verified 09/01/24 13:07) SLEEPWALKING aspirin [ASPIRIN] Allergy (Intermediate, Verified 09/01/24 13:07) ITCHING/SWELLING, rash,itchy ibuprofen Allergy (Intermediate, Verified 09/01/24 13:07) Swelling trazodone [TRAZODONE] Allergy (Intermediate, Verified 09/01/24 13:07) NIGHTMARES naproxen [From Anaprox] Allergy (Mild, Verified 09/01/24 13:07) RASH acetaminophen [From PERCOCET] Allergy (Unknown, Verified 09/01/24 13:07) HIVES/NAUSEA amoxicillin [Augmentin] Allergy (Unknown, Verified 09/01/24 13:07) Unknown oxycodone [From PERCOCET] Allergy (Unknown, Verified 09/01/24 13:07) HIVES/NAUSEA butalbital Allergy (Verified 09/01/24 13:07) Rash, Itching eszopiclone [From LUNESTA] Adverse Reaction (Intermediate, Verified 09/01/24 13:07) NIGHTMARES Office Meds cyanocobalamin (vitamin B-12) 1,000 mcg/mL injection solution Performing Provider: Adolph العراقي MD [facility] Administered by: Dorita Whitlock RN on 09/22/24 12:38 Dose Route Admin Location Dispensed Lot Number Expiration Date [facility] Canceling Machine Operator 1,000 mcg IM 1 mL [id number] 02/01/25 79189-218-85 [employer] Assessment & Plan Assessment & Plan Orders: Orders AMB Vitamin B12 Injection Patient Supplied Today E53.8 - Deficiency of other specified B group vitamins Medications: New cyanocobalamin (vitamin B-12) 1,000 mcg IM ONCE 1 mL 0RF E53.8 - Deficiency of other specified B group vitamins Coding
--- OUTSIDE RECORDS SUMMARY | 2024-09-22 12:37 | XMS_ITS | Continuity of Care Document ---
Author Organization [facility] Address [address] [place] [phone] Phone Care Team Providers Care Form Grader Operator Name Role Phone David Montiel Unavailable Unavailable Medications Medication Instructions Dosage Effective Dates (start - stop) Status Comments metformin 850 mg tablet take 1 tablet by oral route 2 times every day with morning and evening meals 850 MG - Active Procedures Procedure Date OFFICE/OUTPATIENT VISIT, [facility] Advance Directives Directive Yes / No Effective Date File Name No Information Encounters Encounter Description Practice Location Reason(s) For Visit Diagnoses Date Provider Providers Copied on Encounter [facility], [address] [place] [address], [id number], tel:[phone] [facility] Immediate Care Visit Conducted via Telehealth (chief complaint) No Information 0 Korin Hernandez. [address] [place], [address], [place]. tel: [phone] OFFICE/OUTPA TIENT VISIT, [facility], [address] [place] [address], [id number], tel:[phone] [facility] [place] [place] Immediate Care Telehealth Medication refill (chief complaint) Essential (primary) hypertensionEncou nter for issue of repeat prescription 0 Piper Knowles. [address] [place], [address], [place]. tel: [phone] Family History Family Member Type Diagnosis Age [...]
--- OUTSIDE RECORDS SUMMARY | 2024-09-22 12:37 | XMS_ITS | Patient Health Record ---
Author Organization [facility] Address [address] [place] [address] Care Team Providers Care Grinding Room Supervisor Name Role Phone Malcom ORANTES, [place] Primary Care Provider Rex Caal Unavailable [phone] Allergies Allergen (clinical drug ingredient) Drug/Non Drug Allergy documented on EMR Reaction Allergy Type Onset Date Status morphine Morphine Sulfate Unknown Drug Allergy Active amoxicillin / clavulanate Augmentin Unknown Drug Allergy Active aspirin Aspirin Unknown Drug Allergy Active Anaprox Unknown Drug Allergy Active Results Component Value Reference Range Notes Pathology (Not yet reviewed by provider) Interpretation: Performing Lab:[facility], [address] [place] [id number] Notes/Report: Name: Christiano Cohen Age/Sex: 63/F : 1960 Unit#: [id number] Attend Dr: Rex Buitrago MD Re01/30/24 Status : [facility] Location: [facility] Disch: SPEC : [id number] RECD : 01/30/24 STATUS: YUE BERGER NUM: [id number] MICHELLE: 01/30/24-[address] [facility] [address]: Rex Buitrago MD ENTERED: 01/30/24-05 [...] 6-8 hours. Copies To: Adolph العراقي MD [facility] Primary Care,[place] [address] [place], [place] [phone] Rex Buitrago MD [facility] [address] [place] [address] CONTINUED ON NEXT PAGE Name: Christiano Cohen Age/Sex: 63/F : 1960 Unit#: [id number] Attend Dr: Rex Buitrago MD Re01/30/24 Status : [facility] Location: [facility] Disch: SPEC : [id number] RECD : 01/30/24 [facility] NUM: [id number] MICHELLE: 01/30/[address] [facility] [address]: Rex Buitrago MD ENTERED: 01/30/24-05 [...] Problem Status W/U Status Risk Notes Problem 627983603 Encounter for screening for malignant neoplasm of colon (Z12.11) Active confirmed Problem 123235820 History of adenomatous polyp of colon (Z86.010) Active confirmed Problem Diverticular disease of colon (177783225) Diverticulosis of large intestine without perforation or abscess without bleeding (K57.30) Active confirmed Problem 075696325 Chronic constipation (K59.09) Active confirmed Vital Signs Temperature 98.0 degrees Fahrenheit 10/26/2023 Blood pressure diastolic 00 mm Hg 10/26/2023 Height 63.5 in 10/26/2023 Blood pressure systolic 000 mm Hg 10/26/2023 Weight 118 lb 4 oz lbs 10/26/2023 BMI 20.62 kg/m2 10/26/2023 Encounters Encounter Location Date Provider Diagnosis [facility] Outpatient [address] [place], [place] [phone] 01/30/2024 Rex Buitrago Colon cancer screeni ng Z12.11 ; Colon polyps K63.5 ; Diverticulosis of large intestine without perforation or abscess without bleeding K57.30 and Other hemorrhoids K64.8 [facility] [address] [place] [phone] 10/26/2023 Rex Buitrago History of adenomato us polyp of colon Z86.010 ; Chronic constipation K59.09 and Encounter for screening for malignant neoplasm of colon Z12.11 [facility] [address] [facility] [address] [place] [phone] 10/26/2023 Rex Buitrago Assessments Encounter Date Diagnosis [...] Insured Coverage Start Date Coverage End Date [facility] [employer] [facility] [address] [address] [place], [place] [id number] INA SOTO Self - patient is the insured Medical (General) History Medical History History ICD Code Hx of chronic constipation-- had a defecogram with colorectal surgeons at [facility] Hypothyroidism Mild stroke 2009-no residual Denies CO,DM,Lung disease,renal disease Neg. colonoscopy in 01/2004 except for in ternal hemoorhoids Colonoscopy 10/2012-small tubular adenoma EGD in 2013-Dr. Hunter--[facility] HH, gastric bx neg for Hpylori and duodenal bx neg for celiac disease Colonoscopy in 07/2017 was negative high cholesterol Surgical History Surgery Date(Month/Year) left knee arthroscopy x2 right knee arthroscopy carpal tunnel release right hand
--- OUTSIDE RECORDS SUMMARY | 2024-09-22 12:38 | XMS_ITS ---
Author Organization [facility] Address [address] [place] [address] Care Team Providers Care Financial Officer Name Role Phone Malcom ORANTES, [place] Primary Care Provider Rex Caal [phone] Allergies Allergen (clinical drug ingredient) Drug/Non Drug [...] 10/26/2023 Encounters Encounter Location Date Provider Diagnosis [facility] [address] [place] [address] 10/26/2023 Rex Buitrago History of adenomato us [...] INA SOTO EDOB:1960 ( 62 yo F)Acc No.[id number]:10/26/2023 Progress Notes Patient:?INA SOTO E Provider:?Rex Buitrago MD :1960???Age:62 Y???Sex:Female D ate:10/26/2023 Address:[address] [place] [address] Pcp:Adolph العراقي MD Subjective: * Chief Complaints: [...] D 5000iu 1 tablet Orally Once a vmbTlikghqtxx-RTAR-Knzvoqpg 50-325-40 MG Tablet TK 1 T PO 2 TO 3 TIMES A DAY PRF HEADACHES Oral GaviLAX 17 GM/SCOOP Powder Oral Odell Calcium/Vitamin D 200-6.25 MG-MCG Tablet Oral Medication List reviewed and reconciled with the patientDiscontinued Vitamin D 5000iu 1 tablet Orally Once a dayDiscontinued Louukhvpcf-HHZR-Ozmudrhd 50-325-40 MG Tablet TK 1 T PO 2 TO 3 TIMES A DAY PRF HEADACHES Oral Discontinued GaviLAX 17 GM/SCOOP Powder Oral Discontinued Odell Calcium/Vitamin D 200-6.25 MG-MCG Tablet Oral Medication [...] Procedure Codes:?3017F COLOR ECTAL CA SCREEN DOC EIN0430X TOBACCO NON-ASAHY7649 BP SCR NOT PRFRM REC REASON NOS * Follow Up:?prn * * Sign off status: Completed true * Provider:?Rex Buitrago MD Date:? 024 Generated for Elvin alexandre/Sandro/Zamzam on:?09/22/2024 12:37 PM EDT History and Physical Notes * [...]
--- OUTSIDE RECORDS SUMMARY | 2024-09-22 12:38 | XMS_ITS ---
Author Organization [facility] Address [address] [place] [address] Care Team Providers Care Housing Counselor Name Role Phone Malcom ORANTES, [place] Primary Care Provider UnaRex Corral Unavailable [phone] REASON FOR VISIT screening, hx polyps Problems Problem Type SNOMED Code ICD Code Onset Dates Problem Status W/U Status Risk Notes Problem Diverticular disease of colon (781333501) Diverticulosis of large intestine without perforation or abscess without bleeding (K57.30) Active confirmed Encounters Encounter Location Date Provider Diagnosis [facility] [place] [address] [place], [place] [phone] 01/30/2024 Rex Buitrago Colon cancer scree reina [...] BRENDAN SOTO EDOB:1960 ( 63 yo F)Acc No.[id number]:01/30/2024 COLON WITH MAC Patient:?BRENDAN SOTO Provider:?Rex Buitrago MD :1960???Age:63 Y???Sex:Female D ate:01/30/2024 Address:[address] [place], [place] [id number] Pcp:Adolph العراقي MD Subjective: * Chief Complaints: * ???1. Screening, hx polyps. * Medical History:? Objective: * Vitals:? Assessment: * Assessment: 1.?Colon cancer screening - Z12.11 (Primary)???2.?Colon polyps - K63.5???3.?Diverticulosis of large intestine without perforation or abscess without bleeding - K57.30???4.?Other hemorrhoids - K64.8??? Plan: * Treatment: * Procedure Codes:?07827 LESIO N REMOVAL COLONOSCOPY, Modifiers: 33 , 26652 COLONOSCOPY AND BIOPSY, Modifiers: 59 , 33 * * The named appointment provid er may or may not be the originator of this progress note, and it is not deemed complete until electronically signed by the appointment provider. Sign off status: Pending * Provider:?Rex Buitrago MD Date:? 024 Generated for Elvin alexandre/Sandro/eTransmitting on:?09/22/2024 12:37 PM EDT
== END 2024-09-22 12:48 | disposition home or self-care (01) ==
LOC: HO.HMCH 12:35
PROVIDERS: PCP Internal Medicine; Visit Provider Internal Medicine
DX: E53.8 Deficiency of other specified B group vitamins (principal)

== ENCOUNTER 2024-09-22 12:35 | Outpatient (REF) | payer OTHER, SELFPAY ==
--- OUTSIDE RECORDS SUMMARY | 2024-09-22 13:40 | XMS_ITS | Continuity of Care Document ---
Author Organization [facility] Address [address] [place] [phone] Phone Care Team Providers Care Weight Shifter Name Role Phone David Montiel Unavailable Unavailable Medications Medication Instructions Dosage Effective Dates (start - stop) Status Comments metformin 850 mg tablet take 1 tablet by oral route 2 times every day with morning and evening meals 850 MG - Active Procedures Procedure Date OFFICE/OUTPATIENT VISIT, [facility] Advance Directives Directive Yes / No Effective Date File Name No Information Encounters Encounter Description Practice Location Reason(s) For Visit Diagnoses Date Provider Providers Copied on Encounter [facility], [address] [place] [address], [id number], tel:[phone] [facility] Immediate Care Visit Conducted via Telehealth (chief complaint) No Information 0 Korin Hernandez. [address] [place], [address], [place]. tel: [phone] OFFICE/OUTPA TIENT VISIT, [facility], [address] [place] [address], [id number], tel:[phone] [facility] Immediate Care Telehealth Medication refill (chief complaint) Essential (primary) hypertensionEncou nter for issue of repeat prescription 0 Piper Knowles. [address] [place], [address], [place]. tel: [phone] Family History Family Member Type Diagnosis Age [...]
[2024-09-22 16:44] LABS: Influenza A PCR NEGATIVE (Negative); Influenza B PCR NEGATIVE (Negative); Resp Syncy Virus RNA Qual PCR NEGATIVE (Negative); SARS COV2 PCR INHOUSE NEGATIVE (Negative)
== END 2024-09-22 12:36 | disposition home or self-care (01) ==
LOC: HO.LAB 12:35
PROVIDERS: Nurse Practitioner Family; PCP Internal Medicine; Visit Provider Internal Medicine
DX: J06.9 Acute upper respiratory infection, unspecified (principal); E53.8 Deficiency of other specified B group vitamins
CPT/HCPCS: 0241U; 96372; 99212; J3420

== ENCOUNTER 2024-09-22 13:12 | Outpatient (AMB) | payer OTHER, SELFPAY ==
--- NOTE | 2024-09-22 13:13 | AM.OFFWIN_ITS ---
Intake Vital Signs 09/22/24 13:15 Weight 121 lb BP 104/62 Blood Pressure Location Rt brachial Position Sitting Pulse 70 Pulse Source Pulse Oximeter Temp 98 F Temp Source Oral Pulse Oximetry (%) 100 Oxygen Delivery Method Room Air Intake Visit Reasons: EP-bottom lip swollen, headaches, chills Intake Note: Patient here for headaches and chills. She states she has been around family members who had the flu. Patient Tobacco Use Status: Never used Tobacco Allergies morphine Allergy (Severe, Verified 09/22/24 13:16) Unresponsive zolpidem [ZOLPIDEM] Allergy (Severe, Verified 09/22/24 13:16) SLEEPWALKING aspirin [ASPIRIN] Allergy (Intermediate, Verified 09/22/24 13:16) ITCHING/SWELLING, rash,itchy ibuprofen Allergy (Intermediate, Verified 09/22/24 13:16) Swelling trazodone [TRAZODONE] Allergy (Intermediate, Verified 09/22/24 13:16) NIGHTMARES naproxen [From Anaprox] Allergy (Mild, Verified 09/22/24 13:16) RASH acetaminophen [From PERCOCET] Allergy (Unknown, Verified 09/22/24 13:16) HIVES/NAUSEA amoxicillin [Augmentin] Allergy (Unknown, Verified 09/22/24 13:16) Unknown oxycodone [From PERCOCET] Allergy (Unknown, Verified 09/22/24 13:16) HIVES/NAUSEA butalbital Allergy (Verified 09/22/24 13:16) Rash, Itching eszopiclone [From LUNESTA] Adverse Reaction (Intermediate, Verified 09/22/24 13:16) NIGHTMARES Do you need a note to return to daycare/school/sports/work: No HPI HPI Comments History of Present Illness Details 63 y/o Female patient who presents to [facility] in clinic with c/o URI symptoms. Reports headaches and Body chills. Recent exposure to Influenza - sick family members. [facility] Medical History (Updated 09/22/24 @ 13:24 by Yoko Segovia NP) Acute respiratory disease Cervical spondylosis Arthritis Anemia Depression Numbness Elevated cholesterol CVA (cerebral vascular accident) Thyroid disease Bilateral hand pain Arthralgia Overweight (BMI 25.0-29.9) Constipation Overactive bladder Migraine Fibromyalgia Pure hypercholesterolemia Pain of right thumb Vitamin D deficiency Hypothyroidism Hyperparathyroidism Osteoporosis B12 deficiency Surgical History Hx of arthroscopy of right knee Hx of arthroscopy of left knee Hx of colonoscopy History of esophagogastroduodenoscopy (EGD) History of carpal tunnel release Family History Father Medical history unknown Mother Medical history unknown Parkinson disease Family/Other Colon cancer Daughter History of breast cancer, Onset Age: 21 Cervical cancer Sister Uterine cancer Sister Colon cancer Social History Household Members Other:: daughter Housing: House Are you a primary lead caregiver to a significant other at home: No Do you presently have visiting nurse or other home services: No Alcohol intake: never Patient Tobacco Use Status: Never used Tobacco e-Cigarette/Vaping Use: Never Used Second Hand Smoke Exposure: Yes service: No Current occupational status: disabled Sexual orientation: Straight/Heterosexual Gender identity: Female Cognitive needs: No Hearing needs: No Vision needs: Yes (reading glasses) Review of Systems Const All systems reviewed & are unremarkable except as noted in HPI and below Physical Exam Vital Signs: Last Vital Signs Temp 98 F 09/22/24 13:15 Pulse 70 09/22/24 13:15 BP 104/62 09/22/24 13:15 Pulse Ox 100 09/22/24 13:15 Oxygen Delivery Method Room Air 09/22/24 13:15 Const General: no acute distress Nutritional Appearance: thin Orientation/consciousness: patient oriented x3 HEENT Head: Yes normocephalic Ears: external ears normal and TM abnormal with fluid behind the TM bilateral Face and sinus: Yes sinuses nontender Mouth: moist mucous membranes Throat: Yes uvula midline Resp Effort & Inspection: normal respiratory effort and able to speak in complete sentences Auscultation: clear to auscultation bilaterally, no crackles, no rales, no rhon chi and no wheezes Cardio Heart sounds: S1 normal heart sound present and S2 normal heart sound present Neuro General: patient oriented x3 Assessment & Plan Assessment & Plan (1) Acute respiratory disease: Code(s): J06.9 - Acute upper respiratory infection, unspecified Plan: Ordered SARs OTC cold/Flu remedies Acetaminophen for pain relief. Rest and hydrate well with warm fluids. Orders: Orders SARS-CoV2/FLU/RSV Today J06.9 - Acute upper respiratory infection, unspecified Coding Level of Care Code Est Pt Level 4 (26582) Diagnoses Acute respiratory disease J06.9 Time Spent (min) 20
[2024-09-22 13:15] VITALS: BP 104/62; PULSE 70; TEMP 36.6; O2SAT 100
--- OUTSIDE RECORDS SUMMARY | 2024-09-22 13:15 | XMS_ITS | Continuity of Care Document ---
Author Organization [facility] Address [address] [place] [phone] Phone Care Team Providers Care Service Promoter Salesperson Name Role Phone David Montiel Unavailable Unavailable Medications Medication Instructions Dosage Effective Dates (start - stop) Status Comments metformin 850 mg tablet take 1 tablet by oral route 2 times every day with morning and evening meals 850 MG - Active Procedures Procedure Date OFFICE/OUTPATIENT VISIT, [facility] Advance Directives Directive Yes / No Effective Date File Name No Information Encounters Encounter Description Practice Location Reason(s) For Visit Diagnoses Date Provider Providers Copied on Encounter [facility], [address] [place] [address], [id number], tel:[phone] [facility] Immediate Care Visit Conducted via Telehealth (chief complaint) No Information 0 Korin Hernandez. [address] [place], [address], [place]. tel: [phone] OFFICE/OUTPA TIENT VISIT, [facility], [address] [place] [address], [id number], tel:[phone] [facility] Immediate Care Telehealth Medication refill (chief complaint) Essential (primary) hypertensionEncou nter for issue of repeat prescription 0 Piper Knowles. [address] [place], [address], [place]. tel: [phone] Family History Family Member Type Diagnosis Age [...]
--- OUTSIDE RECORDS SUMMARY | 2024-09-22 13:15 | XMS_ITS ---
Author Organization [facility] Address [address] [place] [address] Care Team Providers Care Sergeant At Arms Name Role Phone Malcom ORANTES, [place] Primary Care Provider Rex Caal [phone] REASON FOR VISIT bowel prep Medications Medication [...] Active Encounters Encounter Location Date Provider Diagnosis [facility] [address] [place] [phone] 10/26/2023 Rex Buitrago Plan Of Treatment Medication [...] BRENDAN SOTO EDOB:1960 ( 62 yo F)Acc No.[id number]:10/26/2023 Patient:?BRENDAN SOTO E :1960???Age:62 Y???Sex:Female Address:[address] [place] [address] * Refills? Start Dulcolax (colon prep) Tablet [...] true * Date:? Generated for Elvin alexandre/Sandro/eTransmitting on:?09/22/2024 01:15 PM EDT
== END 2024-09-22 13:37 | disposition home or self-care (01) ==
PROVIDERS: PCP Internal Medicine; Visit Provider Nurse Practitioner Family
DX: J06.9 Acute upper respiratory infection, unspecified (principal)

== ENCOUNTER 2024-10-17 09:35 | Outpatient (REF) | payer OTHER, SELFPAY ==
[2024-10-17 09:46] LABS: MANUAL DIFF FLAG NO
--- OUTSIDE RECORDS SUMMARY | 2024-10-17 09:54 | XMS_ITS | Patient Health Record ---
Author Organization [facility] Address [address] [place] [address] Care Team Providers Care Operations Systems Specialist Name Role Phone Malcom ORANTES, [place] Primary Care Provider Rex Caal Unavailable [phone] Allergies Allergen (clinical drug ingredient) Drug/Non Drug Allergy documented on EMR Reaction Allergy Type Onset Date Status morphine Morphine Sulfate Unknown Drug Allergy Active amoxicillin / clavulanate Augmentin Unknown Drug Allergy Active aspirin Aspirin Unknown Drug Allergy Active Anaprox Unknown Drug Allergy Active Results Component Value Reference Range Notes Pathology (Not yet reviewed by provider) Interpretation: Performing Lab:[facility], [address] [place] [phone] Notes/Report: Name: Christiano Cohen Age/Sex: 63/F : 1960 Unit#: [id number] Attend Dr: Rex Buitrago MD Re01/30/24 Status : [facility] Location: [facility] Disch: SPEC : [id number] RECD : 01/30/24 STATUS: YUE BERGER NUM: [id number] MICHELLE: 01/30/24-[address] [facility] [address]: Rex Buitrago MD ENTERED: 01/30/24-05 [...] 6-8 hours. Copies To: Adolph العراقي MD [facility] Primary Care,[place] [address] [place], [place] [phone] Rex Buitrago MD [facility] [address] [place] [address] CONTINUED ON NEXT PAGE Name: Christiano Cohen Age/Sex: 63/F : 1960 Unit#: [id number] Attend Dr: Rex Buitrago MD Re01/30/24 Status : [facility] Location: [facility] Disch: SPEC : [id number] RECD : 01/30/24 [facility]: [id number] MICHELLE: 01/30/[address] [facility] [address]: Rex Buitrago MD ENTERED: 01/30/24-05 [...] Problem Status W/U Status Risk Notes Problem 008189047 Encounter for screening for malignant neoplasm of colon (Z12.11) Active confirmed Problem 840831990 History of adenomatous polyp of colon (Z86.010) Active confirmed Problem Diverticulosis o f large intestine without perforation or abscess without bleeding (K57.30) Active confirmed Problem 880186096 Chronic constipation (K59.09) Active confirmed Vital Signs Temperature 98.0 degrees Fahrenheit 10/26/2023 Blood pressure diastolic 00 mm Hg 10/26/2023 Height 63.5 in 10/26/2023 Blood pressure systolic 000 mm Hg 10/26/2023 Weight 118 lb 4 oz lbs 10/26/2023 BMI 20.62 kg/m2 10/26/2023 Encounters Encounter Location Date Provider Diagnosis [facility] [place] [address] [place], [place] [phone] 01/30/2024 Rex Buitrago Colon cancer screeni ng Z12.11 ; Colon polyps K63.5 ; Diverticulosis of large intestine without perforation or abscess without bleeding K57.30 and Other hemorrhoids K64.8 [facility] [address] [facility] [address] [place] [phone] 10/26/2023 Rex Buitrago History of adenomato us polyp of colon Z86.010 ; Chronic constipation K59.09 and Encounter for screening for malignant neoplasm of colon Z12.11 [facility] [address] [facility] [address] [place] [address] 10/26/2023 Rex Buitrago Assessments Encounter Date Diagnosis [...] Insured Coverage Start Date Coverage End Date [facility] [employer] [facility] [address] [address] [place], [place] [id number] INA SOTO Self - patient is the insured Medical (General) History Medical History History ICD Code Hx of chronic constipation-- had a defecogram with colorectal surgeons at [facility] Hypothyroidism Mild stroke 2009-no residual Denies AR,DM,Lung disease,renal disease Neg. colonoscopy in 01/2004 except for in ternal hemoorhoids Colonoscopy 10/2012-small tubular adenoma EGD in 2013-Dr. Hunter--[facility] HH, gastric bx neg for Hpylori and duodenal bx neg for celiac disease Colonoscopy in 07/2017 was negative high cholesterol Surgical History Surgery Date(Month/Year) left knee arthroscopy x2 right knee arthroscopy carpal tunnel release right hand
--- OUTSIDE RECORDS SUMMARY | 2024-10-17 09:54 | XMS_ITS | Continuity of Care Document ---
Author Organization [facility] Address [address] [place] [phone] Phone Care Team Providers Care Silk Worker Name Role Phone David Montiel Unavailable Unavailable Medications Medication Instructions Dosage Effective Dates (start - stop) Status Comments metformin 850 mg tablet take 1 tablet by oral route 2 times every day with morning and evening meals 850 MG - Active Procedures Procedure Date OFFICE/OUTPATIENT VISIT, [facility] Advance Directives Directive Yes / No Effective Date File Name No Information Encounters Encounter Description Practice Location Reason(s) For Visit Diagnoses Date Provider Providers Copied on Encounter [facility], [address] [place] [address], [id number], tel:[phone] [facility] Immediate Care Visit Conducted via Telehealth (chief complaint) No Information 0 Korin Hernandez. [address] [place], [address], [place]. tel: [phone] OFFICE/OUTPA TIENT VISIT, [facility], [address] [place] [address], [id number], tel:[phone] [facility] Immediate Care Telehealth Medication refill (chief complaint) Essential (primary) hypertensionEncou nter for issue of repeat prescription 0 Piper Knowles. [address] [place], [address], [place]. tel: [phone] Family History Family Member Type Diagnosis Age [...]
--- OUTSIDE RECORDS SUMMARY | 2024-10-17 09:54 | XMS_ITS ---
Author Organization [facility] Address [address] [place] [address] Care Team Providers Care Windows Systems Administrator Name Role Phone Malcom ORANTES, [place] Primary Care Provider Rex Caal [phone] REASON FOR VISIT bowel prep Medications Medication [...] Active Encounters Encounter Location Date Provider Diagnosis [facility] [address] [place] [address] 10/26/2023 Rex Buitrago Plan Of Treatment Medication [...] BRENDAN SOTO EDOB:1960 ( 62 yo F)Acc No.[id number]:10/26/2023 Patient:?BRENDAN SOTO E :1960???Age:62 Y???Sex:Female Address:[address] [place] [address] * Refills? Start Dulcolax (colon prep) Tablet [...] true * Date:? Generated for Elvin alexandre/Sandro/eTransmitting on:?10/17/2024 09:54 AM EDT
--- OUTSIDE RECORDS SUMMARY | 2024-10-17 09:54 | XMS_ITS ---
Author Organization [facility] Address [address] [place] [address] Care Team Providers Care Customer Service Technician Name Role Phone Malcom ORANTES, [place] Primary Care Provider UnaRex Corral [phone] REASON FOR VISIT screening, hx polyps Problems Problem Type SNOMED Code ICD Code Onset Dates Problem Status W/U Status Risk Notes Problem Diverticulosis o f large intestine without perforation or abscess without bleeding (K57.30) Active confirmed Encounters Encounter Location Date Provider Diagnosis [facility] [address] [place], [place] [phone] 01/30/2024 Rex Buitrago Colon cancer scree reina [...] BRENDAN SOTO EDOB:1960 ( 63 yo F)Acc No.[id number]:01/30/2024 COLON WITH MAC Patient:?BRENDAN SOTO Provider:?Rex Buitrago MD :1960???Age:63 Y???Sex:Female D ate:01/30/2024 Address:[address] [place] [address] Pcp:Adolph العراقي MD Subjective: * Chief Complaints: * ???1. Screening, hx polyps. * Medical History:? Objective: * Vitals:? Assessment: * Assessment: 1.?Colon cancer screening - Z12.11 (Primary)???2.?Colon polyps - K63.5???3.?Diverticulosis of large intestine without perforation or abscess without bleeding - K57.30???4.?Other hemorrhoids - K64.8??? Plan: * Treatment: * Procedure Codes:?48266 LESIO N REMOVAL COLONOSCOPY, Modifiers: 33 , 50866 COLONOSCOPY AND BIOPSY, Modifiers: 59 , 33 * * The named appointment provid er may or may not be the originator of this progress note, and it is not deemed complete until electronically signed by the appointment provider. Sign off status: Pending * Provider:?Rex Buitrago MD Date:? 024 Generated for Elvin alexandre/Sandro/eTransmitting on:?10/17/2024 09:54 AM EDT
--- OUTSIDE RECORDS SUMMARY | 2024-10-17 09:54 | XMS_ITS ---
Author Organization [facility] Address [address] [place] [address] Care Team Providers Care Secondary Set Up Man Name Role Phone Malcom ORANTES, Adolph Primary Care Provider Rex Caal [phone] Allergies Allergen (clinical drug ingredient) Drug/Non Drug [...] 10/26/2023 Encounters Encounter Location Date Provider Diagnosis [facility] [address] [place] [address] 10/26/2023 Rex Buitrago History of adenomato us [...] INA SOTO EDOB:1960 ( 62 yo F)Acc No.[id number]:10/26/2023 Progress Notes Patient:?INA SOTO E Provider:?Rex Buitrago MD :1960???Age:62 Y???Sex:Female D ate:10/26/2023 Address:[address] [place] [address] Pcp:Adolph العراقي MD Subjective: * Chief Complaints: [...] D 5000iu 1 tablet Orally Once a jkrVgxwnxvmmd-CXXQ-Ttxuvlny 50-325-40 MG Tablet TK 1 T PO 2 TO 3 TIMES A DAY PRF HEADACHES Oral GaviLAX 17 GM/SCOOP Powder Oral [place] Calcium/Vitamin D 200-6.25 MG-MCG Tablet Oral Medication List reviewed and reconciled with the patientDiscontinued Vitamin D 5000iu 1 tablet Orally Once a dayDiscontinued Demefujeky-CSZH-Pmdpheyb 50-325-40 MG Tablet TK 1 T PO 2 TO 3 TIMES A DAY PRF HEADACHES Oral Discontinued GaviLAX 17 GM/SCOOP Powder Oral Discontinued [place] Calcium/Vitamin D 200-6.25 MG-MCG Tablet Oral Medication [...] Procedure Codes:?3017F COLOR ECTAL CA SCREEN DOC [id number] TOBACCO [id number] BP SCR NOT PRFRM REC REASON NOS * Follow Up:?prn * * Sign off status: Completed true * Provider:?Rex Buitrago MD Date:? 024 Generated for Elvin alexandre/Sandro/Zamzam on:?10/17/2024 09:54 AM EDT History and Physical Notes * HPI [...]
[2024-10-17 10:47] LABS: Basophils Percent Auto 0.6 % (0-2); Hematocrit 36.5 % (37.0-47.0); Hemoglobin 11.6 g/dl (12.0-16.0); Imm Gran Abs Auto 0.01 X10*3/uL (0.00-0.03); Imm Gran Pct Auto 0.2 % (0.0-0.4); Lymphocytes Absolute Auto 2.2 X10*3/uL (1.2-4.9); Lymphocytes Percent Auto 47.1 % (20-40); Mean Corpuscular HGB Conc 31.8 g/dl (31.0-35.0); Mean Corpuscular Volume 78.7 fL (80.0-98.0); Mean Platelet Volume 11.5 fL (9.4-12.3); Monocytes Absolute Auto 0.5 X10*3/uL (0.1-1.2); Monocytes Percent Auto 9.7 % (2-11); Neutrophils Percent Auto 42.4 % (45-73); Platelet Count 249 X10*3/uL (160-400); Red Blood Count 4.64 X10*6/uL (4.20-5.50); Red Cell Distribution Width 15.7 % (11.0-16.0); White Blood Count 4.7 X10*3/uL (4.8-10.8)
[2024-10-17 11:47] LABS: Alanine Aminotransferase 19 U/L (0-31); Albumin Level 4.1 g/dL (3.5-5.0); Alkaline Phosphatase 44 U/L (39-117); Anion Gap 11 (12-20); Aspartate Amino Transferase 26 U/L (5-31); Bilirubin Total 0.8 mg/dL (0.0-1.0); Blood Urea Nitrogen 11 mg/dL (9-16); Calcium 9.1 mg/dL (8.4-10.2); Carbon Dioxide 24 mmol/L (22-29); Chloride 111 mmol/L (96-108); Cholesterol 211 mg/dL (<200); Estimated Glomerular Filt Rate > 60; Free T4 (Free Thyroxine) 1.09 ng/dL (0.71-1.85); Glucose Fasting 96 mg/dL (60-99); HDL Cholesterol 68 mg/dL (>40); LDL Cholesterol Calculated 131 mg/dL (<100); Sodium 142 mmol/L (135-145); Thyroid Stimulating Hormone 0.05 uIU/mL (0.32-4.0); Total Protein 6.8 g/dL (6.5-8.0); Triglycerides 63 mg/dL (<150)
== END 2024-10-17 09:36 | disposition home or self-care (01) ==
LOC: HO.LAB 09:35
PROVIDERS: PCP Internal Medicine; Visit Provider Internal Medicine
DX: D64.9 Anemia, unspecified (principal); E78.00 Pure hypercholesterolemia, unspecified; E03.9 Hypothyroidism, unspecified; E55.9 Vitamin D deficiency, unspecified
CPT/HCPCS: 36415; 80053; 80061; 82306; 84439; 84443; 85025

== ENCOUNTER 2024-10-21 14:33 | Outpatient (AMB) | payer OTHER, SELFPAY ==
[2024-10-21 14:40] VITALS: BP 140/64; PULSE 71; TEMP 36.3; O2SAT 99; BMI 20.5
--- NOTE | 2024-10-21 14:40 | MHC.PC.OV ---
Vital Signs 10/21/24 14:40 Height 5 ft 4.41 in Weight 121 lb BMI 20.5 BP 140/64 H Blood Pressure Location Lt brachial Position Sitting Pulse 71 Pulse Source Pulse Oximeter Temp 97.3 F Temp Source Temporal Artery Scan Pulse Oximetry (%) 99 Oxygen Delivery Method Room Air Intake Visit Reasons: 3mth f/u Obstetrical Tech Required: No Information Interpreted: non-clinical & clinical Vehicle Insurance Agent: Present Accompanied by: Daughter Allergies morphine Allergy (Severe, Verified 10/21/24 15:19) Unresponsive zolpidem [ZOLPIDEM] Allergy (Severe, Verified 10/21/24 15:19) SLEEPWALKING aspirin [ASPIRIN] Allergy (Intermediate, Verified 10/21/24 15:19) ITCHING/SWELLING, rash,itchy ibuprofen Allergy (Intermediate, Verified 10/21/24 15:19) Swelling trazodone [TRAZODONE] Allergy (Intermediate, Verified 10/21/24 15:19) NIGHTMARES naproxen [From Anaprox] Allergy (Mild, Verified 10/21/24 15:19) RASH acetaminophen [From PERCOCET] Allergy (Unknown, Verified 10/21/24 15:19) HIVES/NAUSEA amoxicillin [Augmentin] Allergy (Unknown, Verified 10/21/24 15:19) Unknown oxycodone [From PERCOCET] Allergy (Unknown, Verified 10/21/24 15:19) HIVES/NAUSEA butalbital Allergy (Verified 10/21/24 15:19) Rash, Itching eszopiclone [From LUNESTA] Adverse Reaction (Intermediate, Verified 10/21/24 15:19) NIGHTMARES melatonin Adverse Reaction (Intermediate, Verified 10/21/24 15:38) headaches Medication List - Last Reconciled 10/21/24 by Adolph العراقي MD atorvastatin 10 mg PO BEDTIME 90 days cholecalciferol (vitamin D3) 50 mcg PO DAILY cyanocobalamin (vitamin B-12) 1,000 mcg IM Q4W 90 days Forteo (teriparatide) 20 mcg (0.08 mL) subcut DAILY NS levothyroxine 88 mcg PO DAILY linaclotide (Linzess) 145 mcg PO DAILY pen needle, diabetic (Comfort EZ Pen Luana) As directed polyethylene glycol 3350 17 grams PO DAILY PRN topiramate 100 mg PO BEDTIME Tobacco use date assessed: 07/23/24 Dental Screening Dental Screen Date: 07/23/24 HPI 3mth f/u HPI Details Patient comes in today for her follow up visit States that she continues to have trouble sleeping at night and that her brain feels like it is in a fog all day long for the past few weeks now She was most recently started on Remeron by neurology to help her sleep a couple of weeks ago but states that this has not helped and actually made her feel too tired and drowsy the next day She used to see Dr. Shi regularly for neurology follow up but is now seeing one of his assistants/nurse practitioner instead trazodone - nightmares Zolpidem - sleepwalking Lunesta - nightmares Melatonin - headaches She had her follow up labs done a few days ago - to discuss her results [facility] Medical History (Updated 09/22/24 @ 13:24 by Yoko Segovia NP) Acute respiratory disease Cervical spondylosis Arthritis Anemia Depression Numbness Elevated cholesterol CVA (cerebral vascular accident) Thyroid disease Bilateral hand pain Arthralgia Overweight (BMI 25.0-29.9) Constipation Overactive bladder Migraine Fibromyalgia Pure hypercholesterolemia Pain of right thumb Vitamin D deficiency Hypothyroidism Hyperparathyroidism Osteoporosis B12 deficiency Surgical History Hx of arthroscopy of right knee Hx of arthroscopy of left knee Hx of colonoscopy History of esophagogastroduodenoscopy (EGD) History of carpal tunnel release Family History Father Medical history unknown Mother Medical history unknown Parkinson disease Family/Other Colon cancer Daughter History of breast cancer, Onset Age: 21 Cervical cancer Sister Uterine cancer Sister Colon cancer Social History Household Members Other:: daughter Housing: House Are you a primary child care centre director to a significant other at home: No Do you presently have visiting nurse or other home services: No Alcohol intake: never Patient Tobacco Use Status: Never used Tobacco e-Cigarette/Vaping Use: Never Used Second Hand Smoke Exposure: Yes service: No Current occupational status: disabled Sexual orientation: Straight/Heterosexual Gender identity: Female Cognitive needs: No Hearing needs: No Vision needs: Yes (reading glasses) Questionnaire PHQ-9 Over the last 2 weeks, how often have you been bothered by any of the following problems? 1. Little interest or pleasure in doing things: not at all 2. Feeling down, depressed, or hopeless: not at all 3. Trouble falling or staying asleep, or sleeping too much: several days 4. Feeling tired or having little energy: several days 5. Poor appetite or overeating: several days 6. Feeling bad about yourself - or that you are a failure or have let yourself or your family down: not at all 7. Trouble concentrating on things, such as reading the newspaper or watching television: not at all 8. Moving or speaking so slowly that other people could have noticed. Or the opposite - being so fidgety or restless that you have been moving around a lot more than usual: several days 9. Thoughts that you would be better off or of hurting yourself in some way: not at all Total score: 4 Source: Developed by Drs. Rex Iniguez, Chichi Tanner, Figueroa Allen and colleagues, with an educational johnna from [employer]. Thrive Questionnaire Date Thrive assessed: 10/21/24 I am a: Patient What is your living situation today?: I have a steady place to live Within the past 12 months, did the food you bought not last and you didn't have the money to get more?: Never true Within the past 12 months, did you worry whether your food would run out before you got money to buy more?: Never true Do you have trouble paying for medicines?: No Do you have trouble getting transportation to medical appointments?: No Do you have trouble paying your heating and electricity bill?: Yes Do you have trouble taking care of your child, family member or friend?: No Do you have trouble with day-to-day activities such as bathing, preparing meals, shopping, managing finances, etc.?: No Are you currently unemployed and looking for a job?: No Are you interested in more education?: I choose not to answer this question Please select the resources that you would like help with: Care for elder or disabled Currently or been in a relationship where the following occur: I choose not to answer THRIVE Score: 1 AUDIT C Alcohol Use Questionnaire (AUDIT-C) 1. How often do you have a drink containing alcohol?: Never Total Score: 0 JOSELITO-7 AMB Questionnaire JOSELITO-7 Date JOSELITO - 7 assessed: 04/21/24 Source: Developed by Drs. Rex Iniguez, Chichi Tanner, Figueroa Allen and colleagues, with an educational johnna from [employer]. Physical exam (Primary Care) Vital Signs: Last Vital Signs Temp 97.3 F 10/21/24 14:40 Pulse 71 10/21/24 14:40 BP 140/64 H 10/21/24 14:40 Pulse Ox 99 10/21/24 14:40 Oxygen Delivery Method Room Air 10/21/24 14:40 BMI result Body Mass Index 20.5 Tobacco/Smoking Status: Tobacco use Status Tobacco use date assessed 07/23/24 10/21/24 14:41 Patient Tobacco Use Status Never used Tobacco 10/21/24 14:41 e-Cigarette/Vaping Use Never Used 10/21/24 14:41 PHQ-9: PHQ-9 Score PHQ-9: Total score 4 10/21/24 14:57 Thrive Assessment: Date of Thrive Assessment Date Thrive assessed 10/21/24 10/21/24 14:41 Currently or been in a relationship where the following occur: I choose not to answer Office Meds cyanocobalamin (vitamin B-12) 1,000 mcg/mL injection solution Performing Provider: Adolph العراقي MD [facility] Administered by: Carmenza Gupta LPN on 10/21/24 14:57 Dose Route Admin Location Dispensed Lot Number Expiration Date [facility] [employer] 1,000 mcg IM left deltoid 1 mL [id number] 11/01/25 01529-215-07 [employer] Results Reviewed Results Reviewed: Laboratory Tests 07/16/24 10/17/24 11:08 09:45 WBC 4.7 L Hgb 11.6 L Hct 36.5 L MCV 78.7 L MCH 25.0 L RDW 15.7 Plt Count 249 Sodium 142 Potassium 4.0 Creatinine 0.73 Estimated GFR > 60 Fasting Glucose 96 Calcium 9.1 AST 26 ALT 19 Triglycerides 65 63 Cholesterol 189 211 H LDL Cholesterol, Calc 112 H 131 H HDL Cholesterol 64 68 25-OH Vitamin D Total 57.0 TSH 0.05 L Free T4 1.09 Coding Diagnoses B12 deficiency E53.8 Pure hypercholesterolemia E78.00 Migraine without status migrainosus, not intractable, unspecified migraine type G43.909 Migraine type: unspecified Status migrainosus presence: without status migrainosus Intractability: not intractable Hypothyroidism, unspecified type E03.9 Hypothyroidism type: unspecified Impingement syndrome of left shoulder region M75.42 Cervical spondylosis M47.812 Osteoporosis, unspecified osteoporosis type, unspecified pathological fracture presence M81.0 Osteoporosis type: unspecified Presence of current pathological fracture: unspecified Vitamin D deficiency E55.9 Fibromyalgia M79.7 Constipation, unspecified constipation type K59.00 Constipation type: unspecified constipation type Overactive bladder N32.81 Assessment & Plan Assessment & Plan (1) B12 deficiency: Code(s): E53.8 - Deficiency of other specified B group vitamins Category: Medical Plan: Continue Vitamin B12 injections monthly - B12 injection given today (2) Pure hypercholesterolemia: Code(s): E78.00 - Pure hypercholesterolemia, unspecified Category: Medical Plan: Results of her labs done last week reviewed and discussed with patient - she is advised that her cholesterol levels have improved slightly from previous Continue Atorvastatin 10 mg Q HS - advised again of LDL cholesterol goal of at least <100 mg/dl Will recheck her labs and fasting lipids in 3 months for follow up (3) Migraine: Code(s): G43.909 - Migraine, unspecified, not intractable, without status migrainosus Category: Medical Qualifiers: Migraine type: unspecified Status migrainosus presence: without status migrainosus Intractability: not intractable Qualified Code(s): G43.909 - Migraine, unspecified, not intractable, without status migrainosus Plan: Patient states that her migraine headaches have been doing okay amitriptyline amitriptyline They were better controlled previously on prophylactic Topiramate but this was discontinued by endocrinology a while back Have offered to start her on Amitriptyline instead but she recalled gaining a lot of weight while she was on Amitriptyline in the past and prefers not to restart Rx at this time Continue Fioricet PRN for symptomatic relief of her headaches Follow up with neurology (Dr. Shi) as scheduled (4) Hypothyroidism: Code(s): E03.9 - Hypothyroidism, unspecified Category: Medical Qualifiers: Hypothyroidism type: unspecified Qualified Code(s): E03.9 - Hypothyroidism, unspecified Plan: Her TFTs were normal on her recent labs Continue Levothyroxine 88 mcg QD Follow up with endocrinology (Dr. Andrews) as scheduled Will continue to monitor her TFTs regularly (5) Impingement syndrome of left shoulder region: Code(s): M75.42 - Impingement syndrome of left shoulder Category: Medical Plan: X-rays of the cervical spine and repeat x-rays of the left shoulder done last year revealed (+) mild degenerative changes in the left acromioclavicular joint and mild multilevel cervical spondylosis and mild bilateral facet arthritis with neural foraminal encroachment at C6-C7 She completed 8 weeks of formal physical therapy, which aggravated her pain - she failed conservative treatment Left shoulder MRI done on 02/01/2024 revealed (+) mild supraspinatus tendinosis and mild focal articular surface fraying in the distal anterior fibers. There is also mild infraspinatus and subscapularis tendinosis as well as mild acromioclavicular arthritis and trace subacromial subdeltoid bursitis EMG and NCV of the left upper extremity done in October 2023 came out normal She was originally scheduled for arthroscopic shoulder surgery a few months ago but this was held up when anesthesia supposedly saw some concerning findings on her echocardiogram and she was asked to seek cardiac clearance first She recently passed her cardiac stress test and is now waiting for orthopedics to reschedule her surgery soon (6) Cervical spondylosis: Code(s): M47.812 - Spondylosis without myelopathy or radiculopathy, cervical region Category: Medical Plan: Cervical spine x-rays done in September 2023 revealed (+) mild multilevel cervical spondylosis and mild bilateral facet arthritis with neural foraminal encroachment at C6-C7 If her neck pain/symptom increases, may need to consider referral to neurosurgery for further evaluation and management (7) Osteoporosis: Code(s): M81.0 - Age-related osteoporosis without current pathological fracture Category: Medical Qualifiers: Osteoporosis type: unspecified Presence of current pathological fracture: unspecified Qualified Code(s): M81.0 - Age-related osteoporosis without current pathological fracture Plan: Repeat BMD done on 03/11/2021 revealed (+) osteoporosis based on the lowest T-score value of -2.7 in the lumbar spine. Patient was cautioned that her BMD has declined by 9% or more in both her lumbar spine and left femur? BMD on 01/24/2019 also showed a 12% decrease in BMD at her femur from her previous scan in 2017; AP spine BMD is unchanged from before Patient could not tolerate Alendronate due to GI symptoms/side effects Most recent BMD done on 07/17/2023 revealed (+) osteoporosis based on the lowest T-score value of -3.1 in the lumbar spine applying World Health Organization criteria - her BMD appears to have declined about 15% from her previous She was seen by Dr. Andrews for endocrinology consultation and was advised to start Tx with either Evenity vs Tymlos or Forteo She was going to start Tx with Evenity initially but her insurance would not cover Rx - this was later switched to Forteo, which she is now on at 20 mg SQ QD Follow up with endocrinology as scheduled (8) Vitamin D deficiency: Code(s): E55.9 - Vitamin D deficiency, unspecified Category: Medical Plan: Continue Vitamin D3 2000 units QD (9) Fibromyalgia: Code(s): M79.7 - Fibromyalgia Category: Medical Plan: Patient is again encouraged again to exercise regularly and stay active to help manage her fibromyalgia symptoms better She used to take Tizanidine 4 mg TID PRN but she has not had to take Rx in a while now (10) Constipation: Code(s): K59.00 - Constipation, unspecified Category: Medical Qualifiers: Constipation type: unspecified constipation type Qualified Code(s): K59.00 - Constipation, unspecified Plan: She is encouraged again on increased oral fluids and dietary fiber Continue MiraLax powder 17 g daily as instructed and Linzess 145 mcg QD She had a repeat colonoscopy done with Dr. Buitrago back on 01/30/2024 - (+) tubular adenoma and she is advised to have a repeat colonoscopy done again in 5 years (2028) Due to her increasing constipation despite her current medications, she would like to see about getting a 2nd opinion - will try referring [place] [facility] [place] for further recommendations on increasing/chronic constipation (11) Overactive bladder: Code(s): N32.81 - Overactive bladder Category: Medical Plan: Follow up with urology as scheduled Plan Follow up in 3 months Orders: Orders Complete Blood Count Auto Diff 3 Months D64.9 - Anemia, unspecified AMB Vitamin B12 Injection Patient Supplied Today E53.8 - Deficiency of other specified B group vitamins Lipid Panel 3 Months E78.00 - Pure hypercholesterolemia, unspecified Comprehensive [place]. Panel Fast 3 Months E78.00 - Pure hypercholesterolemia, unspecified IRON PROFILE 3 Months D50.9 - Iron deficiency anemia, unspecified Referrals Hematology & Oncology Referral D50.9 - Iron deficiency anemia, unspecified
--- OUTSIDE RECORDS SUMMARY | 2024-10-21 15:56 | XMS_ITS ---
Author Organization [facility] Address [address] [place] [address] Care Team Providers Care Chute Worker Name Role Phone Malcom ORANTES, Adolph Primary Care Provider Rex Caal [phone] Allergies Allergen (clinical drug ingredient) Drug/Non Drug [...] 10/26/2023 Encounters Encounter Location Date Provider Diagnosis [facility] [address] [place] [address] 10/26/2023 Rex Buitrago History of adenomato us [...] INA SOTO EDOB:1960 ( 62 yo F)Acc No.[id number]:10/26/2023 Progress Notes Patient:?INA SOTO E Provider:?Rex Buitrago MD :1960???Age:62 Y???Sex:Female D ate:10/26/2023 Address:[address] [place] [address] Pcp:Adolph العراقي MD Subjective: * Chief Complaints: [...] D 5000iu 1 tablet Orally Once a wfsNmyenirmcd-LVRW-Jsskzthk 50-325-40 MG Tablet TK 1 T PO 2 TO 3 TIMES A DAY PRF HEADACHES Oral GaviLAX 17 GM/SCOOP Powder Oral [place] Calcium/Vitamin D 200-6.25 MG-MCG Tablet Oral Medication List reviewed and reconciled with the patientDiscontinued Vitamin D 5000iu 1 tablet Orally Once a dayDiscontinued Btfotfobha-YHYS-Emdmprux 50-325-40 MG Tablet TK 1 T PO 2 TO 3 TIMES A DAY PRF HEADACHES Oral Discontinued GaviLAX 17 GM/SCOOP Powder Oral Discontinued [place] Calcium/Vitamin D 200-6.25 MG-MCG Tablet Oral Medication [...] Procedure Codes:?3017F COLOR ECTAL CA SCREEN DOC [id number] TOBACCO NON-[id number] BP SCR NOT PRFRM REC REASON NOS * Follow Up:?prn * * Sign off status: Completed true * Provider:?Rex Buitrago MD Date:? 024 Generated for Elvin alexandre/Sandro/Zamzam on:?10/21/2024 03:56 PM EDT History and Physical Notes * [...]
--- OUTSIDE RECORDS SUMMARY | 2024-10-21 15:56 | XMS_ITS ---
Author Organization [facility] Address [address] [place] [address] Care Team Providers Care Genetic Physician Name Role Phone Malcom ORANTES, [place] Primary Care Provider UnaRex Corral [phone] REASON FOR VISIT screening, hx polyps Problems Problem Type SNOMED Code ICD Code Onset Dates Problem Status W/U Status Risk Notes Problem Diverticulosis o f large intestine without perforation or abscess without bleeding (K57.30) Active confirmed Encounters Encounter Location Date Provider Diagnosis [facility] [place] [address] [place], [place] [phone] 01/30/2024 Rex Buitrago Colon cancer scree reina [...] BRENDAN SOTO EDOB:1960 ( 63 yo F)Acc No.[id number]:01/30/2024 COLON WITH MAC Patient:?BRENDAN SOTO Provider:?Rex Buitrago MD :1960???Age:63 Y???Sex:Female D ate:01/30/2024 Address:[address] [place] [address] Pcp:Adolph العراقي MD Subjective: * Chief Complaints: * ???1. Screening, hx polyps. * Medical History:? Objective: * Vitals:? Assessment: * Assessment: 1.?Colon cancer screening - Z12.11 (Primary)???2.?Colon polyps - K63.5???3.?Diverticulosis of large intestine without perforation or abscess without bleeding - K57.30???4.?Other hemorrhoids - K64.8??? Plan: * Treatment: * Procedure Codes:?19433 LESIO N REMOVAL COLONOSCOPY, Modifiers: 33 , 03527 COLONOSCOPY AND BIOPSY, Modifiers: 59 , 33 * * The named appointment provid er may or may not be the originator of this progress note, and it is not deemed complete until electronically signed by the appointment provider. Sign off status: Pending * Provider:?Rex Buitrago MD Date:? 024 Generated for Elvin alexandre/Sandro/eTransmitting on:?10/21/2024 03:56 PM EDT
--- OUTSIDE RECORDS SUMMARY | 2024-10-21 15:56 | XMS_ITS ---
Author Organization [facility] Address [address] [place] [phone] Care Team Providers Care Impact Retail Service Merchandiser Name Role Phone Malcom ORANTES, [place] Primary Care Provider Rex Caal [phone] REASON FOR VISIT bowel prep Medications Medication [...] Encounter Location Date Provider Diagnosis [facility] [address] [place] [phone] 10/26/2023 Rex Buitrago Plan Of Treatment Medication [...] BRENDAN SOTO EDOB:1960 ( 62 yo F)Acc No.[id number]:10/26/2023 Patient:?BRENDAN SOTO E :1960???Age:62 Y???Sex:Female Address:[address] [place] [address] * Refills? Start Dulcolax (colon prep) Tablet [...] true * Date:? Generated for Elvin alexandre/Sandro/eTransmitting on:?10/21/2024 03:56 PM EDT
--- OUTSIDE RECORDS SUMMARY | 2024-10-21 15:56 | XMS_ITS | Patient Health Record ---
Author Organization [facility] Address [address] [place] [address] Care Team Providers Care Manager Utilization Review Name Role Phone Malcom ORANTES, [place] Primary Care Provider Rex Caal Unavailable [phone] Allergies Allergen (clinical drug ingredient) Drug/Non Drug Allergy documented on EMR Reaction Allergy Type Onset Date Status morphine Morphine Sulfate Unknown Drug Allergy Active amoxicillin / clavulanate Augmentin Unknown Drug Allergy Active aspirin Aspirin Unknown Drug Allergy Active Anaprox Unknown Drug Allergy Active Results Component Value Reference Range Notes Pathology (Not yet reviewed by provider) Interpretation: Performing Lab:[facility], [address] [place] [phone] Notes/Report: Name: Christiano Cohen Age/Sex: 63/F : 1960 Unit#: [id number] Attend Dr: Rex Buitrago MD Re01/30/24 Status : [facility] Location: [facility] Disch: SPEC : [id number] RECD : 01/30/24 STATUS: YUE BERGER NUM: [id number] MICHELLE: 01/30/24-[address] [facility] [address]: Rex Buitrago MD ENTERED: 01/30/24-05 27 [...] 6-8 hours. Copies To: Adolph العراقي MD [facility] [place] [address] [place], [place] [phone] Rex Buitrago MD [facility] [address] [place] [address] CONTINUED ON NEXT PAGE Name: Christiano Cohen Age/Sex: 63/F : 1960 Unit#: [id number] Attend Dr: eRx Buitrago MD Re01/30/24 Status : [facility] Location: [facility] Disch: SPEC : [id number] RECD : 01/30/24 [facility]: [id number] MICHELLE: 01/30/[address] [facility] [address]: Rex Buitrago MD ENTERED: 01/30/24-05 27 [...] Problem Status W/U Status Risk Notes Problem 517931964 Encounter for screening for malignant neoplasm of colon (Z12.11) Active confirmed Problem 584019901 History of adenomatous polyp of colon (Z86.010) Active confirmed Problem Diverticulosis o f large intestine without perforation or abscess without bleeding (K57.30) Active confirmed Problem 658788429 Chronic constipation (K59.09) Active confirmed Vital Signs Temperature 98.0 degrees Fahrenheit 10/26/2023 Blood pressure diastolic 00 mm Hg 10/26/2023 Height 63.5 in 10/26/2023 Blood pressure systolic 000 mm Hg 10/26/2023 Weight 118 lb 4 oz lbs 10/26/2023 BMI 20.62 kg/m2 10/26/2023 Encounters Encounter Location Date Provider Diagnosis [facility] Outpatient [address] [place], [place] [phone] 01/30/2024 Rex Buitrago Colon cancer screeni ng Z12.11 ; Colon polyps K63.5 ; Diverticulosis of large intestine without perforation or abscess without bleeding K57.30 and Other hemorrhoids K64.8 [facility] [address] [place] [phone] 10/26/2023 Rex Buitrago History of adenomato us polyp of colon Z86.010 ; Chronic constipation K59.09 and Encounter for screening for malignant neoplasm of colon Z12.11 [facility] [address] [facility] [address] [place] [phone] 10/26/2023 Rex Buitrago Assessments Encounter Date Diagnosis [...] Insured Coverage Start Date Coverage End Date [facility] [facility] [address] [address] [place], [place] [id number] INA SOTO Self - patient is the insured Medical (General) History Medical History History ICD Code Hx of chronic constipation-- had a defecogram with colorectal surgeons at [facility] Hypothyroidism Mild stroke 2009-no residual Denies [place],DM,Lung disease,renal disease Neg. colonoscopy in 01/2004 except for in ternal hemoorhoids Colonoscopy 10/2012-small tubular adenoma EGD in 2013-Dr. Hunter--[facility], gastric bx neg for Hpylori and duodenal bx neg for celiac disease Colonoscopy in 07/2017 was negative high cholesterol Surgical History Surgery Date(Month/Year) left knee arthroscopy x2 right knee arthroscopy carpal tunnel release right hand
== END 2024-10-21 15:44 | disposition home or self-care (01) ==
LOC: HO.HMCH 14:34
PROVIDERS: PCP Internal Medicine; Visit Provider Internal Medicine
DX: E53.8 Deficiency of other specified B group vitamins (principal)

== ENCOUNTER → 2024-10-21 14:33 | Outpatient (BNVA) | payer OTHER, SELFPAY | PROVIDERS: PCP Internal Medicine; Visit Provider Internal Medicine | DX: E78.00 Pure hypercholesterolemia, unspecified (principal); G43.909 Migraine, unspecified, not intractable, without status migrainosus; E03.9 Hypothyroidism, unspecified; D50.9 Iron deficiency anemia, unspecified; E53.8 Deficiency of other specified B group vitamins; M75.42 Impingement syndrome of left shoulder; M81.0 Age-related osteoporosis without current pathological fracture; E55.9 Vitamin D deficiency, unspecified; M79.7 Fibromyalgia; K59.00 Constipation, unspecified; N32.81 Overactive bladder | CPT/HCPCS: 96127; 96372; 99212; J3420 ==

== ENCOUNTER 2024-11-21 12:35 | Outpatient (AMB) | payer OTHER, SELFPAY ==
--- NOTE | 2024-11-21 13:23 | AM.OFFVISNUR ---
Intake Visit Reasons: B12 Shot Allergies morphine Allergy (Severe, Verified 10/21/24 15:19) Unresponsive zolpidem (ZOLPIDEM) Allergy (Severe, Verified 10/21/24 15:19) SLEEPWALKING aspirin (ASPIRIN) Allergy (Intermediate, Verified 10/21/24 15:19) ITCHING/SWELLING, rash,itchy ibuprofen Allergy (Intermediate, Verified 10/21/24 15:19) Swelling trazodone (TRAZODONE) Allergy (Intermediate, Verified 10/21/24 15:19) NIGHTMARES naproxen (From Anaprox) Allergy (Mild, Verified 10/21/24 15:19) RASH acetaminophen (From PERCOCET) Allergy (Unknown, Verified 10/21/24 15:19) HIVES/NAUSEA amoxicillin (Augmentin) Allergy (Unknown, Verified 10/21/24 15:19) Unknown oxycodone (From PERCOCET) Allergy (Unknown, Verified 10/21/24 15:19) HIVES/NAUSEA butalbital Allergy (Verified 10/21/24 15:19) Rash, Itching eszopiclone (From LUNESTA) Adverse Reaction (Intermediate, Verified 10/21/24 15:19) NIGHTMARES melatonin Adverse Reaction (Intermediate, Verified 10/21/24 15:38) headaches Office Meds cyanocobalamin (vitamin B-12) 1,000 mcg/mL injection solution Performing Provider: Adolph العراقي MD [facility] Administered by: Carmenza Gupta LPN on 11/21/24 13:23 Dose Route Admin Location Dispensed Lot Number Expiration Date [facility] Candle Molder Hand 1,000 mcg IM left deltoid 1 mL [id number] 03/03/27 15809-397-91 V[employer] THERA Total Dispensed Waste 1 mL 0 % Assessment & Plan Assessment & Plan Orders: Orders AMB Vitamin B12 Injection Patient Supplied Today E53.8 - Deficiency of other specified B group vitamins Coding
== END 2024-11-21 13:22 | disposition home or self-care (01) ==
LOC: HO.HMCH 12:36
PROVIDERS: PCP Internal Medicine; Visit Provider Internal Medicine
DX: E53.8 Deficiency of other specified B group vitamins (principal)

== ENCOUNTER → 2024-11-21 12:35 | Outpatient (BNVA) | payer OTHER, SELFPAY | PROVIDERS: PCP Internal Medicine; Visit Provider Internal Medicine | DX: E53.8 Deficiency of other specified B group vitamins (principal) | CPT/HCPCS: 96372; J3420 ==

== ENCOUNTER → 2024-11-27 14:49 | Outpatient (BNV) | payer OTHER, SELFPAY | PROVIDERS: PCP Internal Medicine; Referring Provider Internal Medicine; Visit Provider Internal Medicine Medical Oncology | DX: D62 Acute posthemorrhagic anemia (principal) | CPT/HCPCS: 99204 ==

== ENCOUNTER 2024-12-19 12:49 | Outpatient (AMB) | payer OTHER, SELFPAY ==
--- OUTSIDE RECORDS SUMMARY | 2024-12-19 12:51 | XMS_ITS | Patient Health Record ---
Author Organization [facility] Address [address] [place] [address] Care Team Providers Care Global Account Executive Name Role Phone Adolph العراقي MD Primary Care Provider Rex Caal [phone] Allergies Allergen (clinical drug ingredient) Drug/Non Drug Allergy documented on EMR Reaction Allergy Type Onset Date Status morphine Morphine Sulfate Unknown Drug Allergy Active amoxicillin / clavulanate Augmentin Unknown Drug Allergy Active aspirin Aspirin Unknown Drug Allergy Active Anaprox Unknown Drug Allergy Active Results Component Value Reference Range Notes Pathology (Not yet reviewed by provider) Interpretation: Performing Lab:[facility], [address] [place] [phone] Notes/Report: Reason For Referral No Information Medications Medication [...] Problem Status W/U Status Risk Notes Problem 103789763 Encounter for screening for malignant neoplasm of colon (Z12.11) Active confirmed Problem 289258992 History of adenomatous polyp of colon (Z86.010) Active confirmed Problem Diverticular disease of colon (484858939) Diverticulosis of large intestine without perforation or abscess without bleeding (K57.30) Active confirmed Problem 917045499 Chronic constipation (K59.09) Active confirmed Encounters Encounter Location Date Provider Diagnosis [facility] Outpatient [address] [place] [phone] 01/30/2024 Rex Buitrago Colon cancer scree reina [...] Start Date Coverage End Date [facility] [address] [address] [place], [place] [id number] BRENDAN SOTO Self - patient is the insured Medical (General) History Medical History History ICD Code Hx of chronic constipation-- had a defecogram with colorectal surgeons at [facility] Headaches Hypothyroidism Mild stroke 2009-no residual [...]
--- NOTE | 2024-12-19 13:20 | AM.OFFVISNUR ---
Intake Visit Reasons: b12 Allergies morphine Allergy (Severe, Verified 10/21/24 15:19) Unresponsive zolpidem (ZOLPIDEM) Allergy (Severe, Verified 10/21/24 15:19) SLEEPWALKING aspirin (ASPIRIN) Allergy (Intermediate, Verified 10/21/24 15:19) ITCHING/SWELLING, rash,itchy ibuprofen Allergy (Intermediate, Verified 10/21/24 15:19) Swelling trazodone (TRAZODONE) Allergy (Intermediate, Verified 10/21/24 15:19) NIGHTMARES naproxen (From Anaprox) Allergy (Mild, Verified 10/21/24 15:19) RASH acetaminophen (From PERCOCET) Allergy (Unknown, Verified 10/21/24 15:19) HIVES/NAUSEA amoxicillin (Augmentin) Allergy (Unknown, Verified 10/21/24 15:19) Unknown oxycodone (From PERCOCET) Allergy (Unknown, Verified 10/21/24 15:19) HIVES/NAUSEA butalbital Allergy (Verified 10/21/24 15:19) Rash, Itching eszopiclone (From LUNESTA) Adverse Reaction (Intermediate, Verified 10/21/24 15:19) NIGHTMARES melatonin Adverse Reaction (Intermediate, Verified 10/21/24 15:38) headaches Office Meds cyanocobalamin (vitamin B-12) 1,000 mcg/mL injection solution Performing Provider: Adolph العراقي MD Performing Location: [facility] Administered by: Carmenza Gupta LPN on 12/19/24 13:20 Dose Route Admin Location Dispensed Lot Number Expiration Date [facility] Public Housing Manager 1,000 mcg IM left deltoid 1 mL [id number] 03/03/27 28031-311-41 V[employer]RUVI[employer] THERA Total Dispensed Waste 1 mL 0 % Assessment & Plan Assessment & Plan Orders: Orders AMB Vitamin B12 Injection Patient Supplied Today E53.8 - Deficiency of other specified B group vitamins Coding
== END 2024-12-19 13:21 | disposition home or self-care (01) ==
LOC: HO.HMCH 12:50
PROVIDERS: PCP Internal Medicine; Visit Provider Internal Medicine
DX: E53.8 Deficiency of other specified B group vitamins (principal)

== ENCOUNTER → 2024-12-19 12:49 | Outpatient (BNVA) | payer OTHER, SELFPAY | PROVIDERS: PCP Internal Medicine; Visit Provider Internal Medicine | DX: E53.8 Deficiency of other specified B group vitamins (principal) | CPT/HCPCS: 96372; J3420 ==

== ENCOUNTER 2025-01-19 12:44 | Outpatient (AMB) | payer OTHER, SELFPAY ==
--- NOTE | 2025-01-19 12:47 | AM.OFFVISNUR ---
Intake Visit Reasons: B12 Shot Allergies morphine Allergy (Severe, Verified 10/21/24 15:19) Unresponsive zolpidem (ZOLPIDEM) Allergy (Severe, Verified 10/21/24 15:19) SLEEPWALKING aspirin (ASPIRIN) Allergy (Intermediate, Verified 10/21/24 15:19) ITCHING/SWELLING, rash,itchy ibuprofen Allergy (Intermediate, Verified 10/21/24 15:19) Swelling trazodone (TRAZODONE) Allergy (Intermediate, Verified 10/21/24 15:19) NIGHTMARES naproxen (From Anaprox) Allergy (Mild, Verified 10/21/24 15:19) RASH acetaminophen (From PERCOCET) Allergy (Unknown, Verified 10/21/24 15:19) HIVES/NAUSEA amoxicillin (Augmentin) Allergy (Unknown, Verified 10/21/24 15:19) Unknown oxycodone (From PERCOCET) Allergy (Unknown, Verified 10/21/24 15:19) HIVES/NAUSEA butalbital Allergy (Verified 10/21/24 15:19) Rash, Itching eszopiclone (From LUNESTA) Adverse Reaction (Intermediate, Verified 10/21/24 15:19) NIGHTMARES melatonin Adverse Reaction (Intermediate, Verified 10/21/24 15:38) headaches Office Meds cyanocobalamin (vitamin B-12) 1,000 mcg/mL injection solution Performing Provider: Adolph العراقي MD [facility] Administered by: Dorita Whitlock RN on 01/19/25 12:47 Dose Route Admin Location Dispensed Lot Number Expiration Date [facility] Timber Deadener 1,000 mcg IM 1 mL [id number] 03/03/09 48917-851-57 KAVITA ARRIAGA Total Dispensed Waste 1 mL 0 % Assessment & Plan Assessment & Plan Orders: Orders AMB Vitamin B12 Injection Patient Supplied Today E53.8 - Deficiency of other specified B group vitamins Coding
--- OUTSIDE RECORDS SUMMARY | 2025-01-19 13:38 | XMS_ITS | Patient Health Record ---
Author Organization [facility] Address [address] [place] [address] Care Team Providers Care Account Planner Name Role Phone Adolph العراقي MD Primary Care Provider Rex Caal [phone] Allergies Allergen (clinical drug ingredient) Drug/Non Drug Allergy documented on EMR Reaction Allergy Type Onset Date Status morphine Morphine Sulfate Unknown Drug Allergy Active amoxicillin / clavulanate Augmentin Unknown Drug Allergy Active aspirin Aspirin Unknown Drug Allergy Active Anaprox Unknown Drug Allergy Active Results Component Value Reference Range Notes Pathology (Not yet reviewed by provider) Interpretation: Performing Lab:[facility], [address] [place] [phone] Notes/Report: Reason For Referral No Information Medications [...] Problem Status W/U Status Risk Notes Problem 035890783 Encounter for screening for malignant neoplasm of colon (Z12.11) Active confirmed Problem 687647355 History of adenomatous polyp of colon (Z86.010) Active confirmed Problem Diverticulosis o f large intestine without perforation or abscess without bleeding (K57.30) Active confirmed Problem 214555827 Chronic constipation (K59.09) Active confirmed Encounters Encounter Location Date Provider Diagnosis [facility] Outpatient [address] [place] [phone] 01/30/2024 Rex Buitrago Colon cancer scree reina [...] Coverage End Date [facility] [address] [address] [place], [place] [phone] [id number] BRENDAN SOTO Self - patient is the insured Medical (General) History Medical History History ICD Code Hx of chronic constipation-- had a defecogram with colorectal surgeons at [facility] Hypothyroidism Mild stroke 2009-no residual Denies [place],DM,Lung disease,renal disease Neg. colonoscopy in 01/2004 except for in ternal hemoorhoids Colonoscopy 10/2012-small tubular adenoma EGD in 2013-Dr. Hunter--smal l HH, gastric bx neg for Hpylori and duodenal bx neg for celiac disease Colonoscopy in 07/2017 was negative high cholesterol Surgical History Surgery Date(Month/Year) left knee arthroscopy x2 right knee arthroscopy carpal tunnel release right hand
== END 2025-01-19 12:55 | disposition home or self-care (01) ==
LOC: HO.HMCH 12:45
PROVIDERS: PCP Internal Medicine; Visit Provider Internal Medicine
DX: E53.8 Deficiency of other specified B group vitamins (principal)

== ENCOUNTER → 2025-01-19 12:44 | Outpatient (BNVA) | payer OTHER, SELFPAY | PROVIDERS: PCP Internal Medicine; Visit Provider Internal Medicine | DX: E53.8 Deficiency of other specified B group vitamins (principal) | CPT/HCPCS: 96372; J3420 ==

== ENCOUNTER 2025-01-26 11:09 | Outpatient (REF) | payer OTHER, SELFPAY ==
--- OUTSIDE RECORDS SUMMARY | 2019-12-01 11:00 | XMS_ITS | Continuity of Care Document ---
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 Conveyor Operator Name Role Phone David Montiel Unavailable Unavailable Medications Medication Instructions Dosage Effective Dates (start - stop) Status Comments metformin 850 mg tablet take 1 tablet by oral route 2 times every day with morning and evening meals 850 MG - Active Procedures Procedure Date OFFICE/OUTPATIENT VISIT, [facility] Advance Directives Directive Yes / No Effective Date File Name No Information Encounters Encounter Description Practice Location Reason(s) For Visit Diagnoses Date Provider Providers Copied on Encounter [facility], [address] [place] [address], [id number], tel:[phone] [facility] Immediate Care Visit Conducted via Telehealth (chief complaint) No Information 0 Korin Hernandez. [address] [place], [address], [place]. tel: [phone] OFFICE/OUTPA TIENT VISIT, [facility], [address] [place] [address], [id number], tel:[phone] [facility] [place] Telehealth Medication refill (chief complaint) Essential (primary) hypertensionEncou nter for issue of repeat prescription 0 Piper Knowles. [address] [place], [address], [place]. tel: [phone] Family History Family Member Type Diagnosis Age At Onset No Information Payers Payer name Insurance type Covered democrat ID Authoriza tion(s) SELF PAY FLAT FEE [...]
[2025-01-26 11:26] LABS: MANUAL DIFF FLAG NO
[2025-01-26 12:19] LABS: Hematocrit 38.5 % (37.0-47.0); Hemoglobin 12.0 g/dl (12.0-16.0); Imm Gran Abs Auto 0.01 X10*3/uL (0.00-0.03); Imm Gran Pct Auto 0.2 % (0.0-0.4); Lymphocytes Absolute Auto 1.7 X10*3/uL (1.2-4.9); Mean Corpuscular HGB Conc 31.2 g/dl (31.0-35.0); Mean Corpuscular Hemoglobin 24.6 pg (27.0-33.0); Mean Corpuscular Volume 79.1 fL (80.0-98.0); NRBC Abs Auto 0.000 X10*3/uL (0.0-0.012); NRBC Pct Auto 0.0 /100WBC (0.0-0.2); Platelet Count 258 X10*3/uL (160-400); Red Blood Count 4.87 X10*6/uL (4.20-5.50); White Blood Count 4.9 X10*3/uL (4.8-10.8)
--- OUTSIDE RECORDS SUMMARY | 2025-01-26 12:32 | XMS_ITS | Patient Health Record ---
Author Organization [facility] Address [address] [place] [address] Care Team Providers Care Electric Organ Inspector And Repairer Name Role Phone Adolph العراقي MD Primary Care Provider Rex Caal [phone] Allergies Allergen (clinical drug ingredient) Drug/Non Drug Allergy documented on EMR Reaction Allergy Type Onset Date Status morphine Morphine Sulfate Unknown Drug Allergy Active amoxicillin / clavulanate Augmentin Unknown Drug Allergy Active aspirin Aspirin Unknown Drug Allergy Active Anaprox Unknown Drug Allergy Active Results Component Value Reference Range Notes Pathology (Not yet reviewed by provider) Interpretation: Performing Lab:[facility], [address] [place] [phone] Notes/Report: Reason For Referral No Information Medications [...] Problem Status W/U Status Risk Notes Problem 948204430 Encounter for screening for malignant neoplasm of colon (Z12.11) Active confirmed Problem 984986034 History of adenomatous polyp of colon (Z86.010) Active confirmed Problem Diverticular disease of colon (557373144) Diverticulosis of large intestine without perforation or abscess without bleeding (K57.30) Active confirmed Problem 806843871 Chronic constipation (K59.09) Active confirmed Encounters Encounter Location Date Provider Diagnosis [facility] [place] [address] [place] [phone] 01/30/2024 Rex Buitrago Colon cancer scree reina [...] Insured Coverage Start Date Coverage End Date [facility] [address] [address] [place], [place] [id number] BRENDAN SOTO Self - patient is the insured Medical (General) History Medical History History ICD Code Hx of chronic constipation-- had a defecogram with colorectal surgeons at [facility] Headaches Hypothyroidism Mild stroke 2009-no residual Denies [place],DM,Lung disease,renal disease Neg. colonoscopy in 01/2004 except for in ternal hemoorhoids Colonoscopy 10/2012-small tubular adenoma EGD in 2013-Dr. Hunter--smal l HH, gastric bx neg for Hpylori and duodenal bx neg for celiac disease Colonoscopy in 07/2017 was negative high cholesterol Surgical History Surgery Date(Month/Year) left knee arthroscopy x2 right knee arthroscopy carpal tunnel release right hand
[2025-01-26 12:41] LABS: Alanine Aminotransferase 13 U/L (0-31); Albumin Level 4.5 g/dL (3.5-5.0); Alkaline Phosphatase 49 U/L (39-117); Anion Gap 12 (12-20); Aspartate Amino Transferase 25 U/L (5-31); Blood Urea Nitrogen 17 mg/dL (9-16); Calcium 9.4 mg/dL (8.4-10.2); Carbon Dioxide 25 mmol/L (22-29); Chloride 107 mmol/L (96-108); Cholesterol 224 mg/dL (<200); Estimated Glomerular Filt Rate > 60; HDL Cholesterol 72 mg/dL (>40); Iron 63 mcg/dL (30-160); Percent Iron Saturation 16 % (15-50); Potassium 4.4 mmol/L (3.3-5.1); Sodium 140 mmol/L (135-145); Total Iron Binding Capacity 389 mcg/dL (228-428); Total Protein 7.1 g/dL (6.5-8.0); Triglycerides 55 mg/dL (<150); Unsaturated Iron Binding 326 ug/dL
== END 2025-01-26 11:10 | disposition home or self-care (01) ==
LOC: HO.LAB 11:09
PROVIDERS: PCP Internal Medicine; Visit Provider Internal Medicine
DX: E78.00 Pure hypercholesterolemia, unspecified (principal); D50.9 Iron deficiency anemia, unspecified
CPT/HCPCS: 36415; 80053; 80061; 83540; 85025

== ENCOUNTER 2025-02-06 13:47 | Outpatient (AMB) | payer OTHER, SELFPAY ==
--- OUTSIDE RECORDS SUMMARY | 2019-12-01 11:00 | XMS_ITS | Continuity of Care Document ---
Author Organization [facility] Address [address] [place] [phone] Phone Care Team Providers Care Painter Rough Name Role Phone David Montiel Unavailable Unavailable Medications Medication Instructions Dosage Effective Dates (start - stop) Status Comments metformin 850 mg tablet take 1 tablet by oral route 2 times every day with morning and evening meals 850 MG - Active Procedures Procedure Date OFFICE/OUTPATIENT VISIT, [facility] Advance Directives Directive Yes / No Effective Date File Name No Information Encounters Encounter Description Practice Location Reason(s) For Visit Diagnoses Date Provider Providers Copied on Encounter [facility], [address] [place] [address], [id number], tel:[phone] [facility] Immediate Care Visit Conducted via Telehealth (chief complaint) No Information 0 Korin Hernandez. [address] [place], [address], [place]. tel: [phone] OFFICE/OUTPA TIENT VISIT, [facility], [address] [place] [address], [id number], tel:[phone] [facility] [place]health Medication refill (chief complaint) Essential (primary) hypertensionEncou nter for issue of repeat prescription 0 Piper Knowles. [address] [place], [address], [place]. tel: [phone] Family History Family Member Type Diagnosis Age At Onset No Information Payers Payer name Insurance type Covered libertarian ID Authoriza tion(s) SELF PAY FLAT FEE 09 Social History Type Description Quantity Date Captured Comments Alcohol Use Details Unknown Caffeine Use Details Unknown Tobacco Use Status No Information Smoking Status No Information Sex Female Chief Complaint And Reason For Visit From encounter dated 12/01/2019 15:00'. Visit Conducted via Telehealth (chief complaint) Reason For Referral Reason For Referral No Information History Of Present Illness Encounter Date Complaint History Of Prese nt Illness Visit Conducted via Telehealth Medication refill Patient with h istory of HTN here for medication refill. Medications verified with bottles with patient. Functional Status Date Functional Assessmen t No Information Instructions Date Instruction Additional Infor mation No Information Assessments Type Assessment Date No Information Patient Care Teams Name Effective Dates (start - stop) Status Members No Information
--- OUTSIDE RECORDS SUMMARY | 2024-01-30 06:30 | XMS_ITS ---
Author Organization [facility] Address [address] [place] [address] Care Team Providers Care Director Of Labor And Delivery Name Role Phone Malcom ORANTES, [place] Primary Care Provider UnaRex Corral Unavailable [phone] REASON FOR VISIT screening, hx polyps Problems Problem Type SNOMED Code ICD Code Onset Dates Problem Status W/U Status Risk Notes Problem Diverticular disease of colon (230540780) Diverticulosis of large intestine without perforation or abscess without bleeding (K57.30) Active confirmed Encounters Encounter Location Date Provider Diagnosis [facility] [place] [address] [place], [place] [phone] 01/30/2024 Rex Buitrago Colon cancer scree reina [...] BRENDAN SOTO EDOB:1960 ( 64 yo F)Acc No.[id number]:01/30/2024 COLON WITH MAC Patient: BRENDAN JEAN Provider: Enedelia Buitrago MD :1960 A ge:63 Y S ex:Female Date:01/30/2024 Address:[address] [place] [address] Pcp:Adolph العراقي MD Subjective: * Chief Complaints: [...] 5385 LESION REMOVAL COLONOSCOPY, Modifiers: 33 , 91823 COLONOSCOPY AND BIOPSY, Modifiers: 59 , 33 * * The named appointment provid er may or may not be the originator of this progress note, and it is not deemed complete until electronically signed by the appointment provider. Sign off status: Pending * Provider: Enedelia Buitrago MD Date: 0 01/30/2024 Generated for Elvin alexandre/Sandro/eTransmitting on: 0 02/06/2025 02:15 PM EDT
[2025-02-06 13:50] VITALS: BP 110/68; PULSE 72; O2SAT 98; BMI 20.9
--- NOTE | 2025-02-06 13:50 | MHC.PC.OV ---
Vital Signs 02/06/25 13:50 Height 5 ft 4 in Weight 122 lb BMI 20.9 BP 110/68 Blood Pressure Location Lt brachial Position Sitting Pulse 72 Pulse Source Pulse Oximeter Pulse Oximetry (%) 98 Oxygen Delivery Method Room Air Intake Visit Reasons: FOLLOW UP Hvac Residential Service Technician Required: No Accompanied by: Self / Same As Patient Allergies morphine Allergy (Severe, Verified 02/06/25 14:09) Unresponsive zolpidem (ZOLPIDEM) Allergy (Severe, Verified 02/06/25 14:09) SLEEPWALKING aspirin (ASPIRIN) Allergy (Intermediate, Verified 02/06/25 14:09) ITCHING/SWELLING, rash,itchy ibuprofen Allergy (Intermediate, Verified 02/06/25 14:09) Swelling trazodone (TRAZODONE) Allergy (Intermediate, Verified 02/06/25 14:09) NIGHTMARES naproxen (From Anaprox) Allergy (Mild, Verified 02/06/25 14:09) RASH acetaminophen (From PERCOCET) Allergy (Unknown, Verified 02/06/25 14:09) HIVES/NAUSEA amoxicillin (Augmentin) Allergy (Unknown, Verified 02/06/25 14:09) Unknown oxycodone (From PERCOCET) Allergy (Unknown, Verified 02/06/25 14:09) HIVES/NAUSEA butalbital Allergy (Verified 02/06/25 14:09) Rash, Itching eszopiclone (From LUNESTA) Adverse Reaction (Intermediate, Verified 02/06/25 14:09) NIGHTMARES melatonin Adverse Reaction (Intermediate, Verified 02/06/25 14:09) headaches sumatriptan Adverse Reaction (Intermediate, Verified 02/06/25 14:15) blurred vision Medication List - Last Reconciled 02/06/25 by Adolph العراقي MD ascorbic acid (vitamin C) (Vitamin C) 500 mg PO DAILY atorvastatin 10 mg PO BEDTIME 90 days cholecalciferol (vitamin D3) 50 mcg PO DAILY cyanocobalamin (vitamin B-12) 1,000 mcg IM Q4W 90 days ferrous sulfate 325 mg PO DAILY Forteo (teriparatide) 20 mcg (0.08 mL) subcut DAILY NS hydroxyzine HCl 20 mg PO BEDTIME PRN levothyroxine 88 mcg PO DAILY linaclotide (Linzess) 145 mcg PO DAILY pen needle, diabetic (Comfort EZ Pen [place]) As directed polyethylene glycol 3350 17 grams PO DAILY PRN topiramate 100 mg PO BEDTIME Tobacco use date assessed: 02/06/25 Fall risk assessment: No Falls in past year Last assessed Fall Risk: 02/06/25 Dental Screening Dental Screen Date: 02/06/25 Did you have a dental visit in the last 12 months?: Yes Did you have a dental problem in the last 6 months where you did not have access to dental care?: No Was dental information given to patient?: Patient has dentist HPI FOLLOW UP HPI Details Patient comes in today for her follow-up visit States that she feels okay She denies any headaches or dizziness Denies any chest pains, no shortness of breath No nausea/vomiting, no abdominal pain No change in bowel habits noted She had her follow-up labs done early last week - to discuss her results FOR[facility]LY [facility] Medical History Acute respiratory disease Cervical spondylosis Arthritis Anemia Depression Numbness Elevated cholesterol CVA (cerebral vascular accident) Thyroid disease Bilateral hand pain Arthralgia Overweight (BMI 25.0-29.9) Constipation Overactive bladder Migraine Fibromyalgia Pure hypercholesterolemia Pain of right thumb Vitamin D deficiency Hypothyroidism Hyperparathyroidism Osteoporosis B12 deficiency Surgical History Hx of arthroscopy of right knee Hx of arthroscopy of left knee Hx of colonoscopy History of esophagogastroduodenoscopy (EGD) History of carpal tunnel release Family History Father Medical history unknown Mother Medical history unknown Parkinson disease Family/Other Colon cancer Daughter History of breast cancer, Onset Age: 21 Cervical cancer Sister Uterine cancer Sister Colon cancer Social History Household Members: Children Household Members Other:: daughter Housing: House Are you a primary healthcare social worker to a significant other at home: No Do you presently have visiting nurse or other home services: No Alcohol intake: never Patient Tobacco Use Status: Never used Tobacco e-Cigarette/Vaping Use: Never Used Second Hand Smoke Exposure: Yes service: No Current occupational status: disabled Sexual orientation: Straight/Heterosexual Gender identity: Female Cognitive needs: No Hearing needs: No Vision needs: Yes (reading glasses) Questionnaire PHQ-9 Over the last 2 weeks, how often have you been bothered by any of the following problems? 1. Little interest or pleasure in doing things: not at all 2. Feeling down, depressed, or hopeless: not at all 3. Trouble falling or staying asleep, or sleeping too much: several days 4. Feeling tired or having little energy: several days 5. Poor appetite or overeating: several days 6. Feeling bad about yourself - or that you are a failure or have let yourself or your family down: not at all 7. Trouble concentrating on things, such as reading the newspaper or watching television: not at all 8. Moving or speaking so slowly that other people could have noticed. Or the opposite - being so fidgety or restless that you have been moving around a lot more than usual: several days 9. Thoughts that you would be better off or of hurting yourself in some way: not at all Total score: 4 Depression Screening Interpretation: Positive Depression Screening Follow-up: Existing condition and Follow-up Visit Requested Depression Screening Done: Yes 31543 - PHQ-9 Billing: Yes Source: Developed by Drs. Rex Iniguez, Chichi Tanner, Figueroa Allen and colleagues, with an educational johnna from [employer]. Thrive Questionnaire Date Thrive assessed: 02/06/25 I am a: Patient What is your living situation today?: I have a steady place to live Within the past 12 months, did the food you bought not last and you didn't have the money to get more?: Never true Within the past 12 months, did you worry whether your food would run out before you got money to buy more?: Never true Do you have trouble paying for medicines?: No Do you have trouble getting transportation to medical appointments?: No Do you have trouble paying your heating and electricity bill?: Yes Do you have trouble taking care of your child, family member or friend?: No Do you have trouble with day-to-day activities such as bathing, preparing meals, shopping, managing finances, etc.?: No Are you currently unemployed and looking for a job?: No Are you interested in more education?: I choose not to answer this question Please select the resources that you would like help with: Care for elder or disabled Currently or been in a relationship where the following occur: I choose not to answer THRIVE Score: 1 AUDIT C Alcohol Use Questionnaire (AUDIT-C) 1. How often do you have a drink containing alcohol?: Never 3. How often do you have six or more drinks on one occasion?: Never Total Score: 0 Score Reviewed/Action Taken: Yes JOSELITO-7 AMB Questionnaire JOSELITO-7 Date JOSELITO - 7 assessed: 02/06/25 Feeling nervous, anxious, or on edge: 2 = More than half the days Not being able to stop or control worryin = Several days Worrying too much about different things: 1 = Several days Trouble relaxin = Several days Being so restless that it is hard to sit still: 0 = Not at all Becoming easily annoyed or irritable: 0 = Not at all Feeling afraid as if something awful might happen: 0 = Not at all Total JOSELITO-7 score (0-4 normal; 5-9 mild; 10-14 moderate; 15-21 severe): 5 Source: Developed by Drs. Rex Iniguez, Chichi Tanner, Figueroa Allen and colleagues, with an educational johnna from [employer]. Review of Systems Const Denies chills, Reports difficulty sleeping, Reports fatigue (chronic), Denies fever(s) and Denies headache(s) (on and off - better controlled lately) ENT Denies dysphagia, Denies dizziness, Denies otalgia, Denies headache(s) (on and off - better controlled lately), Reports neck pain, Denies odynophagia and Denies sore throat Card Denies chest pain, Denies palpitations and Denies dyspnea Resp Denies chest congestion, Denies cough and Denies dyspnea GI Denies abdominal pain, Denies constipation, Denies dysphagia, Denies heartburn, Denies diarrhea, Denies nausea, Denies odynophagia and Denies vomiting Denies difficulty voiding, Denies nocturia, Denies dysuria and Denies urinary urgency Musc Reports back pain (mild), Denies arthralgias and Reports neck pain Skin/Breast Denies rash Neuro Denies dizziness and Denies headache(s) (on and off - better controlled lately) Endo Reports fatigue (chronic) and Denies palpitations Physical exam (Primary Care) Vital Signs: Last Vital Signs Pulse 72 02/06/25 13:50 BP 110/68 02/06/25 13:50 Pulse Ox 98 02/06/25 13:50 Oxygen Delivery Method Room Air 02/06/25 13:50 BMI result Body Mass Index 20.9 Tobacco/Smoking Status: Tobacco use Status Tobacco use date assessed 02/06/25 02/06/25 14:00 Patient Tobacco Use Status Never used Tobacco 02/06/25 14:00 e-Cigarette/Vaping Use Never Used 02/06/25 14:00 PHQ-9: PHQ-9 Score PHQ-9: Total score 4 02/06/25 14:12 Depression Screening Interpretation: Positive Depression Screening Follow-up: Existing condition and Follow-up Visit Requested Thrive Assessment: Date of Thrive Assessment Date Thrive assessed 02/06/25 02/06/25 14:00 Currently or been in a relationship where the following occur: I choose not to answer Const General: no acute distress and alert HENMT Ears: TM's normal bilaterally and EAC's normal Throat: Yes posterior oropharynx normal and Yes tonsils normal (no TP congestion noted) Neck Neck: No lymphadenopathy and Yes tender Thyroid: Thyroid normal Resp Auscultation: clear to auscultation bilaterally, no rales and no wheezes Cardio Rate: regular rate Rhythm: abnormal rhythm with ectopic beats (occasionally ) Heart sounds: no murmurs GI Palpation (GI): Soft to palpation and nontender Auscultation: normal bowel sounds General: Yes no CVA tenderness Back/Spine/Pelvis Back: no CVA tenderness Cervical Spine: Cervical spine tenderness Thoracic/Lumbar Spine: lumbar spinal tenderness (mild) Skin Rashes: no rashes Extrem General: Yes no clubbing, cyanosis or edema Results Reviewed Results Reviewed: Laboratory Tests 01/26/25 11:25 WBC 4.9 Hgb 12.0 Hct 38.5 Plt Count 258 Sodium 140 Potassium 4.4 Creatinine 0.87 Estimated GFR > 60 Fasting Glucose 98 Calcium 9.4 AST 25 ALT 13 Triglycerides 55 Cholesterol 224 H LDL Cholesterol, Calc 141 H HDL Cholesterol 72 Coding Level of Care Code Est Pt Level 4 (45620) Diagnoses Pure hypercholesterolemia E78.00 Migraine without status migrainosus, not intractable, unspecified migraine type G43.909 Intractability: not intractable Migraine type: unspecified Status migrainosus presence: without status migrainosus Hypothyroidism, unspecified type E03.9 Hypothyroidism type: unspecified Iron deficiency anemia, unspecified iron deficiency anemia type D50.9 Anemia type: iron deficiency Iron deficiency anemia type: unspecified iron deficiency B12 deficiency E53.8 Cervical spondylosis M47.812 Osteoporosis, unspecified osteoporosis type, unspecified pathological fracture presence M81.0 Osteoporosis type: unspecified Presence of current pathological fracture: unspecified Vitamin D deficiency E55.9 Fibromyalgia M79.7 Constipation, unspecified constipation type K59.00 Constipation type: unspecified constipation type Overactive bladder N32.81 Additional Codes PHQ-9 - 82267 - PHQ-9 Billing: Yes ([id number]) Assessment & Plan Assessment & Plan (1) Pure hypercholesterolemia: Code(s): E78.00 - Pure hypercholesterolemia, unspecified Category: Medical Plan: Results of her labs done early last week reviewed and discussed with patient - she is cautioned again that her cholesterol levels have increased from previous on her recent labs Continue Atorvastatin 10 mg Q HS - she is advised again of LDL cholesterol goal of at least <100 mg/dl Patient states that she often forgets to take her Atorvastatin Rx at night as she is used to taking all of her medications in the morning Have advised patient that if this is the main reason that she tends to forget taking her medications, then she can just take her Atorvastatin in the morning along with all of her other medications if this will help improve compliance Will recheck her labs and fasting lipids in 3 months for follow up (2) Migraine: Code(s): G43.909 - Migraine, unspecified, not intractable, without status migrainosus Category: Medical Qualifiers: Intractability: not intractable Migraine type: unspecified Status migrainosus presence: without status migrainosus Qualified Code(s): G43.909 - Migraine, unspecified, not intractable, without status migrainosus Plan: Patient states that her migraine headaches have been doing okay lately They were much better controlled previously on prophylactic Topiramate but this was discontinued by endocrinology a while back Have offered to start her on Amitriptyline instead but she recalled gaining a lot of weight while she was on Amitriptyline in the past and prefers not to restart Rx at this time Continue Fioricet PRN for symptomatic relief of her headaches Follow up with neurology (Dr. Shi) as scheduled (3) Hypothyroidism: Code(s): E03.9 - Hypothyroidism, unspecified Category: Medical Qualifiers: Hypothyroidism type: unspecified Qualified Code(s): E03.9 - Hypothyroidism, unspecified Plan: Her free T4 was normal and TSH was low back in October 2024; TFTs were not repeated on her most recent labs Continue Levothyroxine 88 mcg QD Patient is currently clinically euthyroid Follow up with endocrinology (Dr. Andrews) as scheduled Will continue to monitor her TFTs regularly (4) Anemia: Code(s): D64.9 - Anemia, unspecified Category: Medical Qualifiers: Anemia type: iron deficiency Iron deficiency anemia type: unspecified iron deficiency Qualified Code(s): D50.9 - Iron deficiency anemia, unspecified Plan: Patient is again slightly anemic on her recent labs - is likely due to iron deficiency She has been unable to tolerate oral iron supplements in the past Will refer her back to hematology for further management and consideration for IV iron infusion when appropriate - she was seen by Dr. Zepeda a few months ago and tried back on oral iron Rx and if still not tolerated, will then start on IV Venofer Follow up with hematology as scheduled (5) B12 deficiency: Code(s): E53.8 - Deficiency of other specified B group vitamins Category: Medical Plan: Continue Vitamin B12 injections monthly (6) Cervical spondylosis: Code(s): M47.812 - Spondylosis without myelopathy or radiculopathy, cervical region Category: Medical Plan: Cervical spine x-rays done in September 2023 revealed (+) mild multilevel cervical spondylosis and mild bilateral facet arthritis with neural foraminal encroachment at C6-C7 If her neck pain/symptom increases, may need to consider referral to neurosurgery for further evaluation and management (7) Osteoporosis: Code(s): M81.0 - Age-related osteoporosis without current pathological fracture Category: Medical Qualifiers: Osteoporosis type: unspecified Presence of current pathological fracture: unspecified Qualified Code(s): M81.0 - Age-related osteoporosis without current pathological fracture Plan: Repeat BMD done on 03/11/2021 revealed (+) osteoporosis based on the lowest T-score value of -2.7 in the lumbar spine. Patient was cautioned that her BMD has declined by 9% or more in both her lumbar spine and left femur? BMD on 01/24/2019 also showed a 12% decrease in BMD at her femur from her previous scan in 2017; AP spine BMD is unchanged from before Patient could not tolerate Alendronate due to GI symptoms/side effects Most recent BMD done on 07/17/2023 revealed (+) osteoporosis based on the lowest T-score value of -3.1 in the lumbar spine applying World Health Organization criteria - her BMD appears to have declined about 15% from her previous She was seen by Dr. Andrews for endocrinology consultation and was advised to start Tx with either Evenity vs Tymlos or Forteo She was going to start Tx with Evenity initially but her insurance would not cover Rx - this was later switched to Forteo, which she is now on at 20 mg SQ QD Follow up with endocrinology as scheduled (8) Vitamin D deficiency: Code(s): E55.9 - Vitamin D deficiency, unspecified Category: Medical Plan: Continue Vitamin D3 2000 units QD (9) Fibromyalgia: Code(s): M79.7 - Fibromyalgia Category: Medical Plan: Patient is again encouraged again to exercise regularly and stay active to help manage her fibromyalgia symptoms better She used to take Tizanidine 4 mg TID PRN but she has not had to take Rx in a while now (10) Constipation: Code(s): K59.00 - Constipation, unspecified Category: Medical Qualifiers: Constipation type: unspecified constipation type Qualified Code(s): K59.00 - Constipation, unspecified Plan: She is encouraged again on increased oral fluids and dietary fiber Continue MiraLax powder 17 g daily as instructed and Linzess 145 mcg QD She had a repeat colonoscopy done with Dr. Buitrago back on 01/30/2024 - (+) tubular adenoma and she is advised to have a repeat colonoscopy done again in 5 years (2028) Due to her increasing constipation despite her current medications, she would like to see about getting a 2nd opinion - we tried referring her to [facility] [place] [facility]ology for further recommendations on increasing/chronic constipation but she has not been seen yet (11) Overactive bladder: Code(s): N32.81 - Overactive bladder Category: Medical Plan: Follow up with urology as scheduled Plan Follow up in 3 months Orders: Orders Lipid Panel 3 Months E78.00 - Pure hypercholesterolemia, unspecified Vitamin D 25-OH Total 3 Months E55.9 - Vitamin D deficiency, unspecified UA CC w/rflx Micro + Cult 3 Months R30.0 - Dysuria Complete Blood Count Auto Diff 3 Months D64.9 - Anemia, unspecified Comprehensive [place]. Panel Fast 3 Months E78.00 - Pure hypercholesterolemia, unspecified Free T4 (Free Thyroxine) 3 Months E03.9 - Hypothyroidism, unspecified Thyroid Stimulating Hormone 3 Months E03.9 - Hypothyroidism, unspecified
--- OUTSIDE RECORDS SUMMARY | 2025-02-06 14:16 | XMS_ITS | Patient Health Record ---
Author Organization [facility] Address [address] [place] [address] Care Team Providers Care Service Cashier Name Role Phone Adolph العراقي MD Primary Care Provider Rex Caal [phone] Allergies Allergen (clinical drug ingredient) Drug/Non Drug Allergy documented on EMR Reaction Allergy Type Onset Date Status morphine Morphine Sulfate Unknown Drug Allergy Active amoxicillin / clavulanate Augmentin Unknown Drug Allergy Active aspirin Aspirin Unknown Drug Allergy Active Anaprox Unknown Drug Allergy Active Reason For Referral No Information Medications Medication [...] Problem Status W/U Status Risk Notes Problem [id number] Encounter for screening for malignant neoplasm of colon (Z12.11) Active confirmed Problem 525929310 History of adenomatous polyp of colon (Z86.010) Active confirmed Problem Diverticular disease of colon (940606776) Diverticulosis of large intestine without perforation or abscess without bleeding (K57.30) Active confirmed Problem 536956094 Chronic constipation (K59.09) Active confirmed Plan Of Treatment Pending Test Test Name Order Date Pathology 01/30/2024 Future Test Test Name Order Date COLONOSCOPY 09/24/2012 COLONOSCOPY 05/24/2017 COLONOSCOPY 10/26/2023 Insurance Providers Payer Name Payer Address Payer Phone Subscriber Number Group Number Insured Name Patient Relationship to Insured Coverage Start Date Coverage End Date [facility] [address] [address] [place], [place] [id number] BRENDAN SOTO Self - patient is the insured Medical (General) History Medical History History ICD Code Hx of chronic constipation-- had a defecogram with colorectal surgeons at [facility] Headaches Hypothyroidism Mild stroke 2009-no residual Denies NC,DM,Lung disease,renal disease Neg. colonoscopy in 01/2004 except for in ternal hemoorhoids Colonoscopy 10/2012-small tubular adenoma EGD in 2013-Dr. Hunter--[facility], gastric bx neg for Hpylori and duodenal bx neg for celiac disease Colonoscopy in 07/2017 was negative high cholesterol Surgical History Surgery Date(Month/Year) left knee arthroscopy x2 right knee arthroscopy carpal tunnel release right hand
== END 2025-02-06 14:28 | disposition home or self-care (01) ==
LOC: HO.HMCH 13:48
PROVIDERS: PCP Internal Medicine; Visit Provider Internal Medicine
DX: E78.00 Pure hypercholesterolemia, unspecified (principal); G43.909 Migraine, unspecified, not intractable, without status migrainosus; E03.9 Hypothyroidism, unspecified; D50.9 Iron deficiency anemia, unspecified; E53.8 Deficiency of other specified B group vitamins; M47.812 Spondylosis without myelopathy or radiculopathy, cervical region; M81.0 Age-related osteoporosis without current pathological fracture; E55.9 Vitamin D deficiency, unspecified; M79.7 Fibromyalgia; K59.00 Constipation, unspecified; N32.81 Overactive bladder

== ENCOUNTER → 2025-02-06 13:47 | Outpatient (BNVA) | payer OTHER, SELFPAY | PROVIDERS: PCP Internal Medicine; Visit Provider Internal Medicine | DX: M47.812 Spondylosis without myelopathy or radiculopathy, cervical region (principal); E78.00 Pure hypercholesterolemia, unspecified; G43.909 Migraine, unspecified, not intractable, without status migrainosus; D50.9 Iron deficiency anemia, unspecified; E53.8 Deficiency of other specified B group vitamins; E55.9 Vitamin D deficiency, unspecified; M79.7 Fibromyalgia; K59.00 Constipation, unspecified; N32.81 Overactive bladder | CPT/HCPCS: 96127; 99212 ==

== ENCOUNTER 2025-02-19 12:48 | Outpatient (AMB) | payer OTHER, SELFPAY ==
--- NOTE | 2025-02-19 13:31 | AM.OFFVISNUR ---
Intake Visit Reasons: B12 Shot Allergies morphine Allergy (Severe, Verified 02/06/25 14:09) Unresponsive zolpidem (ZOLPIDEM) Allergy (Severe, Verified 02/06/25 14:09) SLEEPWALKING aspirin (ASPIRIN) Allergy (Intermediate, Verified 02/06/25 14:09) ITCHING/SWELLING, rash,itchy ibuprofen Allergy (Intermediate, Verified 02/06/25 14:09) Swelling trazodone (TRAZODONE) Allergy (Intermediate, Verified 02/06/25 14:09) NIGHTMARES naproxen (From Anaprox) Allergy (Mild, Verified 02/06/25 14:09) RASH acetaminophen (From PERCOCET) Allergy (Unknown, Verified 02/06/25 14:09) HIVES/NAUSEA amoxicillin (Augmentin) Allergy (Unknown, Verified 02/06/25 14:09) Unknown oxycodone (From PERCOCET) Allergy (Unknown, Verified 02/06/25 14:09) HIVES/NAUSEA butalbital Allergy (Verified 02/06/25 14:09) Rash, Itching eszopiclone (From LUNESTA) Adverse Reaction (Intermediate, Verified 02/06/25 14:09) NIGHTMARES melatonin Adverse Reaction (Intermediate, Verified 02/06/25 14:09) headaches sumatriptan Adverse Reaction (Intermediate, Verified 02/06/25 14:15) blurred vision Office Meds cyanocobalamin (vitamin B-12) 1,000 mcg/mL injection solution Performing Provider: Adolph العراقي MD [facility] [place] Administered by: Isabella Riley RN on 02/19/25 13:31 Dose Route Admin Location Dispensed Lot Number Expiration Date [facility] [employer] 1,000 mcg IM left deltoid 1 mL [id number] 05/03/27 60714-295-56 [employer] Total Dispensed Waste 1 mL 0 % Assessment & Plan Assessment & Plan Orders: Orders AMB Vitamin B12 Injection Patient Supplied Today E53.8 - Deficiency of other specified B group vitamins Coding
== END 2025-02-19 13:34 | disposition home or self-care (01) ==
PROVIDERS: PCP Internal Medicine; Visit Provider Internal Medicine
DX: E53.8 Deficiency of other specified B group vitamins (principal)

== ENCOUNTER → 2025-02-19 12:48 | Outpatient (BNVA) | payer OTHER, SELFPAY | PROVIDERS: PCP Internal Medicine; Visit Provider Internal Medicine | DX: E53.8 Deficiency of other specified B group vitamins (principal) | CPT/HCPCS: 96372; J3420 ==

== ENCOUNTER 2025-03-23 12:57 | Outpatient (AMB) | payer OTHER, SELFPAY ==
--- NOTE | 2025-03-23 13:33 | AM.OFFVISNUR ---
Intake Visit Reasons: B12 shot Allergies morphine Allergy (Severe, Verified 03/02/25 13:17) Unresponsive zolpidem (ZOLPIDEM) Allergy (Severe, Verified 03/02/25 13:17) SLEEPWALKING aspirin (ASPIRIN) Allergy (Intermediate, Verified 03/02/25 13:17) ITCHING/SWELLING, rash,itchy ibuprofen Allergy (Intermediate, Verified 03/02/25 13:17) Swelling trazodone (TRAZODONE) Allergy (Intermediate, Verified 03/02/25 13:17) NIGHTMARES naproxen (From Anaprox) Allergy (Mild, Verified 03/02/25 13:17) RASH acetaminophen (From PERCOCET) Allergy (Unknown, Verified 03/02/25 13:17) HIVES/NAUSEA amoxicillin (Augmentin) Allergy (Unknown, Verified 03/02/25 13:17) Unknown oxycodone (From PERCOCET) Allergy (Unknown, Verified 03/02/25 13:17) HIVES/NAUSEA butalbital Allergy (Verified 03/02/25 13:17) Rash, Itching eszopiclone (From LUNESTA) Adverse Reaction (Intermediate, Verified 03/02/25 13:17) NIGHTMARES melatonin Adverse Reaction (Intermediate, Verified 03/02/25 13:17) headaches sumatriptan Adverse Reaction (Intermediate, Verified 03/02/25 13:17) blurred vision Office Meds cyanocobalamin (vitamin B-12) 1,000 mcg/mL injection solution Performing Provider: Adolph العراقي MD [facility] Administered by: Dorita Whitlock RN on 03/23/25 13:33 Dose Route Admin Location Dispensed Lot Number Expiration Date [facility] [place] [employer] 1,000 mcg IM 1 mL [id number] [employer] THERA Total Dispensed Waste 1 mL 0 % Assessment & Plan Assessment & Plan Orders: Orders AMB Vitamin B12 Injection Patient Supplied Today E53.8 - Deficiency of other specified B group vitamins Coding
== END 2025-03-23 13:41 | disposition home or self-care (01) ==
LOC: HO.HMCH 12:58
PROVIDERS: PCP Internal Medicine; Visit Provider Internal Medicine
DX: E53.8 Deficiency of other specified B group vitamins (principal)

== ENCOUNTER → 2025-03-23 12:57 | Outpatient (BNVA) | payer OTHER, SELFPAY | PROVIDERS: PCP Internal Medicine; Visit Provider Internal Medicine | DX: E53.8 Deficiency of other specified B group vitamins (principal) | CPT/HCPCS: 96372; J3420 ==

== ENCOUNTER 2025-04-16 13:23 | Outpatient (AMB) | payer OTHER, SELFPAY ==
--- OUTSIDE RECORDS SUMMARY | 2024-01-30 05:30 | XMS_ITS ---
Author Organization [facility] Address [address] [place] [address] Care Team Providers Care Design Draftsman Name Role Phone Malcom ORANTES, [place] Primary Care Provider UnaRex Corral Unavailable [phone] REASON FOR VISIT screening, hx polyps Problems Problem Type SNOMED Code ICD Code Onset Dates Problem Status W/U Status Risk Notes Problem Diverticular disease of colon (764855618) Diverticulosis of large intestine without perforation or abscess without bleeding (K57.30) Active confirmed Encounters Encounter Location Date Provider Diagnosis [facility] [place] [address] [place], [place] [phone] 01/30/2024 Rex Buitrago Colon cancer scree reina Z12.11 ; Colon polyps K63.5 ; Diverticulosis of large intestine without perforation or abscess without bleeding K57.30 and Other hemorrhoids K64.8 Assessments Encounter Date Diagnosis (ICD Code) Assessment Notes Treatment Notes Treatment Clinical Notes Section Notes 01/30/2024 Colon cancer screening (ICD-10 - Z12.11) 01/30/2024 Colon polyps (ICD-10 - K63.5) 01/30/2024 Diverticulosis of large intestine without perforation or abscess without bleeding (ICD-10 - K57.30) 01/30/2024 Other hemorrhoids (ICD-10 - K64.8) Plan Of Treatment No Information Progress Notes * BRENDAN STOO EDOB:1960 ( 64 yo F)Acc No.[id number]:01/30/2024 COLON WITH MAC Patient: BRENDAN JEAN Provider: Enedelia Buitrago MD :1960 A ge:63 Y S ex:Female Date:01/30/2024 Address:[address] [place] [address] Pcp:Adolph العراقي MD Subjective: * Chief Complaints: * 1 . Screening, hx polyps. * Medical History: Objective: * Vitals: Assessment: * Assessment: 1. C olon cancer screening - Z12.11 (Primary) 2 . C olon polyps - K63.5? 3. D iverticulosis of large intestine without perforation or abscess without bleeding - K57.30 4 . O ther hemorrhoids - K64.8 Plan: * Treatment: * Procedure Codes: 4 5385 LESION REMOVAL COLONOSCOPY, Modifiers: 33 , 41237 COLONOSCOPY AND BIOPSY, Modifiers: 59 , 33 * * The named appointment provid er may or may not be the originator of this progress note, and it is not deemed complete until electronically signed by the appointment provider. Sign off status: Pending * Provider: Enedelia Buitrago MD Date: 0 01/30/2024 Generated for Elvin alexandre/Sandro/eTransmitting on: 06/16/2024 04:40 PM EST
--- NOTE | 2025-04-16 13:26 | MHC.OFFVIS ---
Vital Signs 04/16/25 13:28 Height 5 ft 4.61 in Weight 123 lb 10.869 oz BMI 20.8 BP 100/64 Blood Pressure Location Lt brachial Position Sitting Pulse 70 Pulse Source Pulse Oximeter Pulse Oximetry (%) 100 Oxygen Delivery Method Room Air Intake Visit Reasons: Osteoporosis Intake Note: Patient present today for Osteoporosis follow up. Investment Sales Assistant Required: No Accompanied by: Self / Same As Patient Allergies morphine Allergy (Severe, Verified 04/16/25 13:30) Unresponsive zolpidem (ZOLPIDEM) Allergy (Severe, Verified 04/16/25 13:30) SLEEPWALKING aspirin (ASPIRIN) Allergy (Intermediate, Verified 04/16/25 13:30) ITCHING/SWELLING, rash,itchy ibuprofen Allergy (Intermediate, Verified 04/16/25 13:30) Swelling trazodone (TRAZODONE) Allergy (Intermediate, Verified 04/16/25 13:30) NIGHTMARES naproxen (From Anaprox) Allergy (Mild, Verified 04/16/25 13:30) RASH acetaminophen (From PERCOCET) Allergy (Unknown, Verified 04/16/25 13:30) HIVES/NAUSEA amoxicillin (Augmentin) Allergy (Unknown, Verified 04/16/25 13:30) Unknown oxycodone (From PERCOCET) Allergy (Unknown, Verified 04/16/25 13:30) HIVES/NAUSEA butalbital Allergy (Verified 04/16/25 13:30) Rash, Itching eszopiclone (From LUNESTA) Adverse Reaction (Intermediate, Verified 04/16/25 13:30) NIGHTMARES melatonin Adverse Reaction (Intermediate, Verified 04/16/25 13:30) headaches sumatriptan Adverse Reaction (Intermediate, Verified 04/16/25 13:30) blurred vision HPI Comments Details: 64 YO Female with PMHx Hypothyroidism, Migraine Headache on Topirimate is seen in F/U for Osteoporosis 1) Osteoporosis: First diagnosed in 2016. Was started on treatment with Fosamax 70 mg PO once a week 02/26/2019. She reports jaw pain with this and stopped it of her own accord. We then discussed starting Prolia, but she was undergoing workup for elevated PTH so this was delayed. She then has consistently refused treatment since that time. No history of pathologic fracture or ONJ. Has 0-1 servings of dietary calcium per day in the form of yogurt, a glass of milk or some cheese. Does take a Calcium supplement but unsure of the dose. Takes 50,000 IU of Vitamin D weekly, has been taking this for many years. She underwent a full biochemical workup for secondary causes of Osteoporosis which revealed very low urinary calcium, with elevated PTH and normal Vitamin D, suggesting low calcium intake. Was using Topirimate daily for migraine prophylaxis, but stopped this abruptly in 2019. She has not resumed it. Denies ever using PPI, anticoagulant or glucocorticoid medication. She had a repeat DEXA 03/11/2021 which revealed significant improvement in her hips, which are no longer in the osteoporotic range. She continues with osteoporosis of the spine. Does not do weight bearing exercise. Fracture history: Had traumatic fractures of her toes and foot, but no fragility fractures. Height loss: Denies. 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 Menses was always regular. , she breastfed for approximately 3 years in total. Menopause was age 52. History of Kidney stones: Family history of Osteoporosis in her Mother and 3 sisters. Her mother did have a hip fracture. UTD on dental cleanings and sees dentist every 6 months. No planned upcoming dental work. DEXA 03/11/2021: FINDINGS: AP SPINE L1-L4: Current: BMD 0.852 g/cm2, Z-score -1.7, T-score -2.7, osteoporosis, 0.2% decrease from previous, 9.9% decrease from baseline (<5% change is not significant). Prior: BMD 0.854 g/cm2. Baseline: BMD 0.946 g/cm2. LEFT FEMUR, NECK: Current: BMD 0.795 g/cm2, Z-score -0.6, T-score -1.7, osteopenia. Prior: BMD 0.686 g/cm2. Baseline: BMD 0.840 g/cm2. LEFT FEMUR, TOTAL: Current: BMD 0.794 g/cm2, Z-score -0.9, T-score -1.7, osteopenia, 9.4% increase from previous, 9.0% decrease from baseline (<5% change is not significant). Prior: BMD 0.726 g/cm2. Baseline: BMD 0.873 g/cm2. 2) Hypothyroidism: She has hypothyroidism and takes Levothyroxine 75 mcg PO daily. TSH has remained WNL. Labs: Laboratory Tests 08/21/22 08:38 Sodium 140 Potassium 4.2 Creatinine 1.00 Estimated GFR 56 Calcium 9.5 Albumin 4.3 25-OH Vitamin D Total 46.1 TSH 0.84 Free T4 1.07 Currently on Forteo started in 04/2024. No fracture since last visit. [facility] Medical History Acute respiratory disease Cervical spondylosis Arthritis Anemia Depression Numbness Elevated cholesterol CVA (cerebral vascular accident) Thyroid disease Bilateral hand pain Arthralgia Overweight (BMI 25.0-29.9) Constipation Overactive bladder Migraine Fibromyalgia Pure hypercholesterolemia Pain of right thumb Vitamin D deficiency Hypothyroidism Hyperparathyroidism Osteoporosis B12 deficiency Surgical History Hx of arthroscopy of right knee Hx of arthroscopy of left knee Hx of colonoscopy History of esophagogastroduodenoscopy (EGD) History of carpal tunnel release Family History Father Medical history unknown Mother Medical history unknown Parkinson disease Family/Other Colon cancer Daughter History of breast cancer, Onset Age: 21 Cervical cancer Sister Uterine cancer Sister Colon cancer Social History Household Members: Children Household Members Other:: daughter Housing: House Are you a primary wild animal caretaker to a significant other at home: No Do you presently have visiting nurse or other home services: No Alcohol intake: never Patient Tobacco Use Status: Never used Tobacco e-Cigarette/Vaping Use: Never Used Second Hand Smoke Exposure: Yes service: No Current occupational status: disabled Sexual orientation: Straight/Heterosexual Gender identity: Female Cognitive needs: No Hearing needs: No Vision needs: Yes (reading glasses) Assessment & Plan Assessment & Plan (1) Osteoporosis: Code(s): M81.0 - Age-related osteoporosis without current pathological fracture Category: Medical Qualifiers: Osteoporosis type: unspecified Presence of current pathological fracture: unspecified Qualified Code(s): M81.0 - Age-related osteoporosis without current pathological fracture Plan: This is a 62-year-old female with a history of osteoporosis and low 24 hour urinary calcium now corrected was supposed to be on Forteo since 04/2024 Other secondary causes of ruled out . The plan is to continue the Forteo for full 2 years.. We will check a repeat DEXA in about 4 months' time We will then transition to an anti resorptive in about a year's time (2) Hypothyroidism: Code(s): E03.9 - Hypothyroidism, unspecified Category: Medical Qualifiers: Hypothyroidism type: unspecified Qualified Code(s): E03.9 - Hypothyroidism, unspecified Plan: Currently replaced on 88 mcg levothyroxine and 1/2 tablet once a wk. Clinically and biochemically euthyroid Plan is to continue the current management. At this point, terms of the hypothyroidism the patient returned to the care of her primary care provider and returned back to endocrinology as needed Orders: Orders XR DEXA axial skeleton 5 Months M81.0 - Age-related osteoporosis without current pathological fracture Coding Level of Care Code Est Pt Level 3 (84585) Diagnoses Osteoporosis, unspecified osteoporosis type, unspecified pathological fracture presence M81.0 Osteoporosis type: unspecified Presence of current pathological fracture: unspecified Hypothyroidism, unspecified type E03.9 Hypothyroidism type: unspecified
[2025-04-16 13:28] VITALS: BP 100/64; PULSE 70; O2SAT 100; BMI 20.8
--- OUTSIDE RECORDS SUMMARY | 2025-04-16 16:40 | XMS_ITS | Clinical Summary ---
Author Organization [facility] Address [address] [place] [address] Phone Care Team Providers Care Operations Support Representative Name Role Phone Sania Gage MD Primary Care Provid er Medications No known medications Active Problems No known active problems Social History Tobacco Use Types Packs/Day Years Used Date Smoking Tobacco: Never Assessed Education Answer Date Recorded Are you interested in more education? Not on kristen e 09/29/2022 Are you concerned about learning? Not on file 09/29/2022 No 09/29/2022 No 09/29/2022 Digital Access Answer Date Recorded No 10/28/2022 No 10/28/2022 Reliable internet access at home? Not on file 10/28/2022 Device with a working camera? Not on file Comments Unknown Sex and Gender Information Value Date Recorded Sex Assigned at Not on file Legal Sex Female 1:15 PM EST Gender Identity Not on file Sexual Orientation Not on file Plan of Treatment Health Maintenance Due Date Last Done Comments LIPID PANEL 1960 DEPRESSION SCREENING 1972 SMOKING Hx and SMOKELESS TOBACCO SCREENING 1973 HEPATITIS C SCREENING 1978 HIV ONE-TIME SCREENING (18-6 5 YEARS) 1978 PAP SMEAR 1981 MAMMOGRAM 2000 COLOGUARD 2005 COLONOSCOPY 2005 COLORECTAL CANCER SCREENING 2005 FIT TEST 2005 FOBT 2005 SIGMOIDOSCOPY 2005 VIRTUAL COLONOSCOPY 2005 PNEUMOCOCCAL VACCINES (50+ years) (1 of 1 - PCV) 2010 ZOSTER VACCINES (1 of 2) 2010 INFLUENZA VACCINE (#1) 2025 COVID-19 VACCINE (3 - 2024-2 6 season) 2025 12/16/2020, 11/12/2020 Adult Td,Tdap Booster 10/25/2027 10/24/2017 RSV VACCINE (1 - 1-dose 75+ series) 12/09/2035 HEPATITIS A VACCINES Aged Out No long er eligible based on patient's age to complete this topic HIB VACCINES Aged Out No longer eligi ble based on patient's age to complete this topic IPV VACCINES Aged Out No longer eligi ble based on patient's age to complete this topic MENINGOCOCCAL VACCINES (ACWY) Aged Out No longer eligible based on patient's age to complete this topic MENINGOCOCCAL VACCINES (B) Aged Out N o longer eligible based on patient's age to complete this topic Medical Devices Not on file Insurance [place] [address] [place] [address] ACO ACO ACO ACO ACO ACO ACO * Guarantor: Ina Ewing Account Type Relation to Patient Date of Phone Billing Address Personal/Family Self 1960 [address] [place] [address] [facility] ACO Care Teams Operations Support Representative Relationship Specialty Start Date End Date Sania Gage MD [address] [place] [address] PCP - General 04/08/19 Additional Source Comments The information contained in this document represents components of the legal health record. It is not the complete legal health record.[facility]
--- OUTSIDE RECORDS SUMMARY | 2025-04-16 16:40 | XMS_ITS | Patient Health Record ---
Author Organization [facility] Address [address] [place] [address] Care Team Providers Care Band Salvager Name Role Phone Adolph العراقي MD Primary Care Provider Rex Caal [phone] Allergies Allergen (clinical drug ingredient) Drug/Non Drug [...] on an empty stomach Orally Once a day; Duration: 30 day(s) 10/26/2023 Active Gabapentin 100 MG Oral; Duration: 30 Active Topiramate 100 MG TK 1 T PO QD HS Oral; Duration: 30 Active Cyanocobalamin 1000 MCG/ML 1 ml [...] at 5:00 p.m. the day before the procedure; Duration: 2 days 10/29/2023 Active Levothyroxine Sodium 75 MCG Oral; Duration: 90 Active Dulcolax (colon prep) 5 MG Take 2 Tablets 2 days before the colonoscopy, and take 2 tablets at 3:00 p.m and 7:00p.m. the day before the colonoscopy Orally Two tablets once two days before the colonoscopy, and then two tablets twice a day for one day before the colonscopy; Duration: 2 days 10/29/2023 Active Tirosint 88 MCG Oral; Duration: 90 Active Nortriptyline HCl 10 MG Oral; Duration: 90 as needed Active GaviLAX 17 GM/SCOOP TAKE HALF A BOTTLE (205 GRAMS) MIXED IN 1 QUART OF GATORADE AND TAKE BY MOUTH TWO DAYS BEFORE COLONOSCOPY, THEN THE DAY BEFORE TAKE 1 FULL BOTTLE MIXED WITH 64 OUNCES OF GATORADE; Duration: 30 Active MiraLax - as directed Orally Once or twice a day once or twice a day Active Atorvastatin Calcium 10 MG Oral; Duration: 90 Active Immunizations Vaccine Route Administration Date Status Comme nts Influenza Unknown 03/26/2019 Refused Influenza Unknown 10/26/2023 Refused Problems Problem Type SNOMED Code ICD Code Onset Dates Problem Status W/U Status Risk Notes Problem Screening for malignant neoplasm of colon (339057637) Encounter for screening for malignant neoplasm of colon (Z12.11) Active confirmed Problem History of adenomatous polyp of colon (568872577) History of adenomatous polyp of colon (Z86.010) Active confirmed Problem Diverticular disease of colon (608548227) Diverticulosis of large intestine without perforation or abscess without bleeding (K57.30) Active confirmed Problem Chronic constipation (446165012) Chronic constipation (K59.09) Active confirmed Plan Of Treatment Pending Test Test Name Order Date Pathology 01/30/2024 Future Test Test Name Order Date COLONOSCOPY 09/24/2012 COLONOSCOPY 05/24/2017 COLONOSCOPY 10/26/2023 Insurance Providers Payer Name Payer Address Payer Phone Subscriber Number Group Number Insured Name Patient Relationship to Insured Coverage Start Date Coverage End Date [facility] [address] [address] [place], [place] [id number] BRENDAN SOTO Self - patient is the insured Medical (General) History Medical History History ICD Code Hx of chronic constipation-- had a defecogram with colorectal surgeons at [facility] Hypothyroidism Mild stroke 2009-no residual Denies HI,DM,Lung disease,renal disease Neg. colonoscopy in 01/2004 except for in ternal hemoorhoids Colonoscopy 10/2012-small tubular adenoma EGD in 2013-Dr. Hunter--smal l HH, gastric bx neg for Hpylori and duodenal bx neg for celiac disease Colonoscopy in 07/2017 was negative high cholesterol Surgical History Surgery Date(Month/Year) left knee arthroscopy x2 right knee arthroscopy carpal tunnel release right hand
== END 2025-04-16 13:44 | disposition home or self-care (01) ==
LOC: HO.ENCR 13:24
PROVIDERS: PCP Internal Medicine; Visit Provider Internal Medicine Endocrinology, Diabetes & Metabolism
DX: M81.0 Age-related osteoporosis without current pathological fracture (principal); E03.9 Hypothyroidism, unspecified
CPT/HCPCS: 99213

== ENCOUNTER → 2025-04-16 13:23 | Outpatient (BNVA) | payer OTHER, SELFPAY | PROVIDERS: PCP Internal Medicine; Visit Provider Internal Medicine Endocrinology, Diabetes & Metabolism | DX: M81.0 Age-related osteoporosis without current pathological fracture (principal); E03.9 Hypothyroidism, unspecified | CPT/HCPCS: 99212 ==

== ENCOUNTER 2025-05-20 09:01 | Outpatient (REF) | payer OTHER, SELFPAY ==
--- OUTSIDE RECORDS SUMMARY | 2024-01-30 05:30 | XMS_ITS ---
Author Organization [facility] Address [address] [place] [address] Care Team Providers Care Economic Forecaster Name Role Phone Malcom ORANTES, [place] Primary Care Provider UnaRex Corral Unavailable [phone] REASON FOR VISIT screening, hx polyps Problems Problem Type SNOMED Code ICD Code Onset Dates Problem Status W/U Status Risk Notes Problem Diverticular disease of colon (800705773) Diverticulosis of large intestine without perforation or abscess without bleeding (K57.30) Active confirmed Encounters Encounter Location Date Provider Diagnosis [facility] [place] [address] [place], [place] [phone] 01/30/2024 Rex Buitrago Colon cancer scree reina [...] Treatment No Information Progress Notes * BRENDAN SOTO EDOB:1960 ( 64 yo F)Acc No.[id number]:01/30/2024 COLON WITH MAC Patient: BRENDAN JEAN Provider: Enedelia Buitrago MD :1960 A ge:63 Y S ex:Female Date:01/30/2024 Address:[address] [place] [address] Pcp:Adolph العراقي MD Subjective: * Chief Complaints: * S creening, hx polyps Assessment: * Assessment: 1. C olon cancer screening - Z12.11 (Primary) 2 . C olon polyps - K63.5? 3. D iverticulosis of large intestine without perforation or abscess without bleeding - K57.30 4 . O ther hemorrhoids - K64.8 Plan: * Procedure Codes: 4 5385 LESION REMOVAL COLONOSCOPY, Modifiers: 33 20469 COLONOSCOPY AND BIOPSY, Modifiers: 59 , 33 Billing Information: * Procedure Codes: 35931 LESION REMOVAL COLONOSCOPY. Modifiers: 33 25484 COLONOSCOPY AND BIOPSY. Modifiers: 59, 33 * The named appointment provid er may or may not be the originator of this progress note, and it is not deemed complete until electronically signed by the appointment provider. Sign off status: Pending * Provider: Enedelia Buitrago MD Date: 0 01/30/2024 Generated for Elvin alexandre/Sandro/Elinsmitting on: 1 07/21/2024 09:52 AM EST
[2025-05-20 09:16] LABS: MANUAL DIFF FLAG NO
--- OUTSIDE RECORDS SUMMARY | 2025-05-20 09:52 | XMS_ITS | Clinical Summary ---
Author Organization [facility] Address [address] [place] [address] Phone Care Team Providers Care Director Microbiology Name Role Phone Sania Gage MD Primary [...] Medical Devices Not on file Insurance ACO ACO [employer] [place] [address] [address] [place] [address] [place] [address] [place] [address] ACO * Guarantor: Ina Ewing Account Type Relation to Patient Date of Phone Billing Address Personal/Family Self 1960 [address] [place] [address] [facility] ACO Care Teams Director Microbiology Relationship Specialty Start Date End Date Sania Gage MD [address] [place] [address] PCP - General 04/08/19 Additional Source Comments The information contained in this document represents components of the legal health record. It is not the complete legal health record.[facility]
--- OUTSIDE RECORDS SUMMARY | 2025-05-20 09:52 | XMS_ITS | Patient Health Record ---
Author Organization [facility] Address [address] [place] [address] Care Team Providers Care Town Planner Name Role Phone Adolph العراقي MD Primary Care Provider Rex Caal [phone] Allergies Allergen (clinical drug ingredient) Drug/Non Drug Allergy documented on EMR Reaction Allergy Type Onset Date Status Anaprox Unknown Drug Allergy Active aspirin Aspirin Unknown Drug Allergy Active amoxicillin / clavulanate Augmentin Unknown Drug Allergy Active morphine Morphine Sulfate Unknown Drug Allergy Active Reason For Referral No Information Medications Medication SIG (Take, Route, Frequency, Duration) Notes Start Date End Date Status Linzess 145 MCG Capsule [address] 30 minutes before the first meal of the day on an empty stomach Orally Once a day; Duration: 30 day(s) 10/26/2023 Active Gabapentin 100 MG Capsule Oral; Duration: 30 Active Topiramate 100 MG Tablet TK 1 T PO QD HS Oral; Duration: 30 Active Cyanocobalamin 1000 MCG/ML Kit 1 ml Injection once a month Active Levoxyl 125 MCG Tablet 1 tablet on an em pty stomach in the morning Orally Once a day Active MiraLax (colon prep) 17 GM/SCOOP Powder Take 1/2 bottle of Miralax mixed in [...] days 10/29/2023 Active Levothyroxine Sodium 75 MCG Tablet Oral; Duration: 90 Active Dulcolax (colon prep) 5 MG Tablet Delayed Release Take 2 Tablets 2 days before the colonoscopy, and take 2 tablets at 3:00 p.m and 7:00p.m. the day before the colonoscopy Orally Two tablets once two days before the colonoscopy, and then two tablets twice a day for one day before the colonscopy; Duration: 2 days 10/29/2023 Active Tirosint 88 MCG Capsule Oral; Duration: 90 Active Nortriptyline HCl 10 MG Capsule Oral; Duration: 90 as needed Active GaviLAX 17 GM/SCOOP Powder TAKE HALF A BOTTLE (205 GRAMS) MIXED IN 1 QUART OF GATORADE AND TAKE BY MOUTH TWO DAYS BEFORE COLONOSCOPY, THEN THE DAY BEFORE TAKE 1 FULL BOTTLE MIXED WITH 64 OUNCES OF GATORADE; Duration: 30 Active MiraLax - Powder as directed Orally Once or twice a day once or twice a day Active Atorvastatin Calcium 10 MG Tablet Oral; Duration: 90 Active Immunizations Vaccine Route Administration Date Status Comme nts Influenza Unknown 03/26/2019 Refused Influenza Unknown 10/26/2023 Refused Social History Social History Additional Details Category Social Info Options Details Miscellaneous: Marital status: Occupation: unemployed Section Notes: Nonsmoker; no sig. alcohol Nonsmoker; no sig. alcohol Nonsmoker; no sig. alcohol Nonsmoker; no sig. alcohol Nonsmoker; no sig. alcohol Problems Problem Type SNOMED Code ICD Code Onset Dates Problem Status W/U Status Risk Notes Problem Screening for malignant neoplasm of colon (624165628) Encounter for screening for malignant neoplasm of colon (Z12.11) Active confirmed Problem History of adenomatous polyp of colon (268602918) History of adenomatous polyp of colon (Z86.010) Active confirmed Problem Diverticular disease of colon (251484019) Diverticulosis of large intestine without perforation or abscess without bleeding (K57.30) Active confirmed Problem Chronic constipation (651713231) Chronic constipation (K59.09) Active confirmed Plan Of Treatment Pending Test Test Name Order Date Pathology 01/30/2024 Future Test Test Name Order Date COLONOSCOPY 09/24/2012 COLONOSCOPY 05/24/2017 COLONOSCOPY 10/26/2023 Insurance Providers Payer Name Payer Address Payer Phone Subscriber Number Group Number Insured Name Patient Relationship to Insured Coverage Start Date Coverage End Date [facility] [address] [address] [place], [place] [id number] [phone] [id number] BRENDAN SOTO Self - patient is the insured Medical (General) History Medical History History ICD Code Hx of chronic constipation-- had a defecogram with colorectal surgeons at [facility] Headaches Hypothyroidism Mild stroke 2009-no residual Denies ND,DM,Lung disease,renal disease Neg. colonoscopy in 01/2004 except for in ternal hemoorhoids Colonoscopy 10/2012-small tubular adenoma EGD in 2013-Dr. Hunter--smal l HH, gastric bx neg for Hpylori and duodenal bx neg for celiac disease Colonoscopy in 07/2017 was negative high cholesterol Surgical History Surgery Date(Month/Year) left knee arthroscopy x2 right knee arthroscopy carpal tunnel release right hand
[2025-05-20 10:00] LABS: Hematocrit 40.7 % (37.0-47.0); Hemoglobin 12.6 g/dl (12.0-16.0); Imm Gran Abs Auto 0.01 X10*3/uL (0.00-0.03); Imm Gran Pct Auto 0.2 % (0.0-0.4); Lymphocytes Absolute Auto 1.9 X10*3/uL (1.2-4.9); Mean Corpuscular HGB Conc 31.0 g/dl (31.0-35.0); Mean Corpuscular Hemoglobin 25.6 pg (27.0-33.0); Mean Corpuscular Volume 82.7 fL (80.0-98.0); NRBC Abs Auto 0.000 X10*3/uL (0.0-0.012); NRBC Pct Auto 0.0 /100WBC (0.0-0.2); Platelet Count 220 X10*3/uL (160-400); Red Blood Count 4.92 X10*6/uL (4.20-5.50); White Blood Count 4.9 X10*3/uL (4.8-10.8)
[2025-05-20 10:22] LABS: Appearance Urine Cloudy; Glucose Urine UA Negative (Negative); PH 5.0 (5.0-9.0); Specific Gravity - Urine 1.020 (1.005-1.025); UMIC TRIGGER UACC YES
[2025-05-20 10:28] LABS: Alanine Aminotransferase 17 U/L (0-31); Albumin Level 4.4 g/dL (3.5-5.0); Alkaline Phosphatase 40 U/L (39-117); Anion Gap 14 (12-20); Aspartate Amino Transferase 29 U/L (5-31); Blood Urea Nitrogen 14 mg/dL (9-16); Calcium 9.3 mg/dL (8.4-10.2); Carbon Dioxide 27 mmol/L (22-29); Chloride 104 mmol/L (96-108); Cholesterol 237 mg/dL (<200); Estimated Glomerular Filt Rate > 60; HDL Cholesterol 74 mg/dL (>40); Potassium 4.7 mmol/L (3.3-5.1); Sodium 140 mmol/L (135-145); Total Protein 6.9 g/dL (6.5-8.0); Triglycerides 81 mg/dL (<150)
[2025-05-20 10:47] LABS: Free T4 (Free Thyroxine) 1.10 ng/dL (0.71-1.85); Thyroid Stimulating Hormone 0.31 uIU/mL (0.32-4.0)
[2025-05-20 10:48] LABS: UACC Culture Trigger YES
== END 2025-05-20 09:02 | disposition home or self-care (01) ==
LOC: HO.LAB 09:01
PROVIDERS: PCP Internal Medicine; Visit Provider Internal Medicine
DX: R30.0 Dysuria (principal); E78.00 Pure hypercholesterolemia, unspecified; E55.9 Vitamin D deficiency, unspecified; E03.9 Hypothyroidism, unspecified; D64.9 Anemia, unspecified
CPT/HCPCS: 36415; 80053; 80061; 81001; 81003; 82306; 84439; 84443; 85025; 87086

== ENCOUNTER 2025-05-26 13:58 | Outpatient (AMB) | payer OTHER, SELFPAY ==
--- OUTSIDE RECORDS SUMMARY | 2024-01-30 05:30 | XMS_ITS ---
Author Organization [facility] Address [address] [place] [address] Care Team Providers Care Ships Or Barges Loader Name Role Phone Malcom ORANTES, [place] Primary Care Provider UnaRex Corral Unavailable [phone] REASON FOR VISIT screening, hx polyps Problems Problem Type SNOMED Code ICD Code Onset Dates Problem Status W/U Status Risk Notes Problem Diverticular disease of colon (319403278) Diverticulosis of large intestine without perforation or abscess without bleeding (K57.30) Active confirmed Encounters Encounter Location Date Provider Diagnosis [facility] [place] [address] [place], [place] [phone] 01/30/2024 Rex Buitrago Colon cancer scree reina [...] BRENDAN SOTO EDOB:1960 ( 64 yo F)Acc No.[id number]:01/30/2024 COLON WITH MAC Patient: BRENDAN JEAN Provider: Enedelia Buitrago MD :1960 A ge:63 Y S ex:Female Date:01/30/2024 Address:[address] [place] [address] Pcp:Adolph العراقي MD Subjective: * Chief Complaints: * S creening, hx polyps Assessment: * Assessment: 1. C olon cancer screening - Z12.11 (Primary) 2 . C olon polyps - K63.5? 3. D iverticulosis of large intestine without perforation or abscess without bleeding - K57.30 4 . O ther hemorrhoids - K64.8 Plan: * Procedure Codes: 4 5385 LESION REMOVAL COLONOSCOPY, Modifiers: 33 00318 COLONOSCOPY AND BIOPSY, Modifiers: 59 , 33 Billing Information: * Procedure Codes: 24216 LESION REMOVAL COLONOSCOPY. Modifiers: 33 48253 COLONOSCOPY AND BIOPSY. Modifiers: 59, 33 * The named appointment provid er may or may not be the originator of this progress note, and it is not deemed complete until electronically signed by the appointment provider. Sign off status: Pending * Provider: Enedelia Buitrago MD Date: 0 01/30/2024 Generated for Elvin laexandre/Sandro/Elinsmitting on: 1 07/27/2024 03:14 PM EST
--- NOTE | 2025-05-26 14:24 | A.OFFPC_ITS ---
Vital Signs 05/26/25 14:26 Height 5 ft 4.61 in Weight 125 lb BMI 21.1 BP 100/64 Blood Pressure Location Lt brachial Position Sitting Pulse 69 Pulse Source Pulse Oximeter Temp 97.1 F Temp Source Temporal Artery Scan Pulse Oximetry (%) 98 Oxygen Delivery Method Room Air Intake Visit Reasons: 3 month f/u Intake Note: Patient is here to follow up on Hypercholesterolemia, Hypothyroidism. Ux Developer Required: No Unleavened Dough Mixer: Present Accompanied by: Daughter Allergies morphine Allergy (Severe, Verified 05/26/25 14:55) Unresponsive zolpidem (ZOLPIDEM) Allergy (Severe, Verified 05/26/25 14:55) SLEEPWALKING aspirin (ASPIRIN) Allergy (Intermediate, Verified 05/26/25 14:55) ITCHING/SWELLING, rash,itchy ibuprofen Allergy (Intermediate, Verified 05/26/25 14:55) Swelling trazodone (TRAZODONE) Allergy (Intermediate, Verified 05/26/25 14:55) NIGHTMARES naproxen (From Anaprox) Allergy (Mild, Verified 05/26/25 14:55) RASH acetaminophen (From PERCOCET) Allergy (Unknown, Verified 05/26/25 14:55) HIVES/NAUSEA amoxicillin (Augmentin) Allergy (Unknown, Verified 05/26/25 14:55) Unknown oxycodone (From PERCOCET) Allergy (Unknown, Verified 05/26/25 14:55) HIVES/NAUSEA butalbital Allergy (Verified 05/26/25 14:55) Rash, Itching eszopiclone (From LUNESTA) Adverse Reaction (Intermediate, Verified 05/26/25 14:55) NIGHTMARES melatonin Adverse Reaction (Intermediate, Verified 05/26/25 14:55) headaches sumatriptan Adverse Reaction (Intermediate, Verified 05/26/25 14:55) blurred vision Medication List - Last Reconciled 05/26/25 by Adolph العراقي MD ascorbic acid (vitamin C) (Vitamin C) 500 mg PO DAILY atorvastatin 10 mg PO BEDTIME 90 days cholecalciferol (vitamin D3) 50 mcg PO DAILY cyanocobalamin (vitamin B-12) 1,000 mcg IM Q4W 90 days ferrous sulfate 325 mg PO DAILY Forteo (teriparatide) 20 mcg (0.08 mL) subcut DAILY NS hydroxyzine HCl 20 mg PO BEDTIME PRN levothyroxine 88 mcg PO DAILY linaclotide (Linzess) 145 mcg PO DAILY pen needle, diabetic (Comfort EZ Pen [place]) As directed polyethylene glycol 3350 17 grams PO DAILY PRN sennosides (senna) 8.6 mg PO BEDTIME PRN topiramate 100 mg PO BEDTIME Tobacco use date assessed: 05/26/25 Fall risk assessment: 1 Fall in past year (end of february) Last assessed Fall Risk: 05/26/25 Dental Screening Dental Screen Date: 02/06/25 HPI 3 month f/u HPI Details Patient comes in today for her follow-up visit States that she feels okay She denies any headaches or dizziness Denies any chest pains, no shortness of breath No nausea/vomiting, no abdominal pain No change in bowel habits noted Needs her Vitamin D Rx refilled She had her follow-up labs done last week - to discuss her results [facility] Medical History Acute respiratory disease Cervical spondylosis Arthritis Anemia Depression Numbness Elevated cholesterol CVA (cerebral vascular accident) Thyroid disease Bilateral hand pain Arthralgia Overweight (BMI 25.0-29.9) Constipation Overactive bladder Migraine Fibromyalgia Pure hypercholesterolemia Pain of right thumb Vitamin D deficiency Hypothyroidism Hyperparathyroidism Osteoporosis B12 deficiency Surgical History Hx of arthroscopy of right knee Hx of arthroscopy of left knee Hx of colonoscopy History of esophagogastroduodenoscopy (EGD) History of carpal tunnel release Family History Father Medical history unknown Mother Medical history unknown Parkinson disease Family/Other Colon cancer Daughter History of breast cancer, Onset Age: 21 Cervical cancer Sister Uterine cancer Sister Colon cancer Social History Household Members: Children Household Members Other:: daughter Housing: House Are you a primary special needs child caregiver to a significant other at home: No Do you presently have visiting nurse or other home services: No Alcohol intake: never Patient Tobacco Use Status: Never used Tobacco e-Cigarette/Vaping Use: Never Used Second Hand Smoke Exposure: Yes service: No Current occupational status: disabled Sexual orientation: Straight/Heterosexual Gender identity: Female Cognitive needs: No Hearing needs: No Vision needs: Yes (reading glasses) Questionnaire Thrive Questionnaire Date Thrive assessed: 10/21/24 I am a: Patient What is your living situation today?: I have a steady place to live Within the past 12 months, did the food you bought not last and you didn't have the money to get more?: Never true Within the past 12 months, did you worry whether your food would run out before you got money to buy more?: Never true Do you have trouble paying for medicines?: No Do you have trouble getting transportation to medical appointments?: No Do you have trouble paying your heating and electricity bill?: Yes Do you have trouble taking care of your child, family member or friend?: No Do you have trouble with day-to-day activities such as bathing, preparing meals, shopping, managing finances, etc.?: No Are you currently unemployed and looking for a job?: No Are you interested in more education?: I choose not to answer this question Currently or been in a relationship where the following occur: I choose not to answer THRIVE Score: 1 JOSELITO-7 AMB Questionnaire JOSELITO-7 Date JOSELITO - 7 assessed: 02/06/25 Being so restless that it is hard to sit still: 1 = Several days Becoming easily annoyed or irritable: 0 = Not at all Feeling afraid as if something awful might happen: 1 = Several days Source: Developed by Drs. Rex Iniguez, Chichi Tanner, Figueroa Allen and colleagues, with an educational johnna from [employer]. Physical exam (Primary Care) Vital Signs: Last Vital Signs Temp 97.1 F 05/26/25 14:26 Pulse 69 05/26/25 14:26 BP 100/64 05/26/25 14:26 Pulse Ox 98 05/26/25 14:26 Oxygen Delivery Method Room Air 05/26/25 14:26 BMI result Body Mass Index 21.1 Tobacco/Smoking Status: Tobacco use Status Tobacco use date assessed 05/26/25 05/26/25 14:32 Patient Tobacco Use Status Never used Tobacco 05/26/25 14:32 e-Cigarette/Vaping Use Never Used 05/26/25 14:32 Thrive Assessment: Date of Thrive Assessment Date Thrive assessed 10/21/24 05/26/25 14:32 Currently or been in a relationship where the following occur: I choose not to answer Office Meds cyanocobalamin (vitamin B-12) 1,000 mcg/mL injection solution Performing Provider: Adolph العراقي MD Performing Location: [facility] [place] [facility] Administered by: Carmenza Gupta LPN on 05/26/25 14:38 Dose Route Admin Location Dispensed Lot Number Expiration Date [facility] Water Pollution Control Technician 1,000 mcg IM left deltoid 1 mL [id number] 04/03/26 [id number] SO [employer] Total Dispensed Waste 1 mL 0 % Results Reviewed Results Reviewed: Laboratory Tests 05/20/25 05/20/25 09:11 09:15 WBC 4.9 Hgb 12.6 Hct 40.7 Plt Count 220 Sodium 140 Potassium 4.7 Creatinine 0.77 Estimated GFR > 60 Fasting Glucose 94 Calcium 9.3 AST 29 ALT 17 Triglycerides 81 Cholesterol 237 H LDL Cholesterol, Calc 147 H HDL Cholesterol 74 25-OH Vitamin D Total 56.9 TSH 0.31 L Free T4 1.10 Ur Specific [place] 1.020 Urine Protein Negative Urine Glucose (UA) Negative Urine Blood Negative Urine Nitrite Negative Ur Leukocyte Esterase Small (1+) H Coding Diagnoses B12 deficiency E53.8 Assessment & Plan Assessment & Plan (1) B12 deficiency: Code(s): E53.8 - Deficiency of other specified B group vitamins Category: Medical Orders: Orders Thyroid Stimulating Hormone 3 Months E03.9 - Hypothyroidism, unspecified Complete Blood Count Auto Diff 3 Months D64.9 - Anemia, unspecified Lipid Panel 3 Months E78.00 - Pure hypercholesterolemia, unspecified AMB Vitamin B12 Injection Patient Supplied Today E53.8 - Deficiency of other specified B group vitamins Free T4 (Free Thyroxine) 3 Months E03.9 - Hypothyroidism, unspecified Comprehensive [place]. Panel Fast 3 Months E78.00 - Pure hypercholesterolemia, unspecified Referrals Psychiatry Referral F41.9 - Anxiety disorder, unspecified, F43.10 - Post-traumatic stress disorder, unspecified, G47.00 - Insomnia, unspecified Medications: New prazosin 1 mg PO BEDTIME 30 caps 2RF nightmares 30 days mirtazapine 7.5 mg PO BEDTIME 30 tabs 2RF 30 days F41.9 - Anxiety disorder, unspecified, F43.10 - Post-traumatic stress disorder, unspecified Refilled cholecalciferol (vitamin D3) 50 mcg PO DAILY 90 caps 1RF
[2025-05-26 14:26] VITALS: BP 100/64; PULSE 69; TEMP 36.2; O2SAT 98; BMI 21.1
--- OUTSIDE RECORDS SUMMARY | 2025-05-26 15:15 | XMS_ITS | Patient Health Record ---
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 Name Role Phone Adolph العراقي MD Primary Care Provider Rex Caal [phone] Allergies Allergen (clinical drug ingredient) Drug/Non Drug [...] Problem Screening for malignant neoplasm of colon (759070502) Encounter for screening for malignant neoplasm of colon (Z12.11) Active confirmed Problem History of adenomatous polyp of colon (488806639) History of adenomatous polyp of colon (Z86.010) Active confirmed Problem Diverticular disease of colon (690984576) Diverticulosis of large intestine without perforation or abscess without bleeding (K57.30) Active confirmed Problem Chronic constipation (314239385) Chronic constipation (K59.09) Active confirmed Plan Of Treatment Pending Test Test Name Order Date Pathology 01/30/2024 Future Test Test Name Order Date COLONOSCOPY 09/24/2012 COLONOSCOPY 05/24/2017 COLONOSCOPY 10/26/2023 Insurance Providers Payer Name Payer Address Payer Phone Subscriber Number Group Number Insured Name Patient Relationship to Insured Coverage Start Date Coverage End Date [facility] [address] [address] [place], [place] [id number] [phone] [id number] BRENDAN SOTO Self - patient is the insured Medical (General) History Medical History History ICD Code Hx of chronic constipation-- had a defecogram with colorectal surgeons at [facility] Headaches Hypothyroidism Mild stroke 2009-no residual Denies [...]
--- OUTSIDE RECORDS SUMMARY | 2025-05-26 15:15 | XMS_ITS | Clinical Summary ---
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 Hardware Worker Name Role Phone Sania Gage MD Primary [...] file Insurance ACO A[employer] [place] [address] [place] [address] [place] [address] [place] [address] ACO * Guarantor: Ina Ewing Account Type Relation to Patient Date of Phone Billing Address Personal/Family Self 1960 [id number] [place] [address] [facility] Care Teams Drawer Hardware Worker Relationship Specialty Start Date End Date Sania Gage MD [address] [place] [address] PCP - General 04/08/19 Additional Source Comments The information contained in this document represents components of the legal health record. It is not the complete legal health record.[facility]
== END 2025-05-26 15:23 | disposition home or self-care (01) ==
LOC: HO.HMCH 13:59
PROVIDERS: PCP Internal Medicine; Visit Provider Internal Medicine
DX: E53.8 Deficiency of other specified B group vitamins (principal)

== ENCOUNTER → 2025-05-26 13:58 | Outpatient (BNVA) | payer OTHER, SELFPAY | PROVIDERS: PCP Internal Medicine; Visit Provider Internal Medicine | DX: M79.7 Fibromyalgia (principal); E78.00 Pure hypercholesterolemia, unspecified; G43.909 Migraine, unspecified, not intractable, without status migrainosus; E03.9 Hypothyroidism, unspecified; D50.9 Iron deficiency anemia, unspecified; M47.812 Spondylosis without myelopathy or radiculopathy, cervical region; E53.8 Deficiency of other specified B group vitamins; E55.9 Vitamin D deficiency, unspecified; K59.00 Constipation, unspecified; N32.81 Overactive bladder; G47.00 Insomnia, unspecified | CPT/HCPCS: 96372; 99212; J3420 ==